=== PATIENT | female | born 1935 | race Caucasian/White ===

== ENCOUNTER 2019-08-14 22:33 | Observation (INO) | payer OTHER ==
[~2019-08-14] VITALS: Ht 200.7 cm; Wt 67.6 kg
[~2019-08-14 22:33] MED LIST: AMITRIPTYLINE H25 MG PO; AMLODIPINE BESY10 MG PO; DIOVAN320 MG PO; LEVEMIR100 UNIT/1 SQ; METOPROLOL TART50 MG PO
--- OUTSIDE RECORDS SUMMARY | 2019-08-14 22:35 | XMS REPORT ---
Author Author [facility] Address Unknown Phone Unavailable Care Team Providers Care Paper Cleaner Name Role Phone Unavailable Unavailable Payers Payer Name Policy Type Policy Number Effective Date Expiration Date Problems This patient has no known problems. Allergies, Adverse Reactions, Alerts This patient has no known allergies or adverse reactions. Medications This patient has no known medications.
[2019-08-14 23:17] LABS: BASOPHILS % 0.3 % (0.0-1.0); EOSINOPHILS # (AUTO) 0.2 (0.0-0.4); EOSINOPHILS % 2.6 % (0.0-6.0); HEMATOCRIT 36.6 % (34.2-44.1); HEMOGLOBIN 11.7 g/dL (12.0-16.0); LYMPHOCYTES # (AUTO) 2.6 (1.0-3.2); LYMPHOCYTES % 29.4 % (18.0-39.1); MEAN CORPUSCULAR HEMOGLOBIN 30.2 pg (28-32); MEAN CORPUSCULAR VOLUME 94.3 fL (81-99); MONOCYTES # (AUTO) 0.5 (0.2-0.8); MONOCYTES % 5.6 % (4.4-11.3); NEUTROPHILS # (AUTO) 5.5 (2.1-6.9); NEUTROPHILS % 61.9 % (38.7-80.0); PLATELET COUNT 288 x10e3/uL (140-360); RED BLOOD COUNT 3.88 x10e6/uL (3.6-5.1); RED CELL DISTRIBUTION WIDTH 12.6 % (11.7-14.4)
[2019-08-14 23:27] LABS: ALBUMIN 3.4 g/dL (3.5-5.0); ALBUMIN/GLOBULIN RATIO 0.9 (0.8-2.0); ANION GAP 16.3 mmol/L (8-16); CALCIUM 9.2 mg/dL (8.4-10.2); CREATININE, SERUM 1.43 mg/dL (0.57-1.11); POTASSIUM 4.3 mmol/L (3.5-5.1)
[2019-08-14 23:37] LABS: CREATINE KINASE MB 1.3 ng/mL (0-5.0)
--- NOTE | 2019-08-14 23:47 | Diagnostic Imaging Report ---
EXAMINATION: CHEST 2 VIEWS INDICATION: Chest pain, short of breath COMPARISON: None FINDINGS: TUBES and LINES: None. LUNGS: Hyperinflated lungs with flattened hemidiaphragms. Prominent pulmonary interstitial lung markings with mid to upper lung lucencies No consolidations. Mild prominence of central pulmonary vasculature. PLEURA: No pleural effusion or pneumothorax. HEART AND MEDIASTINUM: The cardiomediastinal silhouette is unremarkable. There are atherosclerotic calcifications within the aorta. BONES AND SOFT TISSUES: Degenerative changes in the spine and shoulders. Soft tissues are unremarkable. UPPER ABDOMEN: No free air under the diaphragm. IMPRESSION: Findings of pulmonary emphysema. Mild pulmonary vascular congestion. Signed by: Bryan Huizar DO on 08/14/2019 11:44 PM
[2019-08-15 06:26] LABS: CREATINE KINASE MB 3.2 ng/mL (0-5.0)
[2019-08-15 06:44] LABS: CHOL/HDL RATIO 4.6 (3.0-3.6)
[2019-08-15] MEDS ORDERED: INSULIN REGULAR, HUMAN 100 UNIT/1 ML 3ML VIAL IV ONE (06:45)
[2019-08-15] MEDS ORDERED: DEXTROSE 50% SYRINGE 50 ML IV PRN (07:00)
[2019-08-15] MEDS: INSULIN REGULAR, HUMAN 100 UNIT/1 ML 3ML VIAL SQ SCH ×4 (07:11→21:00)
[2019-08-15 14:07] VITALS: BP 168/74
[2019-08-15] MEDS ORDERED: REGADENOSON 0.4 MG/5 ML SYR IV ONE (14:34)
[2019-08-15 14:44] VITALS: BP 169/77
--- NOTE | 2019-08-15 15:27 | NUR ---
Pt received to room from ER at this time. Pt is aox4 and able to verbalize needs. Pt denies any pain at this time. Pt will be going for stress test in 10 mins. Denies any chest pain and denies any SOB.
[2019-08-15] MEDS ORDERED: HYDRALAZINE HCL 10 MG TAB PO ONE (15:30)
--- NOTE | 2019-08-15 15:30 | NUR ---
Pt came to floor at 1407 from ER and went to nuclear meds at 1500 for procedure.
[2019-08-15 15:34] LABS: CREATINE KINASE MB 3.5 ng/mL (0-5.0)
[2019-08-15] MEDS ORDERED: HYDRALAZINE HCL 20 MG/ML VIAL IV PRN (15:45)
--- NOTE | 2019-08-15 15:53 | Consultation ---
DATE OF CONSULTATION: 08/15/2019 Cardiology Consult. HISTORY OF PRESENT ILLNESS: The patient, Freda Ruvalcaba, is an 83-year-old female with a primary history of hypertension, diabetes, hypothyroidism, anxiety, previous smoker, who admitted complaining of intermittent central chest pain, radiating to the shoulders, and the jaw. The chest pain started approximately a month ago and the longest she experienced was an hour. The last time she had chest pain was yesterday twice with the same in quality and intensity and related with activities. The patient also reports shortness of breath and palpitations, but denies nausea and vomiting. MEDICAL HISTORY: Hypertension, diabetes, hypothyroidism, and anxiety. SURGICAL HISTORY: Appendectomy and back surgeries x3. MEDICATIONS: She said she only takes insulin for her diabetes and thyroid pill levothyroxine. SOCIAL HISTORY: The patient quit smoking three years ago. FAMILY HISTORY: Mom and dad of cancer. PHYSICAL EXAMINATION: VITAL SIGNS: This morning, blood pressure 179/79, pulse of 70, respiratory rate of 20, and pulse ox of 100% on 3 L nasal cannula. GENERAL APPEARANCE: The patient is well developed and well nourished, in no acute distress. HEAD: Normocephalic and atraumatic. Eyes, pupils are equal, round, reactive to light and accommodation. Sclerae nonicteric. Ears and nose normal. Oral cavity, mucosa is moist. Throat has small amount of yellow phlegm or discharge. NECK/THYROID: Neck supple. Full range of motion. No cervical lymphadenopathy. SKIN: Warm and dry. No suspicious lesions. CARDIOVASCULAR: Regular rate and rhythm. S1, S2 audible. There is 2/6 diastolic murmur. LUNGS: Clear to auscultation bilaterally. ABDOMEN: Soft, nontender, and nondistended. Bowel sounds are present and normal. EXTREMITIES: No clubbing, no cyanosis or edema. NEUROLOGIC: Nonfocal. Motor strength normal to upper and lower extremities. Sensorium exam is intact. IMPRESSION AND PLAN: The patient is an 83-year-old with stable angina and borderline troponin. 1. Monitor on telemetry. Control blood pressure. 2. Echocardiogram. 3. Nuclear stress testing. 4. Further recommendations will follow according to the patient's clinical course. Thank you for this consultation. We will continue to follow. Dictated by Asya Donnelly NP MD BETITO Torres/TERI /[id number]
[2019-08-15] MEDS ORDERED: ISOSORBIDE MONONITRATE 20 MG TAB PO SCH (16:00)
[2019-08-15 16:31] VITALS: BP 168/74
[2019-08-15] MEDS: AMLODIPINE BESYLATE 10 MG TAB PO SCH (17:23)
[2019-08-15] MEDS ORDERED: ACETAMINOPHEN 325 MG TAB PO PRN (17:30)
--- NOTE | 2019-08-15 18:42 | NUR ---
Dr. Sorensen here to see pt and received orders for heart cath on Tuesday08/17/19.
--- NOTE | 2019-08-15 19:42 | NUR ---
Received change of shift report from AM nurse. Walking rounds completed.
[2019-08-15] MEDS ORDERED: ALBUTEROL/IPRATROPIUM 3 ML NEB NEB PRN (19:45)
[2019-08-15] MEDS: METOPROLOL TARTRATE 25 MG TAB PO SCH (19:45)
[2019-08-15] MEDS: SODIUM CHLORIDE 0.9% 1000ML 1,000 ML IV SCH (19:45)
[2019-08-15 20:00] VITALS: BP 117/55
[2019-08-15] MEDS ORDERED: NICARDIPINE HCL 20 MG PO SCH (21:00)
[2019-08-15] MEDS: BENZONATATE 100 MG CAP PO SCH (21:00)
[2019-08-15] MEDS: INSULIN GLARGINE 100 UNITS/ML VIAL SQ SCH (21:00)
[2019-08-15] MEDS ORDERED: HYDRALAZINE HCL 10 MG TAB PO SCH (22:00)
[2019-08-16] VITALS (8 sets, daily range): BP systolic 125–165; BP diastolic 58–69
--- NOTE | 2019-08-16 00:55 | Operative Report ---
DATE OF PROCEDURE: SURGEON: Evan Sorensen MD PROCEDURE: Lexiscan nuclear stress test. INDICATION: Chest pain. COMPLICATIONS: None. TECHNIQUE: The patient was given 11 mCi of Myoview. Resting images were obtained in the horizontal long axis, vertical long axis, and short axis. The patient was then hooked up to the EKG machine. Lexiscan was infused over 15 seconds. During Lexiscan infusion, the patient had no chest pain and no EKG changes. Immediately after Lexiscan infusion, the patient was given 33 mCi of Myoview. Stress images were obtained 30 minutes after completion of Lexiscan infusion. Stress images were obtained in the horizontal long axis, vertical long axis, and short axis. Results are as follows: 1. The resting EKG demonstrated normal sinus rhythm with a left bundle-branch block. 2. There were no EKG changes and no symptoms during Lexiscan infusion. 3. There was diminished perfusion to the posterior wall on the stress images. 4. There was normal left ventricular size and function with an ejection fraction of 53%. CONCLUSION: There was a reversible defect in the posterior wall concerning for ischemia. Evan Sorensen MD [facility]/MODL /[id number]
[2019-08-16] MEDS: ALBUTEROL/IPRATROPIUM 3 ML NEB NEB SCH ×4 (01:00→19:30)
--- NOTE | 2019-08-16 05:00 | NUR ---
Patient resting in bed with at bedside. Patient denies pain at this time.
[2019-08-16] MEDS: ISOSORBIDE MONONITRATE 30 MG TAB CR PO SCH ×2 (05:29→09:05)
[2019-08-16 06:19] LABS: ANION GAP 9.9 mmol/L (8-16); CALCIUM 9.4 mg/dL (8.4-10.2); CREATININE, SERUM 0.92 mg/dL (0.57-1.11); POTASSIUM 3.9 mmol/L (3.5-5.1)
--- NOTE | 2019-08-16 07:30 | NUR ---
PT UP IN BED RESTING NO S/S DISCOMFORT.
[2019-08-16] MEDS: INSULIN REGULAR, HUMAN 100 UNIT/1 ML 3ML VIAL SQ SCH ×4 (08:30→20:39)
[2019-08-16] MEDS ORDERED: AMLODIPINE BESYLATE 10 MG TAB PO SCH (09:00)
--- NOTE | 2019-08-16 09:00 | NUR ---
ECHO IN PROCESS,PT DENIES CHEST PAIN,DR CARDONA HERE
[2019-08-16] MEDS: METOPROLOL TARTRATE 25 MG TAB PO SCH ×2 (09:06→17:00)
[2019-08-16] MEDS: AMLODIPINE BESYLATE 10 MG TAB PO SCH (09:06)
[2019-08-16] MEDS: BENZONATATE 100 MG CAP PO SCH ×3 (09:07→20:38)
[2019-08-16] MEDS: SODIUM CHLORIDE 0.9% 1000ML 1,000 ML IV SCH ×2 (09:30→18:36)
--- NOTE | 2019-08-16 14:09 | NUR ---
PT IS OBS DAY 2. GATED STRESS TEST 08/15/2019. SCHEDULED HEART CATH 08/17/2019. SENT TO R1 FOR LOC DETERMINATION.
--- NOTE | 2019-08-16 15:39 | NUR ---
R1 DETERMINATION: [facility]CTX case account ending in 2422 has been reviewed and completed by PAS Physicians. Service Line: Level of Care (LOC) / Admission Status Review Initial patient type was submitted as: IO - Initial Observation PAS Recommendation: OU
--- NOTE | 2019-08-16 16:08 | NUR ---
Nutrition Screen Note RD Recommendation for Physician: -Recommend cardiac/diabetic diet Plan of Care: RD following, monitoring for tolerance and adequacy Nutrition reason for involvement: Nutrition Risk Score MST 4 Primary Diagnose(s): chest pain PMH: HTN, diabetes, hypothyroid, anxiety Ht: 66 in (per pt) Wt:149 lb BMI: 24 kg/m2 IBW:[address] Assessment: (08/15) Chart reviewed. Labs and meds reviewed. Pt is an 83 year old female admitted with chest pain. Pt reports she has been eating all of her meals. It is recorded that pt consumed 75% of her dinner meal yesterday. Pt was unsure of any recent weight changes. No N/V/D/C or chewing/swallowing issues. Will continue to monitor. Current Diet: cardiac diet Malnutrition Evaluation (08/16/19) The patient does not meet criteria for a specified degree of malnutrition at this time. Will re-evaluate at follow-up as appropriate. Diet Education Needs Assessment: Pt was not interested in diet education materials at time of visit. RD is available for diet education as needed. Nutrition Care Level: low Signed: Shreya Cole, RD, LD
--- NOTE | 2019-08-16 18:36 | NUR ---
PRT UP IN BED NO DISTRESS NTOED,DENIES CHEST PAIN,
--- NOTE | 2019-08-16 20:00 | NUR ---
Received change of shift report from AM nurse. Walking rounds completed
[2019-08-16] MEDS: INSULIN GLARGINE 100 UNITS/ML VIAL SQ SCH (20:39)
--- NOTE | 2019-08-16 21:50 | NUR ---
Patient received night meds and insulin for BS 293 SS and lantus to left upper arm. Patient tolerated well. Patient refused snack. at bedside. Continue monitor.
--- NOTE | 2019-08-16 22:06 | NUR ---
Report given to Mary Beth WALLS. Patient going to room 113.
--- NOTE | 2019-08-16 22:15 | NUR ---
PT ARRIVED TO ROOM 113 ON HOSPITAL BED. PT IS AAOX3, RR EVEN AND NON-LABORED, ON ROOM AIR. NO S/SX OF DISTRESS NOTED. ORIENTED PT TO NEW HOSPITAL ROOM. FAMILY AT BEDSIDE. LEFT PT LAYING SEMI FOWLERS IN BED, BED IN LOW LOCKED POSITION, SIDE RAILS UPX2, CALL LIGHT AND PHONE WITHIN REACH.
[2019-08-17] MEDS: ALBUTEROL/IPRATROPIUM 3 ML NEB NEB SCH ×3 (01:00→13:15)
[2019-08-17] MEDS: SODIUM CHLORIDE 0.9% 1000ML 1,000 ML IV SCH ×2 (01:45→13:56)
[2019-08-17 02:25] VITALS: BP 145/56
[2019-08-17 04:00] VITALS: BP 167/65
[2019-08-17] MEDS: INSULIN REGULAR, HUMAN 100 UNIT/1 ML 3ML VIAL SQ SCH ×2 (07:30→11:30)
--- NOTE | 2019-08-17 08:10 | NUR ---
C/O CHEST PAIN. MAIL CARRIER HERE AND SAW PATIENT. ORDERED STAT EKG AND NITRO SL. SAME GIVEN WITH GOOD RESULTS. BP 187/84.
[2019-08-17 08:13] VITALS: BP 167/65
[2019-08-17 08:16] VITALS: BP 183/78
[2019-08-17] MEDS ORDERED: NITROGLYCERIN 0.4 MG SUBL ONE (08:16)
[2019-08-17] MEDS: ISOSORBIDE MONONITRATE 30 MG TAB CR PO SCH (09:00)
[2019-08-17] MEDS: METOPROLOL TARTRATE 25 MG TAB PO SCH (09:00)
[2019-08-17] MEDS: BENZONATATE 100 MG CAP PO SCH (09:00)
[2019-08-17] MEDS: AMLODIPINE BESYLATE 10 MG TAB PO SCH (09:00)
--- NOTE | 2019-08-17 10:00 | NUR ---
C/O CHEST PAIN. BP 202/81. MEDICATED WITH NITRO SL X1. AFTER 5 MINUTES CHEST PAIN RESOLVED, BP 161/80
[2019-08-17 10:01] LABS: CREATINE KINASE MB 0.9 ng/mL (0-5.0)
--- NOTE | 2019-08-17 10:15 | NUR ---
PT C/O HEADACHE. MD OFFICE CALLED, MD AND NURSE IN PROCEDURE, WILL CALL ME BACK PER OFFICE STAFF
--- NOTE | 2019-08-17 10:57 | NUR ---
bp 218/83. iv Apresoline administered
--- NOTE | 2019-08-17 11:16 | NUR ---
RECALLED DR. SALCEDO OFFICE. THEY WILL PAGE /ERASMO MARCIAL AGAIN FOR ORDERS. PATIENT IS C/O HEADACHE
[2019-08-17] MEDS ORDERED: MIDAZOLAM HCL 2 MG/2 ML VIAL ONE (11:34)
[2019-08-17] MEDS ORDERED: LIDOCAINE HCL 2% LOCAL 20 ML VIAL ONE (11:35)
[2019-08-17] MEDS ORDERED: IOPAMIDOL 370 MG/ML 200 ML INFUS..BTL INJ ONE (11:35)
[2019-08-17] MEDS ORDERED: FENTANYL CITRATE/PF 100MCG/2 ML INJ ONE (11:35)
[2019-08-17] MEDS ORDERED: HEPARIN SOD/SOD CHLORIDE 2,000 ML ONE (11:35)
[2019-08-17] MEDS ORDERED: SODIUM CHLORIDE 0.9% 1000ML 1,000 ML ONE (11:36)
[2019-08-17 11:46] VITALS: BP 218/86
[2019-08-17] MEDS ORDERED: DIPHENHYDRAMINE HCL INJ 50 MG/ML VIAL IV NR (12:00)
[2019-08-17] MEDS ORDERED: METHYLPREDNISOLONE SOD SUCC 125 MG/2ML VIAL IV NR (12:00)
[2019-08-17] MEDS ORDERED: LABETALOL HCL 20 ML ONE (12:08)
[2019-08-17 12:50] VITALS: BP 140/65
--- NOTE | 2019-08-17 20:05 | Operative Report ---
DATE OF PROCEDURE: 08/17/2019 SURGEON: Evan Sorensen MD PREOPERATIVE DIAGNOSIS: Non-ST elevation myocardial infarction. POSTOPERATIVE DIAGNOSIS: Non-ST elevation myocardial infarction. PROCEDURE: Left heart catheterization. COMPLICATIONS: None. ANESTHESIA: Conscious sedation. DESCRIPTION OF PROCEDURE: The right groin was draped and prepped in the usual fashion. The area was anesthetized with lidocaine. Standard Seldinger technique was used to place a 6-Swedish sheath into the right femoral artery without difficulty. A JL4 catheter was used to selectively engage the left coronary artery. A 3DRC catheter was used to selectively engage the right coronary artery. A pigtail catheter was used to perform a left ventriculogram. There were no complications. RESULTS: As follows: 1. There is a normal left main trunk. 2. There is a calcified left anterior descending artery, which gave rise to a medium-sized diagonal branch. There was 95% stenosis in the proximal portion of the left anterior descending artery and a long area of cylindrical line up to 80% in the mid left anterior descending artery. 3. There was a medium-sized AV circumflex artery, which was codominant and gave rise to a large bifurcating obtuse marginal branch. There was 95% stenosis in the proximal AV circumflex artery, and about 90% stenosis in the proximal obtuse marginal branch. 4. There was a medium-sized codominant right coronary artery with 100% occlusion proximally at its very origin. The distal vessel filled by collaterals. 5. There was normal left ventricular size and function with an ejection fraction of 55%. CONCLUSION: The patient has severe three-vessel coronary artery disease. It is not amenable to coronary intervention. The patient will be referred for evaluation for coronary artery bypass graft. Evan Sorensen MD [facility] /[id number] cc: Haroon Dillard MD
--- NOTE | 2019-08-21 15:17 | EXERCISE STRESS TEST ---
DATE OF STUDY: 08/15/2019 09:10:00 Stress Test - Treadmill ONLY PROCEDURE: Lexiscan nuclear stress test. INDICATION: Chest pain. COMPLICATIONS: None. TECHNIQUE: The patient was given 11 mCi of Myoview. Resting images were obtained in the horizontal long axis, vertical long axis, and short axis. The patient was then hooked up to the EKG machine. Lexiscan was infused over 15 seconds. During Lexiscan infusion, the patient had no chest pain and no EKG changes. Immediately after Lexiscan infusion, the patient was given 33 mCi of Myoview. Stress images were obtained 30 minutes after completion of Lexiscan infusion. Stress images were obtained in the horizontal long axis, vertical long axis, and short axis. Results are as follows: 1. The resting EKG demonstrated normal sinus rhythm with a left bundle-branch block. 2. There were no EKG changes and no symptoms during Lexiscan infusion. 3. There was diminished perfusion to the posterior wall on the stress images. 4. There was normal left ventricular size and function with an ejection fraction of 53%. CONCLUSION: There was a reversible defect in the posterior wall concerning for ischemia. Evan Sorensen MD [facility]/MODL /[id number]
== END 2019-08-17 15:03 | disposition short-term general hospital (02) ==
LOC: ER 22:33 → ERHOLD 23:58 → MED/SURG3 08-15 14:19 → MED/SURG 08-16 22:27
PROVIDERS: ADMIT Internal Medicine; ATTEND Internal Medicine
DX: I21.4 Non-ST elevation (NSTEMI) myocardial infarction (principal); I25.10 Atherosclerotic heart disease of native coronary artery without angina pectoris; E11.9 Type 2 diabetes mellitus without complications; E03.9 Hypothyroidism, unspecified; F41.9 Anxiety disorder, unspecified; Z88.0 Allergy status to penicillin; Z91.041 Radiographic dye allergy status; I10 Essential (primary) hypertension; E78.5 Hyperlipidemia, unspecified; J44.9 Chronic obstructive pulmonary disease, unspecified; Z87.891 Personal history of nicotine dependence; Z79.4 Long term (current) use of insulin
CPT/HCPCS: 36415 ×3; 71046; 78452; 80048; 80053; 80061; 82550 ×3; 82553 ×3; 82948 ×3; 83036; 84443; 84484 ×3; 85025; 93005 ×2; 93017; 93306; 93458; 94640 ×2; 99284; A9502; C1769; G0378 ×4; J0360; J1200; J1815; J1817; J2001; J2250; J2785; J2930; J3010; J3490; J7030 ×3; Q9967; 99152; 99153

== ENCOUNTER 2020-01-21 20:39 | Observation (INO) | payer MEDICARE, OTHER ==
[~2020-01-21] VITALS: Ht 170.2 cm; Wt 78.9 kg
[2020-01-21] MEDS ORDERED: CEFEPIME 1GM/NS 0.9% 50 ML 50 ML IV STA (21:04)
[2020-01-21] MEDS ORDERED: AZITHROMYCIN 500MG/NS 250 ML 250 ML IV STA (21:04)
[2020-01-21] MEDS ORDERED: SODIUM CHLORIDE 0.9% 1000ML 1,000 ML IV STA ×2 (21:04)
[2020-01-21 21:06] LABS: BASOPHILS # (AUTO) 0.1 (0.0-0.1); BASOPHILS % 0.5 % (0.0-1.0); EOSINOPHILS # (AUTO) 0.8 (0.0-0.4); EOSINOPHILS % 8.1 % (0.0-6.0); HEMATOCRIT 31.6 % (34.2-44.1); LYMPHOCYTES # (AUTO) 2.5 (1.0-3.2); LYMPHOCYTES % 25.1 % (18.0-39.1); MEAN CORPUSCULAR HEMOGLOBIN 29.9 pg (28-32); MEAN CORPUSCULAR HGB CONC 31.6 g/dL (31-35); MEAN CORPUSCULAR VOLUME 94.3 fL (81-99); MONOCYTES # (AUTO) 0.7 (0.2-0.8); MONOCYTES % 6.9 % (4.4-11.3); NEUTROPHILS # (AUTO) 5.8 (2.1-6.9); NEUTROPHILS % 59.1 % (38.7-80.0); PLATELET COUNT 241 x10e3/uL (140-360); RED BLOOD COUNT 3.35 x10e6/uL (3.6-5.1); RED CELL DISTRIBUTION WIDTH 14.2 % (11.7-14.4)
[2020-01-21 21:20] LABS: ALBUMIN 3.1 g/dL (3.5-5.0); ALBUMIN/GLOBULIN RATIO 0.9 (0.8-2.0); ANION GAP 12.3 mmol/L (8-16); CALCIUM 8.9 mg/dL (8.4-10.2); CREATININE, SERUM 1.29 mg/dL (0.57-1.11); POTASSIUM 4.3 mmol/L (3.5-5.1)
[2020-01-21 21:27] LABS: CREATINE KINASE MB 1.6 ng/mL (0-5.0)
[2020-01-21] MEDS ORDERED: LEVOFLOXACIN 750MG/D5W 150ML 150 ML IV STA (21:29)
--- NOTE | 2020-01-21 22:00 | NUR ---
PT PLACED ON PUREWICK AT THIS TIME, DOES NOT WANT CATH FOR UA.
--- NOTE | 2020-01-21 22:31 | Emergency Department Note ---
History of Present Illnes History of Present Illness Chief Complaint: General Medicine Complaints History of Present Illness This is a 84 year old female arrived to the ED at family's insistence for low blood pressure.. Historian: Patient Arrival Mode: [place] Severity: mild Timing of current episode: intermittent Progression: unchanged Chronicity: new Past Medical/Family History Physician Review I have reviewed the patient's past medical and family history. Any updates have been documented here. Past Medical History Recent Fever: No Clinical Suspicion of Infectio: No New/Unexplained Change in Ment: No Past Medical History: Hypertension, Diabetes, MT, Hypothyroidism, Anxiety Other Medical History: ANXIETY Past Surgical History: None Other Surgery: BACK SURGERIES X 3 CARDIAC STENTS Social History Smoking Cessation: Former smoker Alcohol Use: Occasional Any Illegal Drug Use: No Other Last Tetanus: 3-4 YEARS AGO Any Pre-Existing Lines (PICC,: No Review of Systems Review of Systems Constitutional: Reports as per HPI, Reports fever, Reports weakness EENTM: Reports no symptoms Cardiovascular: Reports no symptoms Respiratory: Reports no symptoms Gastrointestinal: Reports no symptoms Genitourinary: Reports no symptoms Musculoskeletal: Reports no symptoms Integumentary: Reports no symptoms Neurological: Reports no symptoms Psychological: Reports no symptoms Endocrine: Reports no symptoms Hematological/Lymphatic: Reports no symptoms Physical Exam Related Data Allergies: Coded Allergies: Penicillins (Verified Allergy, Mild, 06/15/09) iodine (Verified Allergy, Mild, 06/15/09) Triage Vital Signs Vital Signs Date Time Temp Pulse Resp B/P (MAP) Pulse Ox O2 Delivery O2 Flow Rate FiO2 01/21/20 20:47 97.3 56 20 91/51 94 Room Air 01/21/20 21:16 2.0 Vital signs reviewed: Yes Physical Exam CONSTITUTIONAL Constitutional: Present well-developed, Present well-nourished HENT HENT: Present normocephalic, Present atraumatic, Present oropharynx clear/moist, Present nose normal HENT L/R: Present left ext ear normal, Present right ext ear normal EYES Eyes: Reports PERRL, Reports conjunctivae normal NECK Neck: Present ROM normal PULMONARY Pulmonary: Present effort normal, Present breath sounds normal CARDIOVASCULAR Cardiovascular: Present regular rhythm, Present heart sounds normal, Present capillary refill normal, Present normal rate GASTROINTESTINAL Abdominal: Present soft, Present nontender, Present bowel sounds normal GENITOURINARY Genitourinary: Present exam deferred SKIN Skin: Present warm, Present dry MUSCULOSKELETAL Musculoskeletal: Present ROM normal NEUROLOGICAL Neurological: Present alert, Present oriented x 3, Present no gross motor or sensory deficits PSYCHOLOGICAL Psychological: Present mood/affect normal, Present judgement normal Results Laboratory Result Diagram: 01/21/20204701/21/202047 Laboratory Laboratory Tests Test 01/21/20 20:48 White Blood Count 9.79 x10e3/uL (4.8-10.8) Red Blood Count 3.35 x10e6/uL (3.6-5.1) Hemoglobin 10.0 g/dL (12.0-16.0) Hematocrit 31.6 % (34.2-44.1) Mean Corpuscular Volume 94.3 fL (81-99) Mean Corpuscular Hemoglobin 29.9 pg (28-32) Mean Corpuscular Hemoglobin Concent 31.6 g/dL (31-35) Red Cell Distribution Width 14.2 % (11.7-14.4) Platelet Count 241 x10e3/uL (140-360) Neutrophils (%) (Auto) 59.1 % (38.7-80.0) Lymphocytes (%) (Auto) 25.1 % (18.0-39.1) Monocytes (%) (Auto) 6.9 % (4.4-11.3) Eosinophils (%) (Auto) 8.1 % (0.0-6.0) Basophils (%) (Auto) 0.5 % (0.0-1.0) Neutrophils # (Auto) 5.8 (2.1-6.9) Lymphocytes # (Auto) 2.5 (1.0-3.2) Monocytes # (Auto) 0.7 (0.2-0.8) Eosinophils # (Auto) 0.8 (0.0-0.4) Basophils # (Auto) 0.1 (0.0-0.1) Absolute Immature Granulocyte (auto 0.03 x10e3/uL (0-0.1) Sodium Level 135 mmol/L (136-145) Potassium Level 4.3 mmol/L (3.5-5.1) Chloride Level 103 mmol/L (98-107) Carbon Dioxide Level 24 mmol/L (22-29) Anion Gap 12.3 mmol/L (8-16) Blood Urea Nitrogen 16 mg/dL (7-26) Creatinine 1.29 mg/dL (0.57-1.11) Estimat Glomerular Filtration Rate 39 ML/MIN (60-) BUN/Creatinine Ratio 12 (6-25) Glucose Level 170 mg/dL (74-118) Lactic Acid Level 1.5 mmol/L (0.5-2.0) Calcium Level 8.9 mg/dL (8.4-10.2) Total Bilirubin 0.3 mg/dL (0.2-1.2) Aspartate Amino Transf (AST/SGOT) 41 IU/L (5-34) Alanine Aminotransferase (ALT/SGPT) 35 IU/L (0-55) Alkaline Phosphatase 156 IU/L (40-150) Creatine Kinase 35 IU/L (29-168) Creatine Kinase MB 1.60 ng/mL (0-5.0) Troponin I 0.019 ng/mL (0-0.300) Total Protein 6.6 g/dL (6.5-8.1) Albumin 3.1 g/dL (3.5-5.0) Globulin 3.5 g/dL (2.3-3.5) Albumin/Globulin Ratio 0.9 (0.8-2.0) Lipase 16 U/L (8-78) Lab results reviewed: Yes Assessment & Plan Medical Decision Making MDM 84-year-old female brought to the ED after family had concerns of low blood pressure, blood pressure improved in the emergency department. Patient noted to have a urinary tract infection, Rocephin given concerns of severe sepsis as patient had no organ dysfunction and no further surgical criteria. Patient stable for admission. His mild hypotension likely secondary to dehydration and not the cause of an infectious process. Assessment & Plan Final Impression: (1) UTI (urinary tract infection) Depart Disposition: ADMITTED Last Vital Signs Date Time Temp Pulse Resp B/P (MAP) Pulse Ox O2 Delivery O2 Flow Rate FiO2 01/21/20 21:16 54 15 94/42 97 Nasal Cannula 2.0 01/21/20 20:47 97.3 Home Meds Reported Medications Insulin Detemir (LEVEMIR) 100 Unit/1 Ml Vial, 4 UNITS SQ BIDBL 05/23/12 Medications in the ED Sodium Chloride 1,000 ml @ 0 mls/hr Q0M STAT IV Last administered on 8/10/20at 21:11; Admin Dose 999 MLS/HR; Start 01/21/20 at 21:04; Stop 01/21/20 at 21:05 Sodium Chloride 1,000 ml @ 0 mls/hr Q0M STAT IV ; Start 01/21/20 at 21:04; Stop 01/21/20 at 21:05 Cefepime HCl 50 ml @ 100 mls/hr Q24H STAT IV ; Start 01/21/20 at 21:04; Stop 01/21/20 at 21:31; Status DC Azithromycin 250 ml @ 250 mls/hr NOW STAT IV ; Start 01/21/20 at 21:04; Stop 01/21/20 at 22:03 Levofloxacin/ Dextrose 150 ml @ 100 mls/hr NOW STAT IV ; Start 01/21/20 at 21:29; Stop 01/21/20 at 22:58 DIPAK MARIN DO Jan 21, 2020 22:31
--- NOTE | 2020-01-21 22:40 | Diagnostic Imaging Report ---
EXAMINATION: CHEST SINGLE (PORTABLE) INDICATION: ^Y ^low BP COMPARISON: 08/14/2019 FINDINGS: AP view TUBES and LINES: None. LUNGS: Lungs are well inflated. Mildly prominent interstitial lung markings. PLEURA: No significant pleural effusion or pneumothorax. HEART AND MEDIASTINUM: The cardiomediastinal silhouette is unremarkable. BONES AND SOFT TISSUES: No acute osseous lesion. Soft tissues are unremarkable. UPPER ABDOMEN: No free air under the diaphragm. IMPRESSION: Mildly prominent interstitial lung markings, could be chronic or represent mild interstitial edema. No definite focal consolidations. Signed by: Dr. Chuckie Siddiqui MD on 01/21/2020 10:36 PM
--- OUTSIDE RECORDS SUMMARY | 2020-01-21 23:56 | XMS REPORT | Clinical Summary ---
Author Author ROBI [facility] Organization [facility] Address Unknown Phone Unavailable Care Team Providers Care Button Broacher Name Role Phone Gilma Suni Scott PCP Suni Sutton 31 Unavailable Allergies Comments Active Allergy Reactions Severity Noted Date Iodine And Iodide Anaphylaxis High 08/17/2019 Containing Products Penicillins High 08/17/2019 Medications End Date Status Medication Sig Dispensed Refills Start Date Active acetaminophen-codeine Take 300 mg 2 07/02/19 2 (TYLENOL #3) 300-30 mg by mouth 0 per tablet every 6 (six) hours as needed. Active levothyroxine (SYNTHROID, Take 50 mcg 3 06/14 LEVOTHROID) 50 MCG tablet by mouth 0 daily. Active amLODIPine (NORVASC) 10 Take 1 tablet 30 tablet 0 MG tablet (10 mg total) 0 by mouth daily. Active atorvastatin (LIPITOR) 80 Take 1 tablet 30 tablet 0 MG tablet (80 mg total) 0 by mouth nightly. Active carvediloL (COREG) 25 MG Take 1 tablet 60 tablet 0 tablet (25 mg total) 0 by mouth 2 (two) times daily with breakfast and dinner. 08/22/2020 Active senna-docusate (SENOKOT Take 2 30 tablet 0 S) 8.6-50 mg per tablet tablets by 0 mouth daily as needed for Constipation. Active apixaban (ELIQUIS) 5 mg Take 1 tablet 60 tablet 0 Tab tablet (5 mg total) 0 by mouth 2 (two) times daily New blood thinner. Active amitriptyline (ELAVIL) 25 Take 25 mg by 0 MG tablet mouth nightly. Active isosorbide mononitrate Take 30 mg by 0 (IMDUR) 30 MG 24 hr mouth daily. tablet Active LEVEMIR FLEXTOUCH U-100 Inject 0.42 3 mL 3 INSULN 100 unit/mL (3 mL) mLs (42 Units 0 InPn injection total) subcutaneousl y 2 (two) times daily Inject 15u in the morning and 35u at night. Active clopidogreL (PLAVIX) 75 TAKE 1 TABLET 90 tablet 0 mg tablet BY MOUTH 0 EVERY DAY Active losartan (COZAAR) 25 MG TAKE 1 TABLET 90 tablet 0 tablet BY MOUTH 0 EVERY DAY 08/23/2019 Discontinued LEVEMIR FLEXTOUCH U-100 Inject 40 3 INSULN 100 unit/mL (3 mL) Units 0 InPn injection subcutaneousl y 2 (two) times daily. 12/05/2019 Discontinued aspirin 81 MG chewable Take 1 tablet 30 tablet 0 0 tablet (81 mg total) 0 by mouth daily. 12/05/2019 Discontinued LEVEMIR FLEXTOUCH U-100 Inject 15u in 3 mL 3 INSULN 100 unit/mL (3 mL) the morning 0 InPn injection and 35u at night. 12/05/2019 Discontinued clopidogreL (PLAVIX) 75 Take 1 tablet 90 tablet 0 mg tablet (75 mg total) 0 by mouth daily. 12/05/2019 Discontinued losartan (COZAAR) 25 MG Take 1 tablet 90 tablet 0 tablet (25 mg total) 0 by mouth daily. 01/04/2020 aspirin 81 MG chewable Take 1 tablet 30 tablet 0 0 tablet (81 mg total) 0 by mouth daily for 30 days. Active Problems Problem Noted Date CAD (coronary artery disease) 12/03/2019 Acute ischemic stroke 08/18/2019 Essential hypertension 08/18/2019 Type 2 diabetes mellitus 08/18/2019 Hyperlipidemia 08/18/2019 Atrial fibrillation 08/18/2019 COPD (chronic obstructive pulmonary disease) 020 Hypothyroidism 08/18/2019 NSTEMI (non-ST elevated myocardial infarction) 08/17 Coronary artery disease 08/17/2019 Encounters Care Team Description Date Type Specialty Kari Eason MD 01/02/2020 Refill Internal Medicine She Armstrong RN 12/06/2019 Documentation Kari Eason MD 12/05/2019 Refill Internal Medicine Brett Izquierdo MD L CATH & PCI 12/04/2019 Surgery Brett Izquierdo MD PCI 12/03/2019 Surgery Brett Izquierdo MD Kemal, Nejmudin Reshad, MD Acute ischemic stroke (HCC) (Primary Dx) ; Longstanding persistent atrial fibrillation (HCC); Coronary artery disease involving north fork coronary artery of north fork heart without angina pectoris; Essential hypertension; Mixed hyperlipidemia; Type 2 diabetes mellitus with diabetic polyneuropathy, without long-term current use of insulin (HCC); Paroxysmal atrial fibrillation (HCC); Chronic obstructive pulmonary disease, unspecified COPD type (HCC); Status post insertion of drug-eluting stent into left anterior descending (LAD) artery for coronary artery disease; Presence of drug-eluting stent in left circumflex coronary artery 12/03/2019 Hospital - Encounter 12/05/2019 12/03/2019 Orders Only General Internal Me Mauricio Brooks MD 08/23/2019 Refill Internal Medicine 08/18/2019 Travel Thierry Verduzco MD Coronary artery disease involving north fork coronary artery of north fork heart without angina pectoris; Paroxysmal atrial fibrillation (HCC); Essential hypertension; NSTEMI (non-ST elevated myocardial infarction) (HCC); Acute ischemic stroke (HCC) 08/17/2019 Hospital Cardiology - Encounter 08/23/2019 after 01/20/2019 Social History Date Tobacco Use Types Packs/Day Years Used Former Smoker Smokeless Tobacco: Never Used Alcohol Use Drinks/Week oz/Week Comments Yes sometimes Sex Assigned at Date Recorded Not on file Industry Job Start Date Occupation Not on file Not on file Not on file Travel End Travel History Travel Start No recent travel history available. Last Filed Vital Signs Time Taken Vital Sign Reading 12/05/2019 8:16 AM CDT Blood Pressure 141/61 12/05/2019 8:16 AM CDT Pulse 73 12/05/2019 8:16 AM CDT Temperature 36.8 C (98.2 F) 12/05/2019 8:16 AM CDT Respiratory Rate 18 12/05/2019 8:16 AM CDT Oxygen Saturation 97% 12/03/2019 10:59 PM CDT Inhaled Oxygen 21% Concentration 12/04/2019 8:07 AM CDT Weight 72.9 kg (160 lb 11.2 oz) 12/03/2019 5:51 AM CDT Height 170.2 cm (5' 7") 12/04/2019 8:07 AM CDT Body Mass Index 25.17 Plan of Treatment Not on file Implants Device Identifier Shelf Expiration Date Model / Serial / L ot Implanted Type Area Manufactur er [id number] 04/09/2021 [id number] / / [id number] Stent [employer] Otw 3.16l74ei IMPLANTS [place] [id number] - [id number] SCI:INTERV Implanted: Qty: 1 on 12/04/2019 by Brett Ashley MD [id number] 04/10/2021 [id number] / / [id number] [employer] Otw 2.94p50rz [employer]PLANTS [place] [id number] - [id number] SCI:INTERV Implanted: Qty: 1 on 12/04/2019 by Brett Ashley MD [id number] 04/09/2021 [id number] / / [id number] [employer] Otw 3.13t30pe IMPLANTS [place] [id number] - [id number] SCI:INTERV Implanted: Qty: 1 on 12/04/2019 by Brett Ashley MD [id number] 03/19/2021 [id number] / / [id number] St[employer] Otw 3.00x8mm IMPLANTS [place] [id number] - [id number] SCI:INTERV Implanted: Qty: 1 on 12/04/2019 by Brett Ashley MD [id number] 02/25/2021 [id number] / / [id number] [employer] Otw 2.45y36ni IMPLANTS [place] [id number] - [id number] SCI:INTERV Implanted: Qty: 1 on 12/04/2019 by Brett Ashley MD Procedures Comments Procedure Name Priority Date/Time Associated Diag nosis VASCULAR DIAGRAM -SCAN 12/14/2019 4:00 PM CDT RHYTHM STRIP - SCAN 12/06/2019 1:32 PM CDT VASCULAR DIAGRAM -SCAN 12/06/2019 1:32 PM CDT CARDIAC CATH REPORT - 12/06/2019 SCAN 1:32 PM CDT CARDIAC CATH REPORT - 12/06/2019 SCAN 1:32 PM CDT VASCULAR DIAGRAM -SCAN 12/05/2019 3:22 PM CDT CBC (HEMOGRAM ONLY) Routine 12/05/2019 4:41 AM CDT BASIC METABOLIC PANEL (7) Routine 12/05/2019 4:41 AM CDT POCT-GLUCOSE METER Routine 12/04/2019 8:36 PM CDT TRANSFUSION SERVICE 12/04/2019 REPORT - SCAN 6:33 PM CDT HEMOGLOBIN A1C Routine 12/04/2019 5:41 PM CDT POCT-GLUCOSE METER Routine 12/04/2019 4:54 PM CDT L CATH & PCI 12/04/2019 Coronary artery dis ease 3:10 PM CDT with angina pectoris, unspecified vessel or lesion type, unspecified whether north fork or transplanted heart (HCC) POCT-ACT Routine 12/04/2019 2:28 PM CDT POCT-GLUCOSE METER Routine 12/04/2019 12:19 PM CDT POCT-GLUCOSE METER Routine 12/04/2019 7:15 AM CDT POCT-GLUCOSE METER Routine 12/04/2019 5:59 AM CDT APTT Routine 12/04/2019 4:33 AM CDT APTT Routine 12/04/2019 2:05 AM CDT CBC (HEMOGRAM ONLY) Routine 12/04/2019 2:05 AM CDT BASIC METABOLIC PANEL (7) Routine 12/04/2019 2:05 AM CDT POCT-GLUCOSE METER Routine 12/04/2019 1:58 AM CDT APTT Routine 12/03/2019 11:03 PM CDT POCT-GLUCOSE METER Routine 12/03/2019 11:02 PM CDT APTT Routine 12/03/2019 9:26 PM CDT BASIC METABOLIC PANEL (7) KIKO 12/03/2019 9:26 PM CDT POCT-GLUCOSE METER Routine 12/03/2019 8:30 PM CDT POCT-GLUCOSE METER Routine 12/03/2019 6:44 PM CDT POCT-GLUCOSE METER Routine 12/03/2019 4:37 PM CDT APTT Routine 12/03/2019 3:07 PM CDT ECG 12-LEAD Routine 12/03/2019 1:58 PM CDT POCT-GLUCOSE METER Routine 12/03/2019 11:02 AM CDT PCI 12/03/2019 Coronary artery dis ease 7:30 AM CDT involving north fork coronary artery with angina pectoris, unspecified whether north fork or transplanted heart (HCC) Case Notes (1)CASE 6TOP ABORH, MANUAL STAT 12/03/2019 6:41 AM CDT ECG 12-LEAD Routine 12/03/2019 6:27 AM CDT Procedure Note - Interface, External Ris In - 12/03/2019 6:30 AM CDT Ventricula r Rate 54 BPM Atrial Rate 54 BPM P-R Interval 254 ms QRS Duration 146 ms Q-T Interval 496 ms QTC Calculatio n(Bazett) 470 ms P [place] 89 degrees R [place] -51 degrees T [place] 138 degrees Sinus bradycardi a with sinus arrhythmia with 1st degree A-V block Left axis deviation Left bundle branch block Abnormal ECG No previous ECGs available ECG 12-LEAD Routine 12/03/2019 6:27 AM CDT CBC W/PLT COUNT & AUTO STAT 12/03/2019 DIFFERENTIAL 6:22 AM CDT TYPE AND SCREEN, Routine 12/03/2019 AUTOMATED 6:22 AM CDT LIPID PANEL Add-On 12/03/2019 6:22 AM CDT CBC W/PLT COUNT & AUTO STAT 12/03/2019 DIFFERENTIAL 6:22 AM CDT BASIC METABOLIC PANEL (7) STAT 12/03/2019 6:22 AM CDT APTT STAT 12/03/2019 6:22 AM CDT PROTHROMBIN TIME/INR Routine 12/03/2019 6:22 AM CDT RHYTHM STRIP - SCAN 08/28/2019 2:11 PM CDT RHYTHM STRIP - SCAN 08/27/2019 11:01 AM CDT POCT-GLUCOSE METER Routine 08/23/2019 11:18 AM CDT POCT-GLUCOSE METER Routine 08/23/2019 7:42 AM CDT CBC (HEMOGRAM ONLY) Routine 08/23/2019 5:25 AM CDT POCT-GLUCOSE METER Routine 08/22/2019 9:08 PM CDT POCT-GLUCOSE METER Routine 08/22/2019 5:41 PM CDT POCT-GLUCOSE METER Routine 08/22/2019 12:03 PM CDT POCT-GLUCOSE METER Routine 08/22/2019 7:36 AM CDT CBC (HEMOGRAM ONLY) Routine 08/22/2019 6:16 AM CDT APTT Routine 08/22/2019 6:16 AM CDT ECHOCARDIOGRAM REPORT - 08/21/2019 SCAN 9:14 PM CDT POCT-GLUCOSE METER Routine 08/21/2019 9:13 PM CDT POCT-GLUCOSE METER Routine 08/21/2019 4:40 PM CDT POCT-GLUCOSE METER Routine 08/21/2019 11:38 AM CDT APTT Routine 08/21/2019 10:32 AM CDT POCT-GLUCOSE METER Routine 08/21/2019 8:39 AM CDT CBC (HEMOGRAM ONLY) Routine 08/21/2019 3:29 AM CDT APTT Routine 08/21/2019 3:29 AM CDT ECHOCARDIOGRAM REPORT - 08/20/2019 SCAN 9:12 PM CDT POCT-GLUCOSE METER Routine 08/20/2019 9:00 PM CDT APTT Routine 08/20/2019 8:15 PM CDT POCT-GLUCOSE METER Routine 08/20/2019 5:28 PM CDT LIMITED 2D ECHOCARDIOGRAM KIKO 08/20/2019 3:41 PM CDT POCT-GLUCOSE METER Routine 08/20/2019 1:10 PM CDT APTT Routine 08/20/2019 1:02 PM CDT 2D ECHO W/ DOPPLER KKIO 08/20/2019 (CW/PW/COLOR) 11:00 AM CDT POCT-GLUCOSE METER Routine 08/20/2019 8:21 AM CDT CBC (HEMOGRAM ONLY) Routine 08/20/2019 3:47 AM CDT APTT Routine 08/20/2019 3:47 AM CDT PHOSPHORUS Routine 08/20/2019 3:47 AM CDT MAGNESIUM Routine 08/20/2019 3:47 AM CDT BASIC METABOLIC PANEL (7) Routine 08/20/2019 3:47 AM CDT POCT-GLUCOSE METER Routine 08/19/2019 9:[address] BRAIN WITHOUT IV STAT 08/19/2019 CONTRAST 8:32 PM CDT POCT-GLUCOSE METER Routine 08/19/2019 6:05 PM CDT POCT-GLUCOSE METER Routine 08/19/2019 12:48 PM CDT APTT Routine 08/19/2019 9:13 AM CDT POCT-GLUCOSE METER Routine 08/19/2019 8:12 AM CDT CBC (HEMOGRAM ONLY) Routine 08/19/2019 5:35 AM CDT TROPONIN I Add-On 08/19/2019 1:42 AM SWIMMING POOL INSTALLER PHOSPHORUS Routine 08/19/2019 1:42 AM SWIMMING POOL INSTALLER MAGNESIUM Routine 08/19/2019 1:42 AM SWIMMING POOL INSTALLER BASIC METABOLIC PANEL (7) Routine 08/19/2019 1:42 AM SWIMMING POOL INSTALLER APTT Routine 08/19/2019 1:42 AM SWIMMING POOL INSTALLER PERIPHERAL VASCULAR 08/18/2019 REPORT - SCAN 9:10 PM SWIMMING POOL INSTALLER POCT-GLUCOSE METER Routine 08/18/2019 9:04 PM SWIMMING POOL INSTALLER MR BRAIN WITHOUT IV Routine 08/18/2019 CONTRAST 6:31 PM SWIMMING POOL INSTALLER POCT-GLUCOSE METER Routine 08/18/2019 5:25 PM SWIMMING POOL INSTALLER TROPONIN I Routine 08/18/2019 3:58 PM SWIMMING POOL INSTALLER APTT Routine 08/18/2019 3:57 PM SWIMMING POOL INSTALLER POCT-GLUCOSE METER Routine 08/18/2019 12:50 PM SWIMMING POOL INSTALLER POCT-GLUCOSE METER Routine 08/18/2019 7:58 AM SWIMMING POOL INSTALLER VITAMIN B12 AND FOLATE Routine 08/18/2019 4:39 AM SWIMMING POOL INSTALLER TSH/FREE T4 IF INDICATED Routine 08/18/2019 4:39 AM SWIMMING POOL INSTALLER HEMOGLOBIN A1C Routine 08/18/2019 4:39 AM SWIMMING POOL INSTALLER CBC W/PLT COUNT & AUTO Routine 08/18/2019 DIFFERENTIAL 2:13 AM SWIMMING POOL INSTALLER TROPONIN I Add-On 08/18/2019 2:13 AM SWIMMING POOL INSTALLER LIPID PANEL Add-On 08/18/2019 2:13 AM SWIMMING POOL INSTALLER CBC W/PLT COUNT & AUTO Routine 08/18/2019 DIFFERENTIAL 2:13 AM SWIMMING POOL INSTALLER PHOSPHORUS Routine 08/18/2019 2:13 AM SWIMMING POOL INSTALLER MAGNESIUM Routine 08/18/2019 2:13 AM SWIMMING POOL INSTALLER BASIC METABOLIC PANEL (7) Routine 08/18/2019 2:13 AM SWIMMING POOL INSTALLER POCT-GLUCOSE METER Routine 08/18/2019 1:55 AM SWIMMING POOL INSTALLER CT CHEST WITHOUT IV KIKO 08/18/2019 CONTRAST 12:08 AM SWIMMING POOL INSTALLER CT/CTA CAROTID STAT 08/18/2019 12:07 AM SWIMMING POOL INSTALLER CTA BRAIN STAT 08/18/2019 12:07 AM SWIMMING POOL INSTALLER CT BRAIN/STROKE TEST Routine 08/17/2019 DESIGN 11:19 PM SWIMMING POOL INSTALLER PT/APTT STAT 08/17/2019 11:04 PM SWIMMING POOL INSTALLER POCT-GLUCOSE METER Routine 08/17/2019 10:41 PM SWIMMING POOL INSTALLER CAROTID DOPPLER BILATERAL KIKO 08/17/2019 9:30 PM SWIMMING POOL INSTALLER (CELLAVISION MANUAL DIFF) Routine 08/17/2019 8:43 PM SWIMMING POOL INSTALLER CBC W/PLT COUNT & AUTO Routine 08/17/2019 DIFFERENTIAL 8:43 PM SWIMMING POOL INSTALLER TSH/FREE T4 IF INDICATED STAT 08/17/2019 8:43 PM SWIMMING POOL INSTALLER MAGNESIUM STAT 08/17/2019 8:43 PM SWIMMING POOL INSTALLER APTT STAT 08/17/2019 8:43 PM SWIMMING POOL INSTALLER PROTHROMBIN TIME/INR STAT 08/17/2019 8:43 PM SWIMMING POOL INSTALLER B-TYPE NATRIURETIC FACTOR STAT 08/17/2019 (BNP) 8:43 PM SWIMMING POOL INSTALLER COMPREHENSIVE METABOLIC STAT 08/17/2019 PANEL 8:43 PM SWIMMING POOL INSTALLER CBC W/PLT COUNT & AUTO STAT 08/17/2019 DIFFERENTIAL 8:43 PM SWIMMING POOL INSTALLER TROPONIN I Routine 08/17/2019 8:43 PM SWIMMING POOL INSTALLER XR CHEST 1 VIEW Routine 08/17/2019 PORTABLE/BEDSIDE 7:40 PM SWIMMING POOL INSTALLER POCT-GLUCOSE METER Routine 08/17/2019 6:29 PM SWIMMING POOL INSTALLER POCT-GLUCOSE METER Routine 08/17/2019 4:30 PM SWIMMING POOL INSTALLER after 01/20/2019 Results * VASCULAR DIAGRAM -SCAN (12/14/2019 4:00 PM CDT) Only the most recent of 3 results within the time period is included. Narrative Performed At This result has an attachment that is n ot available. * RHYTHM STRIP - SCAN (12/06/2019 1:32 PM CDT) Only the most recent of 3 results within the time period is included. Narrative Performed At This result has an attachment that is n ot available. * CARDIAC CATH REPORT - SCAN (12/06/2019 1:32 PM CDT) Narrative Performed At This result has an attachment that is n ot available. * CARDIAC CATH REPORT - SCAN (12/06/2019 1:32 PM CDT) Narrative Performed At This result has an attachment that is n ot available. * CBC (Hemogram only) (12/05/2019 4:41 AM CDT) Only the most recent of 7 results within the time period is included. WBC 12.6 (H) 3.5 - 10.5 K/L [facility] RBC 3.54 (L) 3.93 - 5.22 M/L [facility] Hemoglobin 10.7 (L) 11.2 - 15.7 GM/DL [facility] Hematocrit 33.3 (L) 34.1 - 44.9 % [facility] MCV 94.1 79.4 - 94.8 fL [facility] MCH 30.2 25.6 - 32.2 pg [facility] MCHC 32.1 (L) 32.2 - 35.5 GM/DL [facility] RDW 13.2 11.7 - 14.4 % [facility] Platelets 207 150 - 450 K/CU MM [facility] MPV 11.6 9.4 - 12.3 fL [facility] nRBC 0 0 - 0 /100 WBC [facility] Specimen Blood Performing Organization Address City/State/Zipcode Ph one Number [place] [id number] [place] * Basic metabolic panel (12/05/2019 4:41 AM CDT) Only the most recent of 7 results within the time period is included. Sodium 133 (L) 136 - 145 meq/L [facility] Potassium 4.8 3.5 - 5.1 meq/L [facility] Chloride 105 98 - 107 meq/L [facility] CO2 19 (L) 22 - 29 meq/L [facility] BUN 28 (H) 7 - 21 mg/dL [facility] Creatinine 1.08 0.57 - 1.25 mg/dL [facility] Glucose 333 (H) 70 - 105 mg/dL [facility] Calcium 9.1 8.4 - 10.2 mg/dL [facility] EGFR 48Comment: ESTIMATED GFR IS mL/min/1.73 sq m [facility] NOT ACCURATE CREATININE [facility] CLEARANCE IN PREDICTING GLOMERULAR FILTRATION RATE. ESTIMATED GFR IS NOT APPLICABLE FOR DIALYSIS PATIENTS. Specimen Blood Narrative Performed At Electronics Lead ID - NARENDRA B [facility] Performing Organization Address City/[facility] Ph one [address] [facility] * POC-Glucose meter (12/04/2019 8:36 PM CDT) Only the most recent of 37 results within the time period is included. POC-Glucose Meter 376 (H)Comment: : TESTED AT 70 - 110 mg/dL [address] [address]: Electronics Lead/Cleaning Maid ID = [id number] for Henry Almaraz Specimen Blood Performing Organization Address [facility] Ph one Number [address] [facility] * TRANSFUSION SERVICE REPORT - SCAN (12/04/2019 6:33 PM CDT) Narrative Performed At This result has an attachment that is n ot available. * Hemoglobin A1c (12/04/2019 5:41 PM CDT) Only the most recent of 2 results within the time period is included. Hemoglobin A1C 11.2 (H) 4.3 - 6.1 % [facility] Specimen Blood Performing Organization Address City/[facility] Ph one Number [address] [facility] * POC ACTIVATED CLOTTING TIME (12/04/2019 2:28 PM CDT) Activated Clotting Time 400Comment: : 74-137 seconds, sec [facility] Baseline: TESTED AT [address], [address]: Electronics Lead/Cleaning Maid ID = [id number] for FLORINDA JANG Specimen Blood Performing Organization Address [facility] Ph one Number [address] [facility] * aPTT (12/04/2019 4:33 AM CDT) Only the most recent of 16 results within the time period is included. PTT 58.8 (H) 22.5 - 36.0 seconds [facility] Specimen Blood Performing Organization Address [facility] Ph one Number [place] [phone] [place], [place] [address] [facility] * ECG 12 lead (12/03/2019 1:58 PM CDT) Only the most recent of 2 results within the time period is included. Specimen Narrative Performed At Ventricular Rate 84 BPM GE MUSE Atrial Rate 84 BPM P-R Interval 198 ms QRS Duration 144 ms Q-T Interval 422 ms QTC Calculation(Bazett) 498 ms P [place] 69 degrees R [place] -44 degrees T [place] 131 degrees Normal sinus rhythm Left axis deviation Left bundle branch block Abnormal ECG No previous ECGs available Confirmed by MD Louie Roberto ([id number]) on 12/04/2019 2:14:57 PM Procedure Note Interface, External Ris In - 12/04/2019 2:15 PM CDT Ventricular Rate 84 BPM Atrial Rate 84 BPM P-R Interval 198 ms QRS Duration 144 ms Q-T Interval 422 ms QTC Calculation(Bazett) 498 ms P [place] 69 degrees R [place] -44 degrees T [place] 131 degrees Normal sinus rhythm Left axis deviation Left bundle branch block Abnormal ECG No previous ECGs available Confirmed by MD Louie Roberto ([id number]) on 12/04/2019 2:14:57 PM Performing Organization Address City/[facility] Ph one Number GE MUSE * ABORH, manual (12/03/2019 6:41 AM CDT) ABO Grouping O [facility] Rh Factor POS [facility] Specimen Blood Performing Organization Address City/[facility] Ph one Number [address] [address] [facility] * Type and screen, automated (12/03/2019 6:22 AM CDT) ABO/RH AUTOMATED (BEAKER) O POSITIVE [facility] Ab Scrn NEGATIVE [facility] Specimen Blood Performing Organization Address City/State/Zipcode Ph one Number [facility] [address] [place] [address] [facility] * CBC with platelet count + automated diff (12/03/2019 6:22 AM CDT) Only the most recent of 3 results within the time period is included. WBC 9.7 3.5 - 10.5 K/L [facility] RBC 3.60 (L) 3.93 - 5.22 M/L [facility] Hemoglobin 10.9 (L) 11.2 - 15.7 GM/DL [facility] Hematocrit 34.2 34.1 - 44.9 % [facility] MCV 95.0 (H) 79.4 - 94.8 fL [facility] MCH 30.3 25.6 - 32.2 pg [facility] MCHC 31.9 (L) 32.2 - 35.5 GM/DL [facility] RDW 13.1 11.7 - 14.4 % [facility] Platelets 229 150 - 450 K/CU MM [facility] MPV 11.4 9.4 - 12.3 fL [facility] nRBC 0 0 - 0 /100 WBC [facility] % Neutros 51 % [facility] % Lymphs 29 % [facility] % Monos 8 % [facility] % Eos 11 % [facility] % Baso 1 % [facility] # Neutros 4.94 1.56 - 6.13 K/L [facility] # Lymphs 2.83 1.18 - 3.74 K/L [facility] # Monos 0.78 (H) 0.24 - 0.36 K/L [facility] # Eos 1.05 (H) 0.04 - 0.36 K/L [facility] # Baso 0.06 0.01 - 0.08 K/L [facility] [place] Immature 1 0 - 1 % [facility] Granulocytes-Relative [facility] Specimen Blood Performing Organization Address [facility] [place] Ph one Number [place] [id number] [facility] * Prothrombin time/INR (12/03/2019 6:22 AM CDT) Only the most recent of 2 results within the time period is included. Protime 13.3 11.9 - 14.2 seconds [facility] INR 1.0 <=5.9 [facility] Specimen Blood Narrative Performed At Effective 11/08/2018: PT Reference Range Change [facility] New: 11.9-14.2Previous: 11.7-14.7 [facility] RECOMMENDED COUMADIN/WARFARIN INR THERA PY RANGES STANDARD DOSE: 2.0-3.0Includes: PRO PHYLAXIS for venous thrombosis, systemic embolization; TREATMENT for venous thro mbosis and/or pulmonary embolus. HIGH RISK: Target INR is 2.5-3.5 for pa tients wiht mechanical heart valves. Within 24 hours, if on Coumadin Performing Organization Address [facility] Ph one Number [place] [phone] [place] [address] * Lipid panel (12/03/2019 6:22 AM CDT) Only the most recent of 2 results within the time period is included. Triglycerides 160 mg/dL [facility] Cholesterol 124 mg/dL [facility] HDL 44 mg/dL [facility] LDL Calculated 48 mg/dL [facility] Specimen Blood Narrative Performed At Triglyceride Reference Range: [facility] Low Risk <150 [facility] R [id number] High Risk 200-499 Very High Risk>=500 Cholesterol Reference Range: Low Risk <200 [id number] High Risk>240 HDL Cholesterol Reference Range: Low Risk >=60 High Risk <40 LDL Cholesterol Reference Range: Optimal<100 Near [id number] [id number] Very High >=190 Electronics Lead ID - [email or web address] Performing Organization Address City/State/Zipcode Ph one Number [place] [address] [phone] [place] [address] * ECHOCARDIOGRAM REPORT - SCAN (08/21/2019 9:14 PM CDT) Narrative Performed At This result has an attachment that is n ot available. * ECHOCARDIOGRAM REPORT - SCAN (08/20/2019 9:12 PM CDT) Narrative Performed At This result has an attachment that is n ot available. * Limited 2D Echocardiogram (08/20/2019 3:41 PM CDT) Ejection Fraction [facility] ECHO HEARTLAB [facility] Specimen Narrative Performed At Transthoracic Echocardiography Report (TTE) [facility] ECH O HEARTLAB Demographics [facility] Patient NamePIRAD RIVERA ND ate of Study08/20/2019 Female Visit [id number] Race Unknown Room [id number] Number Date of 1935 Referring PhysicianThierry Verduzco MD Age 83 year(s)[employer] Abed Clive Poising Inspector MD Melody Bootholatati Physician Procedure Type of Study TTE procedure:LIMITED 2D ECHOCARDIOGRAM (KIKO) Indications:Suspected cardiac source of emboli. Clinical History HGB 10.7 HCT 32.8 % FORMER SMOKER Contrast Medium: Bubble Study. Height: 67 inches Weight: 64.86 kg (143 lbs) BSA: 1.75 m^2 BMI: 22.4 kg/m^2 HR: 69 bpm BP: 146/63 mmHg Summary IV saline contrast injection demostrate s a small PFO (patent foramen ovale) at rest and post Valsalva . Signature Findings Left Limited 2D exam (n o Doppler) to address study indication. Ventricle Atrial IV saline contrast i njection demostrates a small PFO (patent Septum foramen ovale) at re st and post Valsalva . 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 Clinical History HGB 10.7 HCT 32.8 % FORMER SMOKER Contrast Medium: Bubble Study. Height: 67 inches Weight: 64.86 kg (143 lbs) BSA: 1.75 m^2 BMI: 22.4 kg/m^2 HR: 69 bpm BP: 146/63 mmHg Summary IV saline contrast injection demostrates a small PFO (patent foramen ovale) at rest and post Valsalva . Signature Findings Left Limited 2D exam (no Doppler) to address study indication. Ventricle Atrial IV saline contrast injection demostrates a small PFO (patent Septum foramen ovale) at rest and post Valsalva . Performing Organization Address [facility] Ph one Number [facility] ECHO HEARTLAB [employer] [facility] * 2D Echo W/Doppler(CW/PW/Color) (08/20/2019 11:00 AM CDT) Ejection Fraction [facility] ECHO HEARTLAB [employer] [facility] Specimen Narrative Performed At Transthoracic Echocardiography Report (TTE) [facility] ECH O HEARTLAB Demographics [employer] [facility] Patient Name RAD RUVALCABA NDate of Study 08/20/2019 [id number] Gender Female Visit Number [id number] [facility] [id number] Room Number 1046 Number Date 1935 Referring Thierry Verduzco MD Physician Age83 year(s) [employer] Josh Ochoa, MIKAELA, RDCS,RVT,RDMS Interpreting Dann Howell MD Physician Fellow FANNY Vazquez Procedure Type of Study TTE procedure:2DECHO W DO PPLER(CW/PW/COLOR) (KIKO) Indications:Acute Chest Pain/ Suspected CAD. Clinical History Former smoker, NSTEMI, CAD, Stroke, DM II, HLD, AFIB, COPD, Hypothyroidism Height: 67 inches Weight: 64.86 kg (143 lbs) BSA: 1.75 m^2 BMI: 22.4 kg/m^2 HR: 63 bpm BP: 122/58 mmHg Summary The left ventricle is chamber size (by vol index) is normal (female - LVED vol - 29-61ml/m2). All of the LV segmen ts contract normally . LVEF by Flores's method of disk assessment is normal (55-60%) . Grade 1 diastolic dysfunction (impaired relaxation and low-normal LA pressure). Unable to estimate peak systolic PA pre ssure; inadequate TR velocity signal. No significant pericardial effusion is visualized. Signature Findings Technical Quality: Good visualization Rhythm/BPRe gular sinus rhythm during the exam. Left Ventricle The left ventricle is chamber size (by vol index) is normal (female - LVED vol - 29-61ml/m2).Normal LV wall thickness. All of the LV segments contract normally . LVEF by Flores's method of disk assessment is normal (55-60%) . Grade 1 diastolic dysfunction (impaired relaxation and low-normal LA pressure). Left AtriumLA s ize is normal . Right VentricleThe righ t ventricular chamber size and systolic function are within normal limits. Right Atrium RA siz e is normal. Aortic Valve The ao rtic valve is not well visualized, but appears mildly calcified. Mitral Valve Mild M V leaflet thickening. Trace mitral regurgitation. Tricuspid ValveTV struc ture is normal. Mild tricuspid regurgitation. Unable to estimate peak systolic PA pressure; inadequate TR velocity signal. Pulmonic Valve The PV i s not well visualized by appears to have normal function by limited views and Doppler. PericardiumNo s ignificant pericardial effusion is visualized. IVC/SVC/PA/PV/PleuralThe estimated RA pressure by IVC dynamics 0-5mmHg . Chambers/Structures Left Atrium LA Volume: 25.74 ml LA Area: 11.94 cm^2 LA Vol. Index: 15 ml/m^2 Left Ventricle LVIDd: 4.52 cm LVIDs: 3.44 cm LV Septum Diastolic: 0.91 cm LV PW Diastolic: 0.81 cm LV FS: 23.9 % LVEDV Flores's:45.74 ml LVESV Flores's:18.9 ml LVEDVI: 26 ml/m^2 LVEF Flores's: 58.7 % LVESVI: 11 ml/m^2 LVOT Diameter: 1.47 cm Aorta Ascending Aorta: 3.09 cm Doppler/Quantitative Measurements Aortic Valve Peak Velocity: 1.29 m/s Mean Velocity: 0.86 m/s Peak Gradient: 6.69 mmHg Mean Gradient: 3.38 mmHg AV Area (continuity): 1.58 cm^2 AV VTI: 27.37 cm AV DVI: 0.93 LVOT Peak Velocity: 1.03 m/s Peak Gradient: 4.21 mmHg Mean Velocity: 0.75 m/s Mean Gradient: 2.57 mmHg LVOT Diameter: 1.47 cm LVOT VTI: 25.5 cm LVOT Area: 1.7 cm^2 LVOT SV:43.26 ml LVOT CO: 2.73 l/min LVOT CI: 1.56 l/min/m^2 Procedure Note Interface, External Ris In - 08/20/2019 3:35 PM CDT Transthoracic Echocardiography Report (TTE) Demographics Patient Name RAD RUVALCABA Date of Study 08/20/2019 Gender Female Visit Number [id number] Race Unknown Room Number 1046 Number Date of 1935 Referring Thierry Verduzco MD Physician Age 83 year(s) [employer] MIKAELA Patel, RDCS,RVT,RDMS Interpreting Dann Howell MD Physician Fellow FANNY Vazquez Procedure Type of Study TTE procedure:2DECHO W DOPPLER(CW/PW/COLOR) (KIKO) Indications:Acute Chest Pain/ Suspected CAD. Clinical History Former smoker, NSTEMI, CAD, Stroke, DM II, HLD, AFIB, COPD, Hypothyroidism Height: 67 inches Weight: 64.86 kg (143 lbs) BSA: 1.75 m^2 BMI: 22.4 kg/m^2 HR: 63 bpm BP: 122/58 mmHg Summary The left ventricle is chamber size (by vol index) is normal (female - LVED vol - 29-61ml/m2). All of the LV segments contract normally . LVEF by Flores's method of disk assessment is normal (55-60%) . Grade 1 diastolic dysfunction (impaired relaxation and low-normal LA pressure). Unable to estimate peak systolic PA pressure; inadequate TR velocity signal. No significant pericardial effusion is visualized. Signature Findings Technical Quality: Good visualization Rhythm/BP Regular sinus rhythm during the exam. Left Ventricle The left ventricle is chamber size (by vol index) is normal (female - LVED vol - 29-61ml/m2).Normal LV wall thickness. All of the LV segments contract normally . LVEF by Flores's method of disk assessment is normal (55-60%) . Grade 1 diastolic dysfunction (impaired relaxation and low-normal LA pressure). Left Atrium LA size is normal . Right Ventricle The right ventricular chamber size and systolic function are within normal limits. Right Atrium RA size is normal. Aortic Valve The aortic valve is not well visualized, but appears mildly calcified. Mitral Valve Mild MV leaflet thickening. Trace mitral regurgitation. Tricuspid Valve TV structure is normal. Mild tricuspid regurgitation. Unable to estimate peak systolic PA pressure; inadequate TR velocity signal. Pulmonic Valve The PV is not well visualized by appears to have normal function by limited views and Doppler. Pericardium No significant pericardial effusion is visualized. IVC/SVC/PA/PV/Pleural The estimated RA pressure by IVC dynamics 0-5mmHg . Chambers/Structures Left Atrium LA Volume: 25.74 ml LA Area: 11.94 cm^2 LA Vol. Index: 15 ml/m^2 Left Ventricle LVIDd: 4.52 cm LVIDs: 3.44 cm LV Septum Diastolic: 0.91 cm LV PW Diastolic: 0.81 cm LV FS: 23.9 % LVEDV Flores's:45.74 ml LVESV Flores's:18.9 ml LVEDVI: 26 ml/m^2 LVEF Flores's: 58.7 % LVESVI: 11 ml/m^2 LVOT Diameter: 1.47 cm Aorta Ascending Aorta: 3.09 cm Doppler/Quantitative Measurements Aortic Valve Peak Velocity: 1.29 m/s Mean Velocity: 0.86 m/s Peak Gradient: 6.69 mmHg Mean Gradient: 3.38 mmHg AV Area (continuity): 1.58 cm^2 AV VTI: 27.37 cm AV DVI: 0.93 LVOT Peak Velocity: 1.03 m/s Peak Gradient: 4.21 mmHg Mean Velocity: 0.75 m/s Mean Gradient: 2.57 mmHg LVOT Diameter: 1.47 cm LVOT VTI: 25.5 cm LVOT Area: 1.7 cm^2 LVOT SV:43.26 ml LVOT CO: 2.73 l/min LVOT CI: 1.56 l/min/m^2 Performing Organization Address [facility] one Number [facility] ECHO HEARTLAB [facility]CK[facility]ON CPACS * Phosphorus (08/20/2019 3:47 AM CDT) Only the most recent of 3 results within the time period is included. Phosphorus 3.6 2.3 - 4.7 mg/dL [facility] Specimen Blood Narrative Performed At Electronics Lead ID - PIAYA L [facility] Performing Organization Address City/[facility] Ph one Number [place] [phone] [facility]ENTER * Magnesium (08/20/2019 3:47 AM CDT) Only the most recent of 4 results within the time period is included. Magnesium 1.8 1.6 - 2.6 mg/dL [facility] Specimen Blood Narrative Performed At Electronics Lead ID - PIYANIRA Espinosa [facility] Performing Organization Address City/State/Zipcode Ph one Number [facility] [address] [place], [place] [address] * CT brain without IV contrast (08/19/2019 8:32 PM CDT) Specimen Narrative Performed At FINAL REPORT GE RIS EXAM: CT head without contrast. CLINICAL HISTORY: Cerebral hemorrhage s uspected COMPARISON: Head CT 08/17/2019 and brain MRI 08/18/2019. TECHNIQUE: CT images of the head were o btained without intravenous contrast.This exam was performed ac cording to our departmental dose optimization program which includes aut omated exposure control, adjustment of the mA and/or kV accordin g to patient's size and/or use of iterative reconstructive technique. FINDINGS: There is generalized parenchymal atroph y. There are mild white matter microvascular ischemic changes. There a re chronic left basal ganglia lacunar infarcts. There is intracranial calcific atherosclerosis. There is no acute intracranial hemorrha ge, extra-axial fluid collection, mass effect, herniation, hy drocephalus or large demarcated acute territorial infarct. The basal cisterns are patent. There are bilateral lens replacements. There is pansinus mucosal inflammatory thickening with bilateral maxillary sinus air-fluid levels.The visualized paranasal sin uses and tympanomastoid cavities are clear.The skull base and calvar ium are intact. IMPRESSION: Mild white matter microvascular ischemi c changes and chronic lacunar infarcts. No acute intracranial hemorrhage, mass effect or hydrocephalus. Pansinus mucosal inflammatory disease w ith maxillary sinus air-fluid levels which may represent acute sinusi tis in the proper clinical setting. Signed: Keeley Alfredo MD Report Verified Date/Time: 0 20:37:11 Procedure Note Interface, External Ris In - 08/19/2019 8:40 PM CDT FINAL REPORT EXAM: CT head without contrast. CLINICAL HISTORY: Cerebral hemorrhage suspected COMPARISON: Head CT 08/17/2019 and brain MRI 08/18/2019. TECHNIQUE: CT images of the head were obtained without intravenous contrast. This exam was performed according to our departmental dose optimization program which includes automated exposure control, adjustment of the mA and/or kV according to patient's size and/or use of iterative reconstructive technique. FINDINGS: There is generalized parenchymal atrophy. There are mild white matter microvascular ischemic changes. There are chronic left basal ganglia lacunar infarcts. There is intracranial calcific atherosclerosis. There is no acute intracranial hemorrhage, extra-axial fluid collection, mass effect, herniation, hydrocephalus or large demarcated acute territorial infarct. The basal cisterns are patent. There are bilateral lens replacements. There is pansinus mucosal inflammatory thickening with bilateral maxillary sinus air-fluid levels. The visualized paranasal sinuses and tympanomastoid cavities are clear. The skull base and calvarium are intact. IMPRESSION: Mild white matter microvascular ischemic changes and chronic lacunar infarcts. No acute intracranial hemorrhage, mass effect or hydrocephalus. Pansinus mucosal inflammatory disease with maxillary sinus air-fluid levels which may represent acute sinusitis in the proper clinical setting. Signed: Keeley Alfredo MD Report Verified Date/Time: 08/19/2019 20:37:11 Performing Organization Address City/[facility] Ph one Number GE RIS * Troponin I (08/19/2019 1:42 AM SWIMMING POOL INSTALLER) Only the most recent of 4 results within the time period is included. Troponin I 0.65 (HH) 0.00 - 0.03 ng/mL [facility] Specimen Blood Narrative Performed At Troponin I (TnI) levels must be interpreted in the co ntext of the presenting [facility] symptoms and the clinical findings. Elevated TnI leve ls indicate myocardial [facility] damage, but are not specific for ischem ic heart disease. Elevated TnI levels are seen in patients with other cardiac con ditions (including myocarditis and congestive heart failure), and slight T nI elevations occur in patients with other conditions, including sepsis, mere al failure, acidosis, acute neurological disease, and persistent tachyarrhythmia . Electronics Lead ID - ABIEL Espinosa Performing Organization Address City/State/Zipcode Ph one Number [facility] [address] [place], [place] [address] MEDICAL CENTER * PERIPHERAL VASCULAR REPORT - SCAN (08/18/2019 9:10 PM SWIMMING POOL INSTALLER) Narrative Performed At This result has an attachment that is n ot available. * MR brain without IV contrast (08/18/2019 6:31 PM SWIMMING POOL INSTALLER) Specimen Narrative Performed At FINAL REPORT [employer] Exam: MRI brain without contrast. Comparison:None. Clinical indication: TIA, initial exam Technique: Multiplanar multi sequential MR imaging of the brain was performed without the administration of intravenous contrast. Findings: There is generalized parenchymal atroph y. There are mild white matter microvascul ar ischemic changes. There are chronic lacunar infarcts in the left ba sonu ganglia. There are foci of restricted diffusion in the left infero medial cerebellum, right parietal lobe, left parasagittal fronta l lobe and left precentral gyrus compatible wi th acute infarcts. There are foci of mild restricted diffusion in th e left thalamocapsular region and left bolanos radiata which may repre sent subacute infarcts. There is no intracranial mass, mass eff ect, extra-axial collection, hydrocephalus or herniation.There i s no abnormality on susceptibility sequences to suggest hem orrhage or hemosiderin deposition. The skull base flow-voids are seen in k eeping with their patency. There is pansinus mucosal inflammatory disease with air-fluid levels which may represent acute sinusitis in the proper clinical setting. The mastoid air cells are clear. There are bilateral lens replacements. The sella and parasellar regions are unremarkable. The crani ocervical junction is normal. Impression: Small acute infarcts in the left parasa gittal frontal lobe, right parietal lobe, left precentral gyrus an d left inferomedial cerebellum, likely embolic in etiology. Foci of mild restricted diffusion in th e left thalamocapsular region and left bolanos radiata which may repre sent subacute infarcts. Mild white matter microvascular ischemi c changes. Chronic left basal ganglia lacunar infarcts. No acute intracranial hemorrhage or mas s effect. Pansinus mucosal inflammatory disease. Correlate clinically for acute sinusitis. Discussed with covering neurology resid ent at approximately 11:04 PM 08/18/2019. Signed: Keeley Alfredo MD Report Verified Date/Time: 0 23:13:56 Procedure Note Interface, External Ris In - 08/18/2019 11:16 PM SWIMMING POOL INSTALLER FINAL REPORT Exam: MRI brain without contrast. Comparison: None. Clinical indication: TIA, initial exam Technique: Multiplanar multi sequential MR imaging of the brain was performed without the administration of intravenous contrast. Findings: There is generalized parenchymal atrophy. There are mild white matter microvascular ischemic changes. There are chronic lacunar infarcts in the left basal ganglia. There are foci of restricted diffusion in the left inferomedial cerebellum, right parietal lobe, left parasagittal frontal lobe and left precentral gyrus compatible with acute infarcts. There are foci of mild restricted diffusion in the left thalamocapsular region and left bolanos radiata which may represent subacute infarcts. There is no intracranial mass, mass effect, extra-axial collection, hydrocephalus or herniation. There is no abnormality on susceptibility sequences to suggest hemorrhage or hemosiderin deposition. The skull base flow-voids are seen in keeping with their patency. There is pansinus mucosal inflammatory disease with air-fluid levels which may represent acute sinusitis in the proper clinical setting. The mastoid air cells are clear. There are bilateral lens replacements. The sella and parasellar regions are unremarkable. The craniocervical junction is normal. Impression: Small acute infarcts in the left parasagittal frontal lobe, right parietal lobe, left precentral gyrus and left inferomedial cerebellum, likely embolic in etiology. Foci of mild restricted diffusion in the left thalamocapsular region and left bolanos radiata which may represent subacute infarcts. Mild white matter microvascular ischemic changes. Chronic left basal ganglia lacunar infarcts. No acute intracranial hemorrhage or mass effect. Pansinus mucosal inflammatory disease. Correlate clinically for acute sinusitis. Discussed with covering neurology resident at approximately 11:04 PM 08/18/2019. Signed: Keeley Alfredo MD Report Verified Date/Time: 08/18/2019 23:13:56 Performing Organization Address City/State/Zipcode Ph one Number GE RIS * Vitamin B12 and Folate (08/18/2019 4:39 AM SWIMMING POOL INSTALLER) Vitamin B12 670 213 - 816 pg/mL [facility] Folate 9.7 >=7.0 ng/mL [facility] Specimen Blood Narrative Performed At Electronics Lead ID - NOAM Norwood [facility] Performing Organization Address [facility] Ph one Number [facility] [address] [place] [address] [phone] [place] [address] * TSH/Free T4 If Indicated (08/18/2019 4:39 AM SWIMMING POOL INSTALLER) Only the most recent of 2 results within the time period is included. TSH 0.77 0.35 - 4.94 uIU/mL [facility] Specimen Blood Narrative Performed At Electronics Lead ID - NOAM Norwood [facility] Performing Organization Address [facility] one Number [address] [phone] [place] [address] * CT chest without IV contrast (08/18/2019 12:08 AM SWIMMING POOL INSTALLER) Specimen Narrative Performed At FINAL REPORT [employer] EXAM: CT of the chest, without contrast CLINICAL HISTORY:Chest pain, ACS self spected. Preop CABG Technique: CT of the chest was performe d without intravenous contrast administration. This exam was performed according to our departmental dose optimization program which include s automated exposure control, adjustment of the mA and/or kV accordin g to patient's size and/or use of iterative reconstructive technique. COMPARISON:None FINDINGS: LOWER NECK: Within normal limits. AIRWAYS AND LUNGS: Patent central trach eobronchial tree. Mild bibasilar dependent atelectasis. PLEURA: No pleural effusion or pneumoth orax. VESSELS: Atherosclerotic calcifications of the aorta and coronary arteries. No thoracic aortic aneurysm. HEART: Mild cardiomegaly. No pericardia l effusion. HUMBLE AND MEDIASTINUM: Within normal marcial its. VISUALIZED UPPER ABDOMEN: Within normal limits. SOFT TISSUES: Within normal limits. BONES: Generalized osteopenia. Degenera tive changes of the visualized spine. IMPRESSION: Mild cardiomegaly. Mild bibasilar dependent atelectasis. Signed: Keeley Alfredo MD Report Verified Date/Time: 0 04:26:04 Procedure Note Interface, External Ris In - 08/18/2019 4:28 AM SWIMMING POOL INSTALLER FINAL REPORT EXAM: CT of the chest, without contrast CLINICAL HISTORY: Chest pain, ACS suspected. Preop CABG Technique: CT of the chest was performed without intravenous contrast administration. This exam was performed according to our departmental dose optimization program which includes automated exposure control, adjustment of the mA and/or kV according to patient's size and/or use of iterative reconstructive technique. COMPARISON: None FINDINGS: LOWER NECK: Within normal limits. AIRWAYS AND LUNGS: Patent central tracheobronchial tree. Mild bibasilar dependent atelectasis. PLEURA: No pleural effusion or pneumothorax. VESSELS: Atherosclerotic calcifications of the aorta and coronary arteries. No thoracic aortic aneurysm. HEART: Mild cardiomegaly. No pericardial effusion. HUMBLE AND MEDIASTINUM: Within normal limits. VISUALIZED UPPER ABDOMEN: Within normal limits. SOFT TISSUES: Within normal limits. BONES: Generalized osteopenia. Degenerative changes of the visualized spine. IMPRESSION: Mild cardiomegaly. Mild bibasilar dependent atelectasis. Signed: Keeley Alfredo MD Report Verified Date/Time: 08/18/2019 04:26:04 Performing Organization Address City/State/Zipcode Ph one Number [facility] * CTA carotid (08/18/2019 12:07 AM SWIMMING POOL INSTALLER) Specimen Narrative Performed At FINAL REPORT [facility] EXAM: CT, CAROTID, ANGIO, CT, CTANGIO BRAIN CLINICAL INDICATION: Neurological defic it. Concern for stroke. TECHNIQUE: Helical CTA of the head and CTA of the neck with IV contrast. Multiplanar reconstructed lupillo ges. 3D reconstructions with MIP images were performed. This exam wa s performed according to our departmental dose-optimization program, which includes automated exposure control, adjustment of the mA and/or kV according to patient size and/or use of iterative reconstruc tion technique. COMPARISON: 08/17/[address] hea d FINDINGS: CTA HEAD: Anterior Circulation: Right intracranial internal carotid art marcie (ICA): Moderate irregular atherosclerotic narrowing of the cavern ous and supraclinoid segments. Right anterior cerebral artery (CONNOR): M ild irregular narrowing of the A1 segment. Right middle cerebral artery (MCA): Mil d focal stenosis of the proximal M1 segment. There is severe fo leighton stenosis at the M2 trifurcation involving the posterior M2 branches with patency and arborization distally. Left intracranial internal carotid cristy ry (ICA): Moderate irregular atherosclerotic narrowing of the cavern ous and supraclinoid segments. Left anterior cerebral artery (CONNOR): No rmal Left middle cerebral artery (MCA): Mild focal stenosis of the mid M1 segment. Anterior communicating artery (AComm): Present Posterior communicating arteries (PComm ): Right PComm present. Left PComm not well visualized. Posterior Circulation: Right posterior cerebral artery (RUBBER HEEL [employer] SOLE PRESS TENDER): Hypoplastic P1 segment with the remainder of the right RU[employer] HEEL [employer] SOLE [employer] TENDER supplied by the right posterior communicating artery. Left posterior cerebral artery (RU[employer] HE[employer] SOLE [employer]ESS TENDER): M oderate focal stenosis of the mid P2 segment. Right vertebral artery (VA): Normal Left vertebral artery (VA): Normal Basilar artery (BA): Normal Other: Normal Dural Venous Sinuses:Normal CTA NECK: Aortic arch and proximal great vessels: Atherosclerotic changes without significant narrowing. Right carotid arterial system: Mild (<5 0%) internal carotid artery narrowing at the carotid bulb. There is beaded appearance of the distal ICA. Left carotid arterial system: Mild (<50 %) internal carotid artery narrowing at the carotid bulb. Beaded a ppearance of the distal ICA. Right vertebral artery: Marked focal st enosis of the V1 origin. Moderate focal stenosis of the V2 segme nt at the C5-C6 level secondary to osseous degenerative spurr ing. Mild focal stenosis at the V3 and V4 junction at the dural ref lection Left vertebral artery: Marked focal sabrina nosis of the V1 origin. Where applicable, evaluation of interna l carotid artery(ICA) stenosis was performed using NASCET-lik e criteria, where the site of greatest stenosis is compared to the di ameter of the ICA distal to the stenosis at a point where the ICA w alls become parallel. Neck Soft Tissues: Unremarkable. Osseous Structures:No acute osseous abnormality. Advanced multilevel degenerative changes of the cervical spine including bulky disc osteophyte complexes at C4-C5 and C5-C6 with moderate to severe spinal canal stenosis suggested at C5-C 6. Bilateral paranasal sinus disease as described on recent prior. Included Lung Apices: Mild biapical sca rring. IMPRESSION: 1. Multifocal intracranial stenoses, as described, most notable for severe focal stenosis of the origins of right posterior M2 branches with patency distally. 2. Marked atherosclerotic stenoses of t he origins of both vertebral arteries with patency distally. Moderat e to mild multifocal stenoses elsewhere, as described. 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 4.Degenerative changes of the cervical spine results in moderate to severe spinal canal stenosis at C5-C6. Signed: Suni Grewal MD Report Verified Date/Time: 0 00:28:12 Procedure Note Interface, External Ris In - 08/18/2019 12:31 AM SWIMMING POOL INSTALLER FINAL REPORT EXAM: CT, CAROTID, ANGIO, CT, CTANGIO BRAIN CLINICAL INDICATION: Neurological deficit. Concern for stroke. TECHNIQUE: Helical CTA of the head and CTA of the neck with IV contrast. Multiplanar reconstructed images. 3D reconstructions with MIP images were performed. This exam was performed according to our departmental dose-optimization program, which includes automated exposure control, adjustment of the mA and/or kV according to patient size and/or use of iterative reconstruction technique. COMPARISON: 08/17/[address] head FINDINGS: CTA HEAD: Anterior Circulation: Right intracranial internal carotid artery (ICA): Moderate irregular atherosclerotic narrowing of the cavernous and supraclinoid segments. Right anterior cerebral artery (CONNOR): Mild irregular narrowing of the A1 segment. Right middle cerebral artery (MCA): Mild focal stenosis of the proximal M1 segment. There is severe focal stenosis at the M2 trifurcation involving the posterior M2 branches with patency and arborization distally. Left intracranial internal carotid artery (ICA): Moderate irregular atherosclerotic narrowing of the cavernous and supraclinoid segments. Left anterior cerebral artery (CONNOR): Normal Left middle cerebral artery (MCA): Mild focal stenosis of the mid M1 segment. Anterior communicating artery (AComm): Present Posterior communicating arteries (PComm): Right PComm present. Left PComm not well visualized. Posterior Circulation: Right posterior cerebral artery (RU[employer] TENDER): Hypoplastic P1 segment with the remainder of the right RU[employer] HEEL [employer] SOLE [employer] TENDER supplied by the right posterior communicating artery. Left posterior cerebral artery (RU[employer] HEEL [employer] SOLE PRESS TENDER): Moderate focal stenosis of the mid P2 segment. Right vertebral artery (VA): Normal Left vertebral artery (VA): Normal Basilar artery (BA): Normal Other: Normal Dural Venous Sinuses: Normal CTA NECK: Aortic arch and proximal great vessels: Atherosclerotic changes without significant narrowing. Right carotid arterial system: Mild (<50%) internal carotid artery narrowing at the carotid bulb. There is beaded appearance of the distal ICA. Left carotid arterial system: Mild (<50%) internal carotid artery narrowing at the carotid bulb. Beaded appearance of the distal ICA. Right vertebral artery: Marked focal stenosis of the V1 origin. Moderate focal stenosis of the V2 segment at the C5-C6 level secondary to osseous degenerative spurring. Mild focal stenosis at the V3 and V4 junction at the dural reflection Left vertebral artery: Marked focal stenosis of the V1 origin. Where applicable, evaluation of internal carotid artery (ICA) stenosis was performed using NASCET-like criteria, where the site of greatest stenosis is compared to the diameter of the ICA distal to the stenosis at a point where the ICA sigala become parallel. Neck Soft Tissues: Unremarkable. Osseous Structures: No acute osseous abnormality. Advanced multilevel degenerative changes of the cervical spine including bulky disc osteophyte complexes at C4-C5 and C5-C6 with moderate to severe spinal canal stenosis suggested at C5-C6. Bilateral paranasal sinus disease as described on recent prior. Included Lung Apices: Mild biapical scarring. IMPRESSION: 1. Multifocal intracranial stenoses, as described, most notable for severe focal stenosis of the origins of right posterior M2 branches with patency distally. 2. Marked atherosclerotic stenoses of th e origins of both vertebral arteries with patency distally. Moderate to mild multifocal stenoses elsewhere, as described. 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 4.Degenerative changes of the cervical s pine results in moderate to severe spinal canal stenosis at C5-C6. Signed: Suni Grewal MD Report Verified Date/Time: 08/18/2019 00:28:12 Performing Organization Address City/State/Zipcode Ph one Number [facility] * CTA brain (08/18/2019 12:07 AM SWIMMING POOL INSTALLER) Specimen Narrative Performed At FINAL REPORT [facility] EXAM: CT, CAROTID, ANGIO, CT, CTANGIO BRAIN CLINICAL INDICATION: Neurological defic it. Concern for stroke. TECHNIQUE: Helical CTA of the head and CTA of the neck with IV contrast. Multiplanar reconstructed lupillo ges. 3D reconstructions with MIP images were performed. This exam wa s performed according to our departmental dose-optimization program, which includes automated exposure control, adjustment of the mA and/or kV according to patient size and/or use of iterative reconstruc tion technique. COMPARISON: 08/17/[address] hea d FINDINGS: CTA HEAD: Anterior Circulation: Right intracranial internal carotid art marcie (ICA): Moderate irregular atherosclerotic narrowing of the cavern ous and supraclinoid segments. Right anterior cerebral artery (CONNOR): M ild irregular narrowing of the A1 segment. Right middle cerebral artery (MCA): Mil d focal stenosis of the proximal M1 segment. There is severe fo leighton stenosis at the M2 trifurcation involving the posterior M2 branches with patency and arborization distally. Left intracranial internal carotid cristy ry (ICA): Moderate irregular atherosclerotic narrowing of the cavern ous and supraclinoid segments. Left anterior cerebral artery (CONNOR): No rmal Left middle cerebral artery (MCA): Mild focal stenosis of the mid M1 segment. Anterior communicating artery (AComm): Present Posterior communicating arteries (PComm ): Right PComm present. Left PComm not well visualized. Posterior Circulation: Right posterior cerebral artery (RU[employer] HE[employer] SOLE [employer] TENDER): Hypoplastic P1 segment with the remainder of the right RU[employer] HEEL [employer] SOLE [employer] TENDER supplied by the right posterior communicating artery. Left posterior cerebral artery (RUBB[employer] HEEL AND SOLE PRESS TENDER): M oderate focal stenosis of the mid P2 segment. Right vertebral artery (VA): Normal Left vertebral artery (VA): Normal Basilar artery (BA): Normal Other: Normal Dural Venous Sinuses:Normal CTA NECK: Aortic arch and proximal great vessels: Atherosclerotic changes without significant narrowing. Right carotid arterial system: Mild (<5 0%) internal carotid artery narrowing at the carotid bulb. There is beaded appearance of the distal ICA. Left carotid arterial system: Mild (<50 %) internal carotid artery narrowing at the carotid bulb. Beaded a ppearance of the distal ICA. Right vertebral artery: Marked focal st enosis of the V1 origin. Moderate focal stenosis of the V2 segme nt at the C5-C6 level secondary to osseous degenerative spurr ing. Mild focal stenosis at the V3 and V4 junction at the dural ref lection Left vertebral artery: Marked focal sabrina nosis of the V1 origin. Where applicable, evaluation of interna l carotid artery(ICA) stenosis was performed using NASCET-lik e criteria, where the site of greatest stenosis is compared to the di ameter of the ICA distal to the stenosis at a point where the ICA w alls become parallel. Neck Soft Tissues: Unremarkable. Osseous Structures:No acute osseous abnormality. Advanced multilevel degenerative changes of the cervical spine including bulky disc osteophyte complexes at C4-C5 and C5-C6 with moderate to severe spinal canal stenosis suggested at C5-C 6. Bilateral paranasal sinus disease as described on recent prior. Included Lung Apices: Mild biapical sca rring. IMPRESSION: 1. Multifocal intracranial stenoses, as described, most notable for severe focal stenosis of the origins of right posterior M2 branches with patency distally. 2. Marked atherosclerotic stenoses of t he origins of both vertebral arteries with patency distally. Moderat e to mild multifocal stenoses elsewhere, as described. 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 4.Degenerative changes of the cervical spine results in moderate to severe spinal canal stenosis at C5-C6. Signed: Suni Grewal MD Report Verified Date/Time: 0 00:28:12 Procedure Note Interface, External Ris In - 08/18/2019 12:31 AM SWIMMING POOL INSTALLER FINAL REPORT EXAM: CT, CAROTID, ANGIO, CT, CTANGIO BRAIN CLINICAL INDICATION: Neurological deficit. Concern for stroke. TECHNIQUE: Helical CTA of the head and CTA of the neck with IV contrast. Multiplanar reconstructed images. 3D reconstructions with MIP images were performed. This exam was performed according to our departmental dose-optimization program, which includes automated exposure control, adjustment of the mA and/or kV according to patient size and/or use of iterative reconstruction technique. COMPARISON: 08/17/[address] head FINDINGS: CTA HEAD: Anterior Circulation: Right intracranial internal carotid artery (ICA): Moderate irregular atherosclerotic narrowing of the cavernous and supraclinoid segments. Right anterior cerebral artery (CONNOR): Mild irregular narrowing of the A1 segment. Right middle cerebral artery (MCA): Mild focal stenosis of the proximal M1 segment. There is severe focal stenosis at the M2 trifurcation involving the posterior M2 branches with patency and arborization distally. Left intracranial internal carotid artery (ICA): Moderate irregular atherosclerotic narrowing of the cavernous and supraclinoid segments. Left anterior cerebral artery (CONNOR): Normal Left middle cerebral artery (MCA): Mild focal stenosis of the mid M1 segment. Anterior communicating artery (AComm): Present Posterior communicating arteries (PComm): Right PComm present. Left PComm not well visualized. Posterior Circulation: Right posterior cerebral artery (RU[employer] HEEL [employer] SOLE PR[employer] TENDER): Hypoplastic P1 segment with the remainder of the right RU[employer] HEEL [employer] SOLE [employer] TENDER supplied by the right posterior communicating artery. Left posterior cerebral artery (RU[employer] HEEL [employer] SOLE PRESS TENDER): Moderate focal stenosis of the mid P2 segment. Right vertebral artery (VA): Normal Left vertebral artery (VA): Normal Basilar artery (BA): Normal Other: Normal Dural Venous Sinuses: Normal CTA NECK: Aortic arch and proximal great vessels: Atherosclerotic changes without significant narrowing. Right carotid arterial system: Mild (<50%) internal carotid artery narrowing at the carotid bulb. There is beaded appearance of the distal ICA. Left carotid arterial system: Mild (<50%) internal carotid artery narrowing at the carotid bulb. Beaded appearance of the distal ICA. Right vertebral artery: Marked focal stenosis of the V1 origin. Moderate focal stenosis of the V2 segment at the C5-C6 level secondary to osseous degenerative spurring. Mild focal stenosis at the V3 and V4 junction at the dural reflection Left vertebral artery: Marked focal stenosis of the V1 origin. Where applicable, evaluation of internal carotid artery (ICA) stenosis was performed using NASCET-like criteria, where the site of greatest stenosis is compared to the diameter of the ICA distal to the stenosis at a point where the ICA sigala become parallel. Neck Soft Tissues: Unremarkable. Osseous Structures: No acute osseous abnormality. Advanced multilevel degenerative changes of the cervical spine including bulky disc osteophyte complexes at C4-C5 and C5-C6 with moderate to severe spinal canal stenosis suggested at C5-C6. Bilateral paranasal sinus disease as described on recent prior. Included Lung Apices: Mild biapical scarring. IMPRESSION: 1. Multifocal intracranial stenoses, as described, most notable for severe focal stenosis of the origins of right posterior M2 branches with patency distally. 2. Marked atherosclerotic stenoses of th e origins of both vertebral arteries with patency distally. Moderate to mild multifocal stenoses elsewhere, as described. 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 4.Degenerative changes of the cervical s pine results in moderate to severe spinal canal stenosis at C5-C6. Signed: Uri, Suni MD Report Verified Date/Time: 08/18/2019 00:28:12 Performing Organization Address City/State/Zipcode Ph one Number [facility] * CT brain/stroke test design (08/17/2019 11:19 PM SWIMMING POOL INSTALLER) Specimen Narrative Performed At FINAL REPORT [place] R[facility] EXAM: CT, BRAIN/STROKE PROTOCOL CLINICAL INDICATION: Focal neurological deficit. TECHNIQUE:CT images from skull base to vertex without IV contrast. This exam was performed according to [facility] departmental dose optimization program which includes aut omated exposure control, adjustment of the mA and/or kV accordin g to the patient size, and/or use of an iterative reconstruction tech nique. COMPARISON: None. FINDINGS: Parenchyma: No evidence of acute infarc tion. No hemorrhage. No mass or mass effect. Patchy areas of hypoatt enuation are present in the cerebral white matter that are nonspeci fic but compatible with mild chronic microvascular ischemic changes. Generalized cerebral and cerebellar parenchymal volume loss. Extra-axial Collection:None Ventricular System:Ex vacuo enlarge d without hydrocephalus Osseous Structures:Normal Included Orbits: Prior bilateral lens s urgery. Paranasal Sinuses:Partial opacifica tion of the bilateral maxillary antra, ethmoidal air cells, frontal sin uses, and sphenoid sinuses with spumous secretions. Tympanomastoid Cavities:Normal Other:Atherosclerotic intracranial calcifications are present. IMPRESSION: 1. No acute abnormality on CT head with out contrast. 2. Mild chronic deep white matter ische kajal changes and generalized parenchymal volume loss. 3. Spumous secretions within the bilate ral paranasal sinuses compatible with acute sinusitis in the correct clinical setting. If there is persistent clinical concern for intracranial pathology, MR examination is recommended for furth er characterization. Findings discussed with the neurology r esident by myself at time of dictation 08/17/2019 Signed: Suni Grewal MD Report Verified Date/Time: 0 23:33:26 Procedure Note Interface, External Ris In - 08/17/2019 11:36 PM SWIMMING POOL INSTALLER FINAL REPORT EXAM: CT, BRAIN/STROKE PROTOCOL CLINICAL INDICATION: Focal neurological deficit. TECHNIQUE: CT images from skull base to vertex without IV contrast. This exam was performed according to the departmental dose optimization program which includes automated exposure control, adjustment of the mA and/or kV according to the patient size, and/or use of an iterative reconstruction technique. COMPARISON: None. FINDINGS: Parenchyma: No evidence of acute infarction. No hemorrhage. No mass or mass effect. Patchy areas of hypoattenuation are present in the cerebral white matter that are nonspecific but compatible with mild chronic microvascular ischemic changes. Generalized cerebral and cerebellar parenchymal volume loss. Extra-axial Collection: None Ventricular System: Ex vacuo enlarged without hydrocephalus Osseous Structures: Normal Included Orbits: Prior bilateral lens surgery. Paranasal Sinuses: Partial opacification of the bilateral maxillary antra, ethmoidal air cells, frontal sinuses, and sphenoid sinuses with spumous secretions. Tympanomastoid Cavities: Normal Other: Atherosclerotic intracranial calcifications are present. IMPRESSION: 1. No acute abnormality on CT head witho ut contrast. 2. Mild chronic deep white matter ischem ic changes and generalized parenchymal volume loss. 3. Spumous secretions within the bilater al paranasal sinuses compatible with acute sinusitis in the correct clinical setting. If there is persistent clinical concern for intracranial pathology, MR examination is recommended for further characterization. Findings discussed with the neurology resident by myself at time of dictation 08/17/2019 Signed: Suni Grewal MD Report Verified Date/Time: 08/17/2019 23:33:26 Performing Organization Address City/State/Zipcode Ph one Number GE RIS * PT/aPTT (08/17/2019 11:04 PM SWIMMING POOL INSTALLER) Protime 13.5 11.9 - 14.2 seconds [facility] INR 1.1 <=5.9 [facility] PTT 26.7 22.5 - 36.0 seconds [facility] Specimen Blood Narrative Performed At Effective 11/08/2018: PT Reference Range Change [facility] New: 11.9-14.2Previous: 11.7-14.7 [facility] NTER RECOMMENDED COUMADIN/WARFARIN INR THERA PY RANGES STANDARD DOSE: 2.0-3.0Includes: PRO PHYLAXIS for venous thrombosis, systemic embolization; TREATMENT for venous thro mbosis and/or pulmonary embolus. HIGH RISK: Target INR is 2.5-3.5 for pa tients wiht mechanical heart valves. Performing Organization Address City/State/[facility] Ph one Number [facility] [address] [place], [place] [address] MEDICAL CENTER * Carotid doppler bilateral (08/17/2019 9:30 PM SWIMMING POOL INSTALLER) Ejection [facility] ECHO HEARTLAB MKCKESSON CPACS Specimen Impressions Performed At Right Impression [facility] ECHO HEARTLAB 1. There is 50-69% diameter reduction (approximately 58% by 2-D measurement) MKCKESSON CPACS in the internal carotid artery with het erogeneous plaque, a peak velocity of 128/31.4 cm/sec and an ICA/CCA peak sys tolic velocity ratio of 1.6. 2. There is >50% stenosis in the sales and distribution clerk al carotid artery with a velocity of 643/39.3 cm/sec. 3. There is non-occluding plaque in the common carotid artery. 4. The vertebral artery flow is antegra de. 5. The subclavian artery is patent with a velocity of 215 cm/sec. Left Impression 1. There is <50% diameter reduction (ap proximately 29% by 2-D measurement) in the internal carotid artery with a p eak velocity of 113/23.5 cm/sec and heterogeneous plaque. 2. There is >50% stenosis in the sales and distribution clerk al carotid artery with a velocity of 379/18 cm/sec. 3. There is non-occluding plaque in the common carotid artery. 4. The vertebral artery flow is antegra de. 5. The subclavian artery is patent with a velocity of 240 cm/sec. Conclusions Summary Carotid duplex scanning and color flow imaging were performed bilaterally. The arteries were adequately visualized . The right internal carotid artery had 50-69% hemodynamically significant stenosis (approximately 58% by 2-D measurement) with heterogeneous plaque. The left internal carotid artery had <50% hemodynamically insignificant stenosis (approximately 29% by 2-D measurement) with heterogeneous plaque. The vertebral artery flow was antegrade and normal bilaterally. The s ubclavian arteries were patent with normal flow bilaterally where visualize d. Signature Velocities are measured in cm/s ; Diame ters are measured in cm Carotid Right Measurements + +----+----+-----+------ ------+ + + !Location !PSV !EDV !Angle! %Stenosis 2D!%Stenosis Doppler!Tortuosity ! + +----+----+-----+------ ------+ + + !Prox CCA !58.1!11!60 !! ! ! + +----+----+-----+------ ------+ + + !Dist CCA !70.7!13.4!60 !! ! ! + +----+----+-----+------ ------+ + + !Prox ICA !116 !28.3!60 !58% !50-69% ! ! + +----+----+-----+------ ------+ + + !Dist ICA !142 !31.4!60 !! ! ! + +----+----+-----+------ ------+ + + !Prox ECA !643 !39.3!60 !!>50% ! ! + +----+----+-----+------ ------+ + + !Vertebral!81.7!16.1!60 !! ! ! + +----+----+-----+------ ------+ + + !Prox Subclavian!215 !!60 !! ! ! + +----+----+-----+------ ------+ + + - There is antegrade vertebral flow noted on the right side. - Additional Measurements:Subclavia n PRV 215.ICAPSV/CCAPSV 2.01.ICAEDV/CCAEDV 2.85. Carotid Left Measurements + +----+----+-----+------ ------+ + + !Location !PSV !EDV !Angle! %Stenosis 2D!%Stenosis Doppler!Tortuosity ! + +----+----+-----+------ ------+ + + !Prox CCA !70.4!14.1!60 !! ! ! + +----+----+-----+------ ------+ + + !Dist CCA !75.6!14.7!60 !! ! ! + +----+----+-----+------ ------+ + + !Prox ICA !113 !23.5!60 !29% !<50% ! ! + +----+----+-----+------ ------+ + + !Dist ICA !121 !28.7!60 !! ! ! + +----+----+-----+------ ------+ + + !Prox ECA !379 !18!60 !!>50% ! ! + +----+----+-----+------ ------+ + + !Vertebral!36.2!10.5!60 !! ! ! + +----+----+-----+------ ------+ + + !Prox Subclavian!240 !!60 !! ! ! + +----+----+-----+------ ------+ + + - There is antegrade vertebral flow noted on the left side. - Additional Measurements:Subclavia n PRV 240.ICAPSV/CCAPSV 1.6.ICAEDV/CCAEDV 2.04. Narrative Performed At LAB - Carotid Duplex Study [facility] ECHO HEARTLAB Demographics [facility] Patient NamePIRAD RIVERA Date of Study 08/17/2019 83 Visit [id number] male Date of 1935 Referring Thierry bar, Room Number 7512 Physician [employer] Lieutenant Lucy WestonInterpreting Ayaka Maldonado, RV T Physician Procedure Type of Study: Cerebral: Carotid, CAROTID DOPPLER, NIA ATERAL. Indications for Study:Pre OP CABG. Patient Status:KIKO. Study Location:Portable. Technical Quality:Adequate visualizatio n. Risk Factors History of Disease + +----+ + !Diagnosis!Date!Comments ! + +----+ + !History/Risk !!Previou s smoker, COPD, CAD, Hypertension,! !Factors: !!Hyp erlipidemia and Diabetes ! + +----+ + Procedure Note Interface, External Ris In - 08/18/2019 12:39 PM SWIMMING POOL INSTALLER [facility] LAB - Carotid Duplex Study Demographics Patient Name RAD RUVALCABA Date of Study 08/17/2019 Age 83 Visit Number [id number] Gender Female Accession Number [id number] Date of 1935 Referring Thierry Eleanor Verduzco, Room Number 7512 Physician [employer] Lieutenant Lucy Weston Interpreting Ayaka Maldonado, T Physician Procedure Type of Study: Cerebral: Carotid, CAROTID DOPPLER, BILATERAL. Indications for Study:Pre OP CABG. Patient Status:KIKO. Study Location:Portable. Technical Quality:Adequate visualization. Risk Factors History of Disease + +----+ + !Diagnosis !Date!Comments ! + +----+ + !History/Risk ! !Previous smoker, COPD, CAD, Hypertension, ! !Factors: ! !Hyperlipidemia and Diabetes ! + +----+ + Impressions Right Impression 1. There is 50-69% diameter reduction (a pproximately 58% by 2-D measurement) in the internal carotid artery with heterogeneous plaque, a peak velocity of 128/31.4 cm/sec and an ICA/CCA peak syst olic velocity ratio of 1.6. 2. There is >50% stenosis in the externa l carotid artery with a velocity of 643/39.3 cm/sec. 3. There is non-occluding plaque in the common carotid artery. 4. The vertebral artery flow is antegrad e. 5. The subclavian artery is patent with a velocity of 215 cm/sec. Left Impression 1. There is <50% diameter reduction (olvin roximately 29% by 2-D measurement) in the internal carotid artery with a peak velocity of 113/23.5 cm/sec and heterogeneous plaque. 2. There is >50% stenosis in the externa l carotid artery with a velocity of 379/18 cm/sec. 3. There is non-occluding plaque in the common carotid artery. 4. The vertebral artery flow is antegrad e. 5. The subclavian artery is patent with a velocity of 240 cm/sec. Conclusions Summary Carotid duplex scanning and color flow imaging were performed bilaterally. The arteries were adequately visualized. The right internal carotid artery had 50-69% hemodynamically significant stenosis (approximately 58% by 2-D measurement) with heterogeneous plaque. The left internal carotid artery had <50% hemodynamically insignificant stenosis (approximately 29% by 2-D measurement) with heterogeneous plaque. The vertebral artery flow was antegrade and normal bilaterally. The subclavian arteries were patent with normal flow bilaterally where visualized. Signature Velocities are measured in cm/s ; Diameters are measured in cm Carotid Right Measurements + +----+----+-----+------- -----+ + + !Location !PSV !EDV !Angle!%Stenosis 2D!%Stenosis Doppler!Tortuosity ! + +----+----+-----+------- -----+ + + !Prox CCA !58.1!11 !60 ! ! ! ! + +----+----+-----+------- -----+ + + !Dist CCA !70.7!13.4!60 ! ! ! ! + +----+----+-----+------- -----+ + + !Prox ICA !116 !28.3!60 !58% !50-69% ! ! + +----+----+-----+------- -----+ + + !Dist ICA !142 !31.4!60 ! ! ! ! + +----+----+-----+------- -----+ + + !Prox ECA !643 !39.3!60 ! !>50% ! ! + +----+----+-----+------- -----+ + + !Vertebral !81.7!16.1!60 ! ! ! ! + +----+----+-----+------- -----+ + + !Prox Subclavian!215 ! !60 ! ! ! ! + +----+----+-----+------- -----+ + + - There is antegrade vertebral flow noted on the right side. - Additional Measurements:Subclavian PRV 215.ICAPSV/CCAPSV 2.01.ICAEDV/CCAEDV 2.85. Carotid Left Measurements + +----+----+-----+------- -----+ + + !Location !PSV !EDV !Angle!%Stenosis 2D!%Stenosis Doppler!Tortuosity ! + +----+----+-----+------- -----+ + + !Prox CCA !70.4!14.1!60 ! ! ! ! + +----+----+-----+------- -----+ + + !Dist CCA !75.6!14.7!60 ! ! ! ! + +----+----+-----+------- -----+ + + !Prox ICA !113 !23.5!60 !29% !<50% ! ! + +----+----+-----+------- -----+ + + !Dist ICA !121 !28.7!60 ! ! ! ! + +----+----+-----+------- -----+ + + !Prox ECA !379 !18 !60 ! !>50% ! ! + +----+----+-----+------- -----+ + + !Vertebral !36.2!10.5!60 ! ! ! ! + +----+----+-----+------- -----+ + + !Prox Subclavian!240 ! !60 ! ! ! ! + +----+----+-----+------- -----+ + + - There is antegrade vertebral flow noted on the left side. - Additional Measurements:Subclavian PRV 240.ICAPSV/CCAPSV 1.6.ICAEDV/CCAEDV 2.04. Performing Organization Address City/[facility] Ph one Number [facility] ECHO HEARTLAB MKCKESSON CPACS * Manual Differential (08/17/2019 8:43 PM SWIMMING POOL INSTALLER) % Neutros 93 % [facility] % Lymphs 5 % [facility] % Monos 1 % [facility] # Neutros 10.32 (H) 1.56 - 6.13 K/ul [facility] # Lymphs 0.56 (L) 1.18 - 3.74 K/ul [facility] # Monos 0.11 (L) 0.24 - 0.36 K/uL [facility] Total Counted 100 [facility] RBC Morphology Normal [facility] Platelet Morphology Normal [facility] Vacuolated Neutrophils Present [facility] Plasmacytoid Lymphs Present [facility] Platelet Conc Adequate [facility] Specimen Blood Narrative Performed At Electronics Lead ID - Mignon [facility] User comments: [facility] Slide comments: Performing Organization Address [facility] Ph one Number [address] [facility] * B-type Natriuretic Factor (BNP) (08/17/2019 8:43 PM SWIMMING POOL INSTALLER) BNP 577 (H) 0 - 100 pg/mL [facility] Specimen Blood Narrative Performed At Electronics Lead ID - LINSEY Winkler [facility] Performing Organization Address City/[facility] Centercode Ph one Number [facility] [address] [place] [address] [phone] [place] [address] * Comprehensive metabolic panel (08/17/2019 8:43 PM SWIMMING [employer] INSTALLER) Protein, Total 7.3 6.0 - 8.3 gm/dL [facility] Albumin 3.7 3.5 - 5.0 g/dL [facility] Alkaline Phosphatase 93 40 - 150 U/L [facility] Total Bilirubin 0.3 0.2 - 1.2 mg/dL [facility] Sodium 134 (L) 136 - 145 meq/L [facility] Potassium 4.5 3.5 - 5.1 meq/L [facility] Chloride 101 98 - 107 meq/L [facility] CO2 23 22 - 29 meq/L [facility] BUN 19 7 - 21 mg/dL [facility] Creatinine 1.25 0.57 - 1.25 mg/dL [facility] Glucose 496 (HH) 70 - 105 mg/dL [facility] Calcium 9.8 8.4 - 10.2 mg/dL [facility] AST 14 5 - 34 U/L [facility] ALT 12 6 - 55 U/L [facility] EGFR Comment: INSUFFICIENT CLINICAL [facility] DATA TO CALCULATE ESTIMATED [facility] GFR. Specimen Blood Narrative Performed At Electronics Lead ID - LINSEY Winkler [facility] Performing Organization Address City/State/Zipcode Ph one Number [place] [phone] * XR chest 1 view portable / bedside (08/17/2019 7:40 PM SWIMMING POOL INSTALLER) Specimen Narrative Performed At FINAL REPORT GE RIS Chest one view. Clinical history: ACS Comparison: None. Technique: A single frontal view of the chest was obtained. Findings: The heart is normal size. The aorta is tortuous and atherosclerotic. There is no focal pulmonary consolidati on, pleural effusion or pneumothorax. There is no pulmonary kris ma. The bony thorax is demineralized but ot herwise unremarkable. Signed: Keeley Alfredo MD Report Verified Date/Time: 0 04:55:56 Procedure Note Interface, External Ris In - 08/18/2019 4:58 AM SWIMMING POOL INSTALLER FINAL REPORT Chest one view. Clinical history: ACS Comparison: None. Technique: A single frontal view of the chest was obtained. Findings: The heart is normal size. The aorta is tortuous and atherosclerotic. There is no focal pulmonary consolidation, pleural effusion or pneumothorax. There is no pulmonary edema. The bony thorax is demineralized but otherwise unremarkable. Signed: Keeley Alfredo MD Report Verified Date/Time: 08/18/2019 04:55:56 Performing Organization Address City/State/Zipcode Ph one Number GE RIS after 01/20/2019 Insurance Payer Benefit Subscriber ID Type Phone Address Plan / Group [employer] TEX[employer] xxxxxxxxx [facility] HMO ALL Contracted [phone] Advance Directives For more information, please contact: [facility] [address] [place] [address] Date Inactivated Comments Code Status Date Activated 12/05/2019 1:05 PM Full Code 12/03/2019 9:19 AM This code status was determined by: Patient 12/03/2019 9:19 AM Full Code 12/03/2019 6:02 AM This code status was determined by: Patient 08/23/2019 7:07 PM Full Code 08/17/2019 7:17 PM This code status was determined by: Patient
--- OUTSIDE RECORDS SUMMARY | 2020-01-21 23:56 | XMS REPORT | Continuity of Care Document ---
Author Author [facility] t Organization [facility] Address [address] [place] [address] Phone Unavailable Care Team Providers Care Rug Clipper Name Role Phone SUNI ROMERO MD PCP Katty MARINICA Attphys Unavailable Jenaro LEVY, Noah Pierce Attphys [phone] Nathaniel WALLS, Josué Jackga Attphys Unavailable Timbo LEVY, Brett Attphys BRETT DE LA CRUZ Attphys Unavailable Sherwin Verduzco MD Attphys [phone] Shea LEVY, Mauricio Attphys SHERWIN VERDUZCO Attphys Unavailable SNUI ROMERO Attphys Unavailable BRETT DE LA CRUZ Admphys Unavailable SHERWNI VERDUZCO Admphys Unavailable SUNI ROMERO Admphys Unavailable Payers Payer Name Policy Type Policy Number Effective Date Expiration Date Katty bowman [employer] H[employer] ALLxxxxxxxxxMaps Contracted xxxxxxx xx [facility] [employer] [id number] 2019 00:00:00 [facility] Problems Condition Name Condition Details Condition Category Status Onset Date Resolution Date Last Treatment Date Treating Clinician Comments Source CAD (coronary artery disease) CAD (coronary artery disease) Disease Active 2019-12-03 00:00:00 [facility] Acute ischemic stroke Acute ischemic stroke Disease Active 202 00:00:00 [facility] Essential hypertension Essential hypertension Disease Active 2019-08-18 00:00:00 [facility] Type 2 diabetes mellitus Type 2 diabetes mellitus Disease Acti ve 2019-08-18 00:00:00 [facility] Hyperlipidemia Hyperlipidemia Disease Active 2019-08-18 00:00:00 [facility] Atrial fibrillation Atrial fibrillation Disease Active 2019-08-18 00:00 [facility] COPD (chronic obstructive pulmonary disease) COPD (chr onic obstructive pulmonary disease) Disease Active 2019-08-18 00:00:00 [facility] Hypothyroidism Hypothyroidism Disease Active 2019-08-18 00:00:00 [facility] NSTEMI (non-ST elevated myocardial infarction) NSTEMI (non-ST elevated myocardial infarction) Disease Active 2019-08-18 00:00:00 [facility] Coronary artery disease Coronary artery disease Disease Active 2019-08-17 00:00:00 [facility] Chest pain Chest pain Problem Active [facility] Allergies, Adverse Reactions, Alerts Allergy Name Allergy Type Status Severity Reaction(s) Onset Date Inacti ve Date Treating Clinician Comments Source Iodine And Iodide Containing Products Propensity to adverse reactio ns Active Anaphylaxis 2019-08-17 00:00:00 [facility] Penicillins Propensity to adverse reactions Active Severe 2019-08-17 00:00:00 [facility] Penicillin Allergy to Substance Active Mild 2009-06-15 00:00:00 [facility] Iodine Allergy to Substance Active Mild 2009-06-15 00:00:00 [facility] Social History Social Habit Start Date Stop Date Quantity Comments Source Sex Assigned At [facility] Alcohol Comment 2019-12-03 00:00:00 2019-12-03 00:00:00 sometimes [facility] Smoking Status Start Date Stop Date Source Former smoker 2019-12-07 00:00:00 2019-12-07 00:00:00 [facility] Medications Ordered Medication Name Filled Medication Name Start Date Stop Da te Current Medication? Ordering Clinician Indication Dosage Frequency Signature (SIG) Comments Components Source clopidogreL (PLAVIX) 75 mg tablet 2019-12-06 00:00:00 2019 00:00:00 No 75mg QD Take 1 tablet (75 mg total) by mouth danisha tima. [facility] losartan (COZAAR) 25 MG tablet 2019-12-06 00:00:00 2019-12-05 00 :00:00 No 25mg QD Take 1 tablet (25 mg total) by mouth daily. [facility] LEVEMIR FLEXTOUCH U-100 INSULN 100 unit/mL (3 mL) InPn injec tion 2019-12-05 00:00:00 Yes 42U Q.5D Inject 0.4 2 mLs (42 Units total) subcutaneously 2 (two) times daily Inject 15u in the morning and 35u at night. [facility] clopidogreL (PLAVIX) 75 mg tablet 2019-12-05 00:00:00 Yes TAKE 1 TABLET BY MOUTH EVERY DAY [facility] losartan (COZAAR) 25 MG tablet 2019-12-05 00:00:00 Yes TAKE 1 TABLET BY MOUTH EVERY DAY [facility] aspirin 81 MG chewable tablet 2019-12-05 00:00:00 2020-01-04 23: 59:00 No 81mg QD Take 1 tablet (81 mg total) by mouth daily for 30 days . [facility] amitriptyline (ELAVIL) 25 MG tablet 2019-12-03 06:29:28 Yes 25mg QD Take 25 mg by mouth nightly. [facility] isosorbide mononitrate (IMDUR) 30 MG 24 hr tablet 2019-12-03 06:29:28 Yes 30mg QD Take 30 mg by mouth daily. [facility] amLODIPine (NORVASC) 10 MG tablet 2019-08-24 00:00:00 Yes 10mg QD Take 1 tablet (10 mg total) by mouth daily. [facility] aspirin 81 MG chewable tablet 2019-08-24 00:00:00 2019-12-05 00: 00:00 No 81mg QD Take 1 tablet (81 mg total) by mouth daily. [facility] atorvastatin (LIPITOR) 80 MG tablet 2019-08-23 00:00:00 Yes 80mg QD Take 1 tablet (80 mg total) by mouth nightly. [facility] carvediloL (COREG) 25 MG tablet 2019-08-23 00:00:00 Yes 25mg Take 1 tablet (25 mg total) by mouth 2 (two) times daily with breakfast and dinner. [facility] apixaban (ELIQUIS) 5 mg Tab tablet 2019-08-23 00:00:00 Yes 5mg Q.5D Take 1 tablet (5 mg total) by mouth 2 (two) times daily New blood thinner. [facility] senna-docusate (SENOKOT S) 8.6-50 mg per tablet 2019-08-23 00:00:00 2020-08-22 23:59:00 No 2{tbl} Take 2 tablets by mouth daily as needed for Constipation. [facility] LEVEMIR FLEXTOUCH U-100 INSULN 100 unit/mL (3 mL) In injec tion 2019-08-23 00:00:00 2019-12-05 00:00:00 No Inject 15u in the morning and 35u at night. [facility] LEVEMIR FLEXTOUCH U-100 INSULN 100 unit/mL (3 mL) In injec tion 2019-08-01 00:00:00 2019-08-23 00:00:00 No 40U Q.5D Inject 40 Units subcutaneously 2 (two) times daily. [facility] acetaminophen-codeine (TYLENOL #3) 300-30 mg per tablet 2019-07-02 00:00:00 Yes 300mg Take 300 mg by mouth every 6 (six) hours as needed. [facility] levothyroxine (SYNTHROID, LEVOTHROID) 50 MCG tablet 07-02 00:00:00 Yes 50ug QD Take 50 mcg by mouth daily. [facility] Insulin Detemir (Levemir) 100 Unit/1 Ml Vial Insulin D etemir (Levemir) 100 Unit/1 Ml Vial Yes 4 Twice Daily Breakfast & Lunch [facility] Amitriptyline Hcl 25 Mg Tablet, 25 Mg Oral Amitriptyli ne Hcl 25 Mg Tablet, 25 Mg Oral 2019-08-15 00:00:00 No 25 Bedtime [facility] Amlodipine Besylate 10 Mg Tablet, 10 Mg Oral Amlodipin e Besylate 10 Mg Tablet, 10 Mg Oral 2019-08-15 00:00:00 No 10 Daily [facility] Metoprolol Tartrate 50 Mg Tablet, 50 Mg Oral Metoprolo l Tartrate 50 Mg Tablet, 50 Mg Oral 2019-08-15 00:00:00 No 50 Twice A Day [facility] Valsartan (Diovan) 320 Mg Tablet, 320 Mg Oral Valsarta n (Diovan) 320 Mg Tablet, 320 Mg Oral 2019-08-15 00:00:00 No 320 Bedtime [facility] Vital Signs Vital Name Observation Time Observation Value Comments Source Systolic blood pressure 2019-12-05 08:16:00 141 mm[Hg] [facility] Diastolic blood pressure 2019-12-05 08:16:00 61 mm[Hg] [facility] Heart rate 2019-12-05 08:16:00 73 /min [facility] Body temperature 2019-12-05 08:16:00 36.78 Cleopatra [facility] Respiratory rate 2019-12-05 08:16:00 18 /min [facility] Oxygen saturation in Arterial blood by Pulse oximetry 12-04 08:16:00 97 /min [facility] Body weight Measured 2019-12-04 08:07:00 72.893 kg [facility] BMI 2019-12-04 08:07:00 25.17 kg/m2 [facility] Body height 2019-12-03 05:51:00 170.2 cm [facility] Procedures Procedure Date / Time Performed Performing Clinician Chencho ross VASCULAR DIAGRAM -SCAN 2019-12-14 16:00:48 Provider, Default Sca nning [facility] RHYTHM STRIP - SCAN 2019-12-06 13:32:38 Provider, Default Scanni ng [facility] VASCULAR DIAGRAM -SCAN 2019-12-06 13:32:35 [facility] - [facility] 2019-12-06 13:32:33 Provider, Default Scanning [facility] CARDIAC CATH REPORT - SCAN 2019-12-06 13:32:32 Provider, Default Scanning [facility] VASCULAR DIAGRAM -SCAN 2019-12-05 15:22:29 [facility] BASIC METABOLIC PANEL (7) 2019-12-05 04:41:00 [facility] CBC (HEMOGRAM ONLY) 2019-12-05 04:41:00 [facility] POCT-GLUCOSE METER 2019-12-04 20:36[facility] - SC[facility] 2019-12-04 18:33:14 Provid er, Default Scanning [facility] HEMOGLOBIN A1C 2019-12-04 17:41:00 Ayaka Holloway [facility] POCT-GLUCOSE METER 2019-12-04 16:54:[facility] 2019-12-04 15:10:00 Ala, [facility] POCT-ACT 2019-12-04 [facility] 2019-12-04 12:19:[facility] POCT-[facility]SE [facility]ER 2019-12-04 07:15:00 Alam, [facility] POCT-GLUCOSE METER 2019-12-04 05:59:00 [facility] APTT 2019-12-04 04:33:00 Ayaka Holloway [facility] BASIC METABOLIC PANEL (7) 2019-12-04 02:05:00 [facility] CBC (HEMOGRAM ONLY) 2019-12-04 02:05:00 [facility] APTT 2019-12-04 02:05:00 Ayaka Holloway [facility] POCT-GLUCOSE METER 2019-12-04 01:58:00 Timbo [facility] APTT 2019-12-03 23:03:00 Ayaka Holloway [facility] POCT-GLUCOSE METER 2019-12-03 23:02:00 Timbo, [facility] BASIC METABOLIC PANEL (7) 2019-12-03 21:26:00 Bruce Fernandes [facility] APTT 2019-12-03 21:26:00 Ayaka Hollowayne [facility] POCT-GLUCOSE METER 2019-12-03 20:30:00 Timbo [facility] POCT-GLUCOSE METER 2019-12-03 18:44:00 Timbo, [facility] POCT-GLUCOSE METER 2019-12-03 16:37:[facility] 2019-12-03 15:07:00 Ayaka Holloway [facility] ECG 12-LEAD 2019-12-03 13:58:28 Unknown, Hl7 [facility] POCT-GLUCOSE METER 2019-12-03 11:02:00 Timbo [facility] PCI 2019-12-03 07:30:00 Jose [facility] ABORH, MANUAL 2019-12-03 06:41:00 Lisa Lloyd [facility] ECG 12-LEAD 2019-12-03 06:27:09 Unknown, Hl7 Doctor [facility] PROTHROMBIN TIME/INR 2019-12-03 06:22:00 Jesisca Christian [facility] APTT 2019-12-03 06:22:00 [facility] BASIC METABOLIC PANEL (7) 2019-12-03 06:22:00 Ala, [facility] LIPID PANEL 2019-12-03 06:22[facility] AND [facility]CREEN, AUTOMATED 2019-12-03 06:22:00 [facility] CBC W/PLT COUNT & AUTO DIFFERENTIAL 2019-12-03 06:22:00 Gagan De La Cruz [facility] RHYTHM STRIP - SCAN 2019-08-28 14:11:14 Provider, Default [facility] RHYTHM STRIP - SCAN 2019-08-27 11:01:09 Provider, Default [facility] POCT-GLUCOSE METER 2019-08-23 11:18:00 Thierry Verduzco [facility] POCT-GLUCOSE METER 2019-08-23 07:42:00 Thierry Verduzco [facility] CBC (HEMOGRAM ONLY) 2019-08-23 05:25:00 [facility]SE [facility] 2019-08-22 21:08:00 Thierry Verduzco [facility] POCT-GLUCOSE METER 2019-08-22 17:41:00 Thierry Verduzco [facility] POCT-GLUCOSE METER 2019-08-22 12:03:00 Thierry Verduzcoilios Ольга [facility] POCT-GLUCOSE METER 2019-08-22 07:36:00 Thierry Verduzco [facility] APTT 2019-08-22 06:16:00 Thierry Verduzco [facility] CBC (HEMOGRAM ONLY) 2019-08-22 06:16:00 Ascencion Vallejo [facility] ECHOCARDIOGRAM REPORT - SCAN 2019-08-21 21:14:11 Provider, Hussein Carter [facility] POCT-GLUCOSE METER 2019-08-21 21:13:00 Thierry Verduzcoos Ольга [facility] POCT-GLUCOSE METER 2019-08-21 16:40:00 Thierry Verduzco [facility] POCT-GLUCOSE METER 2019-08-21 11:38:00 Tellohamlet Thierry Waltertran Rolon [facility] APTT 2019-08-21 10:32:00 Tellohamlet Thierry Walterilios [facility] POCT-GLUCOSE METER 2019-08-21 08:39:00 [place]amlet Thierry Walterilios Ольга [facility] APTT 2019-08-21 03:29:00 TelloThierry mcnulty [facility] CBC (HEMOGRAM ONLY) 2019-08-21 03:29:00 Ascencion Vallejo [facility] ECHOCARDIOGRAM REPORT - SCAN 2019-08-20 21:12:48 Hussein Pihllip lt [facility] POCT-GLUCOSE METER 2019-08-20 21:00:00 RoThierry bar [facility] APTT 2019-08-20 20:15:00 Thierry Verduzco Sherwin [facility] POCT-GLUCOSE METER 2019-08-20 17:28:00 [place] Thierry Waltertran Rolon [facility] LIMITED 2D ECHOCARDIOGRAM 2019-08-20 15:41:51 Ayaka Holloway [facility] POCT-GLUCOSE METER 2019-08-20 13:10:00 [place] Thierry Waltertran Rolon [facility] APTT 2019-08-20 13:02:00 Thierry Verduzco [facility] 2D ECHO W/ DOPPLER (CW/PW/COLOR) 2019-08-20 11:00:00 Lilly Padilla [facility] POCT-GLUCOSE METER 2019-08-20 08:21:00 Thierry Verduzco [facility] BASIC METABOLIC PANEL (7) 2019-08-20 03:47:00 Ramon Padilla [facility] MAGNESIUM 2019-08-20 03:47:00 Ramon Padilla [facility] PHOSPHORUS 2019-08-20 03:47:00 Ramon Padilla [facility] APTT 2019-08-20 03:47:00 Thierry Verduzco [facility] CBC (HEMOGRAM ONLY) 2019-08-20 03:47:00 VallejoAscencion acostabobby [facility] POCT-GLUCOSE METER 2019-08-19 21:14:00 Thierry Verduzco [facility] CT BRAIN WITHOUT IV CONTRAST 2019-08-19 20:32:00 Thierry Verduzco [facility] POCT-GLUCOSE METER 2019-08-19 18:05:00 Thierry Verduzco [facility] POCT-GLUCOSE METER 2019-08-19 12:48:00 Thierry Verduzco [facility] APTT 2019-08-19 09:13:00 Thierry Verduzco Sherwin [facility] POCT-GLUCOSE METER 2019-08-19 08:12:00 Thierry Verduzco [facility] CBC (HEMOGRAM ONLY) 2019-08-19 05:35:00 Vallejo, Ascencion Hernández [facility] APTT 2019-08-19 01:42:00 Thierry Verduzco [facility] BASIC METABOLIC PANEL (7) 2019-08-19 01:42:00 Ramon Padilla [facility] MAGNESIUM 2019-08-19 01:42:00 Ramon Padilla [facility] PHOSPHORUS 2019-08-19 01:42:00 Ramon Padilla [facility] TROPONIN I 2019-08-19 01:42:00 Marvel Grullon [facility] PERIPHERAL VASCULAR REPORT - SCAN 2019-08-18 21:10:10 Provid er, Default Scanning [facility] POCT-GLUCOSE METER 2019-08-18 21:04:00 Thierry Verduzco [facility] MR BRAIN WITHOUT IV CONTRAST 2019-08-18 18:31:00 Nino Driscoll [facility] POCT-GLUCOSE METER 2019-08-18 17:25:00 Thierry Verduzco [facility] TROPONIN I 2019-08-18 15:58:00 Americo, [facility] APTT 2019-08-18 15:57:00 Vallejo Ascencion Romanbobby [facility] POCT-GLUCOSE METER 2019-08-18 12:50:00 Thierry Verduzco [facility] POCT-GLUCOSE METER 2019-08-18 07:58:00 Thierry Verduzco [facility] HEMOGLOBIN A1C 2019-08-18 04:39:00 Americo, [facility] TSH/FREE T4 IF INDICATED 2019-08-18 04:39:00 Americo [facility] VITAMIN B12 AND FOLATE 2019-08-18 04:39:00 Americo [facility] BASIC METABOLIC PANEL (7) 2019-08-18 02:13:00 Ramon Padilla [facility] MAGNESIUM 2019-08-18 02:13:00 Ramon Padilla [facility] PHOSPHORUS 2019-08-18 02:13:00 Ramon Padilla [facility] LIPID PANEL 2019-08-18 02:13:00 Americo, [facility] TROPONIN I 2019-08-18 02:13:00 Americo, [facility] CBC W/PLT COUNT & AUTO DIFFERENTIAL 2019-08-18 02:13:00 AmericoJulio qureshi [facility] POCT-GLUCOSE METER 2019-08-18 01:55:00 Thierry Verduzco [facility] CT CHEST WITHOUT IV CONTRAST 2019-08-18 00:08:00 Ramon Padilla [facility] CTA BRAIN 2019-08-18 00:07:00 [facility] CT/CTA CAROTID 2019-08-18 00:07:00 Americo [facility] CT BRAIN/STROKE TEST DESIGN 2019-08-17 23:19:00 Americo [facility] PT/APTT 2019-08-17 23:04:00 Americo [facility] POCT-GLUCOSE METER 2019-08-17 22:41:00 Thierry Verduzco [facility] CAROTID DOPPLER BILATERAL 2019-08-17 21:30:00 Ramon Padilla [facility] TROPONIN I 2019-08-17 20:43:00 Ramon Padilla [facility] COMPREHENSIVE METABOLIC PANEL 2019-08-17 20:43:00 Ramon Padilla [facility] B-TYPE NATRIURETIC FACTOR (BNP) 2019-08-17 20:43:[address] [facility] PROTHROMBIN TIME/INR 2019-08-17 20:43:00 Ramon Padilla [facility] APTT 2019-08-17 20:43:00 Ramon Padilla [facility] MAGNESIUM 2019-08-17 20:43:[address] [facility] TSH/FREE T4 IF INDICATED 2019-08-17 20:43:00 Ramon Padilla do [facility] CBC W/PLT COUNT & AUTO DIFFERENTIAL 2019-08-17 20:43:[address] [facility] (CELLAVISION MANUAL DIFF) 2019-08-17 20:43:00 Ramon Padilla [facility] XR CHEST 1 VIEW PORTABLE/BEDSIDE 2019-08-17 19:40:00 Lilly Padilla [facility] POCT-GLUCOSE METER 2019-08-17 18:29:00 Thieryr Verduzco [facility] POCT-GLUCOSE METER 2019-08-17 16:30:00 Thierry Verduzco [facility] X-ray of chest, two views 2019-08-14 00:00:00 DIPAK MARIN CH I [facility] Encounters Start Date/Time End Date/Time En[facility] ID Source 2019-08-14 23:58:00 2019-08-17 15:03:00 Discharged Inpatient (obs) 1 SUNI ROMERO [facility] [id number] [facility] Results Test Description Test Time Test Comments Results Result Comments Source CHEST SINGLE (PORTABLE) 2020-01-21 22:33:00 [facility] [address] [place] [address] Patient Name: RAD TINAJERO MR #: [id number] : 1935 Age/Sex: 84/F Req #: [id number] Adm Physician: Ordered by: DIPAK MARIN DO Report #: [id number] Location: ER Room/Bed: Procedure: [id number] DX/CHEST SINGLE (PORTABLE) Exam Date: Exam Time: REPORT STATUS: Signed EXAMINATION: CHEST SINGLE (PORTABLE) INDICATION: Y low BP COMPARISON: 08/14/2019 FINDINGS: AP view TUBES and LINES: None. LUNGS: Lungs are well inflated. Mildly prominent interstitial lung markings. PLEURA: No signifi cant pleural effusion or pneumothorax. HEART AND MEDIASTINUM: The cardiomediastinal silhouette is unremarkable. BONES AND SOFT TISSUES: No acute osseous lesion. Soft tissues are unremarkable. UPPER ABDOMEN: No free air under the diaphragm. IMPRESSION: Mildly prominent interstitial lung markings, could be chronic or represent mild interstitial edema. No definite focal consolidations. Signed by: Dr. Daryl Siddiqui MD on 01/21/2020 10:36 PM Dictated By: DARYL SIDDIQUI MD 35 Transcribed By: RIGO on 01/21/202235 COPY TO: DIPAK MARIN DO Basic metabolic panel 2019-12-05 05:04:00 Test Item Sodium (test code = 2951-2) 133 meq/L 136-145 L Potassium (test code = 2823-3) 4.8 meq/L 3.5-5.1 Chloride (test code = 2075-0) 105 meq/L 98-107 CO2 (test code = 8-9) 19 meq/L 22-29 L BUN (test code = 3094-0) 28 mg/dL 7-21 H Creatinine (test code = 2160-0) 1.08 mg/dL 0.57-1.25 Glucose (test code = 2345-7) 333 mg/dL 70-105 H Calcium (test code = 16401-9) 9.1 mg/dL 8.4-10.2 EGFR (test code = 95789-8) 48 mL/min/1.73 sq m ESTIMATED GFR IS NOT ACCURATE CREATININE CLEARANCE IN PREDICTING GLOMERULAR FILTRATION RATE. ESTIMATED GFR IS NOT APPLICABLE FOR DIALYSIS PATIENTS. KHAI (test code = KHAI) Package Dye Stand Loader ID - [id number] B Lab Interpretation (test code = 22234-6) Abnormal [facility] METABOLIC [id number] 05:04:00* Test Item Value Reference Range Interpretation Comments SODIUM (BEAKER) (test code = 381) 133 meq/L 136-145 L POTASSIUM (BEAKER) (test code = 379) 4.8 meq/L 3.5-5.1 CHLORIDE (BEAKER) (test code = 382) 105 meq/L 98-107 CO2 (BEAKER) (test code = 355) 19 meq/L 22-29 L BLOOD UREA NITROGEN (BEAKER) (test code = 354) 28 mg/dL 7-21 H CREATININE (BEAKER) (test code = 358) 1.08 mg/dL 0.57-1.25 GLUCOSE RANDOM (BEAKER) (test code = 652) 333 mg/dL 70-105 H CALCIUM (BEAKER) (test code = 697) 9.1 mg/dL 8.4-10.2 EGFR (BEAKER) (test code = 1092) 48 mL/min/1.73 sq m ESTIMATED GFR IS NOT ACCURATE CREATININE CLEARANCE IN PREDICTING GLOMERULAR FILTRATION RATE. ESTIMATED GFR IS NOT APPLICABLE FOR DIALYSIS PATIENTS. Package Dye Stand Loader ID - [id number] (Hemogram only)2019-12-05 04:48:00* Test Item Value Reference Range Interpretation Comments WBC (test code = 6690-2) 12.6 3.5- 10.5 K/L H RBC (test code = 789-8) 3.54 3.93- 5.22 M/L L MCHC (test code = 786-4) 32.1 32.2- 35.5 GM/DL L Hematocrit (test code = 4544-3) 33.3 % 34.1-44.9 L MCV (test code = 787-2) 94.1 fL 79.4-94.8 MCH (test code = 785-6) 30.2 pg 25.6-32.2 RDW (test code = 788-0) 13.2 % 11.7-14.4 Platelets (test code = 777-3) 207 150- 450 K/CU MM MPV (test code = 62393-0) 11.6 fL 9.4-12.3 nRBC (test code = 413) 0 0- 0 /100 WBC Lab Interpretation (test code = 28463-8) [facility] 04:48:00* Test Item Value Reference Range Interpretation Comments WHITE BLOOD CELL COUNT (BEAKER) (test code = 775) 12.6 K/ L 3.5- 10.5 H RED BLOOD CELL COUNT (BEAKER) (test code = 761) 3.54 M/ L 3.93-5 .22 L HEMOGLOBIN (BEAKER) (test code = 410) 10.7 GM/DL 11.2-15.7 L HEMATOCRIT (BEAKER) (test code = 411) 33.3 % 34.1-44.9 L MEAN CORPUSCULAR VOLUME (BEAKER) (test code = 753) 94.1 fL 79. 4-94.8 MEAN CORPUSCULAR HEMOGLOBIN (BEAKER) (test code = 751) 30.2 pg 25.6-32.2 MEAN CORPUSCULAR HEMOGLOBIN CONC (BEAKER) (test code = 752) 32.1 GM/DL 32.2-35.5 L RED CELL DISTRIBUTION WIDTH (BEAKER) (test code = 412) 13.2 % 11.7-14.4 PLATELET COUNT (BEAKER) (test code = 756) 207 K/CU MM 150-450 MEAN PLATELET VOLUME (BEAKER) (test code = 754) 11.6 fL 9.4-12 .3 NUCLEATED RED BLOOD CELLS (BEAKER) (test code = 413) 0 /100 WBC 0 -0 POC-Glucose [id number] 20:48:00* Test Item Value Reference Range Interpretation Comments POC-Glucose Meter (test code = 1538) 376 mg/dL 70-110 H : TESTED AT [address], [address]: Package Dye Stand Loader/Water Tanker Driver ID = [id number] for Henry Almaraz Lab Interpretation (test code = 96164-2) [facility] [id number] 20:48:00* Test Item Value Reference Range Interpretation Comments POC-GLUCOSE METER (BEAKER) (test code = 1538) 376 mg/dL 70-110 H : TESTED AT [address], [address]: Package Dye Stand Loader/Water Tanker Driver ID = [id number] for Henry Almaraz Hemoglobin [id number] 19:57:00* Test Item Value Reference Range Interpretation Comments Hemoglobin A1C (test code = 4548-4) 11.2 % 4.3-6.1 H Lab Interpretation (test code = 04840-4) [facility]normal [facility] [id number] 19:57:00* Test Item Value Reference Range Interpretation Comments HEMOGLOBIN A1C (BEAKER) (test code = 368) 11.2 % 4.3-6.1 H POCT-GLUCOSE [id number] 17:07:00* Test Item Value Reference Range Interpretation Comments POC-GLUCOSE METER (BEAKER) (test code = 1538) 86 mg/dL 70-110 : TESTED AT [address], [address]: Package Dye Stand Loader/Water Tanker Driver ID = [id number] for DOTY, NITA POC ACTIVATED CLOTTING [id number] 14:52:00* Test Item Value Reference Range Interpretation Comments Activated Clotting Time (test code = 441) 400 sec : 74-137 seconds, Baseline: TESTED AT [address], [address]: Package Dye Stand Loader/Water Tanker Driver ID = [id number] for FLORINDA JANG [facility][id number] 14:52:00* Test Item Value Reference Range Interpretation Comments ACTIVATED CLOTTING TIME (BEAKER) (test code = 441) 400 sec : 74-137 seconds, Baseline: TESTED AT [address], [address]: Package Dye Stand Loader/Water Tanker Driver ID = [id number] for FLORINDA JANG ECG 12 [id number] 14:15:00Interface, External Ris In - 12/04/2019 2:15 PM CDTVentricular Rate 84 BPMAtrial Rate 84 BPMP-R Interval 198 msQRS Duration 144 msQ-T Interval 422 msQTC Calculation(Bazett) 498 msP Wilson 69 degreesR Wilson -44 degreesT Wilson 131 degreesNormal sinus rhythmLeft axis deviationLeft bundle branch blockAbnormal ECGNo previous ECGs availableConfirmed by MD Louie Roberto ([id number]) on 12/04/2019 2:14:57 [facility] [id number] 12:30:00* Test Item Value Reference Range Interpretation Comments POC-GLUCOSE METER (BEAKER) (test code = 1538) 246 mg/dL 70-110 H : TESTED AT [address], [address]: Package Dye Stand Loader/Water Tanker Driver ID = [id number] for EDDI TERESA POCT-GLUCOSE [id number] 07:28:00* Test Item Value Reference Range Interpretation Comments POC-GLUCOSE METER (BEAKER) (test code = 1538) 135 mg/dL 70-110 H : TESTED AT [address], [address]: Package Dye Stand Loader/Water Tanker Driver ID = [id number] for NITA DOTY POCT-GLUCOSE [id number] 06:11:00* Test Item Value Reference Range Interpretation Comments POC-GLUCOSE METER (BEAKER) (test code = 1538) 134 mg/dL 70-110 H : TESTED AT [facility] [address] [facility] [place], [address]: Package Dye Stand Loader/Water Tanker Driver ID = [id number] for FERMIN GRAHAM [id number] 05:00:00* Test Item Value Reference Range Interpretation Comments PTT (test code = 16069-8) 58.8 22.5- 36.0 seconds H Lab Interpretation (test code = 06804-1) Abnormal [facility]TT[facility] 05:00:00* Test Item Value Reference Range Interpretation Comments PARTIAL THROMBOPLASTIN TIME (BEAKER) (test code = 760) 58.8 seconds 22.5-36.0 H [id number] 03:04:00* Test Item Value Reference Range Interpretation Comments PARTIAL THROMBOPLASTIN TIME (BEAKER) (test code = 760) 198.5 sec onds 22.5-36.0 HH BASIC METABOLIC [id number] 02:32:00* Test Item Value Reference Range Interpretation Comments SODIUM (BEAKER) (test code = 381) 135 meq/L 136-145 L POTASSIUM (BEAKER) (test code = 379) 3.8 meq/L 3.5-5.1 CHLORIDE (BEAKER) (test code = 382) 105 meq/L 98-107 CO2 (BEAKER) (test code = 355) 20 meq/L 22-29 L BLOOD UREA NITROGEN (BEAKER) (test code = 354) 28 mg/dL 7-21 H CREATININE (BEAKER) (test code = 358) 1.09 mg/dL 0.57-1.25 GLUCOSE RANDOM (BEAKER) (test code = 652) 221 mg/dL 70-105 H CALCIUM (BEAKER) (test code = 697) 8.9 mg/dL 8.4-10.2 EGFR (BEAKER) (test code = 1092) 48 mL/min/1.73 sq m ESTIMATED GFR IS NOT ACCURATE CREATININE CLEARANCE IN PREDICTING GLOMERULAR FILTRATION RATE. ESTIMATED GFR IS NOT APPLICABLE FOR DIALYSIS PATIENTS. Package Dye Stand Loader ID - [id number] (HEMOGRAM ONLY)2019-12-04 02:15:00* Test Item Value Reference Range Interpretation Comments WHITE BLOOD CELL COUNT (BEAKER) (test code = 775) 11.6 K/ L 3.5- 10.5 H RED BLOOD CELL COUNT (BEAKER) (test code = 761) 3.40 M/ L 3.93-5 .22 L HEMOGLOBIN (BEAKER) (test code = 410) 10.2 GM/DL 11.2-15.7 L HEMATOCRIT (BEAKER) (test code = 411) 31.7 % 34.1-44.9 L MEAN CORPUSCULAR VOLUME (BEAKER) (test code = 753) 93.2 fL 79. 4-94.8 MEAN CORPUSCULAR HEMOGLOBIN (BEAKER) (test code = 751) 30.0 pg 25.6-32.2 MEAN CORPUSCULAR HEMOGLOBIN CONC (BEAKER) (test code = 752) 32.2 GM/DL 32.2-35.5 RED CELL DISTRIBUTION WIDTH (BEAKER) (test code = 412) 13.2 % 11.7-14.4 PLATELET COUNT (BEAKER) (test code = 756) 211 K/CU MM 150-450 MEAN PLATELET VOLUME (BEAKER) (test code = 754) 11.5 fL 9.4-12 .3 NUCLEATED RED BLOOD CELLS (BEAKER) (test code = 413) 0 /100 WBC 0 -0 POCT-GLUCOSE [id number] 02:09:00* Test Item Value Reference Range Interpretation Comments POC-GLUCOSE METER (BEAKER) (test code = 1538) 232 mg/dL 70-110 H : TESTED AT [address], [address]: Package Dye Stand Loader/Water Tanker Driver ID = [id number] for FERMIN GRAHAM [id number] 23:55:00* Test Item Value Reference Range Interpretation Comments PARTIAL THROMBOPLASTIN TIME (BEAKER) (test code = 760) > seconds 22.5-36.0 POCT-GLUCOSE [id number] 23:13:00* Test Item Value Reference Range Interpretation Comments POC-GLUCOSE METER (BEAKER) (test code = 1538) 346 mg/dL 70-110 H : TESTED AT [address], [address]: Package Dye Stand Loader/Water Tanker Driver ID = [id number] for ARPIT GUILLAUME [id number] 22:08:00* Test Item Value Reference Range Interpretation Comments PARTIAL THROMBOPLASTIN TIME (BEAKER) (test code = 760) > seconds 22.5-36.0 HH BASIC METABOLIC [id number] 21:56:00* Test Item Value Reference Range Interpretation Comments SODIUM (BEAKER) (test code = 381) 130 meq/L 136-145 L POTASSIUM (BEAKER) (test code = 379) 4.6 meq/L 3.5-5.1 CHLORIDE (BEAKER) (test code = 382) 100 meq/L 98-107 CO2 (BEAKER) (test code = 355) 16 meq/L 22-29 L BLOOD UREA NITROGEN (BEAKER) (test code = 354) 30 mg/dL 7-21 H CREATININE (BEAKER) (test code = 358) 1.44 mg/dL 0.57-1.25 H GLUCOSE RANDOM (BEAKER) (test code = 652) 530 mg/dL 70-105 HH CALCIUM (BEAKER) (test code = 697) 9.1 mg/dL 8.4-10.2 EGFR (BEAKER) (test code = 1092) 35 mL/min/1.73 sq m ESTIMATED GFR IS NOT ACCURATE CREATININE CLEARANCE IN PREDICTING GLOMERULAR FILTRATION RATE. ESTIMATED GFR IS NOT APPLICABLE FOR DIALYSIS PATIENTS. Package Dye Stand Loader ID - [id number] CPOCT-GLUCOSE [id number] 20:42:00* Test Item Value Reference Range Interpretation Comments POC-GLUCOSE METER (BEAKER) (test code = 1538) > mg/dL 70-110 HH : Notified RN/MD: TESTED AT [address], [address]: Package Dye Stand Loader/Water Tanker Driver ID = [id number] for FERMIN GRAHAM POCT-GLUCOSE [id number] 18:58:00* Test Item Value Reference Range Interpretation Comments POC-GLUCOSE METER (BEAKER) (test code = 1538) > mg/dL 70-110 HH : Will Repeat Test: Notified RN/MD: TESTED AT [address], [address]: Package Dye Stand Loader/Water Tanker Driver ID = [id number] for Xiang Hyun POCT-GLUCOSE [id number] 16:54:00* Test Item Value Reference Range Interpretation Comments POC-GLUCOSE METER (BEAKER) (test code = 1538) 462 mg/dL 70-110 HH : TESTED AT [address], [address]: Package Dye Stand Loader/Water Tanker Driver ID = [id number] for Es Gonzales [id number] 15:41:00* Test Item Value Reference Range Interpretation Comments PARTIAL THROMBOPLASTIN TIME (BEAKER) (test code = 760) 28.3 seconds 22.5-36.0 6 hours after starting heparin infusion and as indicated per sliding scalePOCT- GLUCOSE [id number] 11:19:00* Test Item Value Reference Range Interpretation Comments POC-GLUCOSE METER (BEAKER) (test code = 1538) 105 mg/dL 70-110 : TESTED AT [place] [id number] [facility], [address]: Package Dye Stand Loader/Water Tanker Driver ID = [id number] for NITA DOTY Lipid [id number] 09:42:00* Test Item Value Reference Range Interpretation Comments Triglycerides (test code = 2571-8) 160 mg/dL Cholesterol (test code = 2093-3) 124 mg/dL HDL (test code = 2085-9) 44 mg/dL LDL Calculated (test code = 25352-5) 48 mg/dL KHAI (test code = KHAI) Triglyceride Reference Range : Low Risk <150 Borderline 150-199 High Risk 200-499 Very High Risk >=500 Cholesterol Reference Range: Low Risk <200 Borderline 200-239 High Risk >240 HDL Cholesterol Reference Range: Low Risk >=60 High Risk <40 LDL Cholesterol Reference Range: Optimal <100 Near Optimal 100-129 Borderline 130-159 High 160-189 Very High >=190 Package Dye Stand Loader ID - AAPATRICK [facility] CenterLIPID [id number] 09:42:00* Test Item Value Reference Range Interpretation Comments TRIGLYCERIDES (BEAKER) (test code = 540) 160 mg/dL CHOLESTEROL (BEAKER) (test code = 631) 124 mg/dL HDL CHOLESTEROL (BEAKER) (test code = 976) 44 mg/dL LDL CHOLESTEROL CALCULATED (BEAKER) (test code = 633) 48 mg/dL Triglyceride Reference Range: Low Risk <150 Borderline 150-199 High Risk 200-499 Very High Risk >=500Cholesterol Reference Range: Low Risk <200 Borderline 200-239 High Risk >240HDL Cholesterol Reference Range: Low Risk >=60 High Risk <40LDL Cholesterol Reference Range: Optimal <100 Near Optimal 100-129 Borderline 130-159 High 160-189 Very High >=190 Package Dye Stand Loader ID - AAHAMIDType and screen, [id number] 07:19:00* Test Item Value Reference Range Interpretation Comments ABO/RH AUTOMATED (BEAKER) (test code = 2260) O POSITIVE Ab Scrn (test code = 890-4) NEGATIVE [facility] CenterABORH, [id number] 07:08:00* Test Item Value Reference Range Interpretation Comments ABO Grouping (test code = 2588) O Rh Factor (test code = 2589) POS [facility] CenterBASIC [facility]OLIC [id number] 06:52:00* Test Item Value Reference Range Interpretation Comments SODIUM (BEAKER) (test code = 381) 136 meq/L 136-145 POTASSIUM (BEAKER) (test code = 379) 4.3 meq/L 3.5-5.1 CHLORIDE (BEAKER) (test code = 382) 103 meq/L 98-107 CO2 (BEAKER) (test code = 355) 24 meq/L 22-29 BLOOD UREA NITROGEN (BEAKER) (test code = 354) 22 mg/dL 7-21 H CREATININE (BEAKER) (test code = 358) 1.13 mg/dL 0.57-1.25 GLUCOSE RANDOM (BEAKER) (test code = 652) 83 mg/dL 70-105 CALCIUM (BEAKER) (test code = 697) 10.0 mg/dL 8.4-10.2 EGFR (BEAKER) (test code = 1092) 46 mL/min/1.73 sq m ESTIMATED GFR IS NOT ACCURATE CREATININE CLEARANCE IN PREDICTING GLOMERULAR FILTRATION RATE. ESTIMATED GFR IS NOT APPLICABLE FOR DIALYSIS PATIENTS. Package Dye Stand Loader ID - PIAYA [id number] 06:45:00* Test Item Value Reference Range Interpretation Comments PARTIAL THROMBOPLASTIN TIME (BEAKER) (test code = 760) 28.8 seconds 22.5-36.0 Within 24 hours, if on CoumadinProthrombin time/INR 2019-12-03 06:44:00* Test Item Value Reference Range Interpretation Comments Protime (test code = 5902-2) 13.3 11.9- 14.2 seconds INR (test code = 6301-6) 1.0 <=5.9 KHAI (test code = KHAI) Effective 11/08/2018: PT Refe rence Range ChangeNew: 11.9- 14.2 Previous: 11.7-14.7 RECOMMENDED COUMADIN/WARFARIN INR THERAPY RANGESSTANDARD DOSE: 2.0-3.0 Includes: PROPHYLAXIS for venous thrombosis, sys temic embolization; TREATMENT for venous thrombosis and/or pulmonary embolus.HIGH RISK: Target INR is 2.5-3.5 for patients wiht mechanical heart valves. Within 24 hours, if on Coumadin Lab Interpretation (test code = 56328-8) Normal [facility] CenterPROTHROMBIN TIME/[id number] 06:44:00* Test Item Value Reference Range Interpretation Comments PROTIME (BEAKER) (test code = 759) 13.3 seconds 11.9-14.2 INR (BEAKER) (test code = 370) 1.0 <=5.9 Effective 11/08/2018: PT Reference Range ChangeNew: 11.9-14.2 Previous: 11.7-14. 7RECOMMENDED COUMADIN/WARFARIN INR THERAPY RANGESSTANDARD DOSE: 2.0-3.0 Include s: PROPHYLAXIS for venous thrombosis, systemic embolization; TREATMENT for venou s thrombosis and/or pulmonary embolus.HIGH RISK: Target INR is 2.5-3.5 for patie nts wiht mechanical heart valves.Within 24 hours, if on CoumadinCBC with platelet count + automated [id number] 06:33:00* Test Item Value Reference Range Interpretation Comments WBC (test code = 6690-2) 9.7 3.5- 10.5 K/L RBC (test code = 789-8) 3.60 3.93- 5.22 M/L L MCHC (test code = 786-4) 31.9 32.2- 35.5 GM/DL L Hematocrit (test code = 4544-3) 34.2 % 34.1-44.9 MCV (test code = 787-2) 95.0 fL 79.4-94.8 H MCH (test code = 785-6) 30.3 pg 25.6-32.2 RDW (test code = 788-0) 13.1 % 11.7-14.4 Platelets (test code = 777-3) 229 150- 450 K/CU MM MPV (test code = 10506-4) 11.4 fL 9.4-12.3 nRBC (test code = 413) 0 0- 0 /100 WBC % Neutros (test code = 429) 51 % % Lymphs (test code = 430) 29 % % Monos (test code = 431) 8 % % Eos (test code = 432) 11 % % Baso (test code = 437) 1 % # Neutros (test code = 670) 4.94 1.56- 6.13 K/L # Lymphs (test code = 414) 2.83 1.18- 3.74 K/L # Monos (test code = 415) 0.78 0.24- 0.36 K/L H # Eos (test code = 416) 1.05 0.04- 0.36 K/L H # Baso (test code = 417) 0.06 0.01- 0.08 K/L Immature Granulocytes-Relative (test code = 2801) 1 % 0-1 Lab Interpretation (test code = 25003-1) Abnormal [facility] W/PLT COUNT & AUTO [id number] 06:33:00* Test Item Value Reference Range Interpretation Comments WHITE BLOOD CELL COUNT (BEAKER) (test code = 775) 9.7 K/ L 3.5- 10.5 RED BLOOD CELL COUNT (BEAKER) (test code = 761) 3.60 M/ L 3.93-5 .22 L HEMOGLOBIN (BEAKER) (test code = 410) 10.9 GM/DL 11.2-15.7 L HEMATOCRIT (BEAKER) (test code = 411) 34.2 % 34.1-44.9 MEAN CORPUSCULAR VOLUME (BEAKER) (test code = 753) 95.0 fL 79. 4-94.8 H MEAN CORPUSCULAR HEMOGLOBIN (BEAKER) (test code = 751) 30.3 pg 25.6-32.2 MEAN CORPUSCULAR HEMOGLOBIN CONC (BEAKER) (test code = 752) 31.9 GM/DL 32.2-35.5 L RED CELL DISTRIBUTION WIDTH (BEAKER) (test code = 412) 13.1 % 11.7-14.4 PLATELET COUNT (BEAKER) (test code = 756) 229 K/CU MM 150-450 MEAN PLATELET VOLUME (BEAKER) (test code = 754) 11.4 fL 9.4-12 .3 NUCLEATED RED BLOOD CELLS (BEAKER) (test code = 413) 0 /100 WBC 0 -0 NEUTROPHILS RELATIVE PERCENT (BEAKER) (test code = 429) 51 % LYMPHOCYTES RELATIVE PERCENT (BEAKER) (test code = 430) 29 % MONOCYTES RELATIVE PERCENT (BEAKER) (test code = 431) 8 % EOSINOPHILS RELATIVE PERCENT (BEAKER) (test code = 432) 11 % BASOPHILS RELATIVE PERCENT (BEAKER) (test code = 437) 1 % NEUTROPHILS ABSOLUTE COUNT (BEAKER) (test code = 670) 4.94 K/ L 1.56-6.13 LYMPHOCYTES ABSOLUTE COUNT (BEAKER) (test code = 414) 2.83 K/ L 1.18-3.74 MONOCYTES ABSOLUTE COUNT (BEAKER) (test code = 415) 0.78 K/ L 0. 24-0.36 H EOSINOPHILS ABSOLUTE COUNT (BEAKER) (test code = 416) 1.05 K/ L 0.04-0.36 H BASOPHILS ABSOLUTE COUNT (BEAKER) (test code = 417) 0.06 K/ L 0. 01-0.08 IMMATURE GRANULOCYTES-RELATIVE PERCENT (BEAKER) (test code = 2801) 1 % 0-1 POCT-GLUCOSE [id number] 11:34:00* Test Item Value Reference Range Interpretation Comments POC-GLUCOSE METER (BEAKER) (test code = 1538) 341 mg/dL 70-110 H : TESTED AT [address], [address]: Package Dye Stand Loader/Water Tanker Driver ID = [id number] for FUENTES ZOEY POCT-GLUCOSE [id number] 07:56:00* Test Item Value Reference Range Interpretation Comments POC-GLUCOSE METER (BEAKER) (test code = 1538) 235 mg/dL 70-110 H : TESTED AT [place] [address] [facility], [address]: Package Dye Stand Loader/Water Tanker Driver ID = [id number] for CHETAN ANN CBC (HEMOGRAM ONLY)2019-08-23 06:24:00* Test Item Value Reference Range Interpretation Comments WHITE BLOOD CELL COUNT (BEAKER) (test code = 775) 13.1 K/ L 3.5- 10.5 H RED BLOOD CELL COUNT (BEAKER) (test code = 761) 3.37 M/ L 3.93-5 .22 L HEMOGLOBIN (BEAKER) (test code = 410) 10.2 GM/DL 11.2-15.7 L HEMATOCRIT (BEAKER) (test code = 411) 31.8 % 34.1-44.9 L MEAN CORPUSCULAR VOLUME (BEAKER) (test code = 753) 94.4 fL 79. 4-94.8 MEAN CORPUSCULAR HEMOGLOBIN (BEAKER) (test code = 751) 30.3 pg 25.6-32.2 MEAN CORPUSCULAR HEMOGLOBIN CONC (BEAKER) (test code = 752) 32.1 GM/DL 32.2-35.5 L RED CELL DISTRIBUTION WIDTH (BEAKER) (test code = 412) 13.2 % 11.7-14.4 PLATELET COUNT (BEAKER) (test code = 756) 308 K/CU MM 150-450 MEAN PLATELET VOLUME (BEAKER) (test code = 754) 12.1 fL 9.4-12 .3 NUCLEATED RED BLOOD CELLS (BEAKER) (test code = 413) 0 /100 WBC 0 -0 POCT-GLUCOSE [id number] 21:20:00* Test Item Value Reference Range Interpretation Comments POC-GLUCOSE METER (BEAKER) (test code = 1538) 360 mg/dL 70-110 H : TESTED AT [address], [address]: Package Dye Stand Loader/Water Tanker Driver ID = [id number] for ALCIRA HICKEY III POCT-GLUCOSE [id number] 17:54:00* Test Item Value Reference Range Interpretation Comments POC-GLUCOSE METER (BEAKER) (test code = 1538) 342 mg/dL 70-110 H : TESTED AT [address], [address]: Package Dye Stand Loader/Water Tanker Driver ID = [id number] for SETH KENNYOBEDMARLENA POCT-GLUCOSE [id number] 12:15:00* Test Item Value Reference Range Interpretation Comments POC-GLUCOSE METER (BEAKER) (test code = 1538) 348 mg/dL 70-110 H : Notified RN/MD: TESTED AT [address], [address]: Package Dye Stand Loader/Water Tanker Driver ID = [id number] for SETH KENNYOBEDMARLENA POCT-GLUCOSE [id number] 07:49:00* Test Item Value Reference Range Interpretation Comments POC-GLUCOSE METER (BEAKER) (test code = 1538) 169 mg/dL 70-110 H : TESTED AT [address], [address]: Package Dye Stand Loader/Water Tanker Driver ID = [id number] for CHETAN ANN [id number] 07:07:00* Test Item Value Reference Range Interpretation Comments PARTIAL THROMBOPLASTIN TIME (BEAKER) (test code = 760) 80.7 seconds 22.5-36.0 H CBC (HEMOGRAM ONLY)2019-08-22 06:57:00* Test Item Value Reference Range Interpretation Comments WHITE BLOOD CELL COUNT (BEAKER) (test code = 775) 12.0 K/ L 3.5- 10.5 H RED BLOOD CELL COUNT (BEAKER) (test code = 761) 3.84 M/ L 3.93-5 .22 L HEMOGLOBIN (BEAKER) (test code = 410) 11.6 GM/DL 11.2-15.7 HEMATOCRIT (BEAKER) (test code = 411) 36.3 % 34.1-44.9 MEAN CORPUSCULAR VOLUME (BEAKER) (test code = 753) 94.5 fL 79. 4-94.8 MEAN CORPUSCULAR HEMOGLOBIN (BEAKER) (test code = 751) 30.2 pg 25.6-32.2 MEAN CORPUSCULAR HEMOGLOBIN CONC (BEAKER) (test code = 752) 32.0 GM/DL 32.2-35.5 L RED CELL DISTRIBUTION WIDTH (BEAKER) (test code = 412) 13.0 % 11.7-14.4 PLATELET COUNT (BEAKER) (test code = 756) 347 K/CU MM 150-450 MEAN PLATELET VOLUME (BEAKER) (test code = 754) 11.5 fL 9.4-12 .3 NUCLEATED RED BLOOD CELLS (BEAKER) (test code = 413) 0 /100 WBC 0 -0 POCT-GLUCOSE [id number] 21:25:00* Test Item Value Reference Range Interpretation Comments POC-GLUCOSE METER (BEAKER) (test code = 1538) 389 mg/dL 70-110 H : TESTED AT [place] [address] [facility], [address]: Package Dye Stand Loader/Water Tanker Driver ID = [id number] for AMADOU VICENTE POCT-GLUCOSE [id number] 16:53:00* Test Item Value Reference Range Interpretation Comments POC-GLUCOSE METER (BEAKER) (test code = 1538) 272 mg/dL 70-110 H : TESTED AT 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 Signature Findings Left Limited 2D exam (n o Doppler) to address study indication. Ventricle Atrial IV saline contra st injection demostrates a small PFO (patent Septum foramen ovale) at rest and post Valsalva . [facility] [id number] 11:50:00* Test Item Value Reference Range Interpretation Comments POC-GLUCOSE METER (BEAKER) (test code = 1538) 222 mg/dL 70-110 H : TESTED AT [facility] [address] [facility], [address]: Package Dye Stand Loader/Water Tanker Driver ID = [id number] for ZOEY FUENTES [id number] 10:56:00* Test Item Value Reference Range Interpretation Comments PARTIAL THROMBOPLASTIN TIME (BEAKER) (test code = 760) 79.8 seconds 22.5-36.0 H POCT-GLUCOSE [id number] 08:50:00* Test Item Value Reference Range Interpretation Comments POC-GLUCOSE METER (BEAKER) (test code = 1538) 302 mg/dL 70-110 H : TESTED AT [facility] [address] [facility], [address]: Package Dye Stand Loader/Water Tanker Driver ID = [id number] for ZOEY FUENTES [id number] 04:06:00* Test Item Value Reference Range Interpretation Comments PARTIAL THROMBOPLASTIN TIME (BEAKER) (test code = 760) 80.1 seconds 22.5-36.0 H CBC (HEMOGRAM ONLY)2019-08-21 03:54:00* Test Item Value Reference Range Interpretation Comments WHITE BLOOD CELL COUNT (BEAKER) (test code = 775) 11.7 K/ L 3.5- 10.5 H RED BLOOD CELL COUNT (BEAKER) (test code = 761) 3.60 M/ L 3.93-5 .22 L HEMOGLOBIN (BEAKER) (test code = 410) 10.8 GM/DL 11.2-15.7 L HEMATOCRIT (BEAKER) (test code = 411) 34.5 % 34.1-44.9 MEAN CORPUSCULAR VOLUME (BEAKER) (test code = 753) 95.8 fL 79. 4-94.8 H MEAN CORPUSCULAR HEMOGLOBIN (BEAKER) (test code = 751) 30.0 pg 25.6-32.2 MEAN CORPUSCULAR HEMOGLOBIN CONC (BEAKER) (test code = 752) 31.3 GM/DL 32.2-35.5 L RED CELL DISTRIBUTION WIDTH (BEAKER) (test code = 412) 12.9 % 11.7-14.4 PLATELET COUNT (BEAKER) (test code = 756) 302 K/CU MM 150-450 MEAN PLATELET VOLUME (BEAKER) (test code = 754) 11.0 fL 9.4-12 .3 NUCLEATED RED BLOOD CELLS (BEAKER) (test code = 413) 0 /100 WBC 0 -0 POCT-GLUCOSE [id number] 21:12:00* Test Item Value Reference Range Interpretation Comments POC-GLUCOSE METER (BEAKER) (test code = 1538) 334 mg/dL 70-110 H : TESTED AT [facility] [address] [facility], [id number]: Package Dye Stand Loader/Water Tanker Driver ID = [id number] for ANTONIO SKINNER [id number] 20:49:00* Test Item Value Reference Range Interpretation Comments PARTIAL THROMBOPLASTIN TIME (BEAKER) (test code = 760) 61.9 seconds 22.5-36.0 H POCT-GLUCOSE [id number] 17:40:00* Test Item Value Reference Range Interpretation Comments POC-GLUCOSE METER (BEAKER) (test code = 1538) 343 mg/dL 70-110 H : TESTED AT [place] [id number] [facility], [address]: Package Dye Stand Loader/Water Tanker Driver ID = [id number] for LUIS FELIPE NOWAK 2D Echo W/Doppler(CW/PW/Color)2019-08-20 15:35:27Ejection FractionSLEH ECHO HEARTLAB MKCKESSON CPACSInterface, External Ris In - 08/20/2019 3:35 PM CDTTransthoracic Echocardiography Report (TTE) Demographics Patient Name RAD TINAJERO Date of Study 08/20/2019 Gender Female Visit Number [id number] Race Unknown Room Number 1046 Number Date of 1935 Referring Thierry Verduzco MD Physician Age 83 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 All of the LV segments contract normally . LVEF by Simp son's method of disk assessment is normal (55-60%) . Grade 1 diastolic dysfuncti on (impaired relaxation and low-normal LA pressure). Unable to estimate peak sys tolic PA pressure; inadequate TR velocity signal. No significant pericardial eff usion is visualized. Signature Findings Technical Quality: Good visualization Rhythm/BP Regular sinus rhythm during the exam. Left Ventricle The left ventricle is chamber size (by vol index) is normal (femal e - LVED vol - 29-61ml/m2).Normal LV wall thickness. All of the LV segments contract normally . LVEF by Flores's method of disk assessment is nico l (55-60%) . Grade 1 diastolic dysfunction (impaired rela xation and low-normal LA pressure). Left Atrium LA size is normal . Right Ventricle The right ventricular chamber siz e and systolic function are within normal limits. Right Atrium RA size is normal. Aortic Valve The aortic valve is not well visualized, but appears mildly calcified. Zheng l Valve Mild MV leaflet thickening. Trace zheng l regurgitation. Tricuspid Valve TV structure is normal. Mild tricuspid regurgitation. Unable to estimate peak systolic PA pressure; inadequate TR velocity signal. Pulmonic Valve The PV is not well visualized by appears to have normal function by limited views and Doppler. Pericardium No significant pericardial effusion is visualized. IVC/SVC/PA/PV/Pleural The estimated RA pressure by IVC dynamics 0-5mmHg . Chambers/Structures Left A trium LA Volume: 25.74 ml LA Area: 11.94 cm^2 LA Vol. Index : 15 ml/m^2 Left Ventricle LVIDd: 4.52 cm LVIDs: 3.44 cm LV Septum Diastolic: 0.91 cm LV PW Diastolic: 0.81 cm LV FS: 23.9 % LVEDV Flores' s:45.74 ml LVESV Flores's:18.9 ml LVEDVI: 26 ml/m^2 LVEF Si mpson's: 58.7 % LVESVI: 11 ml/m^2 LVOT Diameter: 1.47 cm A yahaira Ascending Aorta: 3.09 cm Doppler/Quantitative Measurements Aortic Valve Peak Velocity: 1.29 m/s Mean Velocity: 0.86 m/s Peak Gradient: 6.69 mmHg Mean Gradient: 3.38 mmHg AV Area (continuity): 1.58 c m^2 AV VTI: 27.37 cm AV DVI: 0.93 LVOT Peak Velocity: 1.03 m/s Pe ak Gradient: 4.21 mmHg Mean Velocity: 0.75 m/s Mean Gradient: 2.57 m mHg LVOT Diameter: 1.47 cm LVOT VTI: 25.5 cm LVOT Area: 1.7 cm^2 LVOT SV:43.26 ml LVOT CO: 2.73 l/min LVOT CI: 1.56 l/min/m^2 [facility] Test Item Value Reference Range Interpretation Comments PARTIAL THROMBOPLASTIN TIME (BEAKER) (test code = 760) 85.9 seconds 22.5-36.0 H POCT-GLUCOSE [id number] 13:22:00* Test Item Value Reference Range Interpretation Comments POC-GLUCOSE METER (BEAKER) (test code = 1538) 237 mg/dL 70-110 H : TESTED AT [facility] [address], [address]: Package Dye Stand Loader/Water Tanker Driver ID = [id number] for Odilia Zamarripa POCT-GLUCOSE [id number] 08:32:00* Test Item Value Reference Range Interpretation Comments POC-GLUCOSE METER (BEAKER) (test code = 1538) 337 mg/dL 70-110 H : TESTED AT [facility] [address], [address]: Package Dye Stand Loader/Water Tanker Driver ID = [id number] for Odilia Zamarripa BASIC METABOLIC [id number] 04:32:00* Test Item Value Reference Range Interpretation Comments SODIUM (BEAKER) (test code = 381) 135 meq/L 136-145 L POTASSIUM (BEAKER) (test code = 379) 4.3 meq/L 3.5-5.1 CHLORIDE (BEAKER) (test code = 382) 105 meq/L 98-107 CO2 (BEAKER) (test code = 355) 20 meq/L 22-29 L BLOOD UREA NITROGEN (BEAKER) (test code = 354) 27 mg/dL 7-21 H CREATININE (BEAKER) (test code = 358) 1.03 mg/dL 0.57-1.25 GLUCOSE RANDOM (BEAKER) (test code = 652) 272 mg/dL 70-105 H CALCIUM (BEAKER) (test code = 697) 9.1 mg/dL 8.4-10.2 EGFR (BEAKER) (test code = 1092) INSUFFICIENT CLINICAL DATA TO CALCULATE ESTIMATED GFR. Package Dye Stand Loader ID - ABIEL [id number] 04:20:00* Test Item Value Reference Range Interpretation Comments Magnesium (test code = 66140-7) 1.8 mg/dL 1.6-2.6 KHAI (test code = KHAI) Package Dye Stand Loader ID - ABIEL L Lab Interpretation (test code = 23965-3) [facility]* Test Item Value Reference Range Interpretation Comments Phosphorus (test code = 2777-1) 3.6 mg/dL 2.3-4.7 KHAI (test code = KHAI) Package Dye Stand Loader ID - ABIEL L Lab Interpretation (test code = 06884-7) Normal [facility] 04:20:00* Test Item Value Reference Range Interpretation Comments PHOSPHORUS (BEAKER) (test code = 604) 3.6 mg/dL 2.3-4.7 Package Dye Stand Loader ID - ABIEL [id number] 04:20:00* Test Item Value Reference Range Interpretation Comments MAGNESIUM (BEAKER) (test code = 627) 1.8 mg/dL 1.6-2.6 Package Dye Stand Loader ID - ABIEL [id number] 04:07:00* Test Item Value Reference Range Interpretation Comments PARTIAL THROMBOPLASTIN TIME (BEAKER) (test code = 760) 63.3 seconds 22.5-36.0 H CBC (HEMOGRAM ONLY)2019-08-20 04:01:00* Test Item Value Reference Range Interpretation Comments WHITE BLOOD CELL COUNT (BEAKER) (test code = 775) 10.4 K/ L 3.5- 10.5 RED BLOOD CELL COUNT (BEAKER) (test code = 761) 3.47 M/ L 3.93-5 .22 L HEMOGLOBIN (BEAKER) (test code = 410) 10.7 GM/DL 11.2-15.7 L HEMATOCRIT (BEAKER) (test code = 411) 32.8 % 34.1-44.9 L MEAN CORPUSCULAR VOLUME (BEAKER) (test code = 753) 94.5 fL 79. 4-94.8 MEAN CORPUSCULAR HEMOGLOBIN (BEAKER) (test code = 751) 30.8 pg 25.6-32.2 MEAN CORPUSCULAR HEMOGLOBIN CONC (BEAKER) (test code = 752) 32.6 GM/DL 32.2-35.5 RED CELL DISTRIBUTION WIDTH (BEAKER) (test code = 412) 13.2 % 11.7-14.4 PLATELET COUNT (BEAKER) (test code = 756) 299 K/CU MM 150-450 MEAN PLATELET VOLUME (BEAKER) (test code = 754) 11.1 fL 9.4-12 .3 NUCLEATED RED BLOOD CELLS (BEAKER) (test code = 413) 0 /100 WBC 0 -0 POCT-GLUCOSE [id number] 21:26:00* Test Item Value Reference Range Interpretation Comments POC-GLUCOSE METER (BEAKER) (test code = 1538) 317 mg/dL 70-110 H : TESTED AT [facility] [address], [address]: Package Dye Stand Loader/Water Tanker Driver ID = [id number] for EDELMIRA IIIALCIRA CT, BRAIN, WITHOUT [id number] 20:37:00FINAL REPORT EXAM: CT head without contrast. CLINICAL HISTORY: Cerebral hemorrhage suspected COMPARISON: Head CT 08/17/2019 and brain MRI 08/18/2019. TECHNIQUE: CT images of the head were obtained without intravenous contrast. This exam was performed according to our departmental dose optimization program which includes automated exposure control, adjustment of the mA and/or kV according to patient's size and/or use of iterative reconstructive technique. FINDINGS:There is generalized parenchymal atrophy. There are mild white matter microvascular ischemic changes. There are chronic left basal ganglia lacunar infarcts. There is intracranial calcific atherosclerosis.There is no acute intracranial hemorrhage, extra-axial fluid collection, mass effect, herniation, hydrocephalus or large demarcated acute territorial infarct. The basal cisterns are patent. There are bilateral lens replacements. There is pansinus mucosal inflammatory thickening with bilateral maxillary sinus air-fluid levels. The visualized pa ranasal sinuses and tympanomastoid cavities are clear. The skull base and lakisha rium are intact. IMPRESSION: Mild white matter microvascular ischemic changes an d chronic lacunar infarcts. No acute intracranial hemorrhage, mass effect or hyd rocephalus. Pansinus mucosal inflammatory disease with maxillary sinus air-fluid levels which may represent acute sinusitis in the proper clinical setting. Sign ed: Keeley Mckeon MDReport Verified Date/Time: 08/19/2019 20:37:11 Electron ically signed by: KEELEY MCKEON MD on 08/19/2019 08:[address] brain without IV [id number] 20:37:00Interface, External Ris In - 08/19/2019 8:40 PM CDTFINAL REPORT EXAM: CT head without contrast. CLINICAL HISTORY: Cerebral hemorrhage suspected COMPARISON: Head CT 08/17/2019 and brain MRI 08/18/2019. TECHNIQUE: CT images of the head were obtained without intravenous contrast. This exam was performed according to our departmental dose optimization program which includes automated exposure control, adjustment of the mA and/or kV according to patient's size and/or use of iterative reconstructive technique. FINDINGS:There is generalized parenchymal atrophy. There are mild white matter microvascular ischemic changes. There are chronic left basal ganglia lacunar infarcts. There is intracranial calcific atherosclerosis.There is no acute intracranial hemorrhage, extra-axial fluid collection, mass effect, herniation, hydrocephalus or large demarcated acute territorial infarct. The basal cisterns are patent. There are bilateral lens replacements. There is pansinus mucosal inflammatory thickening with bilateral maxillary sinus air-fluid levels. The visualized paranasal sinuses and tympanom astoid cavities are clear. The skull base and calvarium are intact. IMPRESSION: Mild white matter microvascular ischemic changes and chronic lacunar infarcts. No acute intracranial hemorrhage, mass effect or hydrocephalus. Pansinus mucosal inflammatory disease with maxillary sinus air-fluid levels which may represent acute sinusitis in the proper clinical setting. Signed: Keeley Mckeon MDReport V erified Date/Time: 08/19/2019 20:37:11 [facility] [id number] 18:18:00* Test Item Value Reference Range Interpretation Comments POC-GLUCOSE METER (BEAKER) (test code = 1538) 259 mg/dL 70-110 H : TESTED AT [address], [address]: Package Dye Stand Loader/Water Tanker Driver ID = [id number] for CHETAN ANN POCT-GLUCOSE [id number] 13:00:00* Test Item Value Reference Range Interpretation Comments POC-GLUCOSE METER (BEAKER) (test code = 1538) 269 mg/dL 70-110 H : TESTED AT [address], [address]: Package Dye Stand Loader/Water Tanker Driver ID = [id number] for CHETAN ANN [id number] 09:35:00* Test Item Value Reference Range Interpretation Comments PARTIAL THROMBOPLASTIN TIME (BEAKER) (test code = 760) 83.0 seconds 22.5-36.0 H POCT-GLUCOSE [id number] 08:24:00* Test Item Value Reference Range Interpretation Comments POC-GLUCOSE METER (BEAKER) (test code = 1538) 163 mg/dL 70-110 H : TESTED AT [address], [address]: Package Dye Stand Loader/Water Tanker Driver ID = [id number] for CHETAN ANN Troponin [id number] 08:19:00* Test Item Value Reference Range Interpretation Comments Troponin I (test code = 29462-6) 0.65 ng/mL 0-0.03 HH KHAI (test code = KHAI) Troponin I (TnI) levels must be interpreted in the context of the presenting symptoms and the clinical findings. Elevated TnI levels indicate myocardial damage, but are not specific for ischemic heart disease. Elevated TnI levels are seen in patients with other cardiac conditions (including myocarditis and congestive heart failure), and slight TnI elevations occur in patients with other conditions, including sepsis, renal failure, acidosis, acute neurological disease, and persistent tachyarrhythmia.Package Dye Stand Loader ID - PIAYA L Lab Interpretation (test code = 35022-5) Abnormal [facility] [id number] 08:19:00* Test Item Value Reference Range Interpretation Comments TROPONIN I (BEAKER) (test code = 397) 0.65 ng/mL 0.00-0.03 HH Troponin I (TnI) levels must be interpreted in the context of the presenting sym ptoms and the clinical findings. Elevated TnI levels indicate myocardial damage, but are not specific for ischemic heart disease. Elevated TnI levels are seen i n patients with other cardiac conditions (including myocarditis and congestive h eart failure), and slight TnI elevations occur in patients with other conditions , including sepsis, renal failure, acidosis, acute neurological disease, and per sistent tachyarrhythmia.Package Dye Stand Loader ID - PIAYA LCBC (HEMOGRAM ONLY)2019-08-19 07:36:00* Test Item Value Reference Range Interpretation Comments WHITE BLOOD CELL COUNT (BEAKER) (test code = 775) 12.0 K/ L 3.5- 10.5 H RED BLOOD CELL COUNT (BEAKER) (test code = 761) 3.49 M/ L 3.93-5 .22 L HEMOGLOBIN (BEAKER) (test code = 410) 10.7 GM/DL 11.2-15.7 L HEMATOCRIT (BEAKER) (test code = 411) 32.8 % 34.1-44.9 L MEAN CORPUSCULAR VOLUME (BEAKER) (test code = 753) 94.0 fL 79. 4-94.8 MEAN CORPUSCULAR HEMOGLOBIN (BEAKER) (test code = 751) 30.7 pg 25.6-32.2 MEAN CORPUSCULAR HEMOGLOBIN CONC (BEAKER) (test code = 752) 32.6 GM/DL 32.2-35.5 RED CELL DISTRIBUTION WIDTH (BEAKER) (test code = 412) 13.3 % 11.7-14.4 PLATELET COUNT (BEAKER) (test code = 756) 321 K/CU MM 150-450 MEAN PLATELET VOLUME (BEAKER) (test code = 754) 11.8 fL 9.4-12 .3 NUCLEATED RED BLOOD CELLS (BEAKER) (test code = 413) 0 /100 WBC 0 -0 BASIC METABOLIC [id number] 04:37:00* Test Item Value Reference Range Interpretation Comments SODIUM (BEAKER) (test code = 381) 135 meq/L 136-145 L POTASSIUM (BEAKER) (test code = 379) 4.0 meq/L 3.5-5.1 CHLORIDE (BEAKER) (test code = 382) 105 meq/L 98-107 CO2 (BEAKER) (test code = 355) 21 meq/L 22-29 L BLOOD UREA NITROGEN (BEAKER) (test code = 354) 33 mg/dL 7-21 H CREATININE (BEAKER) (test code = 358) 1.03 mg/dL 0.57-1.25 GLUCOSE RANDOM (BEAKER) (test code = 652) 263 mg/dL 70-105 H CALCIUM (BEAKER) (test code = 697) 8.9 mg/dL 8.4-10.2 EGFR (BEAKER) (test code = 1092) INSUFFICIENT CLINICAL DATA TO CALCULATE ESTIMATED GFR. Package Dye Stand Loader ID - ABIEL [id number] 03:26:00* Test Item Value Reference Range Interpretation Comments PHOSPHORUS (BEAKER) (test code = 604) 3.1 mg/dL 2.3-4.7 Package Dye Stand Loader ID - ABIEL [id number] 03:26:00* Test Item Value Reference Range Interpretation Comments MAGNESIUM (BEAKER) (test code = 627) 2.1 mg/dL 1.6-2.6 Package Dye Stand Loader ID - ABIEL [id number] 03:07:00* Test Item Value Reference Range Interpretation Comments PARTIAL THROMBOPLASTIN TIME (BEAKER) (test code = 760) 77.5 seconds 22.5-36.0 H MR, BRAIN, WITHOUT [id number] 23:13:00FINAL REPORT Exam: MRI brain without contrast. Comparison: None. Clinical indication: TIA, initial exam Technique: Multiplanar multi sequential MR imaging of the brain was performed without the administration of intravenous contrast. Findings:There is generalized parenchymal atrophy. There are mild white matter microvascular ischemic changes. There are chronic lacunar infarcts in the left basal ganglia. There are foci of restricted diffusion in the left inferomedial cerebellum, right parietal lobe, left parasagittal frontal lobeand left precentral gyrus compatible with acute infarcts. There are foci of mild restricted diffusion in the left thalamocapsular region and left bolanos radiata which may represent subacute infarcts. There is no intracranial mass, mass effec t, extra-axial collection, hydrocephalus or herniation. There is no abnormality on susceptibility sequences to suggest hemorrhage or hemosiderin deposition. Th e skull base flow-voids are seen in keeping with their patency. There is pansin us mucosal inflammatory disease with air-fluid levels which may represent acute sinusitis in the proper clinical setting. The mastoid air cells are clear. There are bilateral lens replacements. The sella and parasellar regions are unremarka ble. The craniocervical junction is normal. Impression:Small acute infarcts i n the left parasagittal frontal lobe, right parietal lobe, left precentral gyrus and left inferomedial cerebellum, likely embolic in etiology.Foci of mild restr icted diffusion in the left thalamocapsular region and left bolanos radiata which may represent subacute infarcts.Mild white matter microvascular ischemic change s. Chronic left basal ganglia lacunar infarcts.No acute intracranial hemorrhage or mass effect.Pansinus mucosal inflammatory disease. Correlate clinically for a cute sinusitis. Discussed with covering neurology resident at approximately 11:0 4 PM 08/18/2019. Signed: Keeley Mckeon [facility] Verified Date/Time: 08/18/2019 23 :13:56 11:1 3 PM MR brain without IV [id number] 23:13:00Interface, External Ris In - 08/18/2019 11:16 PM CSTFINAL REPORT Exam: MRI brain without contrast. Comparison: None. Clinical indication: TIA, initial exam Technique: Multiplanar multi sequential MR imaging of the brain was performed without the administration of intravenous contrast. Findings:There is generalized parenchymal atrophy. There are mild white matter microvascular ischemic changes. There are chronic lacunar infarcts in the left basal ganglia. There are foci of restricted diffusion in the left inferomedial cerebellum, right parietal lobe, left parasagittal frontal lobeand left precentral gyrus com patible with acute infarcts. There are foci of mild restricted diffusion in the left thalamocapsular region and left bolanos radiata which may represent subacute infarcts. There is no intracranial mass, mass effect, extra-axial collection, h ydrocephalus or herniation. There is no abnormality on susceptibility sequences to suggest hemorrhage or hemosiderin deposition. The skull base flow-voids are seen in keeping with their patency. There is pansinus mucosal inflammatory dise ase with air-fluid levels which may represent acute sinusitis in the proper clin ical setting. The mastoid air cells are clear. There are bilateral lens replacem ents. The sella and parasellar regions are unremarkable. The craniocervical ju nction is normal. Impression:Small acute infarcts in the left parasagittal fron jacque lobe, right parietal lobe, left precentral gyrus and left inferomedial cereb ellum, likely embolic in etiology.Foci of mild restricted diffusion in the left thalamocapsular region and left bolanos radiata which may represent subacute infa rcts.Mild white matter microvascular ischemic changes. Chronic left basal gangli a lacunar infarcts.No acute intracranial hemorrhage or mass effect.Pansinus muco sonu inflammatory disease. Correlate clinically for acute sinusitis. Discussed [facility] neurology resident at approximately 11:04 PM 08/18/2019. Signed: Keeley Mckeon MDReport Verified Date/Time: 08/18/2019 23:13:56 Electronically si gned by: KEELEY MCKEON MD on 08/18/2019 11:13 PM [facility] [id number] 21:16:00* Test Item Value Reference Range Interpretation Comments POC-GLUCOSE METER (BEAKER) (test code = 1538) 222 mg/dL 70-110 H : TESTED AT [facility] [address] [place] [address], [address]: Package Dye Stand Loader/Water Tanker Driver ID = [id number] for AMADOU VICENTE POCT-GLUCOSE [id number] 17:37:00* Test Item Value Reference Range Interpretation Comments POC-GLUCOSE METER (BEAKER) (test code = 1538) 117 mg/dL 70-110 H : TESTED AT [facility] [address], [address]: Package Dye Stand Loader/Water Tanker Driver ID = [id number] for CHERRY WILLIAM TROPONIN [id number] 17:34:00* Test Item Value Reference Range Interpretation Comments TROPONIN I (KEV) (test code = 397) 1.07 ng/mL 0.00-0.03 HH Troponin I (TnI) levels must be interpreted in the context of the presenting sym ptoms and the clinical findings. Elevated TnI levels indicate myocardial damage, but are not specific for ischemic heart disease. Elevated TnI levels are seen i n patients with other cardiac conditions (including myocarditis and congestive h eart failure), and slight TnI elevations occur in patients with other conditions , including sepsis, renal failure, acidosis, acute neurological disease, and per sistent tachyarrhythmia.Package Dye Stand Loader ID - [id number] 17:13:00* Test Item Value Reference Range Interpretation Comments PARTIAL THROMBOPLASTIN TIME (KEV) (test code = 760) 47.6 seconds 22.5-36.0 H 6 hours after starting heparin infusion and as indicated per sliding scalePOCT- GLUCOSE [id number] 13:03:00* Test Item Value Reference Range Interpretation Comments POC-GLUCOSE METER (KEV) (test code = 1538) 332 mg/dL 70-110 H : Notified RN/MD: TESTED AT [place] [id number] [facility], [address]: Package Dye Stand Loader/Water Tanker Driver ID = [id number] for Cinthya Taylor Carotid doppler [id number] 12:38:53Ejection FractionSLE ECHO HEARTLAB MKCKESSON CPACSRight Impression1. There is 50-69% diameter reduction (approximately 58% by 2-D measurement)in the internal carotid artery with heterogeneous plaque, a peak velocity of128/31.4 cm/sec and an ICA/CCA peak systolic velocity ratio of 1.6.2. There is >50% stenosis in the external carotid artery with a velocity of643/39.3 cm/sec.3. There is non-occluding plaque in the common carotid artery.4. The vertebral artery flow is antegrade.5. The subclavian artery is patent with a velocity of 215 cm/sec.Left Impression1. There is <50% diameter reduction (approximately 29% by 2-D measurement)in the internal carotid artery with a peak velocity of 113/23.5 cm/sec andheterogeneous plaque.2. There is >50% stenosis in the external carotid artery with a velocity of379/18 cm/sec.3. There is non-occluding plaque in the common carotid artery.4. The vertebral artery flow is antegrade.5. The subclavian artery is patent with a [...] arteries were patent with normal flow bilaterally wh ere visualized. Signature --------- Velocities are measured in cm/s ; Diameters are measured in cm Carotid Right Measurements+ +----+----+-----+ + --+ +!Location !PSV !EDV !Angle!%Stenosis 2D!%Stenosis Doppler!T ortuosity !+ +----+----+-----+ + +----- ------+!Prox CCA !58.1!11 !60 ! ! ! !+ +----+----+-----+ + + +! Dist CCA !70.7!13.4!60 ! ! ! !+---- +----+----+-----+ + + +!Prox ICA !116 !28.3!60 !58% !50-69% ! !+ ---+----+----+-----+ + + +!Dist ICA ! 142 !31.4!60 ! ! ! !+ +---- +----+-----+ + + +!Prox ECA !643 !39. 3!60 ! !>50% ! !+ +----+----+-----+ +----- + +!Vertebral !81.7!16.1!60 ! ! ! !+ +----+----+-----+ + ----+ +!Prox Subclavian!215 ! !60 ! ! ! !+ +----+----+-----+ + +--- --------+ - There is antegrade vertebral flow noted on the right side. - Add itional Measurements:Subclavian PRV 215.ICAPSV/CCAPSV 2.01.ICAEDV/CCAEDV 2.85 . Carotid Left Measurements+ +----+----+-----+ +------- + +!Location !PSV !EDV !Angle!%Stenosis 2D!%Stenosis D oppler!Tortuosity !+ +----+----+-----+ + --+ +!Prox CCA !70.4!14.1!60 ! ! ! !+ +----+----+-----+ + +----- ------+!Dist CCA !75.6!14.7!60 ! ! ! !+ +----+----+-----+ + + +! Prox ICA !113 !23.5!60 !29% !<50% ! !+ +----+----+-----+ +----- + +!Dist ICA !121 !28.7!60 ! ! ! !+ +----+----+-----+ + ----+ +!Prox ECA !379 !18 !60 ! !>50% ! !+ +----+----+-----+ +----- + +!Vertebral !36.2!10.5!60 ! ! ! !+ +----+----+-----+ + ----+ +!Prox Subclavian!240 ! !60 ! ! ! !+ +----+----+-----+ + +--- --------+ - There is antegrade vertebral flow noted on the left side. - Cesar tional Measurements:Subclavian PRV 240.ICAPSV/CCAPSV 1.6.ICAEDV/CCAEDV 2.04. Interface, External Ris In - 08/18/2019 12:39 PM CSTPV LAB - Carotid Duplex Stud y Demographics Patient Name RAD TINAJERO Date of Study 08/17/19 Age 83 Visit Number [id number] Gender Female Accession Number [id number] Date of 1935 Referring Thierry Javed, Room [place] [address] Physician Narcotics Agent Lucy Weston [facility] Ayaka Maldonado [facility] Physician ProcedureType of Study: Cerebral: Carotid, CAROTID DOPPLER, BILATERA L. Indications for Study:Pre OP CABG.Patient Status:KIKO.Study Location:Portable .Technical Quality:Adequate visualization.Risk FactorsHistory of Disease+------- +----+ +!Diagnosis !Date!Comments !+ --+----+ +!History/Risk ! !Previous smoker, COPD, CAD, Hypertension, !!Factors: ! ! Hyperlipidemia and Diabetes !+ +----+---- +ImpressionsRight Impression1. Th ere is 50-69% diameter reduction (approximately 58% by 2-D measurement)in the in ternal carotid artery with heterogeneous plaque, a peak velocity of128/31.4 cm/s ec and an ICA/CCA peak systolic velocity ratio of 1.6.2. There is >50% stenosis in the external carotid artery with a velocity of643/39.3 cm/sec.3. There is non-occluding plaque in the common carotid artery.4. The vertebral artery flow is antegrade.5. The subclavian artery is patent with a velocity of 215 cm/sec.Left Impression1. There is <50% diameter reduction (approximately 29% by 2-D measurement)in the internal carotid artery with a peak velocity of 113/23.5 cm/sec andheterogeneous plaque.2. There is >50% stenosis in the external carotid artery with a velocity of379/18 cm/sec.3. There is non-occluding plaque in the common carotid artery.4. The vertebral artery flow is antegrade.5. The subclavian artery is patent with a velocity of 240 cm/sec. Conclusions Summary Carotid duplex scanning and color flow imaging were performed bilaterally. The arteries were adequately visualized. The right internal carotid artery had 50- 69% hemodynamically significant stenosis (approximately 58% by 2-D measurement) with heterogeneous plaque. The left internal carotid artery had <50% hemodynamically insignificant stenosis (approximately 29% by 2-D measurement) with heterogeneous plaque. The vertebral artery flow was antegrade and normal bilaterally. The subclavian arteries were patent with normal flow bilaterally wh ere visualized. Signature --------- Velocities are measured in cm/s ; Diameters are measured in cmCarotid Right Measurements+ +----+----+-----+ + -+ +!Location !PSV !EDV !Angle!%Stenosis 2D!%Stenosis Doppler!To rtuosity !+ +----+----+-----+ + +------ -----+!Prox CCA !58.1!11 !60 ! ! ! !+ +----+----+-----+ + + +!D ist CCA !70.7!13.4!60 ! ! ! !+----- +----+----+-----+ + + +!Prox ICA !116 !28.3!60 !58% !50-69% ! !+ --+----+----+-----+ + + +!Dist ICA !1 42 !31.4!60 ! ! ! !+ +----+ ----+-----+ + + +!Prox ECA !643 !39.3 !60 ! !>50% ! !+ +----+----+-----+ +----- + +!Vertebral !81.7!16.1!60 ! ! ! !+ +----+----+-----+ + ----+ +!Prox Subclavian!215 ! !60 ! ! ! !+ +----+----+-----+ + +--- --------+ - There is antegrade vertebral flow noted on the right side. - Addit ional Measurements:Subclavian PRV 215.ICAPSV/CCAPSV 2.01.ICAEDV/CCAEDV 2.85.C arotid Left Measurements+ +----+----+-----+ + -------+ +!Location !PSV !EDV !Angle!%Stenosis 2D!%Stenosis Dopp ler!Tortuosity !+ +----+----+-----+ + + +!Prox CCA !70.4!14.1!60 ! ! ! !+ +----+----+-----+ + +-------- ---+!Dist CCA !75.6!14.7!60 ! ! ! ! + +----+----+-----+ + + +!Pro x ICA !113 !23.5!60 !29% !<50% ! !+ +----+----+-----+ +----- + +!Dist ICA !121 !28.7!60 ! ! ! !+ +----+----+-----+ + ----+ +!Prox ECA !379 !18 !60 ! !>50% ! !+ +----+----+-----+ +----- + +!Vertebral !36.2!10.5!60 ! ! ! !+ +----+----+-----+ + ----+ +!Prox Subclavian!240 ! !60 ! ! ! !+ +----+----+-----+ + +--- --------+ - There is antegrade vertebral flow noted on the left side. - Additi onal Measurements:Subclavian PRV 240.ICAPSV/CCAPSV 1.6.ICAEDV/CCAEDV 2.04.[facility] CenterHEMOGLOBIN [id number] 08:59:00* Test Item Value Reference Range Interpretation Comments HEMOGLOBIN A1C (Audioscribe) (test code = 368) 15.0 % 4.3-6.1 H POCT-GLUCOSE [id number] 08:10:00* Test Item Value Reference Range Interpretation Comments POC-GLUCOSE METER (Audioscribe) (test code = 1538) 212 mg/dL 70-110 H : Notified RN/MD: TESTED AT [address], [address]: Package Dye Stand Loader/Water Tanker Driver ID = [id number] for Cinthya Taylor TROPONIN [id number] 07:25:00* Test Item Value Reference Range Interpretation Comments TROPONIN I (Audioscribe) (test code = 397) 0.94 ng/mL 0.00-0.03 HH Troponin I (TnI) levels must be interpreted in the context of the presenting sym ptoms and the clinical findings. Elevated TnI levels indicate myocardial damage, but are not specific for ischemic heart disease. Elevated TnI levels are seen i n patients with other cardiac conditions (including myocarditis and congestive h eart failure), and slight TnI elevations occur in patients with other conditions , including sepsis, renal failure, acidosis, acute neurological disease, and per sistent tachyarrhythmia.Package Dye Stand Loader PAPO SANTACRUZ MLIPID [id number] 07:04:00* Test Item Value Reference Range Interpretation Comments TRIGLYCERIDES (BEAKER) (test code = 540) 112 mg/dL Specimen slightly hemolyzed CHOLESTEROL (BEAKER) (test code = 631) 142 mg/dL Specimen slightly hemolyzed HDL CHOLESTEROL (BEAKER) (test code = 976) 32 mg/dL LDL CHOLESTEROL CALCULATED (BEAKER) (test code = 633) 88 mg/dL Triglyceride Reference Range: Low Risk <150 Borderline 150-199 High Risk 200-499 Very High Risk >=500Cholesterol Reference Range: Low Risk <200 Borderline 200-239 High Risk >240HDL Cholesterol Reference Range: Low Risk >=60 High Risk <40LDL Cholesterol Reference Range: Optimal <100 Near Optimal 100-129 Borderline 130-159 High 160-189 Very High >=190 Package Dye Stand Loader PAPO SANTACRUZ MTSH/Free T4 If [id number] 05:56:00* Test Item Value Reference Range Interpretation Comments TSH (test code = 19957-2) 0.77 0.35- 4.94 uIU/mL KHAI (test code = KHAI) Package Dye Stand Loader PAPO SANTACRUZ M Lab Interpretation (test code = 52674-4) Normal [facility] CenterVitamin B12 and [id number] 05:56:00* Test Item Value Reference Range Interpretation Comments Vitamin B12 (test code = 2132-9) 670 pg/mL 213-816 Folate (test code = 2284-8) 9.7 ng/mL >=7.0 KHAI (test code = KHAI) Package Dye Stand Loader ID Sarita SANTACRUZ M Lab Interpretation (test code = 33256-1) Normal [facility] CenterTSH/FREE T4 IF [id number] 05:56:00* Test Item Value Reference Range Interpretation Comments THYROID STIMULATING HORMONE (BEAKER) (test code = 772) 0.77 uIU/mL 0.35-4.94 Package Dye Stand Loader ID - NOAM MVITAMIN B12 AND [id number] 05:56:00* Test Item Value Reference Range Interpretation Comments VITAMIN B12 (KEV) (test code = 774) 670 pg/mL 213-816 FOLATE (KEV) (test code = 362) 9.7 ng/mL >=7.0 Package Dye Stand Loader ID - NOAM MRAD, CHEST, 1 VIEW, NON [id number] 04:55:00Reason for exam:->ACSShould this be performed at the bedside?->YesFINAL REPORT Chest one view. Clinical history: ACS Comparison: None. Technique: A single frontal view of the chest was obtained. Findings: The heart is normal size. The aorta is tortuous and atherosclerotic. There is no focal pulmonary consolidation, pleural effusion or pneumothorax. There is no pulmonary edema. The bony thorax is demineralized but otherwise unremarkable. Signed: Keeley Mckeon Verified Date/Time: 08/18/2019 04:55:56 chest 1 view portable / [id number] 04:55:00Interface, External Ris In - 08/18/2019 4:58 AM CSTFINAL REPORT Chest one view. Clinical history: ACS Comparison: None. Technique: A single frontal view of the chest was obtained. Findings: The heart is normal size. The aorta is tortuous and atherosclerotic. There is no focal pulmonary consolidation, pleural effusion or pneumothorax. There is no pulmonary edema. The bony thorax is demineralized but otherwise unremarkable. Signed: Keeley Mckeon Verified Date/Time: 08/18/2019 04:55:56 [facility] CenterCT[facility], WITHOUT CONTRAST 2019-08-18 04:26:00FINAL REPORT EXAM: CT of the chest, without [...] COMPARISON: None FINDINGS: LOWER NECK: Within normal limits.AIRWAYS AND LUNGS: Patent central tracheobronchial tree. Mild bibasilar dependent atelectasis.PLEURA: No pleural effusion or pneumothorax.VESSELS: Atherosclerotic calcifications of the aorta and coronary arteries. No thoracic aortic aneurysm.HEART: Mild cardiomegaly. No pericardial effusion.HUMBLE AND MEDIASTINUM: Within normal limits.VISUALIZED UPPER ABDOMEN: Within normal limits.SOFT TISSUES: Within normal limits.BONES: Generalized osteopenia. Degenerative changes of the visualized spine. IMPRESSION: Mild cardiomegaly.Mild bibasilar dependent atelectasis. Signed: Keeley Mckeon Verified Date/ Time: 08/18/2019 04:26:04 chest without IV [id number] 04:26:00 Interface, External Ris In - 08/18/2019 4:28 AM CSTFINAL REPORT PATIENT ID: [id number] EXAM: CT of the chest, without contrast CLINICAL HISTORY: Chest pain, ACS suspected. Preop CABG Technique: CT of the chest was performed without intra venous contrast administration. This exam was performed according to our departm ental dose optimization program which includes automated exposure control, adjus tment of the mA and/or kV according to patient's size and/or use of iterative re constructive technique. COMPARISON: None FINDINGS: LOWER NECK: Within normal li mits.AIRWAYS AND LUNGS: Patent central tracheobronchial tree. Mild bibasilar dep endent atelectasis.PLEURA: No pleural effusion or pneumothorax.VESSELS: Atherosc lerotic calcifications of the aorta and coronary arteries. No thoracic aortic an eurysm.HEART: Mild cardiomegaly. No pericardial effusion.HUMBLE AND MEDIASTINUM: W ithin normal limits.VISUALIZED UPPER ABDOMEN: Within normal limits.SOFT TISSUES: Within normal limits.BONES: Generalized osteopenia. Degenerative changes of the visualized spine. IMPRESSION: Mild cardiomegaly.Mild bibasilar dependent atelec tasis. Signed: Amuta, Keeley MDReport Verified Date/Time: 08/18/2019 04:26:04 [facility] METABOLIC [id number] 03:11:00* Test Item Value Reference Range Interpretation Comments SODIUM (BEAKER) (test code = 381) 133 meq/L 136-145 L POTASSIUM (BEAKER) (test code = 379) 4.3 meq/L 3.5-5.1 Specimen slightly hemolyzed CHLORIDE (BEAKER) (test code = 382) 102 meq/L 98-107 CO2 (BEAKER) (test code = 355) 20 meq/L 22-29 L BLOOD UREA NITROGEN (BEAKER) (test code = 354) 25 mg/dL 7-21 H CREATININE (BEAKER) (test code = 358) 1.12 mg/dL 0.57-1.25 Specimen slightly hemolyzed GLUCOSE RANDOM (BEAKER) (test code = 652) 316 mg/dL 70-105 H CALCIUM (BEAKER) (test code = 697) 9.6 mg/dL 8.4-10.2 EGFR (BEAKER) (test code = 1092) INSUFFICIENT CLINICAL DATA TO CALCULATE ESTIMATED GFR. Package Dye Stand Loader ID - NOAM [id number] 02:58:00* Test Item Value Reference Range Interpretation Comments MAGNESIUM (BEAKER) (test code = 627) 1.9 mg/dL 1.6-2.6 Specimen slightly hemolyzed Package Dye Stand Loader ID - NOAM [id number] 02:58:00* Test Item Value Reference Range Interpretation Comments PHOSPHORUS (BEAKER) (test code = 604) 3.5 mg/dL 2.3-4.7 Specimen slightly hemolyzed Package Dye Stand Loader ID - NOAM MCBC W/PLT COUNT & AUTO [id number] 02:36:00* Test Item Value Reference Range Interpretation Comments WHITE BLOOD CELL COUNT (BEAKER) (test code = 775) 11.2 K/ L 3.5- 10.5 H RED BLOOD CELL COUNT (BEAKER) (test code = 761) 3.95 M/ L 3.93-5 .22 HEMOGLOBIN (BEAKER) (test code = 410) 11.8 GM/DL 11.2-15.7 HEMATOCRIT (BEAKER) (test code = 411) 36.3 % 34.1-44.9 MEAN CORPUSCULAR VOLUME (BEAKER) (test code = 753) 91.9 fL 79. 4-94.8 MEAN CORPUSCULAR HEMOGLOBIN (BEAKER) (test code = 751) 29.9 pg 25.6-32.2 MEAN CORPUSCULAR HEMOGLOBIN CONC (BEAKER) (test code = 752) 32.5 GM/DL 32.2-35.5 RED CELL DISTRIBUTION WIDTH (BEAKER) (test code = 412) 13.2 % 11.7-14.4 PLATELET COUNT (BEAKER) (test code = 756) 330 K/CU MM 150-450 MEAN PLATELET VOLUME (BEAKER) (test code = 754) 11.3 fL 9.4-12 .3 NUCLEATED RED BLOOD CELLS (BEAKER) (test code = 413) 0 /100 WBC 0 -0 NEUTROPHILS RELATIVE PERCENT (BEAKER) (test code = 429) 82 % LYMPHOCYTES RELATIVE PERCENT (BEAKER) (test code = 430) 14 % MONOCYTES RELATIVE PERCENT (BEAKER) (test code = 431) 4 % EOSINOPHILS RELATIVE PERCENT (BEAKER) (test code = 432) 0 % BASOPHILS RELATIVE PERCENT (BEAKER) (test code = 437) 0 % NEUTROPHILS ABSOLUTE COUNT (BEAKER) (test code = 670) 9.11 K/ L 1.56-6.13 H LYMPHOCYTES ABSOLUTE COUNT (BEAKER) (test code = 414) 1.51 K/ L 1.18-3.74 MONOCYTES ABSOLUTE COUNT (BEAKER) (test code = 415) 0.49 K/ L 0. 24-0.36 H EOSINOPHILS ABSOLUTE COUNT (BEAKER) (test code = 416) 0.00 K/ L 0.04-0.36 L BASOPHILS ABSOLUTE COUNT (BEAKER) (test code = 417) 0.02 K/ L 0. 01-0.08 IMMATURE GRANULOCYTES-RELATIVE PERCENT (BEAKER) (test code = 2801) 0 % 0-1 POCT-GLUCOSE [id number] 02:07:00* Test Item Value Reference Range Interpretation Comments POC-GLUCOSE METER (BEAKER) (test code = 1538) 340 mg/dL 70-110 H : Notified RN/MD: TESTED AT [facility] [address] [place] [address], [address]: Package Dye Stand Loader/Water Tanker Driver ID = [id number] for DIONY LUCERO CT, CTANGIO [id number] 00:28:00FINAL REPORT EXAM: CT, CAROTID, ANGIO, CT, CTANGIO [...] reconstruction technique. COMPARISON: 08/17/[address] head FINDINGS:CTA HEAD: Anterior Circulation:Right intracranial internal carotid artery (ICA): Moderate irregular atherosclerotic narrowing of the cavernous and supraclinoid segments.Right anterior cerebral artery (CONNOR): Mild irregular narrowing of the A1 segment.Right middle cerebral artery (MCA): Mild focal stenosis of the proximal M1 segment. There is severe focal stenosis at the M2 trifurcation involving the posterior M2 branches with patency and arborization distally. Left intracranial internal carotid artery (ICA): Moderate irregular a therosclerotic narrowing of the cavernous and supraclinoid segments.Left anterio r cerebral artery (CONNOR): NormalLeft middle cerebral artery (MCA): Mild focal sabrina nosis of the mid M1 segment. Anterior communicating artery (AComm): PresentPoste rior communicating arteries (PComm): Right PComm present. Left PComm not well vi sualized. Posterior Circulation:Right posterior cerebral artery (COMPLIANCE SPEC): Hypoplast ic P1 segment with the remainder of the right COMPLIANCE SPEC supplied by the right posterio r communicating artery.Left posterior cerebral artery (COMPLIANCE SPEC): Moderate focal sten osis of the mid P2 segment. Right vertebral artery (VA): NormalLeft vertebral ar teto (VA): NormalBasilar artery (BA): Normal Other: Normal Dural Venous Sinuses: Normal CTA NECK:Aortic arch and proximal great vessels: Atherosclerotic sherman es without significant narrowing. Right carotid arterial system: Mild (<50%) internal carotid artery narrowing at the carotid bulb. There is beaded appe arance of the distal ICA. Left carotid arterial system: Mild (<50%) internal carotid artery narrowing at the carotid bulb. Beaded appearance of the distal ICA. Right vertebral artery: Marked focal stenosis of the V1 origin. Moderate focal stenosis of the V2 segment at the C5-C6 level secondary to o sseous degenerative spurring. Mild focal stenosis at the V3 and V4 junction at t he dural reflectionLeft vertebral artery: Marked focal stenosis of the V1 origin . Where applicable, evaluation of internal carotid artery (ICA) stenosis was pe rformed using NASCET-like criteria, where the site of greatest stenosis is jose red to the diameter of the ICA distal to the stenosis at a point where the ICA w alls become parallel. Neck Soft Tissues: Unremarkable. Osseous Structures: No a cute osseous abnormality. Advanced multilevel degenerative changes of the cervic al spine including bulky disc osteophyte complexes at C4-C5 and C5-C6 with moder ate to severe spinal canal stenosis suggested at C5-C6. Bilateral paranasal sinu s disease as described on recent prior. Included Lung Apices: Mild biapical scar ring. IMPRESSION: 1. Multifocal intracranial stenoses, as described, most notabl e for severe focal stenosis of the origins of right posterior M2 branches with p atency distally.2. Marked atherosclerotic stenoses of the origins of both verteb ral arteries with patency distally. 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 Signed: Suni Grewal MDReport Verified Date/Time: 08/18/2019 00:28:12 , CAROTID, [id number] 00:28:00FINAL REPORT EXAM: CT, CAROTID, ANGIO, CT, CTANGIO BRAIN CLINICAL INDICATION: Neurological deficit. Concern for stroke. TECHNIQUE: H elical CTA of the head and CTA of the neck with IV contrast. Multiplanar reconst ructed images. 3D reconstructions with MIP images were performed. This exam was performed according to our departmental dose-optimization program, which include s automated exposure control, adjustment of the mA and/or kV according to patien t size and/or use of iterative reconstruction technique. COMPARISON: 08/17/[address] head FINDINGS:CTA HEAD: Anterior Circulation:Right intracranial int ernal carotid artery (ICA): Moderate irregular atherosclerotic narrowing of the cavernous and supraclinoid segments.Right anterior cerebral artery (CONNOR): Mild i rregular narrowing of the A1 segment.Right middle cerebral artery (MCA): Mild fo leighton stenosis of the proximal M1 segment. There is severe focal stenosis at the M 2 trifurcation involving the posterior M2 branches with patency and arborization distally. Left intracranial internal carotid artery (ICA): Moderate irregular a therosclerotic narrowing of the cavernous and supraclinoid segments.Left anterio r cerebral artery (CONNOR): NormalLeft middle cerebral artery (MCA): Mild focal sabrina nosis of the mid M1 segment. Anterior communicating artery (AComm): PresentPoste rior communicating arteries (PComm): Right PComm present. Left PComm not well vi sualized. Posterior Circulation:Right posterior cerebral artery (COMPLIANCE SPEC): Hypoplast ic P1 segment with the remainder of the right COMPLIANCE SPEC supplied by the right posterio r communicating artery.Left posterior cerebral artery (COMPLIANCE SPEC): Moderate focal sten osis of the mid P2 segment. Right vertebral artery (VA): NormalLeft vertebral ar teto (VA): NormalBasilar artery (BA): Normal Other: Normal Dural Venous Sinuses: Normal CTA NECK:Aortic arch and proximal great vessels: Atherosclerotic sherman es without significant narrowing. Right carotid arterial system: Mild (<50%) internal carotid artery narrowing at the carotid bulb. There is beaded appe arance of the distal ICA. Left carotid arterial system: Mild (<50%) internal carotid artery narrowing at the carotid bulb. Beaded appearance of the distal ICA. Right vertebral artery: Marked focal stenosis of the V1 origin. Moderate focal stenosis of the V2 segment at the C5-C6 level secondary to o sseous degenerative spurring. Mild focal stenosis at the V3 and V4 junction at t he dural reflectionLeft vertebral artery: Marked focal stenosis of the V1 origin . Where applicable, evaluation of internal carotid artery (ICA) stenosis was pe rformed using NASCET-like criteria, where the site of greatest stenosis is jose red to the diameter of the ICA distal to the stenosis at a point where the ICA w alls become parallel. Neck Soft Tissues: Unremarkable. Osseous Structures: No a cute osseous abnormality. Advanced multilevel degenerative changes of the cervic al spine including bulky disc osteophyte complexes at C4-C5 and C5-C6 with moder ate to severe spinal canal stenosis suggested at C5-C6. Bilateral paranasal sinu s disease as described on recent prior. Included Lung Apices: Mild biapical scar ring. IMPRESSION: 1. Multifocal intracranial stenoses, as described, most notabl e for severe focal stenosis of the origins of right posterior M2 branches with p atency distally.2. Marked atherosclerotic stenoses of the origins of both verteb ral arteries with patency distally. 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 Signed: Suni Grewal MDReport Verified Date/Time: 08/18/2019 00:28:12 [id number] 00:28:00Interface, External Ris In - 08/18/2019 12:31 AM CSTFINAL REPORT EXAM: CT, CAROTID, ANGIO, CT, CTANGIO BRAIN CLINICAL INDICATION: Neurological deficit. Concern for stroke. TECHNIQUE: Helical CTA of the head and CTA of the neck with IV contrast. Multiplanar reconstructed images. 3D reconstructions with MIP images were performed. This exam was performed according to our d epartmental dose-optimization program, which includes automated exposure control , adjustment of the mA and/or kV according to patient size and/or use of iterati ve reconstruction technique. COMPARISON: 08/17/[address] head FINDINGS:C TA HEAD: Anterior Circulation:Right intracranial internal carotid artery (ICA): Moderate irregular atherosclerotic narrowing of the cavernous and supraclinoid s egments.Right anterior cerebral artery (CONNOR): Mild irregular narrowing of the A1 segment.Right middle cerebral artery (MCA): Mild focal stenosis of the proximal M1 segment. There is severe focal stenosis at the M2 trifurcation involving the posterior M2 branches with patency and arborization distally. Left intracranial internal carotid artery (ICA): Moderate irregular atherosclerotic narrowing of the cavernous and supraclinoid segments.Left anterior cerebral artery (CONNOR): Nor malLeft middle cerebral artery (MCA): Mild focal stenosis of the mid M1 segment. Anterior communicating artery (AComm): PresentPosterior communicating arteries (PComm): Right PComm present. Left PComm not well visualized. Posterior Circulat ion:Right posterior cerebral artery (COMPLIANCE SPEC): Hypoplastic P1 segment with the remai nder of the right COMPLIANCE SPEC supplied by the right posterior communicating artery.Left posterior cerebral artery (COMPLIANCE SPEC): Moderate focal stenosis of the mid P2 segment. Right vertebral artery (VA): NormalLeft vertebral artery (VA): NormalBasilar art marcie (BA): Normal Other: Normal Dural Venous Sinuses: Normal CTA NECK:Aortic ar ch and proximal great vessels: Atherosclerotic changes without significant narro wing. Right carotid arterial system: Mild (<50%) internal [...] V3 and V4 junction at the dural reflectionLeft vertebral artery: Marked focal stenosis of the [...] of right posterior M2 branches with patency distally.2. Marked atherosclerotic stenoses of the origins of both vertebral arteries with patency distally. Moderate to mild multifocal stenoses elsewhere, as described.3.Findings compatible with fibromuscular dysplasia of the bilateral extracranial ICAs.4.Degenerative changes of the cervical spine results in m oderate to severe spinal canal stenosis at C5-C6. Signed: Suni Grewal [facility] Verified Date/Time: 08/18/2019 00:28:12 [facility]CT[facility] 2019-08-18 00:28:00Interface, External Ris In - 08/18/2019 12:31 AM CSTFINAL REPORT EXAM: CT, CAROTID, ANGIO, CT, CTANGIO [...] reconstruction technique. COMPARISON: 08/17/[address] head FINDINGS:CTA HEAD: Anterior Circulation:Right intracranial internal carotid artery (ICA): Moderate irregular atherosclerotic narrowing of the cavernous and supraclinoid segments.Right anterior cerebral artery (CONNOR): Mild irregular narrowing of the A1 segment.Right middle cerebral artery (MCA): Mild focal stenosis of the proximal M1 segment. There is severe focal stenosis at the M2 trifurcation involving the posterior M2 branches with patency and arborization distally. Left intracranial internal carotid artery (ICA): Moderate irregular atherosclerotic narrowing of the cavernous and supraclinoid segments.Left anterior cerebral artery (CONNOR): Nor malLeft middle cerebral artery (MCA): Mild focal stenosis of the mid M1 segment. Anterior communicating artery (AComm): PresentPosterior communicating arteries (PComm): Right PComm present. Left PComm not well visualized. Posterior Circulat ion:Right posterior cerebral artery (COMPLIANCE SPEC): Hypoplastic P1 segment with the remai nder of the right COMPLIANCE SPEC supplied by the right posterior communicating artery.Left posterior cerebral artery (COMPLIANCE SPEC): Moderate focal stenosis of the mid P2 segment. Right vertebral artery (VA): NormalLeft vertebral artery (VA): NormalBasilar art marcie (BA): Normal Other: Normal Dural Venous Sinuses: Normal CTA NECK:Aortic ar ch and proximal great vessels: Atherosclerotic changes without significant narro wing. Right carotid arterial system: Mild (<50%) internal [...] V3 and V4 junction at the dural reflectionLeft vertebral artery: Marked focal stenosis of the [...] of right posterior M2 branches with patency distally.2. Marked atherosclerotic stenoses of the origins of both vertebral arteries with patency distally. Moderate to mild multifocal stenoses elsewhere, as described.3.Findings compatible with fibromuscular dysplasia of the bilateral extracranial ICAs.4.Degenerative changes of the cervical spine results in m oderate to severe spinal canal stenosis at C5-C6. Signed: Suni Grewal MDReport Verified Date/Time: 08/18/2019 00:28:12 [facility] CenterPT[facility]aPTT 2019-08-17 23:33:00* Test Item Value Reference Range Interpretation Comments Protime (test code = 5902-2) 13.5 11.9- 14.2 seconds INR (test code = 6301-6) 1.1 <=5.9 PTT (test code = 23572-2) 26.7 22.5- 36.0 seconds KHAI (test code = KHAI) Effective 11/08/2018: PT Refe rence Range ChangeNew: 11.9- 14.2 Previous: 11.7-14.7 RECOMMENDED COUMADIN/WARFARIN INR THERAPY RANGESSTANDARD DOSE: 2.0-3.0 Includes: PROPHYLAXIS for venous thrombosis, sys temic embolization; TREATMENT for venous thrombosis and/or pulmonary embolus.HIGH RISK: Target INR is 2.5-3.5 for patients wiht mechanical heart valves. Lab Interpretation (test code = 91591-4) Normal [facility] [facility] CenterPT/[id number] 23:33:00* Test Item Value Reference Range Interpretation Comments PROTIME (BEAKER) (test code = 759) 13.5 seconds 11.9-14.2 INR (BEAKER) (test code = 370) 1.1 <=5.9 PARTIAL THROMBOPLASTIN TIME (BEAKER) (test code = 760) 26.7 seconds 22.5-36.0 Effective 11/08/2018: PT Reference Range ChangeNew: 11.9-14.2 Previous: 11.7-14. 7RECOMMENDED COUMADIN/WARFARIN INR THERAPY RANGESSTANDARD DOSE: 2.0-3.0 Include s: PROPHYLAXIS for venous thrombosis, systemic embolization; TREATMENT for venou s thrombosis and/or pulmonary embolus.HIGH RISK: Target INR is 2.5-3.5 for patie nts wiht mechanical heart valves.CT, BRAIN/STROKE [id number] 23:33:00 FINAL REPORT EXAM: CT, BRAIN/STROKE PROTOCOL CLINICAL IND ICATION: Focal neurological deficit. TECHNIQUE: CT images from skull base t o vertex without IV contrast. This exam was performed according to the [facility] dose optimization program which includes automated exposure control, adjustm ent of the mA and/or kV according to the patient size, and/or use of an iterativ e reconstruction technique. COMPARISON: None. FINDINGS: Parenchyma: No evidence of acute infarction. No hemorrhage. No mass or mass effect. Patchy areas of hypo attenuation are present in the cerebral white matter that are nonspecific but co mpatible with mild chronic microvascular ischemic changes. Generalized cerebral and cerebellar parenchymal volume loss. Extra-axial Collection: None Ventricul ar System: Ex vacuo enlarged without hydrocephalus Osseous Structures: Normal Included Orbits: Prior bilateral lens surgery. Paranasal Sinuses: Partial opaci fication of the bilateral maxillary antra, ethmoidal air cells, frontal sinuses, and sphenoid sinuses with spumous secretions. Tympanomastoid Cavities: Normal Other: Atherosclerotic intracranial calcifications are present. IMPRESSION: 1. No acute abnormality on CT head without contrast. 2. Mild chronic deep white mat ter ischemic changes and generalized parenchymal volume loss. 3. Spumous secreti ons within the bilateral paranasal sinuses compatible with acute sinusitis in th e correct clinical setting. If there is persistent clinical concern for intracra nial pathology, MR examination is recommended for further characterization. Find ings discussed with the neurology resident by myself at time of dictation 08/17/19 Signed: Suni Grewalort Verified Date/Time: 08/17/2019 23:33:26 brain/stroke test [id number] 23:33:00Interface, External Ris In - 08/17/2019 11:36 PM CSTFINAL REPORT EXAM: CT, BRAIN/STROKE PROTOCOL CLINICAL INDICATION: [...] Parenchyma: No evidence of acute infarction. No hemo rrhage. No mass or mass effect. Patchy areas of hypoattenuation are present in t he cerebral white matter that are nonspecific but compatible with mild chronic m icrovascular ischemic changes. Generalized cerebral and cerebellar parenchymal volume loss. Extra-axial Collection: None Ventricular System: Ex vacuo enlarge d without hydrocephalus Osseous Structures: Normal Included Orbits: Prior bilat eral lens surgery. Paranasal Sinuses: Partial opacification of the bilateral ma xillary antra, ethmoidal air cells, frontal sinuses, and sphenoid sinuses with s pumous secretions. Tympanomastoid Cavities: Normal Other: Atherosclerotic intr acranial calcifications are present. IMPRESSION: 1. No acute abnormality on CT h ead without contrast. 2. Mild chronic deep white matter ischemic changes and gen eralized parenchymal volume loss. 3. Spumous secretions within the bilateral par anasal sinuses compatible with acute sinusitis in the correct clinical setting. If there is persistent clinical concern for intracranial pathology, MR examinati on is recommended for further characterization. Findings discussed with the neur ology resident by myself at time of dictation 08/17/2019 Signed: Suni Grewal port Verified Date/Time: 08/17/2019 23:33:26 [facility] [id number] 22:55:00* Test Item Value Reference Range Interpretation Comments POC-GLUCOSE METER (BEAKER) (test code = 1538) 423 mg/dL 70-110 HH : Notified RN/MD: TESTED AT [address], [address]: Package Dye Stand Loader/Water Tanker Driver ID = [id number] for MAG PARKER TSH/FREE T4 IF [id number] 21:57:00* Test Item Value Reference Range Interpretation Comments THYROID STIMULATING HORMONE (BEAKER) (test code = 772) 0.88 uIU/mL 0.35-4.94 Package Dye Stand Loader ID - LINSEY EB-type Natriuretic Factor (BNP)2019-08-17 21:43:00* Test Item Value Reference Range Interpretation Comments BNP (test code = 06692-4) 577 pg/mL 0-100 H KHAI (test code = KHAI) Package Dye Stand Loader ID - LINSEY E Lab Interpretation (test code = 88078-7) Abnormal [facility] CenterB[facility] NATRIURETIC FACTOR (BNP)2019-08-17 21:43:00 * Test Item Value Reference Range Interpretation Comments B-TYPE NATRIURETIC PEPTIDE (BEAKER) (test code = 700) 577 pg/mL 0-100 H Package Dye Stand Loader ID - LINSEY EManual Mkreftlhsiyw7812-81-25 21:33:00* Test Item Value Reference Range Interpretation Comments % Neutros (test code = 2816) 93 % % Lymphs (test code = 2817) 5 % % Monos (test code = 2818) 1 % # Neutros (test code = 2830) 10.32 K/ul 1.56-6.13 H # Lymphs (test code = 2831) 0.56 K/ul 1.18-3.74 L # Monos (test code = 2832) 0.11 K/uL 0.24-0.36 L Total Counted (test code = 1351) 100 RBC Morphology (test code = 762) Normal Platelet Morphology (test code = 486) Normal Vacuolated Neutrophils (test code = 483) Present Plasmacytoid Lymphs (test code = 1677) Present Platelet Conc (test code = 3438) Adequate KHAI (test code = KHAI) Package Dye Stand Loader ID - Latanya comments: Slid e comments: Lab Interpretation (test code = 25861-6) Abnormal [facility] W/PLT COUNT & AUTO [id number] 21:33:00* Test Item Value Reference Range Interpretation Comments WHITE BLOOD CELL COUNT (BEAKER) (test code = 775) 11.1 K/ L 3.5- 10.5 H RED BLOOD CELL COUNT (BEAKER) (test code = 761) 4.02 M/ L 3.93-5 .22 HEMOGLOBIN (BEAKER) (test code = 410) 12.2 GM/DL 11.2-15.7 HEMATOCRIT (BEAKER) (test code = 411) 37.1 % 34.1-44.9 MEAN CORPUSCULAR VOLUME (BEAKER) (test code = 753) 92.3 fL 79. 4-94.8 MEAN CORPUSCULAR HEMOGLOBIN (BEAKER) (test code = 751) 30.3 pg 25.6-32.2 MEAN CORPUSCULAR HEMOGLOBIN CONC (BEAKER) (test code = 752) 32.9 GM/DL 32.2-35.5 RED CELL DISTRIBUTION WIDTH (BEAKER) (test code = 412) 13.1 % 11.7-14.4 PLATELET COUNT (BEAKER) (test code = 756) 350 K/CU MM 150-450 MEAN PLATELET VOLUME (BEAKER) (test code = 754) 11.0 fL 9.4-12 .3 NUCLEATED RED BLOOD CELLS (BEAKER) (test code = 413) 0 /100 WBC 0 -0 NEUTROPHILS RELATIVE PERCENT (BEAKER) (test code = 429) 91 % LYMPHOCYTES RELATIVE PERCENT (BEAKER) (test code = 430) 8 % MONOCYTES RELATIVE PERCENT (BEAKER) (test code = 431) 1 % EOSINOPHILS RELATIVE PERCENT (BEAKER) (test code = 432) 0 % BASOPHILS RELATIVE PERCENT (BEAKER) (test code = 437) 0 % NEUTROPHILS ABSOLUTE COUNT (BEAKER) (test code = 670) 10.11 K/ L 1.56-6.13 H LYMPHOCYTES ABSOLUTE COUNT (BEAKER) (test code = 414) 0.86 K/ L 1.18-3.74 L MONOCYTES ABSOLUTE COUNT (BEAKER) (test code = 415) 0.05 K/ L 0. 24-0.36 L EOSINOPHILS ABSOLUTE COUNT (BEAKER) (test code = 416) 0.00 K/ L 0.04-0.36 L BASOPHILS ABSOLUTE COUNT (BEAKER) (test code = 417) 0.01 K/ L 0. 01-0.08 IMMATURE GRANULOCYTES-RELATIVE PERCENT (BEAKER) (test code = 2801) 1 % 0-1 (CELLAVISION MANUAL DIFF)2019-08-17 21:33:00* Test Item Value Reference Range Interpretation Comments NEUTROPHILS - REL (CELLAVISION)(BEAKER) (test code = 2816) 93 % LYMPHOCYTES - REL (CELLAVISION)(BEAKER) (test code = 2817) 5 % MONOCYTES - REL (CELLAVISION)(BEAKER) (test code = 2818) 1 % NEUTROPHILS - ABS (CELLAVISION)(BEAKER) (test code = 2830) 10.32 K/ul 1.56-6.13 H LYMPHOCYTES - ABS (CELLAVISION)(BEAKER) (test code = 2831) 0.56 K/ul 1.18-3.74 L MONOCYTES - ABS (CELLAVISION)(BEAKER) (test code = 2832) 0.11 K/uL 0.24-0.36 L TOTAL COUNTED (BEAKER) (test code = 1351) 100 RBC MORPHOLOGY (BEAKER) (test code = 762) Normal PLT MORPHOLOGY (BEAKER) (test code = 486) Normal VACUOLATED NEUTROPHILS (BEAKER) (test code = 483) Present PLASMACYTOID LYMPHS(BEAKER) (test code = 1677) Present PLATELET CONCENTRATION (CELLAVISION)(BEAKER) (test code = 3438) Smiley quate Package Dye Stand Loader ID - StephanieUser comments: Slide comments: TROPONIN [id number] 21:22:00* Test Item Value Reference Range Interpretation Comments TROPONIN I (BEAKER) (test code = 397) 0.38 ng/mL 0.00-0.03 HH Troponin I (TnI) levels must be interpreted in the context of the presenting sym ptoms and the clinical findings. Elevated TnI levels indicate myocardial damage, but are not specific for ischemic heart disease. Elevated TnI levels are seen i n patients with other cardiac conditions (including myocarditis and congestive h eart failure), and slight TnI elevations occur in patients with other conditions , including sepsis, renal failure, acidosis, acute neurological disease, and per sistent tachyarrhythmia.Package Dye Stand Loader [employer]ES EComprehensive metabolic panel 2019-08-17 21:20:00* Test Item Value Reference Range Interpretation Comments Protein, Total (test code = 2885-2) 7.3 6.0- 8.3 gm/dL Albumin (test code = 31690-4) 3.7 g/dL 3.5-5 Alkaline Phosphatase (test code = 6768-6) 93 U/L 40-150 Total Bilirubin (test code = 1975-2) 0.3 mg/dL 0.2-1.2 Sodium (test code = 2951-2) 134 meq/L 136-145 L Potassium (test code = 2823-3) 4.5 meq/L 3.5-5.1 Chloride (test code = 2075-0) 101 meq/L 98-107 CO2 (test code = 8-9) 23 meq/L 22-29 BUN (test code = 3094-0) 19 mg/dL 7-21 Creatinine (test code = 2160-0) 1.25 mg/dL 0.57-1.25 Glucose (test code = 2345-7) 496 mg/dL 70-105 HH Calcium (test code = 70788-7) 9.8 mg/dL 8.4-10.2 AST (test code = 1920-8) 14 U/L 5-34 ALT (test code = 1742-6) 12 U/L 6-55 EGFR (test code = 28660-1) I NSUFFICIENT CLINICAL DATA TO CALCULATE ESTIMATED GFR. KHAI (test code = KHAI) Package Dye Stand Loader [employer] E Lab Interpretation (test code = 76307-0) [facility]normal [facility] [id number] 21:20:00* Test Item Value Reference Range Interpretation Comments TOTAL PROTEIN (BEAKER) (test code = 770) 7.3 gm/dL 6.0-8.3 ALBUMIN (BEAKER) (test code = 1145) 3.7 g/dL 3.5-5.0 ALKALINE PHOSPHATASE (BEAKER) (test code = 346) 93 U/L 40-150 BILIRUBIN TOTAL (BEAKER) (test code = 377) 0.3 mg/dL 0.2-1.2 SODIUM (BEAKER) (test code = 381) 134 meq/L 136-145 L POTASSIUM (BEAKER) (test code = 379) 4.5 meq/L 3.5-5.1 CHLORIDE (BEAKER) (test code = 382) 101 meq/L 98-107 CO2 (BEAKER) (test code = 355) 23 meq/L 22-29 BLOOD UREA NITROGEN (BEAKER) (test code = 354) 19 mg/dL 7-21 CREATININE (BEAKER) (test code = 358) 1.25 mg/dL 0.57-1.25 GLUCOSE RANDOM (BEAKER) (test code = 652) 496 mg/dL 70-105 HH CALCIUM (BEAKER) (test code = 697) 9.8 mg/dL 8.4-10.2 AST (SGOT) (BEAKER) (test code = 353) 14 U/L 5-34 ALT (SGPT) (BEAKER) (test code = 347) 12 U/L 6-55 EGFR (BEAKER) (test code = 1092) INSUFFICIENT CLINICAL DATA TO CALCULATE ESTIMATED GFR. Package Dye Stand Loader ID Sarita STILES [id number] 21:14:00* Test Item Value Reference Range Interpretation Comments MAGNESIUM (BEAKER) (test code = 627) 1.7 mg/dL 1.6-2.6 Package Dye Stand Loader ID Sarita STILES [id number] 21:06:00* Test Item Value Reference Range Interpretation Comments PARTIAL THROMBOPLASTIN TIME (BEAKER) (test code = 760) 30.0 seconds 22.5-36.0 PROTHROMBIN TIME/[id number] 21:05:00* Test Item Value Reference Range Interpretation Comments PROTIME (BEAKER) (test code = 759) 13.5 seconds 11.9-14.2 INR (BEAKER) (test code = 370) 1.1 <=5.9 Effective 11/08/2018: PT Reference Range ChangeNew: 11.9-14.2 Previous: 11.7-14. 7RECOMMENDED COUMADIN/WARFARIN INR THERAPY RANGESSTANDARD DOSE: 2.0-3.0 Include s: PROPHYLAXIS for venous thrombosis, systemic embolization; TREATMENT for venou s thrombosis and/or pulmonary embolus.HIGH RISK: Target INR is 2.5-3.5 for patie nts wiht mechanical heart valves.POCT-GLUCOSE [id number] 18:41:00* Test Item Value Reference Range Interpretation Comments POC-GLUCOSE METER (BEAKER) (test code = 1538) 336 mg/dL 70-110 H : TESTED AT [facility] [address], [address]: Package Dye Stand Loader/Water Tanker Driver ID = [id number] for Yana Hays POCT-GLUCOSE [id number] 16:41:00* Test Item Value Reference Range Interpretation Comments POC-GLUCOSE METER (BEAKER) (test code = 1538) 330 mg/dL 70-110 H : TESTED AT [facility] [address], [address]: Package Dye Stand Loader/Water Tanker Driver ID = [id number] for Yana Hays Bedside Hadhjpe0235-98-16 12:58:00* Test Item Value Reference Range Interpretation Comments Bedside Glucose (test code = 92713-5) 246 70-120 H Meter ID: [id number] Methodist [facility] Wood[facility] HospitalCreatine Kinase MB 2019-08-17 10:03:00* Test Item Value Reference Range Interpretation Comments Creatine Kinase MB (test code = 39964-9) 0.90 0-5.0 [facility] HospitalTroponin [id number] 10:03:00* Test Item Value Reference Range Interpretation Comments Troponin I (test code = VTN7948) 0.044 0-0.300 [facility] HospitalCreatine Zwmktl5104-85-29 09:28:00* Test Item Value Reference Range Interpretation Comments Creatine Kinase (test code = 2157-6) 33 29-168 [facility] HospitalThyroid Stimulating Hormone (TSH) 2019-08-16 07:00:00* Test Item Value Reference Range Interpretation Comments Thyroid Stimulating Hormone (TSH) (test code = 58747-8) 1.721 0.350-4.940 [facility]odium [id number] 06:20:00* Test Item Value Reference Range Interpretation Comments Sodium Level (test code = 2951-2) 138 136-145 [facility] HospitalPotassium Zhter7478-67-89 06:20:00* Test Item Value Reference Range Interpretation Comments Potassium Level (test code = 2823-3) 3.9 3.5-5.1 [facility] HospitalChloride [id number] 06:20:00* Test Item Value Reference Range Interpretation Comments Chloride Level (test code = 2075-0) 105 98-107 [facility] HospitalCarbon Dioxide [id number] 06:20:00* Test Item Value Reference Range Interpretation Comments Carbon Dioxide Level (test code = 2028-9) 27 22-29 [facility] HospitalAnion Etl7232-23-14 06:20:00* Test Item Value Reference Range Interpretation Comments Anion Gap (test code = 67796-3) 9.9 8-16 [facility] HospitalBlood Urea Szcglnib0936-25-41 06:20:00* Test Item Value Reference Range Interpretation Comments Blood Urea Nitrogen (test code = 3094-0) 16 7-26 [facility] HospitalCreatinine2020-03-05 06:20:00* Test Item Value Reference Range Interpretation Comments Creatinine (test code = 2160-0) 0.92 0.57-1.11 [facility] HospitalBUN/Creatinine Zszlo5724-53-02 06:20:00* Test Item Value Reference Range Interpretation Comments BUN/Creatinine Ratio (test code = 3097-3) 17 6-25 [facility] HospitalEstimat Glomerular Filtration Rate 2019-08-16 06:20:00* Test Item Value Reference Range Interpretation Comments Estimat Glomerular Filtration Rate (test code = 339075289) 58 >60 L Ranges were taken from the National Kidney Disease Education Program and the Alyse pending sale to [employer] [employer] literature.Reference ranges:60 or greater: Akpqjr29-31 ( for 3 consecutive months): Chronic kidney disease 15 or less: Kidney failureHouston Methodist The Woodlands HospitalGlucose Lfsbs7073-53-06 06:20:00* Test Item Value Reference Range Interpretation Comments Glucose Level (test code = LZN7616) 157 74-118 H [facility] HospitalCalcium Jitzv6678-32-99 06:20:00* Test Item Value Reference Range Interpretation Comments Calcium Level (test code = 87936-6) 9.4 8.4-10.2 [facility] HospitalHemoglobin A1c Kjlclki5774-45-57 06:16:00 * Test Item Value Reference Range Interpretation Comments Hemoglobin A1c Percent (test code = Hemoglobin A1c Percent) 15.7 4.0-7.0 H [facility] Centertress Test - Treadmill [id number] 18:08:00 [facility] [address] [address] Patient Name : RAD TINAJERO MR #: [id number] : 1935 Age/Sex: 83/F Adm Physician : SUNI ROMERO MD Admit Date : 08/14/19 Location : MED/SURG Room/Bed : [facility] REPORT: EXERCISE STR ESS TEST DATE OF STUDY: 08/15/2019 09:10:00 Stress Test - Treadmill ON LY PROCEDURE: Lexiscan nuclear stress test. INDICATION: Chest pain . COMPLICATIONS: None. TECHNIQUE: The patient was given 11 mCi of Myoview. Resting images were obtained in the horizontal long axis, vertical l vipul axis, and short axis. The patient was then hooked up to the EKG machine. Lexiscan was infused over 15 seconds. During Lexiscan infusion, the patient had no chest pain and no EKG changes. Immediately after Lexiscan infusion, th e patient was given 33 mCi of Myoview. Stress images were obtained 30 minutes after completion of Lexiscan infusion. Stress images were obtained in the ho rizontal long axis, vertical long axis, and short axis. Results are as follows: 1. The resting EKG demonstrated normal sinus rhythm with a left bundle-branc h block. 2. There were no EKG changes and no symptoms during Lexiscan infusion . 3. There was diminished perfusion to the posterior wall on the stress images . 4. There was normal left ventricular size and function with an ejection frac tion of 53%. CONCLUSION: There was a reversible defect in the posterior w all concerning for ischemia. Kellie Sorensen MD [facility]I 13:0 9:10 /[id number] Signature Date Dictated By : KELLIE SORENSEN MD Transcribed By: LAUREENL on 08/21/19 <Electronically signed by KELLIE SORENSEN MD><<Signature on File>>08/21/19 1533 COPY TO: Triglycerides Urcwf3527-55-00 06:45:00* Test Item Value Reference Range Interpretation Comments Triglycerides Level (test code = 2571-8) 154 0-149 H [facility] HospitalCholesterol Ypgrx8529-25-11 06:45:00* Test Item Value Reference Range Interpretation Comments Cholesterol Level (test code = 2093-3) 129 0-199 Less than 200 mg/dL Low Zutz061 - 239 mg/dL Borderline Sisz763 m g/dl and greater High Risk [facility] HospitalLDL Svqyazkmewd9542-46-05 06:45:00* Test Item Value Reference Range Interpretation Comments LDL Cholesterol (test code = 2089-1) 70 60-130 [facility] HospitalHDL Orccpqjsbgy9957-17-44 06:45:00* Test Item Value Reference Range Interpretation Comments HDL Cholesterol (test code = 2085-9) 28 40-60 L [facility] HospitalCholesterol/HDL Crfla2688-34-05 06:45:00 * Test Item Value Reference Range Interpretation Comments Cholesterol/HDL Ratio (test code = 9830-1) 4.6 3.0-3.6 H [facility] HospitalCHEST 2 [id number] 23:43:00 [facility] [address] [place] [address] Patient Name: RAD TINAJERO MR #: [id number] : 1935 Age/Sex: 83/F Req #: [id number] Adm Physician: Ordered by: DIPAK MARIN DO Report #: [id number] Location: ER Room/Bed: Procedure: [id number] DX /CHEST 2 VIEWS Exam Date: 08/14/19 Exam Time: 2329 REPORT STATUS: Signed EXAMINATION : CHEST 2 VIEWS INDICATION: Chest pain, short of breath COMP ARISON: None FINDINGS: TUBES and LINES: None. LUNGS: Hy perinflated lungs with flattened hemidiaphragms. Prominent pulmonary intersti tial lung markings with mid to upper lung lucencies No consolidations. Mild p rominence of central pulmonary vasculature. PLEURA: No pleural effusion or pneumothorax. HEART AND MEDIASTINUM: The cardiomediastinal silhouette is unremarkable. There are atherosclerotic calcifications within the aorta. BONES AND SOFT TISSUES: Degenerative changes in the spine and shoulders. Soft tissues are unremarkable. UPPER ABDOMEN: No free air under the diaphragm. IMPRESSION: Findings of pulmonary emphysema. Mild pulmonary vascular congestion. Signed by: Bryan Valles DO on 08/14/2019 11:44 PM Dictated By: BRYAN VALLES DO Transcribed By: RIGO on 08/14/199 COPY TO: DIPAK MARIN DO Total Vpwywicfa5070-78-53 23:37:00* Test Item Value Reference Range Interpretation Comments Total Bilirubin (test code = 1974-) 0.3 0.2-1.2 [facility] HospitalAspartate Amino Transf (AST/SGOT) 2019-08-14 23:37:00* Test Item Value Reference Range Interpretation Comments Aspartate Amino Transf (AST/SGOT) (test code = Aspartate Amino Transf (AST/SGOT)) 16 5-34 [facility] HospitalAlanine Aminotransferase (ALT/SGPT) 2019-08-14 23:37:00* Test Item Value Reference Range Interpretation Comments Alanine Aminotransferase (ALT/SGPT) (test code = 1742-6) 7 0-55 [facility] HospitalTotal Xvmpvuc7165-82-32 23:37:00* Test Item Value Reference Range Interpretation Comments Total Protein (test code = 2885-2) 7.1 6.5-8.1 [facility] HospitalAlbumin2020-03-03 23:37:00* Test Item Value Reference Range Interpretation Comments Albumin (test code = 1751-7) 3.4 3.5-5.0 L [facility] HospitalGlobulin2020-03-03 23:37:00* Test Item Value Reference Range Interpretation Comments Globulin (test code = 48573-2) 3.7 2.3-3.5 H [facility] HospitalAlbumin/Globulin Ytthh8236-64-51 23:37:00 * Test Item Value Reference Range Interpretation Comments Albumin/Globulin Ratio (test code = 1759-0) 0.9 0.8-2.0 [facility] HospitalAlkaline Eblpvywvnzf1635-15-46 23:37:00* Test Item Value Reference Range Interpretation Comments Alkaline Phosphatase (test code = 6768-6) 118 40-150 [facility] HospitalWhite Blood Cmwpb8224-74-14 23:18:00* Test Item Value Reference Range Interpretation Comments White Blood Count (test code = 6690-2) 8.85 4.8-10.8 [facility] HospitalRed Blood Shwzj1481-63-82 23:18:00* Test Item Value Reference Range Interpretation Comments Red Blood Count (test code = 789-8) 3.88 3.6-5.1 [facility] HospitalHemoglobin2020-03-03 23:18:00* Test Item Value Reference Range Interpretation Comments Hemoglobin (test code = 97671-9) 11.7 12.0-16.0 L [facility] HospitalHematocrit2020-03-03 23:18:00* Test Item Value Reference Range Interpretation Comments Hematocrit (test code = 4544-3) 36.6 34.2-44.1 [facility] HospitalMean Corpuscular Lybntw1486-84-43 23:18:00* Test Item Value Reference Range Interpretation Comments Mean Corpuscular Volume (test code = 787-2) 94.3 81-99 [facility] HospitalMean Corpuscular Rrmsjsmlhp6906-92-85 23:18:00* Test Item Value Reference Range Interpretation Comments Mean Corpuscular Hemoglobin (test code = 785-6) 30.2 28-32 [facility] HospitalMean Corpuscular Hemoglobin Concent 2019-08-14 23:18:00* Test Item Value Reference Range Interpretation Comments Mean Corpuscular Hemoglobin Concent (test code = 786-4) 32.0 31-35 [facility] HospitalRed Cell Distribution Xonpz9863-87-88 23:18:00* Test Item Value Reference Range Interpretation Comments Red Cell Distribution Width (test code = 94134-9) 12.6 11.7 -14.4 [facility] HospitalPlatelet Jilfy8574-39-51 23:18:00* Test Item Value Reference Range Interpretation Comments Platelet Count (test code = 777-3) 288 140-360 [facility] HospitalNeutrophils (%) (Auto)2019-08-14 23:18:00 * Test Item Value Reference Range Interpretation Comments Neutrophils (%) (Auto) (test code = 52735-4) 61.9 38.7-80.0 [facility] HospitalLymphocytes (%) (Auto)2019-08-14 23:18:00 * Test Item Value Reference Range Interpretation Comments Lymphocytes (%) (Auto) (test code = 736-9) 29.4 18.0-39.1 [facility] HospitalMonocytes (%) (Auto)2019-08-14 23:18:00* Test Item Value Reference Range Interpretation Comments Monocytes (%) (Auto) (test code = 5905-5) 5.6 4.4-11.3 [facility] HospitalEosinophils (%) (Auto)2019-08-14 23:18:00 * Test Item Value Reference Range Interpretation Comments Eosinophils (%) (Auto) (test code = 713-8) 2.6 0.0-6.0 [facility] HospitalBasophils (%) (Auto)2019-08-14 23:18:00* Test Item Value Reference Range Interpretation Comments Basophils (%) (Auto) (test code = 706-2) 0.3 0.0-1.0 [facility]2019-08-14 23:18:00* Test Item Value Reference Range Interpretation Comments IM GRANULOCYTES % (test code = IM GRANULOCYTES %) 0.2 0.0- 1.0 [facility]Ne[facility] # (Auto)2019-08-14 23:18:00* Test Item Value Reference Range Interpretation Comments Neutrophils # (Auto) (test code = 751-8) 5.5 2.1-6.9 [facility] # (Auto)2019-08-14 23:18:00* Test Item Value Reference Range Interpretation Comments Lymphocytes # (Auto) (test code = 84557-4) 2.6 1.0-3.2 [facility] # (Auto)2019-08-14 23:18:00* Test Item Value Reference Range Interpretation Comments Monocytes # (Auto) (test code = 742-7) 0.5 0.2-0.8 [facility] # (Auto)2019-08-14 23:18:00* Test Item Value Reference Range Interpretation Comments Eosinophils # (Auto) (test code = 711-2) 0.2 0.0-0.4 [facility] (Auto)2019-08-14 23:18:00* Test Item Value Reference Range Interpretation Comments Basophils # (Auto) (test code = 704-7) 0.0 0.0-0.1 [facility]Absolute Immature Granulocyte (auto 2019-08-14 23:18:00* Test Item Value Reference Range Interpretation Comments Absolute Immature Granulocyte (auto (jess t code = Absolute Immature Granulocyte (auto) 0.02 0-0.1 [facility]
[2020-01-21 23:59] LABS: BILIRUBIN,URINE NEGATIVE (NEGATIVE); CLARITY,URINE SL CLOUDY (CLEAR); COLOR,URINE YELLOW (YELLOW); KETONES,URINE NEGATIVE (NEGATIVE); LEUKOCYTE ESTERASE ,URINE SMALL (NEGATIVE); NITRITE,URINE NEGATIVE (NEGATIVE); PROTEIN,URINE DIPSTICK NEGATIVE (NEGATIVE); URINE UROBILINOGEN 0.2 mg/dL (0.2 - 1)
[2020-01-22] VITALS (9 sets, daily range): BP systolic 132–171; BP diastolic 49–97
[2020-01-22 00:02] LABS: BACTERIA,URINE FEW /HPF; EPITHELIAL CELLS,URINE MODERATE /LPF; RBC,URINE 0-5 /HPF (0-5)
[2020-01-22] MEDS ORDERED: LEVOFLOXACIN 500MG/D5W 100ML 100 ML IV STA (01:03)
--- OUTSIDE RECORDS SUMMARY | 2020-01-22 02:07 | XMS REPORT | Clinical Summary ---
Author Author ROBI [facility] Organization 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; Paroxysmal atrial fibrillation (HCC); Essential hypertension; NSTEMI (non-ST elevated myocardial infarction) (HCC); Acute ischemic stroke (HCC) 08/17/2019 Hospital Cardiology - Encounter 08/23/2019 after 01/21/2019 Social History Date Tobacco Use Types Packs/Day [...] L ot Implanted Type Area Manufactur er [id number] 04/09/2021 [id number] / / [id number] [employer] Otw 3.50i29yq IMPLANTS [place] [id number] - [id number] SCI:INTERV Implanted: Qty: 1 on 12/04/2019 by Brett Ashley MD [id number] 04/10/2021 [id number] / / [id number] [employer] Otw 2.22z07vl IMPLANTS [place] [id number] - [id number] SCI:INTERV Implanted: Qty: 1 on 12/04/2019 by Brett Ashley MD [id number] 04/09/2021 [id number] / / [id number] [employer] Otw 3.06t52zb IMPLANTS [place] [id number] - [id number] SCI:INTERV Implanted: Qty: 1 on 12/04/2019 by Brett Ashley MD [id number] 03/19/2021 [id number] / / [id number] St[employer] Otw 3.00x8mm IMPLANTS [place] [id number] - [id number] SCI:INTERV Implanted: Qty: 1 on 12/04/2019 by Brett Ashley MD [id number] 02/25/2021 [id number] / / [id number] [employer] Otw 2.99g86fd IMPLANTS [place] [id number] - [id number] SCI:INTERV Implanted: Qty: 1 on 12/04/2019 by [...] unspecified vessel or lesion type, unspecified whether absentee-shawnee or transplanted heart (HCC) POCT-ACT Routine 12/04/2019 [...] artery dis ease 7:30 AM CDT involving absentee-shawnee coronary artery with angina pectoris, unspecified whether absentee-shawnee or transplanted heart (HCC) Case Notes (1)CASE 6TOP ABORH, MANUAL STAT 12/03/2019 6:41 AM CDT ECG 12-LEAD Routine 12/03/2019 6:27 AM CDT Procedure Note - Interface, External Ris In - 12/03/2019 6:30 AM CDT Ventricula r Rate 54 BPM Atrial Rate 54 BPM P-R Interval 254 ms QRS Duration 146 ms Q-T Interval 496 ms QTC Calculatio n(Bazett) 470 ms P Cochrane 89 degrees R Cochrane -51 degrees T Cochrane 138 degrees Sinus bradycardi a with sinus [...] 1:02 PM CDT 2D ECHO W/ DOPPLER KIKO 08/20/2019 (CW/PW/COLOR) 11:00 AM CDT POCT-GLUCOSE METER [...] CDT TROPONIN I Add-On 08/19/2019 1:42 AM SHAREPOINT WEB DEVELOPER PHOSPHORUS Routine 08/19/2019 1:42 AM [employer]ARE[employer] WEB DEVELOPER MAGNESIUM Routine 08/19/2019 1:42 AM SHAREPOINT WEB DEVELOPER BASIC METABOLIC PANEL (7) Routine 08/19/2019 1:42 AM SHAREPOINT WEB DEVELOPER APTT Routine 08/19/2019 1:42 AM SHAREPOINT WEB DEVELOPER PERIPHERAL VASCULAR 08/18/2019 REPORT - SCAN 9:10 PM [employer]AREPOINT WEB DEVELOPER POCT-GLUCOSE METER Routine 08/18/2019 9:04 PM SHAREPOINT WEB DEVELOPER MR BRAIN WITHOUT IV Routine 08/18/2019 CONTRAST 6:31 PM SHAREPOINT WEB DEVELOPER POCT-GLUCOSE METER Routine 08/18/2019 5:25 PM SHAREPOINT WEB DEVELOPER TROPONIN I Routine 08/18/2019 3:58 PM SHAREPOINT WEB DEVELOPER APTT Routine 08/18/2019 3:57 PM SHAREPOINT WEB DEVELOPER POCT-GLUCOSE METER Routine 08/18/2019 12:50 PM SHAREPOINT WEB DEVELOPER POCT-GLUCOSE METER Routine 08/18/2019 7:58 AM SHAREPOINT WEB DEVELOPER VITAMIN B12 AND FOLATE Routine 08/18/2019 4:39 AM SHAREPOINT WEB DEVELOPER TSH/FREE T4 IF INDICATED Routine 08/18/2019 4:39 AM SHAREPOINT WEB DEVELOPER HEMOGLOBIN A1C Routine 08/18/2019 4:39 AM SHAREPOINT WEB DEVELOPER CBC W/PLT COUNT & AUTO Routine 08/18/2019 DIFFERENTIAL 2:13 AM SHAREPOINT WEB DEVELOPER TROPONIN I Add-On 08/18/2019 2:13 AM SHAREPOINT WEB DEVELOPER LIPID PANEL Add-On 08/18/2019 2:13 AM SHAREPOINT WEB DEVELOPER CBC W/PLT COUNT & AUTO Routine 08/18/2019 DIFFERENTIAL 2:13 AM SHAREPOINT WEB DEVELOPER PHOSPHORUS Routine 08/18/2019 2:13 AM SHAREPOINT WEB DEVELOPER MAGNESIUM Routine 08/18/2019 2:13 AM SHAREPOINT WEB DEVELOPER BASIC METABOLIC PANEL (7) Routine 08/18/2019 2:13 AM SHAREPOINT WEB DEVELOPER POCT-GLUCOSE METER Routine 08/18/2019 1:55 AM [employer] WEB [address] CT CHEST WITHOUT IV KIKO 08/18/2019 CONTRAST 12:08 [address] [employer] WEB [address]OPER [address]/CTA CAROTID STAT 08/18/2019 12:07 AM SHAREPOINT WEB DEVELOPER CTA BRAIN STAT 08/18/2019 12:07 [address] [employer] WEB [address] CT BRAIN/STROKE TEST Routine 08/17/2019 DESIGN 11:19 PM SHAREPOINT WEB DEVELOPER PT/APTT STAT 08/17/2019 11:04 PM SHAREPOINT WEB DEVELOPER POCT-GLUCOSE METER Routine 08/17/2019 10:41 PM SHAREPOINT WEB DEVELOPER CAROTID DOPPLER BILATERAL KIKO 08/17/2019 9:30 PM SHAREPOINT WEB DEVELOPER (CELLAVISION MANUAL DIFF) Routine 08/17/2019 8:43 PM SHAREPOINT WEB DEVELOPER CBC W/PLT COUNT & AUTO Routine 08/17/2019 DIFFERENTIAL 8:43 PM SHAREPOINT WEB DEVELOPER TSH/FREE T4 IF INDICATED STAT 08/17/2019 8:43 PM SHAREPOINT WEB DEVELOPER MAGNESIUM STAT 08/17/2019 8:43 PM SHAREPOINT WEB DEVELOPER APTT STAT 08/17/2019 8:43 PM SHAREPOINT WEB DEVELOPER PROTHROMBIN TIME/INR STAT 08/17/2019 8:43 PM SHAREPOINT WEB DEVELOPER B-TYPE NATRIURETIC FACTOR STAT 08/17/2019 (BNP) 8:43 PM SHAREPOINT WEB DEVELOPER COMPREHENSIVE METABOLIC STAT 08/17/2019 PANEL 8:43 PM SHAREPOINT WEB DEVELOPER CBC W/PLT COUNT & AUTO STAT 08/17/2019 DIFFERENTIAL 8:43 PM SHAREPOINT WEB DEVELOPER TROPONIN I Routine 08/17/2019 8:43 PM SHAREPOINT WEB DEVELOPER XR CHEST 1 VIEW Routine 08/17/2019 PORTABLE/BEDSIDE 7:40 PM SHAREPOINT WEB DEVELOPER POCT-GLUCOSE METER Routine 08/17/2019 6:29 PM SHAREPOINT WEB DEVELOPER POCT-GLUCOSE METER Routine 08/17/2019 4:30 PM SHAREPOINT WEB DEVELOPER after 01/21/2019 Results * VASCULAR DIAGRAM -SCAN (12/14/2019 4:00 [...] WBC 12.6 (H) 3.5 - 10.5 K/L [facility] RBC 3.54 (L) 3.93 - 5.22 M/L [facility] Hemoglobin 10.7 (L) 11.2 - 15.7 GM/DL [facility] Hematocrit 33.3 (L) 34.1 - 44.9 % [facility] MCV 94.1 79.4 - 94.8 fL [facility] MCH 30.2 25.6 - 32.2 pg [facility] MCHC 32.1 (L) 32.2 - 35.5 GM/DL [facility] RDW 13.2 11.7 - 14.4 % [facility] Platelets 207 150 - 450 K/CU MM [facility] MPV 11.6 9.4 - 12.3 fL [facility] nRBC 0 0 - 0 /100 WBC [facility] Specimen Blood Performing Organization Address City/State/Zipcode Ph one Number [place] [phone] [facility] * Basic metabolic panel (12/05/2019 4:41 AM CDT) Only the most recent of 7 results within the time period is included. Sodium 133 (L) 136 - 145 meq/L [facility] Potassium 4.8 3.5 - 5.1 meq/L [facility] Chloride 105 98 - 107 meq/L [facility] CO2 19 (L) 22 - 29 meq/L [facility] BUN 28 (H) 7 - 21 mg/dL [facility] Creatinine 1.08 0.57 - 1.25 mg/dL [facility] Glucose 333 (H) 70 - 105 mg/dL [facility] Calcium 9.1 8.4 - 10.2 mg/dL [facility] EGFR 48Comment: ESTIMATED GFR IS mL/min/1.73 sq m [facility] NOT ACCURATE CREATININE [facility] CLEARANCE IN PREDICTING GLOMERULAR FILTRATION RATE. ESTIMATED GFR IS NOT APPLICABLE FOR DIALYSIS PATIENTS. Specimen Blood Narrative Performed At Male Infertility Specialist ID - NARENDRA B [facility] Performing Organization Address City[facility] Ph one [address] [facility] * POC-Glucose meter (12/04/2019 8:36 PM CDT) Only the most recent of 37 results within the time period is included. POC-Glucose Meter 376 (H)Comment: : TESTED AT 70 - 110 mg/dL [address] [address]: Male Infertility Specialist/Research Laboratory Technician ID = [id number] for Henry Almaraz Specimen Blood Performing Organization Address [facility] Ph one Number [address] [facility] * TRANSFUSION SERVICE REPORT - SCAN (12/04/2019 6:33 PM CDT) Narrative Performed At This result has an attachment that is n ot available. * Hemoglobin A1c (12/04/2019 5:41 PM CDT) Only the most recent of 2 results within the time period is included. Hemoglobin A1C 11.2 (H) 4.3 - 6.1 % [facility] Specimen Blood Performing Organization Address [facility] Ph one Number [address] [facility] * POC ACTIVATED CLOTTING TIME (12/04/2019 2:28 PM CDT) Activated Clotting Time 400Comment: : 74-137 seconds, sec [facility] Baseline: TESTED AT [address], [address]: Male Infertility Specialist/Research Laboratory Technician ID = [id number] for FLORINDA JANG Specimen Blood Performing Organization Address [facility] Ph one Number [address] [facility] * aPTT (12/04/2019 4:33 AM CDT) Only the most recent of 16 results within the time period is included. PTT 58.8 (H) 22.5 - 36.[address] [facility] Specimen Blood Performing Organization Address [facility] Ph one Number [place] [phone] [place], [place] [address] [facility] * ECG 12 lead (12/03/2019 1:58 PM CDT) Only the most recent of 2 results within the time period is included. Specimen Narrative Performed At Ventricular Rate 84 BPM GE MUSE Atrial Rate 84 BPM P-R Interval 198 ms QRS Duration 144 ms Q-T Interval 422 ms QTC Calculation(Bazett) 498 ms P Cochrane 69 degrees R Cochrane -44 degrees T Cochrane 131 degrees Normal sinus rhythm Left axis deviation Left bundle branch block Abnormal ECG No previous ECGs available Confirmed by MD Louie Roberto ([id number]) on 12/04/2019 2:14:57 PM Procedure Note Interface, External Ris In - 12/04/2019 2:15 PM CDT Ventricular Rate 84 BPM Atrial Rate 84 BPM P-R Interval 198 ms QRS Duration 144 ms Q-T Interval 422 ms QTC Calculation(Bazett) 498 ms P Cochrane 69 degrees R Cochrane -44 degrees T Cochrane 131 degrees Normal sinus rhythm Left axis deviation Left bundle branch block Abnormal ECG No previous ECGs available Confirmed by MD Louie Roberto ([id number]) on 12/04/2019 2:14:57 PM Performing Organization Address City/[facility] Ph one Number GE MUSE * ABORH, manual (12/03/2019 6:41 AM CDT) ABO Grouping O [facility] Rh Factor POS [facility] Specimen Blood Performing Organization Address [facility] Ph one Number [address] [address] [facility] * Type and screen, automated (12/03/2019 6:22 AM CDT) ABO/RH AUTOMATED (BEAKER) O POSITIVE [facility] Ab Scrn NEGATIVE [facility] Specimen Blood Performing Organization Address City/State/Zipcode Ph one Number [facility] [address] [place] [address] [facility] * CBC with platelet count + automated diff (12/03/2019 6:22 AM CDT) Only the most recent of 3 results within the time period is included. WBC 9.7 3.5 - 10.5 K/L [facility] RBC 3.60 (L) 3.93 - 5.22 M/L [facility] Hemoglobin 10.9 (L) 11.2 - 15.7 GM/DL [facility] Hematocrit 34.2 34.1 - 44.9 % [facility] MCV 95.0 (H) 79.4 - 94.8 fL [facility] MCH 30.3 25.6 - 32.2 pg [facility] MCHC 31.9 (L) 32.2 - 35.5 GM/DL [facility] RDW 13.1 11.7 - 14.4 % [facility] Platelets 229 150 - 450 K/CU MM [facility] MPV 11.4 9.4 - 12.3 fL [facility] nRBC 0 0 - 0 /100 WBC [facility] % Neutros 51 % [facility] % Lymphs 29 % [facility] % Monos 8 % [facility] % Eos 11 % [facility] % Baso 1 % [facility] # Neutros 4.94 1.56 - 6.13 K/L [facility] # Lymphs 2.83 1.18 - 3.74 K/L [facility] # Monos 0.78 (H) 0.24 - 0.36 K/L [facility] # Eos 1.05 (H) 0.04 - 0.36 K/L [facility] # Baso 0.06 0.01 - 0.08 K/L [facility] Immature 1 0 - 1 % [facility] Granulocytes-Relative [facility] Specimen Blood Performing Organization Address [facility] Ph one Number [place] [address] [facility] * Prothrombin time/INR (12/03/2019 6:22 AM CDT) Only the most recent of 2 results within the time period is included. Protime 13.3 11.9 - 14.[address] [facility] INR 1.0 <=5.9 [facility] Specimen Blood Narrative Performed At Effective 11/08/2018: PT Reference Range Change [facility] New: 11.9-14.2Previous: 11.7-14.7 [facility] MEDICAL CE NTER RECOMMENDED COUMADIN/WARFARIN INR THERA PY RANGES STANDARD DOSE: 2.0-3.0Includes: PRO PHYLAXIS for venous thrombosis, systemic embolization; TREATMENT for venous thro mbosis and/or pulmonary embolus. HIGH RISK: Target INR is 2.5-3.5 for pa tients wiht mechanical heart valves. Within 24 hours, if on Coumadin Performing Organization Address [facility] Ph one Number [place] [address] [phone] [place] [address] * Lipid panel (12/03/2019 6:22 AM CDT) Only the most recent of 2 results within the time period is included. Triglycerides 160 mg/dL [facility] Cholesterol 124 mg/dL [facility] HDL 44 mg/dL [facility] LDL Calculated 48 mg/dL [facility] Specimen Blood Narrative Performed At Triglyceride Reference Range: [facility] Low Risk <150 [facility] R [id number] High Risk 200-499 Very High Risk>=500 Cholesterol Reference Range: Low Risk <200 Lphjntankp854-317 High Risk>240 HDL Cholesterol Reference Range: Low Risk >=60 High Risk <40 LDL Cholesterol Reference Range: Optimal<100 Near Avklyog049-253 Blmmlimfey447-046 Tctr343-100 Very High >=190 Male Infertility Specialist ID - AAHAMID Performing Organization Address City/State/Zipcode Ph one Number [place] [address] [phone] [place] [address] * ECHOCARDIOGRAM REPORT - SCAN (08/21/2019 9:14 PM CDT) Narrative Performed At This result has an attachment that is n ot available. * ECHOCARDIOGRAM REPORT - SCAN (08/20/2019 9:12 PM CDT) Narrative Performed At This result has an attachment that is n ot available. * Limited 2D Echocardiogram (08/20/2019 3:41 PM CDT) Ejection Fraction [facility] ECHO HEARTLAB [facility] Specimen Narrative Performed At Transthoracic Echocardiography Report (TTE) [facility] ECH O HEARTLAB Demographics [facility] Patient NamePIRAD RIVERA ND ate of Study08/20/2019 Female Visit [id number] Race Unknown Room [id number] Number Date of 1935 Referring PhysicianThierry Verduzco MD Age 83 year(s)Merchandise Manager Abed Clive Hygiene Assistant MD Melody Bootholatati Physician Procedure Type of [...] of Study 08/20/2019 Gender Female Visit Number [id number] Race Unknown Room Number 1046 Number Date of 1935 Referring Physician Thierry Verduzco MD Age 83 year(s) Merchandise Manager jessa Arcesif Hygiene Assistant Mamie Rao Interpreting [place] MD [facility] Physician Procedure Type of Study TTE procedure:LIMITED [...] and post Valsalva . Performing Organization Address City/State/[facility] Ph one Number [facility] ECHO [facility]ART[facility] * 2D Echo W/Doppler(CW/PW/Color) (08/20/2019 11:00 AM CDT) Ejection Fraction [facility] Specimen Narrative Performed At Transthoracic Echocardiography Report (TTE) [facility] ECH O HEARTLAB Demographics [facility] Patient Name RAD RUVALCABA NDate of Study 08/20/2019 [id number] Gender Female Visit Number [id number] [facility] [id number] Room Number 1046 Number Date 1935 Referring Thierry Verduzco MD Physician Age83 year(s) Merchandise Manager Josh Ochoa, MIKAELA, RDCS,RVT,RDMS Interpreting Dann Howell [...] of Study 08/20/2019 Gender Female Visit Number [id number] Race Unknown Room Number 1046 Number Date of 1935 Referring Thierry Verduzco MD Physician Age 83 year(s) Merchandise Manager MIKAELA Patel, RDCS,RVT,RDMS Interpreting Dann Howell MD [...] LVOT CI: 1.56 l/min/m^2 Performing Organization Address [facility] one Number [facility] ECHO HEARTLAB [facility] * Phosphorus (08/20/2019 3:47 AM CDT) Only the most recent of 3 results within the time period is included. Phosphorus 3.6 2.3 - 4.7 mg/dL [facility] Specimen Blood Narrative Performed At Male Infertility Specialist ID - PIAYA L [facility] Performing Organization Address City/[facility] Ph one Number [place] [phone] [facility] * Magnesium (08/20/2019 3:47 AM CDT) Only the most recent of 4 results within the time period is included. Magnesium 1.8 1.6 - 2.6 mg/dL [facility] Specimen Blood Narrative Performed At Male Infertility Specialist ID - PIYANIRA Espinosa [facility] Performing Organization Address City/State/Zipcode Ph one Number [facility] [address] [place], [place] [address] [facility] * CT brain [...] Verified Date/Time: 08/19/2019 20:37:11 Performing Organization Address City/[facility] Ph one Number GE RIS * Troponin I (08/19/2019 1:42 AM SHAREPOINT WEB DEVELOPER) Only the most recent of 4 results within the time period is included. Troponin I 0.65 (HH) 0.00 - 0.03 ng/mL [facility] Specimen Blood Narrative Performed At Troponin I (TnI) levels must be interpreted in the co ntext of the presenting [facility] symptoms and the clinical findings. Elevated TnI leve ls indicate myocardial [facility] damage, but are not specific for ischem ic heart disease. Elevated TnI levels are seen in patients with other cardiac con ditions (including myocarditis and congestive heart failure), and slight T nI elevations occur in patients with other conditions, including sepsis, mere al failure, acidosis, acute neurological disease, and persistent tachyarrhythmia . Male Infertility Specialist ID - ABIEL Espinosa Performing Organization Address City/State/Zipcode Ph one Number [facility] [address] [place], [place] [address] [facility]ENTER * PERIPHERAL VASCULAR REPORT - SCAN (08/18/2019 9:10 PM SHAREPOINT WEB DEVELOPER) Narrative Performed At This result has an attachment that is n ot available. * MR brain without IV contrast (08/18/2019 6:31 PM SHAREPOINT WEB DEVELOPER) Specimen Narrative Performed At FINAL REPORT [facility] Exam: MRI brain without contrast. Comparison:None. Clinical [...] External Ris In - 08/18/2019 11:16 PM SHAREPOINT WEB DEVELOPER FINAL REPORT Exam: MRI brain without contrast. [...] Vitamin B12 and Folate (08/18/2019 4:39 AM SHAREPOINT WEB DEVELOPER) Vitamin B12 670 213 - 816 pg/mL [facility] Folate 9.7 >=7.0 ng/mL [facility] Specimen Blood Narrative Performed At Male Infertility Specialist ID - NOAM [place] [facility] Performing Organization Address [facility] Ph one Number [facility] [address] [place] [address] [address] [phone] [place] [address] * TSH/Free T4 If Indicated (08/18/2019 4:39 AM SHAREPOINT WEB DEVELOPER) Only the most recent of 2 results within the time period is included. TSH 0.77 0.35 - 4.94 uIU/mL [facility] Specimen Blood Narrative Performed At Male Infertility Specialist ID - NOAM [place] [facility] Performing Organization Address [facility] one Number [address] 0 [phone] [place] [address] * CT chest without IV contrast (08/18/2019 12:08 AM SHAREPOINT WEB DEVELOPER) Specimen Narrative Performed At FINAL REPORT [facility] EXAM: CT of the chest, without contrast [...] External Ris In - 08/18/2019 4:28 AM SHAREPOINT WEB DEVELOPER FINAL REPORT EXAM: CT of the chest, [...] Performing Organization Address City/State/Zipcode Ph one Number [facility] * CTA carotid (08/18/2019 12:07 AM SHAREPOINT WEB DEVELOPER) Specimen Narrative Performed At FINAL REPORT [facility] EXAM: CT, CAROTID, ANGIO, CT, CTANGIO BRAIN [...] visualized. Posterior Circulation: Right posterior cerebral artery (TOOL GRINDER OPERATOR SURFACE): Hypoplastic P1 segment with the remainder of the right TOOL GRINDER OPERATOR SURFACE supplied by the right posterior communicating artery. Left posterior cerebral artery (TOOL GRINDER OPERATOR SURFACE): M oderate focal stenosis of the mid [...] External Ris In - 08/18/2019 12:31 AM SHAREPOINT WEB DEVELOPER FINAL REPORT EXAM: CT, CAROTID, ANGIO, CT, [...] visualized. Posterior Circulation: Right posterior cerebral artery (TOOL GRINDER OPERATOR SURFACE): Hypoplastic P1 segment with the remainder of the right TOOL GRINDER OPERATOR SURFACE supplied by the right posterior communicating artery. Left posterior cerebral artery (TOOL GRINDER OPERATOR SURFACE): Moderate focal stenosis of the mid P2 [...] Performing Organization Address City/State/Zipcode Ph one Number [facility] * CTA brain (08/18/2019 12:07 AM SHAREPOINT WEB DEVELOPER) Specimen Narrative Performed At FINAL REPORT [facility] EXAM: CT, CAROTID, ANGIO, CT, CTANGIO BRAIN [...] visualized. Posterior Circulation: Right posterior cerebral artery (TOOL GRINDER OPERATOR SURFACE): Hypoplastic P1 segment with the remainder of the right TOOL GRINDER OPERATOR SURFACE supplied by the right posterior communicating artery. Left posterior cerebral artery (TOOL GRINDER OPERATOR SURFACE): M oderate focal stenosis of the mid [...] External Ris In - 08/18/2019 12:31 AM SHAREPOINT WEB DEVELOPER FINAL REPORT EXAM: CT, CAROTID, ANGIO, CT, [...] visualized. Posterior Circulation: Right posterior cerebral artery (TOOL GRINDER OPERATOR SURFACE): Hypoplastic P1 segment with the remainder of the right TOOL GRINDER OPERATOR SURFACE supplied by the right posterior communicating artery. Left posterior cerebral artery (TOOL GRINDER OPERATOR SURFACE): Moderate focal stenosis of the mid P2 [...] CT brain/stroke test design (08/17/2019 11:19 PM SHAREPOINT WEB DEVELOPER) Specimen Narrative Performed At FINAL REPORT [employer] RIS EXAM: CT, BRAIN/STROKE PROTOCOL CLINICAL INDICATION: Focal neurological deficit. TECHNIQUE:CT images from skull base to vertex without IV contrast. This exam was performed according to [facility] departmental dose optimization program which includes [...] External Ris In - 08/17/2019 11:36 PM [employer]EL[employer] FINAL REPORT EXAM: CT, BRAIN/STROKE PROTOCOL CLINICAL [...] GE RIS * PT/aPTT (08/17/2019 11:04 PM [employer]EL[employer]) Protime 13.5 11.9 - 14.[address] [facility] INR 1.1 <=5.9 [facility] PTT 26.7 22.5 - 36.[address] [facility] Specimen Blood Narrative Performed At Effective 11/08/2018: PT Reference Range Change [facility] New: 11.9-14.2Previous: 11.7-14.7 [facility] MEDICAL CE NTER RECOMMENDED COUMADIN/WARFARIN INR THERA PY RANGES STANDARD DOSE: 2.0-3.0Includes: PRO PHYLAXIS for venous thrombosis, systemic embolization; TREATMENT for venous thro mbosis and/or pulmonary embolus. HIGH RISK: Target INR is 2.5-3.5 for pa tients wiht mechanical heart valves. Performing Organization Address City/State/[facility] Ph one Number [facility] [address] [place], [place] [address] [facility] * Carotid doppler bilateral (08/17/2019 9:30 PM [employer] DEVELOPER) Ejection [facility] ECHO HEARTLAB MKCKESSON CPACS Specimen Impressions Performed At Right Impression [facility] ECHO HEARTLAB 1. There is 50-69% diameter reduction (approximately 58% by 2-D measurement) MKCKESSON CPACS in the internal carotid artery with het erogeneous plaque, a peak velocity of 128/31.4 cm/sec and an ICA/CCA peak sys tolic velocity ratio of 1.6. 2. There is >50% stenosis in the cafe server al carotid artery with a velocity of [...] 2. There is >50% stenosis in the cafe server al carotid artery with a velocity of [...] At LAB - Carotid Duplex Study [facility] ECHO HEARTLAB Demographics [facility] Patient NamePIRAD RIVERA Date of Study 08/17/2019 83 Visit [id number] male Date of 1935 Referring Thierry bar, Room Number 7512 Physician LEVY Merchandise Manager Lucy WestonInterpreting Ayaka Maldonado, RV T Physician [...] External Ris In - 08/18/2019 12:39 PM [employer] WE[employer] DEVELOPER PV LAB - Carotid Duplex Study Demographics Patient Name RAD RUVALCABA Date of Study 08/17/2019 Age 83 Visit Number [id number] Gender Female Accession Number [id number] Date of 1935 Referring Thierry Eleanor Verduzco, Room Number 7512 Physician LEVY Merchandise Manager Lucy Weston Interpreting Ayaka Maldonado, T Physician [...] PRV 240.ICAPSV/CCAPSV 1.6.ICAEDV/CCAEDV 2.04. Performing Organization Address City/[facility] Ph one Number [facility] ECHO HEARTLAB MKCKESSON CPACS * Manual Differential (08/17/2019 8:43 PM [employer] DEVELOPER) % Neutros 93 % [facility] % Lymphs 5 % [facility] % Monos 1 % [facility] # Neutros 10.32 (H) 1.56 - 6.13 K/ul [facility] # Lymphs 0.56 (L) 1.18 - 3.74 K/ul [facility] # Monos 0.11 (L) 0.24 - 0.36 K/uL [facility] Total Counted 100 [facility] RBC Morphology Normal [facility] Platelet Morphology Normal [facility] Vacuolated Neutrophils Present [facility] Plasmacytoid Lymphs Present [facility] Platelet Conc Adequate [facility] Specimen Blood Narrative Performed At Male Infertility Specialist ID - Mignon [facility] User comments: [facility] Slide comments: Performing Organization Address [facility] Ph one Number [address] [facility] * B-type Natriuretic Factor (BNP) (08/17/2019 8:43 PM [employer] DEVELOPER) BNP 577 (H) 0 - 100 pg/mL [facility] Specimen Blood Narrative Performed At Male Infertility Specialist ID - LINSEY Winkler [facility] Performing Organization Address City/[facility] Ph one Number [facility] [address] [place] [address] [phone] [place] [address] * Comprehensive metabolic panel (08/17/2019 8:43 PM [employer] DEVELOPER) Protein, Total 7.3 6.0 - 8.3 gm/dL [facility] Albumin 3.7 3.5 - 5.0 g/dL [facility] Alkaline Phosphatase 93 40 - 150 U/L [facility] Total Bilirubin 0.3 0.2 - 1.2 mg/dL [facility] Sodium 134 (L) 136 - 145 meq/L [facility] Potassium 4.5 3.5 - 5.1 meq/L [facility] Chloride 101 98 - 107 meq/L [facility] CO2 23 22 - 29 meq/L [facility] BUN 19 7 - 21 mg/dL [facility] Creatinine 1.25 0.57 - 1.25 mg/dL [facility] Glucose 496 (HH) 70 - 105 mg/dL [facility] Calcium 9.8 8.4 - 10.2 mg/dL [facility] AST 14 5 - 34 U/L [facility] ALT 12 6 - 55 U/L [facility] EGFR Comment: INSUFFICIENT CLINICAL [facility] DATA TO CALCULATE ESTIMATED [facility] GFR. Specimen Blood Narrative Performed At Male Infertility Specialist ID - LINSEY Winkler [facility] Performing Organization Address City/State/Zipcode Ph one Number [place] [phone] [address] * XR chest 1 view portable / bedside (08/17/2019 7:40 PM [employer] DEVELOPER) Specimen Narrative Performed At FINAL REPORT GE [...] External Ris In - 08/18/2019 4:58 AM [employer] DEVELOPER FINAL REPORT Chest one view. 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
--- OUTSIDE RECORDS SUMMARY | 2020-01-22 02:08 | XMS REPORT | Continuity of Care Document ---
Author Author [facility] t Organization [facility] Address [address] [place] [address] Phone Unavailable Care Team Providers Care Engraving Operator Name Role Phone SUNI ROMERO MD PCP Katty MARINICA Attphys Unavailable Jenaro LEVY, Noah Pierce Attphys [phone] Nathaniel WALLS, Josué Jackga Attphys Unavailable Timbo LEVY, Brett Attphys BRETT DE LA CRUZ Attphys Unavailable Sherwin Verduzco MD Attphys [phone] Shea LEVY, Mauricio Attphys SHERWIN VERDUZCO Attphys Unavailable SUNI ROMERO Attphys Unavailable BRETT DE LA CRUZ Admphys Unavailable SHERWIN VERDUZCO Admphys Unavailable SUNI ROMERO Admphys Unavailable Payers Payer Name Policy Type Policy Number Effective Date Expiration Date Katty bowman [employer] ALLxxxxxxxxxMaps Contracted [id number] xx [facility] [employer] [id number] 2019 00:00:00 [facility] Problems Condition Name Condition Details Condition Category Status Onset Date Resolution Date Last Treatment Date Treating Clinician Comments Source CAD (coronary artery disease) CAD (coronary artery disease) Disease Active 2019-12-03 00:00:00 [facility] Acute ischemic stroke Acute ischemic stroke Disease Active 202 00:00:00 [facility] Essential hypertension Essential hypertension Disease Active 2019-08-18 00:00:00 [facility] Type 2 diabetes mellitus Type 2 diabetes mellitus Disease Acti ve 2019-08-18 00:00:00 [facility] Hyperlipidemia Hyperlipidemia Disease Active 2019-08-18 00:00:00 [facility] Atrial fibrillation Atrial fibrillation Disease Active 2019[facility]08[facility]18 [facility] (chronic obstructive pulmonary disease) COPD (chr onic obstructive pulmonary disease) Disease Active 2019-08-18 00:00:00 [facility] Hypothyroidism Hypothyroidism Disease Active 2019-08-18 00:00:00 [facility] NSTEMI (non-ST elevated myocardial infarction) NSTEMI (non-ST elevated myocardial infarction) Disease Active 2019-08-18 00:00:00 [facility] Coronary artery disease Coronary artery disease Disease Active 2019-08-17 00:00:00 [facility] Chest pain Chest pain Problem Active C [facility] Allergies, Adverse Reactions, Alerts Allergy Name Allergy Type Status Severity Reaction(s) Onset Date Inacti ve Date Treating Clinician Comments Source Iodine And Iodide Containing Products Propensity to adverse reactio ns Active Anaphylaxis 2019-08-17 00:00:00 [facility] Penicillins Propensity to adverse reactions Active Severe 2019-08-17 00:00:00 [facility] Penicillin Allergy to Substance Active Mild 2009-06-15 00:00:00 [facility] Iodine Allergy to Substance Active Mild 2009-06-15 00:00:00 [facility] Social History Social Habit Start Date Stop Date Quantity Comments Source Sex Assigned At [facility] Alcohol Comment 2019-12-03 00:00:00 2019-12-03 00:00:00 sometimes [facility] Smoking Status Start Date Stop Date Source Former smoker 2019-12-07 00:00:00 2019-12-07 00:00:00 [facility] Medications Ordered Medication Name Filled Medication Name Start Date Stop Da te Current Medication? Ordering Clinician Indication Dosage Frequency Signature (SIG) Comments Components Source clopidogreL (PLAVIX) 75 mg tablet 2019-12-06 00:00:00 2019 00:00:00 No 75mg QD Take 1 tablet (75 mg total) by mouth danisha tima. [facility] losartan (COZAAR) 25 MG tablet 2019-12-06 00:00:00 2019-12-05 00 :00:00 No 25mg QD Take 1 tablet (25 mg total) by mouth daily. [facility] LEVEMIR FLEXTOUCH U-100 INSULN 100 unit/mL (3 mL) InPn injec tion 2019-12-05 00:00:00 Yes 42U Q.5D Inject 0.4 2 mLs (42 Units total) subcutaneously 2 (two) times daily Inject 15u in the morning and 35u at night. [facility] clopidogreL (PLAVIX) 75 mg tablet 2019-12-05 00:00:00 Yes TAKE 1 TABLET BY MOUTH EVERY DAY [facility] losartan (COZAAR) 25 MG tablet 2019-12-05 00:00:00 Yes TAKE 1 TABLET BY MOUTH EVERY DAY [facility] aspirin 81 MG chewable tablet 2019-12-05 00:00:00 2020-01-04 23: 59:00 No 81mg QD Take 1 tablet (81 mg total) by mouth daily for 30 days . [facility] amitriptyline (ELAVIL) 25 MG tablet 2019-12-03 06:29:28 Yes 25mg QD Take 25 mg by mouth nightly. [facility] isosorbide mononitrate (IMDUR) 30 MG 24 hr tablet 2019-12-03 06:29:28 Yes 30mg QD Take 30 mg by mouth daily. [facility] amLODIPine (NORVASC) 10 MG tablet 2019-08-24 00:00:00 Yes 10mg QD Take 1 tablet (10 mg total) by mouth daily. [facility] aspirin 81 MG chewable tablet 2019-08-24 00:00:00 2019-12-05 00: 00:00 No 81mg QD Take 1 tablet (81 mg total) by mouth daily. [facility] atorvastatin (LIPITOR) 80 MG tablet 2019-08-23 00:00:00 Yes 80mg QD Take 1 tablet (80 mg total) by mouth nightly. [facility] carvediloL (COREG) 25 MG tablet 2019-08-23 00:00:00 Yes 25mg Take 1 tablet (25 mg total) by mouth 2 (two) times daily with breakfast and dinner. [facility] apixaban (ELIQUIS) 5 mg Tab tablet 2019-08-23 00:00:00 Yes 5mg Q.5D Take 1 tablet (5 mg total) by mouth 2 (two) times daily New blood thinner. [facility] senna-docusate (SENOKOT S) 8.6-50 mg per tablet 2019-08-23 00:00:00 2020-08-22 23:59:00 No 2{tbl} Take 2 tablets by mouth daily as needed for Constipation. [facility] LEVEMIR FLEXTOUCH U-100 INSULN 100 unit/mL (3 mL) In injec tion 2019-08-23 00:00:00 2019-12-05 00:00:00 No Inject 15u in the morning and 35u at night. [facility] LEVEMIR FLEXTOUCH U-100 INSULN 100 unit/mL (3 mL) In injec tion 2019-08-01 00:00:00 2019-08-23 00:00:00 No 40U Q.5D Inject 40 Units subcutaneously 2 (two) times daily. [facility] acetaminophen-codeine (TYLENOL #3) 300-30 mg per tablet 2019-07-02 00:00:00 Yes 300mg Take 300 mg by mouth every 6 (six) hours as needed. [facility] levothyroxine (SYNTHROID, LEVOTHROID) 50 MCG tablet 07-02 00:00:00 Yes 50ug QD Take 50 mcg by mouth daily. [facility] Insulin Detemir (Levemir) 100 Unit/1 Ml Vial Insulin D etemir (Levemir) 100 Unit/1 Ml Vial Yes 4 Twice Daily Breakfast & Lunch [facility] Amitriptyline Hcl 25 Mg Tablet, 25 Mg Oral Amitriptyli ne Hcl 25 Mg Tablet, 25 Mg Oral 2019-08-15 00:00:[address] [facility] Amlodipine Besylate 10 Mg Tablet, 10 Mg Oral Amlodipin e Besylate 10 Mg Tablet, 10 Mg Oral 2019-08-15 00:00:[address] [facility] Metoprolol Tartrate 50 Mg Tablet, 50 Mg Oral Metoprolo l Tartrate 50 Mg Tablet, 50 Mg Oral 2019-08-15 00:00:00 No [address] [facility] Valsartan (Diovan) 320 Mg Tablet, 320 Mg Oral Valsarta n (Diovan) 320 Mg Tablet, 320 Mg Oral 2019-08-15 00:00:[address] [facility] Vital Signs Vital Name Observation Time Observation Value Comments Source Systolic blood pressure 2019-12-05 08:16:00 141 mm[Hg] [facility] Diastolic blood pressure 2019-12-05 08:16:00 61 mm[Hg] [facility] Heart rate 2019-12-05 08:16:00 73 /min [facility] Body temperature 2019-12-05 08:16:00 36.78 Cleopatra [facility] Respiratory rate 2019-12-05 08:16:00 18 /min [facility] Oxygen saturation in Arterial blood by Pulse oximetry 12-04 08:16:00 97 /min [facility] Body weight Measured 2019-12-04 08:07:00 72.893 kg [facility] BMI 2019-12-04 08:07:00 25.17 kg/m2 [facility] Body height 2019-12-03 05:51:00 170.2 cm [facility] Procedures Procedure Date / Time Performed Performing Clinician Chencho ross VASCULAR DIAGRAM -SCAN 2019-12-14 16:00:48 Provider, Default Sca nning [facility] RHYTHM STRIP - SCAN 2019-12-06 13:32:38 Provider, Default Scanni ng [facility] VASCULAR DIAGRAM -SCAN 2019-12-06 13:32:35 [facility] - [facility] 2019-12-06 13:32:33 Provider, Default Scanning [facility] CARDIAC CATH REPORT - SCAN 2019-12-06 13:32:32 Provider, Default Scanning [facility] VASCULAR DIAGRAM -SCAN 2019-12-05 15:22:29 [facility] BASIC METABOLIC PANEL (7) 2019-12-05 04:41:00 Gino [facility] CBC (HEMOGRAM ONLY) 2019-12-05 04:41:00 Gino [facility] POCT-GLUCOSE METER 2019-12-04 20:36:00 [facility] - SCAN 2019-12-04 18:33:14 Provid er, Default Scanning [facility] HEMOGLOBIN A1C 2019-12-04 17:41:00 Ayaka Holloway [facility] POCT-GLUCOSE METER 2019-12-04 16:54:00 [facility] CATH & PCI 2019-12-04 15:10:00 Ala, [facility] POCT-ACT 2019-12-04 14:28:[facility] 2019-12-04 12:19:00 [facility] POCT-GLUCOSE METER 2019-12-04 07:15:00 Alam, [facility] POCT-GLUCOSE METER 2019-12-04 05:59:00 [facility] APTT 2019-12-04 04:33:00 Ayaka Holloway [facility] BASIC METABOLIC PANEL (7) 2019-12-04 02:05:00 Gino [facility] CBC (HEMOGRAM ONLY) 2019-12-04 02:05:00 Gino [facility] APTT 2019-12-04 02:05:00 Ayaka Hollwoay [facility] POCT-GLUCOSE METER 2019-12-04 01:58:00 Timbo [facility] APTT 2019-12-03 23:03:00 Ayaka Holloway [facility] POCT-GLUCOSE METER 2019-12-03 23:02:00 Timbo, [facility] BASIC METABOLIC PANEL (7) 2019-12-03 21:26:00 Bruce Fernandes [facility] APTT 2019-12-03 21:26:00 Ayaka Hollowayne [facility] POCT-GLUCOSE METER 2019-12-03 20:30:00 Timbo [facility] POCT-GLUCOSE METER 2019-12-03 18:44:00 Timbo, [facility] POCT-GLUCOSE METER 2019-12-03 16:37[facility]-12-03 15:07:00 Ayaka Holloway [facility] ECG 12-LEAD 2019-12-03 13:58:28 Unknown, Hl7 [facility] POCT-GLUCOSE METER 2019-12-03 11:02:00 Timbo [facility] PCI 2019-12-03 07:30:00 Jose [facility] ABORH, MANUAL 2019-12-03 06:41:00 Lisa Lloyd [facility] ECG 12-LEAD 2019-12-03 06:27:09 Unknown, Hl7 Doctor [facility] PROTHROMBIN TIME/INR 2019-12-03 06:22:00 Jessica Christian [facility] APTT 2019-12-03 06:22:00 [facility] BASIC METABOLIC PANEL (7) 2019-12-03 06:22:00 Ala, [facility] LIPID PANEL 2019-12-03 06:22:00 [facility] TYPE AND SCREEN, AUTOMATED 2019-12-03 06:22:00 Gino [facility] CBC W/PLT COUNT & AUTO DIFFERENTIAL 2019-12-03 06:22:00 Gagan De La Cruz [facility] RHYTHM STRIP - SCAN 2019-08-28 14:11:14 Provider, Default Scanni [facility] RHYTHM STRIP - SCAN 2019-08-27 11:01:09 Provider, Default Scanni [facility] POCT-GLUCOSE METER 2019-08-23 11:18:00 Thierry Verduzco [facility] POCT-GLUCOSE METER 2019-08-23 07:42:00 Thierry Verduzco [facility] CBC (HEMOGRAM ONLY) 2019-08-23 05:25:00 [facility] POCT-GLUCOSE METER 2019-08-22 21:08:00 Thierry Verduzco [facility] POCT-GLUCOSE METER 2019-08-22 17:41:00 Thierry Verduzco [facility] POCT-GLUCOSE METER 2019-08-22 12:03:00 Thierry Verduzcoilios Ольга [facility] POCT-GLUCOSE METER 2019-08-22 07:36:00 Thierry Verduzco [facility] APTT 2019-08-22 06:16:00 Thierry Verduzco [facility] CBC (HEMOGRAM ONLY) 2019-08-22 06:16:00 Ascencion Vallejo [facility] ECHOCARDIOGRAM REPORT - SCAN 2019-08-21 21:14:11 Provider, Hussein Carter [facility] POCT-GLUCOSE METER 2019-08-21 21:13:00 Thierry Verduzcoos Ольга [facility] POCT-GLUCOSE METER 2019-08-21 16:40:00 Thierry Verduzco [facility] POCT-GLUCOSE METER 2019-08-21 11:38:00 [place] Thierry Waltertran Rolon [facility] APTT 2019-08-21 10:32:00 [place] Thierry Walterilios [facility] POCT-GLUCOSE METER 2019-08-21 08:39:00 [place] Thierry Walterilios Ольга [facility] APTT 2019-08-21 03:29:00 TelloThierry mcnulty [facility] CBC (HEMOGRAM ONLY) 2019-08-21 03:29:00 Ascencion Vallejo [facility] ECHOCARDIOGRAM REPORT - SCAN 2019-08-20 21:12:48 Hussein Phillip lt [facility] POCT-GLUCOSE METER 2019-08-20 21:00:00 RoThierry bar [facility] APTT 2019-08-20 20:15:00 Thierry Verduzco Sherwin [facility] POCT-GLUCOSE METER 2019-08-20 17:28:00 [place] Thierry Waltertran Rolon [facility] LIMITED 2D ECHOCARDIOGRAM 2019-08-20 15:41:51 Ayaka Holloway [facility] POCT-GLUCOSE METER 2019-08-20 13:10:00 [place] Thierry Waltertran Rolon [facility] APTT 2019-08-20 13:02:00 Thierry Verduzco [facility] 2D ECHO W/ DOPPLER (CW/PW/COLOR) 2019-08-20 11:00:00 Lilly Padilla [facility] POCT-GLUCOSE METER 2019-08-20 08:21:00 Thierry Verduzco [facility] BASIC METABOLIC PANEL (7) 2019-08-20 03:47:00 Ramon Padilla [facility] MAGNESIUM 2019-08-20 03:47:00 Ramon Padilla [facility] PHOSPHORUS 2019-08-20 03:47:00 Ramon Padilla [facility] APTT 2019-08-20 03:47:00 Thierry Verduzco [facility] CBC (HEMOGRAM ONLY) 2019-08-20 03:47:00 VallejoAscencion acostabobby [facility] POCT-GLUCOSE METER 2019-08-19 21:14:00 Thierry Verduzco [facility] CT BRAIN WITHOUT IV CONTRAST 2019-08-19 20:32:00 Thierry Verduzco [facility] POCT-GLUCOSE METER 2019-08-19 18:05:00 Thierry Verduzco [facility] POCT-GLUCOSE METER 2019-08-19 12:48:00 Thierry Verduzco [facility] APTT 2019-08-19 09:13:00 Thierry Verduzco Sherwin [facility] POCT-GLUCOSE METER 2019-08-19 08:12:00 Thierry Verduzco [facility] CBC (HEMOGRAM ONLY) 2019-08-19 05:35:00 Vallejo, Ascencion Hernández [facility] APTT 2019-08-19 01:42:00 Thierry Verduzco [facility] BASIC METABOLIC PANEL (7) 2019-08-19 01:42:00 Ramon Padilla [facility] MAGNESIUM 2019-08-19 01:42:00 Ramon Padilla [facility] PHOSPHORUS 2019-08-19 01:42:00 Ramon Padilla [facility] TROPONIN I 2019-08-19 01:42:00 Marvel Grullon [facility] PERIPHERAL VASCULAR REPORT - SCAN 2019-08-18 21:10:10 Provid er, Default Scanning [facility] POCT-GLUCOSE METER 2019-08-18 21:04:00 Thierry Verduzco [facility] MR BRAIN WITHOUT IV CONTRAST 2019-08-18 18:31:00 Nino Driscoll [facility] POCT-GLUCOSE METER 2019-08-18 17:25:00 Thierry Verduzco [facility] TROPONIN I 2019-08-18 15:58:00 Americo, [facility] APTT 2019-08-18 15:57:00 Vallejo Ascencion Romanbobby [facility] POCT-GLUCOSE METER 2019-08-18 12:50:00 Thierry Verduzco [facility] POCT-GLUCOSE METER 2019-08-18 07:58:00 Thierry Verduzco [facility] HEMOGLOBIN A1C 2019-08-18 04:39:00 Americo, [facility] TSH/FREE T4 IF INDICATED 2019-08-18 04:39:00 Americo [facility] VITAMIN B12 AND FOLATE 2019-08-18 04:39:00 Americo [facility] BASIC METABOLIC PANEL (7) 2019-08-18 02:13:00 Ramon Padilla [facility] MAGNESIUM 2019-08-18 02:13:00 Ramon Padilla [facility] PHOSPHORUS 2019-08-18 02:13:00 Ramon Padilla [facility] LIPID PANEL 2019-08-18 02:13:00 Americo, [facility] TROPONIN I 2019-08-18 02:13:00 Americo, [facility] CBC W/PLT COUNT & AUTO DIFFERENTIAL 2019-08-18 02:13:00 AmericoJulio qureshi [facility] POCT-GLUCOSE METER 2019-08-18 01:55:00 Thierry Verduzco [facility] CT CHEST WITHOUT IV CONTRAST 2019-08-18 00:08:00 Ramon Padilla [facility] CTA BRAIN 2019-08-18 00:07:00 [facility] CT/CTA CAROTID 2019-08-18 00:07:00 Americo [facility] CT BRAIN/STROKE TEST DESIGN 2019-08-17 23:19:00 Americo [facility] PT/APTT 2019-08-17 23:04:00 Americo [facility] POCT-GLUCOSE METER 2019-08-17 22:41:00 Thierry Verduzco [facility] CAROTID DOPPLER BILATERAL 2019-08-17 21:30:00 Ramon Padilla [facility] TROPONIN I 2019-08-17 20:43:00 Ramon Padilla [facility] COMPREHENSIVE METABOLIC PANEL 2019-08-17 20:43:00 Ramon Padilla [facility] B-TYPE NATRIURETIC FACTOR (BNP) 2019-08-17 20:43:00 [facility] PROTHROMBIN TIME/INR 2019-08-17 20:43:00 Ramon Padilla [facility] APTT 2019-08-17 20:43:00 Ramon Padilla [facility] MAGNESIUM 2019-08-17 20:43:00 [facility] TSH/FREE T4 IF INDICATED 2019-08-17 20:43:00 Ramon Padilla do [facility] CBC W/PLT COUNT & AUTO DIFFERENTIAL 2019-08-17 20:43:00 [facility] (CELL[facility] MANUAL DIFF) 2019-08-17 20:43:00 Ramon Padilla [facility] XR CHEST 1 VIEW PORTABLE/BEDSIDE 2019-08-17 19:40:00 Lilly Padilla [facility] POCT-GLUCOSE METER 2019-08-17 18:29:00 Thierry Verduzco [facility] POCT-GLUCOSE METER 2019-08-17 16:30:00 Thierry Verduzco [facility] X-ray of chest, two views 2019-08-14 00:00:00 DIPAK MARIN CH I [facility] Encounters Start Date/Time End Date/Time Encounter Type Admission [facility] Encounter ID Source 2019-08-14 23:58:00 2019-08-17 15:03:00 Discharged Inpatient (obs) [address] [facility] [id number] [facility] Results Test Description Test Time Test Comments Results Result Comments Source CHEST SINGLE (PORTABLE) 2020-01-21 22:33:00 [facility] [address] [place] [address] Patient Name: RAD TINAJERO MR #: [id number] : 1935 Age/Sex: 84/F Req #: [id number] Adm Physician: Ordered by: DIPKA MARIN DO Report #: [id number] Location: ER Room/Bed: Procedure: [id number] DX/CHEST SINGLE (PORTABLE) Exam Date: Exam Time: [...] mg/dL 70-105 H Calcium (test code = 23496-1) 9.1 mg/dL 8.4-10.2 EGFR (test code = 77248-4) 48 mL/min/1.73 sq m ESTIMATED GFR IS NOT ACCURATE CREATININE CLEARANCE IN PREDICTING GLOMERULAR FILTRATION RATE. ESTIMATED GFR IS NOT APPLICABLE FOR DIALYSIS PATIENTS. KHAI (test code = KHAI) Biological Sciences Professor ID - NARENDRA B Lab Interpretation (test code = 85967-2) Abnormal [facility] METABOLIC [id number] 05:04:00* Test Item Value Reference Range Interpretation [...] GFR IS NOT APPLICABLE FOR DIALYSIS PATIENTS. Biological Sciences Professor ID - NARENDRA BCBC (Hemogram only)2019-12-05 04:48:00* [...] 450 K/CU MM MPV (test code = 80970-9) 11.6 fL 9.4-12.3 nRBC (test code = 413) 0 0- 0 /100 WBC Lab Interpretation (test code = 04045-0) [facility]2019-12-05 04:48:00* Test Item Value Reference [...] 413) 0 /100 WBC 0 -0 POC-Glucose [id number] 20:48:00* Test Item Value Reference Range Interpretation Comments POC-Glucose Meter (test code = 1538) 376 mg/dL 70-110 H : TESTED AT [address], [address]: Biological Sciences Professor/Rotary Operator ID = [id number] for Henry Almaraz Lab Interpretation (test code = 79964-9) Abnormal [facility] [id number] 20:48:00* Test Item Value Reference Range Interpretation Comments POC-GLUCOSE METER (BEAKER) (test code = 1538) 376 mg/dL 70-110 H : TESTED AT [address], [address]: Biological Sciences Professor/Rotary Operator ID = [id number] for Henry Almaraz Hemoglobin [id number] 19:57:00* Test Item Value Reference Range Interpretation Comments Hemoglobin A1C (test code = 4548-4) 11.2 % 4.3-6.1 H Lab Interpretation (test code = 28546-8) Abnormal [facility] [id number] 19:57:00* Test Item Value Reference Range Interpretation Comments HEMOGLOBIN A1C (BEAKER) (test code = 368) 11.2 % 4.3-6.1 H POCT-GLUCOSE [id number] 17:07:00* Test Item Value Reference Range Interpretation Comments POC-GLUCOSE METER (BEAKER) (test code = 1538) 86 mg/dL 70-110 : TESTED AT [address], [address]: Biological Sciences Professor/Rotary Operator ID = [id number] for DOTY, NITA POC ACTIVATED CLOTTING [id number] 14:52:00* Test Item Value Reference Range Interpretation Comments Activated Clotting Time (test code = 441) 400 sec : 74-137 seconds, Baseline: TESTED AT [address], [address]: Biological Sciences Professor/Rotary Operator ID = [id number] for FLORINDA JANG [facility][id number] 14:52:00* Test Item Value Reference Range Interpretation Comments ACTIVATED CLOTTING TIME (BEAKER) (test code = 441) 400 sec : 74-137 seconds, Baseline: TESTED AT [address], [address]: Biological Sciences Professor/Rotary Operator ID = [id number] for FLORINDA JANG ECG 12 [id number] 14:15:00Interface, External Ris In - 12/04/2019 2:15 PM CDTVentricular Rate 84 BPMAtrial Rate 84 BPMP-R Interval 198 msQRS Duration 144 msQ-T Interval 422 msQTC Calculation(Bazett) 498 msP [place] 69 degreesR [place] -44 degreesT [place] 131 degreesNormal sinus rhythmLeft axis deviationLeft bundle branch blockAbnormal ECGNo previous ECGs availableConfirmed by MD Louie Roberto ([id number]) on 12/04/2019 2:14:57 [facility] [id number] 12:30:00* Test Item Value Reference Range Interpretation Comments POC-GLUCOSE METER (BEAKER) (test code = 1538) 246 mg/dL 70-110 H : TESTED AT [address], [address]: Biological Sciences Professor/Rotary Operator ID = [id number] for EDDI TERESA POCT-GLUCOSE [id number] 07:28:00* Test Item Value Reference Range Interpretation Comments POC-GLUCOSE METER (BEAKER) (test code = 1538) 135 mg/dL 70-110 H : TESTED AT [address], [address]: Biological Sciences Professor/Rotary Operator ID = [id number] for NITA DOTY POCT-GLUCOSE [id number] 06:11:00* Test Item Value Reference Range Interpretation Comments POC-GLUCOSE METER (BEAKER) (test code = 1538) 134 mg/dL 70-110 H : TESTED AT [facility] [address] [place], [address]: Biological Sciences Professor/Rotary Operator ID = [id number] for FERMIN GRAHAM [id number] 05:00:00* Test Item Value Reference Range Interpretation Comments PTT (test code = 42120-7) 58.8 22.5- 36.0 seconds H Lab Interpretation (test code = 87189-1) Abnormal [facility] 05:00:00* Test Item Value Reference Range Interpretation Comments PARTIAL THROMBOPLASTIN TIME (BEAKER) (test code = 760) 58.8 seconds 22.5-36.0 H [id number] 03:04:00* Test Item Value Reference Range Interpretation Comments PARTIAL THROMBOPLASTIN TIME (BEAKER) (test code = 760) 198.5 sec onds 22.5-36.0 HH BASIC METABOLIC [id number] 02:32:00* Test Item Value Reference Range Interpretation [...] GFR IS NOT APPLICABLE FOR DIALYSIS PATIENTS. Biological Sciences Professor ID - PIAYA LCBC (HEMOGRAM ONLY)2019-12-04 02:15:00* [...] 413) 0 /100 WBC 0 -0 POCT-GLUCOSE [id number] 02:09:00* Test Item Value Reference Range Interpretation Comments POC-GLUCOSE METER (BEAKER) (test code = 1538) 232 mg/dL 70-110 H : TESTED AT [address], [address]: Biological Sciences Professor/Rotary Operator ID = [id number] for FERMIN GRAHAM [id number] 23:55:00* Test Item Value Reference Range Interpretation Comments PARTIAL THROMBOPLASTIN TIME (BEAKER) (test code = 760) > seconds 22.5-36.0 POCT-GLUCOSE [id number] 23:13:00* Test Item Value Reference Range Interpretation Comments POC-GLUCOSE METER (BEAKER) (test code = 1538) 346 mg/dL 70-110 H : TESTED AT [address], [address]: Biological Sciences Professor/Rotary Operator ID = [id number] for ARPIT GUILLAUME [id number] 22:08:00* Test Item Value Reference Range Interpretation Comments PARTIAL THROMBOPLASTIN TIME (BEAKER) (test code = 760) > seconds 22.5-36.0 HH BASIC METABOLIC [id number] 21:56:00* Test Item Value Reference Range Interpretation [...] GFR IS NOT APPLICABLE FOR DIALYSIS PATIENTS. Biological Sciences Professor ID - VENKATESH CPOCT-GLUCOSE [id number] 20:42:00* Test Item Value Reference Range Interpretation Comments POC-GLUCOSE METER (BEAKER) (test code = 1538) > mg/dL 70-110 HH : Notified RN/MD: TESTED AT [address], [address]: Biological Sciences Professor/Rotary Operator ID = [id number] for FERMIN GRAHAM POCT-GLUCOSE [id number] 18:58:00* Test Item Value Reference Range Interpretation Comments POC-GLUCOSE METER (BEAKER) (test code = 1538) > mg/dL 70-110 HH : Will Repeat Test: Notified RN/MD: TESTED AT [address], [address]: Biological Sciences Professor/Rotary Operator ID = [id number] for Xiang Hyun POCT-GLUCOSE [id number] 16:54:00* Test Item Value Reference Range Interpretation Comments POC-GLUCOSE METER (BEAKER) (test code = 1538) 462 mg/dL 70-110 HH : TESTED AT [address], [address]: Biological Sciences Professor/Rotary Operator ID = [id number] for Es Gonzales [id number] 15:41:00* Test Item Value Reference Range Interpretation Comments PARTIAL THROMBOPLASTIN TIME (BEAKER) (test code = 760) 28.3 seconds 22.5-36.0 6 hours after starting heparin infusion and as indicated per sliding scalePOCT- GLUCOSE [id number] 11:19:00* Test Item Value Reference Range Interpretation Comments POC-GLUCOSE METER (BEAKER) (test code = 1538) 105 mg/dL 70-110 : TESTED AT [place] [id number] [facility], [address]: Biological Sciences Professor/Rotary Operator ID = [id number] for NITA DOTY Lipid [id number] 09:42:00* Test Item Value Reference Range Interpretation Comments Triglycerides (test code = 2571-8) 160 mg/dL Cholesterol (test code = 2093-3) 124 mg/dL HDL (test code = 2085-9) 44 mg/dL LDL Calculated (test code = 72501-3) 48 mg/dL KHAI (test code = KHAI) Triglyceride Reference Range : Low Risk <150 Borderline 150-199 High Risk 200-499 Very High Risk >=500 Cholesterol Reference Range: Low Risk <200 Borderline 200-239 High Risk >240 HDL Cholesterol Reference Range: Low Risk >=60 High Risk <40 LDL Cholesterol Reference Range: Optimal <100 Near Optimal 100-129 Borderline 130-159 High 160-189 Very High >=190 Biological Sciences Professor ID - AAPATRICK [facility] HospitalLIPID [id number] 09:42:00* Test Item Value Reference Range Interpretation [...] Borderline 130-159 High 160-189 Very High >=190 Biological Sciences Professor ID - AAHAMIDType and screen, [id number] 07:19:00* Test Item Value Reference Range Interpretation Comments ABO/RH AUTOMATED (BEAKER) (test code = 2260) O POSITIVE Ab Scrn (test code = 890-4) NEGATIVE [facility] HospitalABORH, [id number] 07:08:00* Test Item Value Reference Range Interpretation Comments ABO Grouping (test code = 2588) O Rh Factor (test code = 2589) POS [facility] HospitalBASIC METABOLIC [id number] 06:52:00* Test Item Value Reference Range Interpretation [...] GFR IS NOT APPLICABLE FOR DIALYSIS PATIENTS. Biological Sciences Professor ID - PIAYA [id number] 06:45:00* Test Item Value Reference Range Interpretation [...] on Coumadin Lab Interpretation (test code = 03391-5) Normal [facility] HospitalPROTHROMBIN TIME/[id number] 06:44:00* Test Item Value Reference Range Interpretation [...] on CoumadinCBC with platelet count + automated [id number] 06:33:00* Test Item Value Reference Range Interpretation [...] 450 K/CU MM MPV (test code = 74062-3) 11.4 fL 9.4-12.3 nRBC (test code = [...] % 0-1 Lab Interpretation (test code = 39161-8) Abnormal [facility] W/PLT COUNT & AUTO [id number] 06:33:00* Test Item Value Reference Range Interpretation [...] code = 2801) 1 % 0-1 POCT-GLUCOSE [id number] 11:34:00* Test Item Value Reference Range Interpretation Comments POC-GLUCOSE METER (BEAKER) (test code = 1538) 341 mg/dL 70-110 H : TESTED AT [address], [address]: Biological Sciences Professor/Rotary Operator ID = [id number] for FUENTES ZOEY POCT-GLUCOSE [id number] 07:56:00* Test Item Value Reference Range Interpretation Comments POC-GLUCOSE METER (BEAKER) (test code = 1538) 235 mg/dL 70-110 H : TESTED AT [place] [id number] [facility], [address]: Biological Sciences Professor/Rotary Operator ID = [id number] for CHETAN ANN CBC (HEMOGRAM ONLY)2019-08-23 06:24:00* [...] 413) 0 /100 WBC 0 -0 POCT-GLUCOSE [id number] 21:20:00* Test Item Value Reference Range Interpretation Comments POC-GLUCOSE METER (BEAKER) (test code = 1538) 360 mg/dL 70-110 H : TESTED AT [address], [address]: Biological Sciences Professor/Rotary Operator ID = [id number] for ALCIRA HICKEY III POCT-GLUCOSE [id number] 17:54:00* Test Item Value Reference Range Interpretation Comments POC-GLUCOSE METER (BEAKER) (test code = 1538) 342 mg/dL 70-110 H : TESTED AT [address], [address]: Biological Sciences Professor/Rotary Operator ID = [id number] for SETH KENNYOBEDMARLENA POCT-GLUCOSE [id number] 12:15:00* Test Item Value Reference Range Interpretation Comments POC-GLUCOSE METER (BEAKER) (test code = 1538) 348 mg/dL 70-110 H : Notified RN/MD: TESTED AT [address], [address]: Biological Sciences Professor/Rotary Operator ID = [id number] for SETH KENNYOBEDMARLENA POCT-GLUCOSE [id number] 07:49:00* Test Item Value Reference Range Interpretation Comments POC-GLUCOSE METER (BEAKER) (test code = 1538) 169 mg/dL 70-110 H : TESTED AT [address], [address]: Biological Sciences Professor/Rotary Operator ID = [id number] for CHETAN ANN [id number] 07:07:00* Test Item Value Reference Range Interpretation [...] 413) 0 /100 WBC 0 -0 POCT-GLUCOSE [id number] 21:25:00* Test Item Value Reference Range Interpretation Comments POC-GLUCOSE METER (BEAKER) (test code = 1538) 389 mg/dL 70-110 H : TESTED AT [place] [address] [facility], [address]: Biological Sciences Professor/Rotary Operator ID = [id number] for AMADOU VICENTE POCT-GLUCOSE [id number] 16:53:00* Test Item Value Reference Range Interpretation Comments POC-GLUCOSE METER (BEAKER) (test code = 1538) 272 mg/dL 70-110 H : TESTED AT [facility] [address] [facility], [address]: Biological Sciences Professor/Rotary Operator ID = [id number] for ECAT, LUIS FELIPE [employer] 2D Ladlwpgannokjd9789-20-87 13:30:42Ejection FractionSLEH ECHO HEARTLAB MKCKESSON CPACSInterface, External Ris In - 08/21/2019 1:30 PM CDTTransthoracic Echocardiography Report (TTE) Demographics Patient Name RAD TINAJERO Date of Study 08/20/2019 Gender Female Visit Number [id number] Race Unknown Room Number 1046 Number Date of 1935 Referring Physician Thierry Verduzco MD Age 83 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 [facility] [id number] 11:50:00* Test Item Value Reference Range Interpretation Comments POC-GLUCOSE METER (BEAKER) (test code = 1538) 222 mg/dL 70-110 H : TESTED AT [facility] [address] [facility], [address]: Biological Sciences Professor/Rotary Operator ID = [id number] for ZOEY FUENTES [id number] 10:56:00* Test Item Value Reference Range Interpretation Comments PARTIAL THROMBOPLASTIN TIME (BEAKER) (test code = 760) 79.8 seconds 22.5-36.0 H POCT-GLUCOSE [id number] 08:50:00* Test Item Value Reference Range Interpretation Comments POC-GLUCOSE METER (BEAKER) (test code = 1538) 302 mg/dL 70-110 H : TESTED AT [facility] [address] [facility], [address]: Biological Sciences Professor/Rotary Operator ID = [id number] for ZOEY FUENTES [id number] 04:06:00* Test Item Value Reference Range Interpretation [...] 413) 0 /100 WBC 0 -0 POCT-GLUCOSE [id number] 21:12:00* Test Item Value Reference Range Interpretation Comments POC-GLUCOSE METER (BEAKER) (test code = 1538) 334 mg/dL 70-110 H : TESTED AT [facility] [address] [facility], [address]: Biological Sciences Professor/Rotary Operator ID = [id number] for ANTONIO SKINNER [id number] 20:49:00* Test Item Value Reference Range Interpretation Comments PARTIAL THROMBOPLASTIN TIME (BEAKER) (test code = 760) 61.9 seconds 22.5-36.0 H POCT-GLUCOSE [id number] 17:40:00* Test Item Value Reference Range Interpretation Comments POC-GLUCOSE METER (BEAKER) (test code = 1538) 343 mg/dL 70-110 H : TESTED AT [place] [id number] [facility], [address]: Biological Sciences Professor/Rotary Operator ID = [id number] for LUIS FELIPE NOWAK 2D Echo W/Doppler(CW/PW/Color)2019-08-20 15:35:27Ejection FractionSLEH ECHO HEARTLAB MKCKESSON CPACSInterface, External Ris In - 08/20/2019 3:35 PM CDTTransthoracic Echocardiography Report (TTE) Demographics Patient Name RAD TINAJERO Date of Study 08/20/2019 Gender Female Visit Number [id number] Race Unknown Room Number 1046 Number Date of 1935 Referring Thierry Verduzco MD Physician Age 83 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 CenterAPTT[facility] 13:28:00* Test Item Value Reference Range Interpretation Comments PARTIAL THROMBOPLASTIN TIME (BEAKER) (test code = 760) 85.9 seconds 22.5-36.0 H POCT-GLUCOSE [id number] 13:22:00* Test Item Value Reference Range Interpretation Comments POC-GLUCOSE METER (BEAKER) (test code = 1538) 237 mg/dL 70-110 H : TESTED AT [facility] [address] [facility], [address]: Biological Sciences Professor/Rotary Operator ID = [id number] for Odilia Zamarripa POCT-GLUCOSE [id number] 08:32:00* Test Item Value Reference Range Interpretation Comments POC-GLUCOSE METER (BEAKER) (test code = 1538) 337 mg/dL 70-110 H : TESTED AT [facility] [address] [facility], [address]: Biological Sciences Professor/Rotary Operator ID = [id number] for Odilia Zamarripa BASIC METABOLIC [id number] 04:32:00* Test Item Value Reference Range Interpretation [...] INSUFFICIENT CLINICAL DATA TO CALCULATE ESTIMATED GFR. Biological Sciences Professor ID - ABIEL [id number] 04:20:00* Test Item Value Reference Range Interpretation Comments Magnesium (test code = 68949-5) 1.8 mg/dL 1.6-2.6 KHAI (test code = KHAI) Biological Sciences Professor ID - ABIEL L Lab Interpretation (test code = 86715-3) Normal [facility] HospitalPhosphorus2020-03-09 04:20:00* Test Item Value Reference Range Interpretation Comments Phosphorus (test code = 2777-1) 3.6 mg/dL 2.3-4.7 KHAI (test code = KHAI) Biological Sciences Professor ID - ABIEL L Lab Interpretation (test code = 39393-4) Normal [facility] HospitalPHOSPHORUS2020-03-09 04:20:00* Test Item Value Reference Range Interpretation Comments PHOSPHORUS (BEAKER) (test code = 604) 3.6 mg/dL 2.3-4.7 Biological Sciences Professor ID - ABIEL [id number] 04:20:00* Test Item Value Reference Range Interpretation Comments MAGNESIUM (BEAKER) (test code = 627) 1.8 mg/dL 1.6-2.6 Biological Sciences Professor ID - ABIEL [id number] 04:07:00* Test Item Value Reference Range Interpretation [...] 413) 0 /100 WBC 0 -0 POCT-GLUCOSE [id number] 21:26:00* Test Item Value Reference Range Interpretation Comments POC-GLUCOSE METER (BEAKER) (test code = 1538) 317 mg/dL 70-110 H : TESTED AT [facility] [address] [facility], [address]: Biological Sciences Professor/Rotary Operator ID = [id number] for EDELMIRA IIIALCIRA CT, BRAIN, WITHOUT [id number] 20:37:00FINAL REPORT EXAM: CT head without contrast. [...] 08/19/2019 08:[address] brain without IV [id number] 20:37:00Interface, External Ris In - 08/19/2019 8:40 [...] Mckeon MDReport V erified Date/Time: 08/19/2019 20:37:11 [facility]POCT[facility] [id number] 18:18:00* Test Item Value Reference Range Interpretation Comments POC-GLUCOSE METER (BEAKER) (test code = 1538) 259 mg/dL 70-110 H : TESTED AT [address], [address]: Biological Sciences Professor/Rotary Operator ID = [id number] for CHETAN ANN POCT-GLUCOSE [id number] 13:00:00* Test Item Value Reference Range Interpretation Comments POC-GLUCOSE METER (BEAKER) (test code = 1538) 269 mg/dL 70-110 H : TESTED AT [address], [address]: Biological Sciences Professor/Rotary Operator ID = [id number] for CHETAN ANN [id number] 09:35:00* Test Item Value Reference Range Interpretation Comments PARTIAL THROMBOPLASTIN TIME (BEAKER) (test code = 760) 83.0 seconds 22.5-36.0 H POCT-GLUCOSE [id number] 08:24:00* Test Item Value Reference Range Interpretation Comments POC-GLUCOSE METER (BEAKER) (test code = 1538) 163 mg/dL 70-110 H : TESTED AT [address], [address]: Biological Sciences Professor/Rotary Operator ID = [id number] for CHETAN ANN Troponin [id number] 08:19:00* Test Item Value Reference Range Interpretation Comments Troponin I (test code = 88671-6) 0.65 ng/mL 0-0.03 HH KHAI (test code [...] failure, acidosis, acute neurological disease, and persistent tachyarrhythmia.Biological Sciences Professor ID - PIAYA L Lab Interpretation (test code = 20332-1) Abnormal [facility] CenterTROPONIN [id number] 08:19:00* Test Item Value Reference Range Interpretation [...] acidosis, acute neurological disease, and per sistent tachyarrhythmia.Biological Sciences Professor ID - PIAYA LCBC (HEMOGRAM ONLY)2019-08-19 07:36:00* [...] 0 /100 WBC 0 -0 BASIC METABOLIC [id number] 04:37:00* Test Item Value Reference Range Interpretation [...] INSUFFICIENT CLINICAL DATA TO CALCULATE ESTIMATED GFR. Biological Sciences Professor ID - ABIEL [id number] 03:26:00* Test Item Value Reference Range Interpretation Comments PHOSPHORUS (BEAKER) (test code = 604) 3.1 mg/dL 2.3-4.7 Biological Sciences Professor ID - ABIEL [id number] 03:26:00* Test Item Value Reference Range Interpretation Comments MAGNESIUM (BEAKER) (test code = 627) 2.1 mg/dL 1.6-2.6 Biological Sciences Professor ID - ABIEL [id number] 03:07:00* Test Item Value Reference Range Interpretation Comments PARTIAL THROMBOPLASTIN TIME (BEAKER) (test code = 760) 77.5 seconds 22.5-36.0 H MR, BRAIN, WITHOUT [id number] 23:13:00FINAL REPORT Exam: MRI brain without contrast. [...] 11:0 4 PM 08/18/2019. Signed: Keeley Mckeon [facility] Verified Date/Time: 08/18/2019 23 :13:56 11:1 3 PM MR brain without IV [id number] 23:13:00Interface, External Ris In - 08/18/2019 11:16 [...] disease. Correlate clinically for acute sinusitis. Discussed [facility] neurology resident at approximately 11:04 PM 08/18/2019. Signed: Keeley Mckeon MDReport Verified Date/Time: 08/18/2019 23:13:56 Electronically si gned by: KEELEY MCKEON MD on 08/18/2019 11:13 PM [facility] HospitalPOCT[facility]SE [id number] 21:16:00* Test Item Value Reference Range Interpretation Comments POC-GLUCOSE METER (BEAKER) (test code = 1538) 222 mg/dL 70-110 H : TESTED AT [facility] [address] [place] [address], [address]: Biological Sciences Professor/Rotary Operator ID = [id number] for AMADOU VICENTE POCT-GLUCOSE [id number] 17:37:00* Test Item Value Reference Range Interpretation Comments POC-GLUCOSE METER (BEAKER) (test code = 1538) 117 mg/dL 70-110 H : TESTED AT [facility] [address] [facility], [address]: Biological Sciences Professor/Rotary Operator ID = [id number] for CHERRY WILLIAM TROPONIN [id number] 17:34:00* Test Item Value Reference Range Interpretation [...] acidosis, acute neurological disease, and per sistent tachyarrhythmia.Biological Sciences Professor ID - [id number] 17:13:00* Test Item Value Reference Range Interpretation Comments PARTIAL THROMBOPLASTIN TIME (KEV) (test code = 760) 47.6 seconds 22.5-36.0 H 6 hours after starting heparin infusion and as indicated per sliding scalePOCT- GLUCOSE [id number] 13:03:00* Test Item Value Reference Range Interpretation Comments POC-GLUCOSE METER (KEV) (test code = 1538) 332 mg/dL 70-110 H : Notified RN/MD: TESTED AT [place] [id number] [facility], [address]: Biological Sciences Professor/Rotary Operator ID = [id number] for Cinthya Taylor Carotid doppler [id number] 12:38:53Ejection FractionSLE ECHO HEARTLAB MKCKESSON CPACSRight Impression1. 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 Lucy Weston [facility] Ayaka Maldonado [facility] Physician ProcedureType of Study: Cerebral: Carotid, CAROTID [...] - Additi onal Measurements:Subclavian PRV 240.ICAPSV/CCAPSV 1.6.ICAEDV/CCAEDV 2.04.[facility] HospitalHEMOGLOBIN [id number] 08:59:00* Test Item Value Reference Range Interpretation Comments HEMOGLOBIN A1C (Niko Niko) (test code = 368) 15.0 % 4.3-6.1 H POCT-GLUCOSE [id number] 08:10:00* Test Item Value Reference Range Interpretation Comments POC-GLUCOSE METER (Niko Niko) (test code = 1538) 212 mg/dL 70-110 H : Notified RN/MD: TESTED AT [address], [address]: Biological Sciences Professor/Rotary Operator ID = [id number] for Cinthya Taylor TROPONIN [id number] 07:25:00* Test Item Value Reference Range Interpretation Comments TROPONIN I (Niko Niko) (test code = 397) 0.94 ng/mL 0.00-0.03 [...] acidosis, acute neurological disease, and per sistent tachyarrhythmia.Biological Sciences Professor PAPO SANTACRUZ MLIPID [id number] 07:04:00* Test Item Value Reference Range Interpretation [...] Borderline 130-159 High 160-189 Very High >=190 Biological Sciences Professor PAPO SANTACRUZ MTSH/Free T4 If [id number] 05:56:00* Test Item Value Reference Range Interpretation Comments TSH (test code = 71698-1) 0.77 0.35- 4.94 uIU/mL KHAI (test code = KHAI) Biological Sciences Professor PAPO SANTACRUZ M Lab Interpretation (test code = 48795-9) Normal [facility] HospitalVitamin B12 and [id number] 05:56:00* Test Item Value Reference Range Interpretation Comments Vitamin B12 (test code = 2132-9) 670 pg/mL 213-816 Folate (test code = 2284-8) 9.7 ng/mL >=7.0 KHAI (test code = KHAI) Biological Sciences Professor ID Sarita SANTACRUZ M Lab Interpretation (test code = 19850-2) Normal [facility] HospitalTSH/FREE T4 IF [id number] 05:56:00* Test Item Value Reference Range Interpretation Comments THYROID STIMULATING HORMONE (BEAKER) (test code = 772) 0.77 uIU/mL 0.35-4.94 Biological Sciences Professor ID - NOAM MVITAMIN B12 AND [id number] 05:56:00* Test Item Value Reference Range Interpretation Comments VITAMIN B12 (KEV) (test code = 774) 670 pg/mL 213-816 FOLATE (KEV) (test code = 362) 9.7 ng/mL >=7.0 Biological Sciences Professor ID - NOAM MRAD, CHEST, 1 VIEW, NON [id number] 04:55:00Reason for exam:->ACSShould this be performed at [...] 08/18/2019 04:55:56 chest 1 view portable / [id number] 04:55:00Interface, External Ris In - 08/18/2019 4:58 [...] Signed: Keeley Mckeon Verified Date/Time: 08/18/2019 04:55:56 [facility], WITHOUT CONTRAST 2019-08-18 04:26:00FINAL REPORT EXAM: [...] Date/ Time: 08/18/2019 04:26:04 chest without IV [id number] 04:26:00 Interface, External Ris In - 08/18/2019 4:28 AM CSTFINAL REPORT PATIENT ID: [id number] EXAM: CT of the chest, without contrast [...] Amuta, Keeley MDReport Verified Date/Time: 08/18/2019 04:26:04 [facility] METABOLIC [id number] 03:11:00* Test Item Value Reference Range Interpretation [...] INSUFFICIENT CLINICAL DATA TO CALCULATE ESTIMATED GFR. Biological Sciences Professor ID - NOAM [id number] 02:58:00* Test Item Value Reference Range Interpretation Comments MAGNESIUM (BEAKER) (test code = 627) 1.9 mg/dL 1.6-2.6 Specimen slightly hemolyzed Biological Sciences Professor ID - NOAM [id number] 02:58:00* Test Item Value Reference Range Interpretation Comments PHOSPHORUS (BEAKER) (test code = 604) 3.5 mg/dL 2.3-4.7 Specimen slightly hemolyzed Biological Sciences Professor ID - NOAM MCBC W/PLT COUNT & AUTO [id number] 02:36:00* Test Item Value Reference Range Interpretation [...] code = 2801) 0 % 0-1 POCT-GLUCOSE [id number] 02:07:00* Test Item Value Reference Range Interpretation Comments POC-GLUCOSE METER (BEAKER) (test code = 1538) 340 mg/dL 70-110 H : Notified RN/MD: TESTED AT [facility] [address] [place] [address], [address]: Biological Sciences Professor/Rotary Operator ID = [id number] for DIONY LUCERO CT, CTANGIO [id number] 00:28:00FINAL REPORT EXAM: CT, CAROTID, ANGIO, CT, [...] vi sualized. Posterior Circulation:Right posterior cerebral artery (VENEER SUPERVISOR): Hypoplast ic P1 segment with the remainder of the right VENEER SUPERVISOR supplied by the right posterio r communicating artery.Left posterior cerebral artery (VENEER SUPERVISOR): Moderate focal sten osis of the mid [...] MDReport Verified Date/Time: 08/18/2019 00:28:12 , CAROTID, [id number] 00:28:00FINAL REPORT EXAM: CT, CAROTID, ANGIO, CT, [...] vi sualized. Posterior Circulation:Right posterior cerebral artery (VENEER SUPERVISOR): Hypoplast ic P1 segment with the remainder of the right VENEER SUPERVISOR supplied by the right posterio r communicating artery.Left posterior cerebral artery (VENEER SUPERVISOR): Moderate focal sten osis of the mid [...] Suni Grewal MDReport Verified Date/Time: 08/18/2019 00:28:12 [id number] 00:28:00Interface, External Ris In - 08/18/2019 12:31 [...] visualized. Posterior Circulat ion:Right posterior cerebral artery (VENEER SUPERVISOR): Hypoplastic P1 segment with the remai nder of the right VENEER SUPERVISOR supplied by the right posterior communicating artery.Left posterior cerebral artery (VENEER SUPERVISOR): Moderate focal stenosis of the mid P2 [...] spinal canal stenosis at C5-C6. Signed: Suni Gerwal [facility] Verified Date/Time: 08/18/2019 00:28:12 [facility] HospitalCTA carotid 2019-08-18 00:28:00Interface, External Ris In - [...] visualized. Posterior Circulat ion:Right posterior cerebral artery (VENEER SUPERVISOR): Hypoplastic P1 segment with the remai nder of the right VENEER SUPERVISOR supplied by the right posterior communicating artery.Left posterior cerebral artery (VENEER SUPERVISOR): Moderate focal stenosis of the mid P2 [...] Suni Grewal MDReport Verified Date/Time: 08/18/2019 00:28:12 [facility] HospitalPT/aPTT 2019-08-17 23:33:00* Test Item Value Reference Range Interpretation Comments Protime (test code = 5902-2) 13.5 11.9- 14.2 seconds INR (test code = 6301-6) 1.1 <=5.9 PTT (test code = 07122-9) 26.7 22.5- 36.0 seconds KHAI (test code = KHAI) Effective 11/08/2018: PT Refe rence Range ChangeNew: 11.9- 14.2 Previous: 11.7-14.7 RECOMMENDED COUMADIN/WARFARIN INR THERAPY RANGESSTANDARD DOSE: 2.0-3.0 Includes: PROPHYLAXIS for venous thrombosis, sys temic embolization; TREATMENT for venous thrombosis and/or pulmonary embolus.HIGH RISK: Target INR is 2.5-3.5 for patients wiht mechanical heart valves. Lab Interpretation (test code = 22315-9) [facility][id number] 23:33:00* Test Item Value Reference Range Interpretation [...] patie nts wiht mechanical heart valves.CT, BRAIN/STROKE [id number] 23:33:00 FINAL REPORT EXAM: CT, BRAIN/STROKE PROTOCOL CLINICAL IND ICATION: Focal neurological deficit. TECHNIQUE: CT images from skull base t o vertex without IV contrast. This exam was performed according to the [facility] dose optimization program which includes automated [...] Grewalort Verified Date/Time: 08/17/2019 23:33:26 brain/stroke test [id number] 23:33:00Interface, External Ris In - 08/17/2019 11:36 [...] Suni Grewal port Verified Date/Time: 08/17/2019 23:33:26 [facility] [id number] 22:55:00* Test Item Value Reference Range Interpretation Comments POC-GLUCOSE METER (BEAKER) (test code = 1538) 423 mg/dL 70-110 HH : Notified RN/MD: TESTED AT [address], [address]: Biological Sciences Professor/Rotary Operator ID = [id number] for MAG PARKER TSH/FREE T4 IF [id number] 21:57:00* Test Item Value Reference Range Interpretation Comments THYROID STIMULATING HORMONE (BEAKER) (test code = 772) 0.88 uIU/mL 0.35-4.94 Biological Sciences Professor ID - LINSEY EB-type Natriuretic Factor (BNP)2019-08-17 21:43:00* Test Item Value Reference Range Interpretation Comments BNP (test code = 82614-8) 577 pg/mL 0-100 H KHAI (test code = KHAI) Biological Sciences Professor ID - LINSEY E Lab Interpretation (test code = 24803-2) Abnormal [facility] NATRIURET[facility] FACTOR (BNP)2019-08-17 21:43:00 * Test Item Value Reference Range Interpretation Comments B-TYPE NATRIURETIC PEPTIDE (BEAKER) (test code = 700) 577 pg/mL 0-100 H Biological Sciences Professor ID - LINSEY EManual Wntuqugzrbfr3091-41-82 21:33:00* Test Item Value Reference Range Interpretation [...] 3438) Adequate KHAI (test code = KHAI) Biological Sciences Professor ID - Latanya comments: Slid e comments: Lab Interpretation (test code = 43783-6) Abnormal [facility] W/PLT COUNT & AUTO [id number] 21:33:00* Test Item Value Reference Range Interpretation [...] (CELLAVISION)(BEAKER) (test code = 3438) Smiley quate Biological Sciences Professor ID - StephanieUser comments: Slide comments: TROPONIN [id number] 21:22:00* Test Item Value Reference Range Interpretation [...] acidosis, acute neurological disease, and per sistent tachyarrhythmia.Biological Sciences Professor PAPO STILES EComprehensive metabolic panel 2019-08-17 21:20:00* Test Item Value Reference Range Interpretation Comments Protein, Total (test code = 2885-2) 7.3 6.0- 8.3 gm/dL Albumin (test code = 26695-4) 3.7 g/dL 3.5-5 Alkaline Phosphatase (test code [...] mg/dL 70-105 HH Calcium (test code = 80761-2) 9.8 mg/dL 8.4-10.2 AST (test code = 1920-8) 14 U/L 5-34 ALT (test code = 1742-6) 12 U/L 6-55 EGFR (test code = 02137-2) I NSUFFICIENT CLINICAL DATA TO CALCULATE ESTIMATED GFR. KHAI (test code = KHAI) Biological Sciences Professor PAPO STILES E Lab Interpretation (test code = 22735-2) [facility]normal [facility] [id number] 21:20:00* Test Item Value Reference Range Interpretation [...] INSUFFICIENT CLINICAL DATA TO CALCULATE ESTIMATED GFR. Biological Sciences Professor ID Sarita STILES [id number] 21:14:00* Test Item Value Reference Range Interpretation Comments MAGNESIUM (BEAKER) (test code = 627) 1.7 mg/dL 1.6-2.6 Biological Sciences Professor ID Sarita STILES [id number] 21:06:00* Test Item Value Reference Range Interpretation Comments PARTIAL THROMBOPLASTIN TIME (BEAKER) (test code = 760) 30.0 seconds 22.5-36.0 PROTHROMBIN TIME/[id number] 21:05:00* Test Item Value Reference Range Interpretation [...] for patie nts wiht mechanical heart valves.POCT-GLUCOSE [id number] 18:41:00* Test Item Value Reference Range Interpretation Comments POC-GLUCOSE METER (BEAKER) (test code = 1538) 336 mg/dL 70-110 H : TESTED AT [facility] [address] [place], [address]: Biological Sciences Professor/Rotary Operator ID = [id number] for Yana Hays POCT-GLUCOSE [id number] 16:41:00* Test Item Value Reference Range Interpretation Comments POC-GLUCOSE METER (BEAKER) (test code = 1538) 330 mg/dL 70-110 H : TESTED AT [facility] [address] [place], [address]: Biological Sciences Professor/Rotary Operator ID = [id number] for Yana Hays Bedside Sorfxyf3105-50-55 12:58:00* Test Item Value Reference Range Interpretation Comments Bedside Glucose (test code = 97979-2) 246 70-120 H Meter ID: [id number]. David's Medical CenterCreatine Kinase MB 2019-08-17 10:03:00* Test Item Value Reference Range Interpretation Comments Creatine Kinase MB (test code = 79907-8) 0.90 0-5.0 [facility] CenterTroponin [id number] 10:03:00* Test Item Value Reference Range Interpretation Comments Troponin I (test code = QJK5226) 0.044 0-0.300 [facility] CenterCreatine Avoeno4310-37-24 09:28:00* Test Item Value Reference Range Interpretation Comments Creatine Kinase (test code = 2157-6) 33 29-168 [facility] CenterThyroid Stimulating Hormone (TSH) 2019-08-16 07:00:00* Test Item Value Reference Range Interpretation Comments Thyroid Stimulating Hormone (TSH) (test code = 62437-8) 1.721 0.350-4.940 [facility] Centerodium Nlbus2546-82-66 06:20:00* Test Item Value Reference Range Interpretation Comments Sodium Level (test code = 2951-2) 138 136-145 [facility] CenterPotassium Qnfxh5306-33-80 06:20:00* Test Item Value Reference Range Interpretation Comments Potassium Level (test code = 2823-3) 3.9 3.5-5.1 [facility] CenterChloride Ooxan2153-02-86 06:20:00* Test Item Value Reference Range Interpretation Comments Chloride Level (test code = 2075-0) 105 98-107 [facility] CenterCarbon Dioxide Mtrlt9454-84-53 06:20:00* Test Item Value Reference Range Interpretation Comments Carbon Dioxide Level (test code = 2028-9) 27 22-29 [facility] CenterAnion Wqg0827-25-45 06:20:00* Test Item Value Reference Range Interpretation Comments Anion Gap (test code = 55092-7) 9.9 8-16 [facility] CenterBlood Urea Esmersgt0779-78-59 06:20:00* Test Item Value Reference Range Interpretation Comments Blood Urea Nitrogen (test code = 3094-0) 16 7-26 [facility] CenterCreatinine2020-03-05 06:20:00* Test Item Value Reference Range Interpretation Comments Creatinine (test code = 2160-0) 0.92 0.57-1.11 [facility] CenterBUN/Creatinine Nswle2854-43-06 06:20:00* Test Item Value Reference Range Interpretation Comments BUN/Creatinine Ratio (test code = 3097-3) 17 6-25 [facility] CenterEstimat Glomerular Filtration Rate 2019-08-16 06:20:00* Test Item Value Reference Range Interpretation Comments Estimat Glomerular Filtration Rate (test code = 914187577) 58 >60 L Ranges were taken from the National Kidney Disease Education Program and the [facility] [employer] literature.Reference ranges:60 or greater: Tappew81-93 ( for 3 consecutive months): Chronic kidney disease 15 or less: Kidney failureSt. David's Medical CenterGlucose Awzpn8790-84-36 06:20:00* Test Item Value Reference Range Interpretation Comments Glucose Level (test code = ZTL3710) 157 74-[address] [facility] CenterCalcium Cduwq9033-54-51 06:20:00* Test Item Value Reference Range Interpretation Comments Calcium Level (test code = 39268-2) 9.4 8.4-10.2 [facility] CenterHemoglobin A1c Xfxweup2222-59-28 06:16:00 * Test Item Value Reference Range Interpretation Comments Hemoglobin A1c Percent (test code = Hemoglobin A1c Percent) 15.7 4.0-7.0 H [facility] Centertress Test - Treadmill [id number] 18:08:00 [facility] [address] [address] Patient Name : RAD TINAJERO MR #: [id number] : 1935 Age/Sex: 83/F Adm Physician : SUNI ROMERO MD Admit Date : 08/14/19 Location : MED/SURG Room/Bed : [facility] REPORT: EXERCISE STR ESS TEST DATE OF [...] all concerning for ischemia. Kellie Sorensen MD [facility]/TERI 13:0 9:10 /[id number] Signature Date Dictated By : KLELIE SORENSEN MD Transcribed By: LAUREENL on 08/21/19 <Electronically signed by KELLIE SORENSEN MD><<Signature on File>>08/21/19 1533 COPY TO: Triglycerides Hrudf5926-54-45 06:45:00* Test Item Value Reference Range Interpretation Comments Triglycerides Level (test code = 2571-8) 154 0-[address] [facility] CenterCholesterol Fxfjj8040-01-37 06:45:00* Test Item Value Reference Range Interpretation Comments Cholesterol Level (test code = 2093-3) 129 0-199 Less than 200 mg/dL Low Aspb364 - 239 mg/dL Borderline Gybw085 m g/dl and greater High Risk [facility] Medical CenterLDL Fyjqeyxchcr0807-85-63 06:45:00* Test Item Value Reference Range Interpretation Comments LDL Cholesterol (test code = 2089-1) 70 60-130 [facility] CenterHDL Sbkgexgdmqj0156-75-22 06:45:00* Test Item Value Reference Range Interpretation Comments HDL Cholesterol (test code = 2085-9) 28 40-[address] [facility] CenterCholesterol/HDL Ckbcl6999-21-58 06:45:00 * Test Item Value Reference Range Interpretation Comments Cholesterol/HDL Ratio (test code = 9830-1) 4.6 3.0-3.[address] [facility] CenterCHEST 2 [id number] 23:43:00 [facility] [address] [place] [address] Patient Name: RAD TINAJERO MR #: [id number] : 1935 Age/Sex: 83/F Req #: [id number] Adm Physician: Ordered by: DIPAK MARIN DO Report #: [id number] Location: ER Room/Bed: Procedure: [id number] DX /CHEST 2 VIEWS Exam Date: 08/14/19 [...] BRYAN VALLES DO Transcribed By: RIGO on 08/14/196 COPY TO: DIPAK MARIN DO Total Gdpqqkrrd5886-51-98 23:37:00* Test Item Value Reference Range Interpretation Comments Total Bilirubin (test code = 1974-) 0.3 0.2-1.2 [facility] CenterAspartate Amino Transf (AST/SGOT) 2019-08-14 23:37:00* Test Item Value Reference Range Interpretation Comments Aspartate Amino Transf (AST/SGOT) (test code = Aspartate Amino Transf (AST/SGOT)) 16 5-34 [facility] CenterAlanine Aminotransferase (ALT/SGPT) 2019-08-14 23:37:00* Test Item Value Reference Range Interpretation Comments Alanine Aminotransferase (ALT/SGPT) (test code = 1742-6) 7 0-55 [facility] CenterTotal Fpiqtwn5105-39-41 23:37:00* Test Item Value Reference Range Interpretation Comments Total Protein (test code = 2885-2) 7.1 6.5-8.1 [facility] CenterAlbumin2020-03-03 23:37:00* Test Item Value Reference Range Interpretation Comments Albumin (test code = 1751-7) 3.4 3.5-5.[address] [facility] CenterGlobulin2020-03-03 23:37:00* Test Item Value Reference Range Interpretation Comments Globulin (test code = 71039-3) 3.7 2.3-3.[address] [facility] CenterAlbumin/Globulin Cumzt5297-28-68 23:37:00 * Test Item Value Reference Range Interpretation Comments Albumin/Globulin Ratio (test code = 1759-0) 0.9 0.8-2.0 [facility] CenterAlkaline Xfrfhhlmvyb9644-38-09 23:37:00* Test Item Value Reference Range Interpretation Comments Alkaline Phosphatase (test code = 6768-6) 118 40-150 [facility] CenterWhite Blood Nmqam9406-92-75 23:18:00* Test Item Value Reference Range Interpretation Comments White Blood Count (test code = 6690-2) 8.85 4.8-10.8 [facility] CenterRed Blood Tjneu3092-04-98 23:18:00* Test Item Value Reference Range Interpretation Comments Red Blood Count (test code = 789-8) 3.88 3.6-5.1 [facility] CenterHemoglobin2020-03-03 23:18:00* Test Item Value Reference Range Interpretation Comments Hemoglobin (test code = 71003-1) 11.7 12.0-16.[address] [facility] CenterHematocrit2020-03-03 23:18:00* Test Item Value Reference Range Interpretation Comments Hematocrit (test code = 4544-3) 36.6 34.2-44.1 [facility] CenterMean Corpuscular Zxjqii2392-22-12 23:18:00* Test Item Value Reference Range Interpretation Comments Mean Corpuscular Volume (test code = 787-2) 94.3 81-99 [facility] CenterMean Corpuscular Wpbhneaxge9871-02-83 23:18:00* Test Item Value Reference Range Interpretation Comments Mean Corpuscular Hemoglobin (test code = 785-6) 30.2 28-32 [facility] CenterMean Corpuscular Hemoglobin Concent 2019-08-14 23:18:00* Test Item Value Reference Range Interpretation Comments Mean Corpuscular Hemoglobin Concent (test code = 786-4) 32.0 31-35 [facility] CenterRed Cell Distribution Ouiui5418-21-93 23:18:00* Test Item Value Reference Range Interpretation Comments Red Cell Distribution Width (test code = 47530-5) 12.6 11.7 -14.4 [facility] CenterPlatelet Sqrcd5571-91-18 23:18:00* Test Item Value Reference Range Interpretation Comments Platelet Count (test code = 777-3) 288 140-360 [facility] CenterNeutrophils (%) (Auto)2019-08-14 23:18:00 * Test Item Value Reference Range Interpretation Comments Neutrophils (%) (Auto) (test code = 48643-1) 61.9 38.7-80.0 [facility] CenterLymphocytes (%) (Auto)2019-08-14 23:18:00 * Test Item Value Reference Range Interpretation Comments Lymphocytes (%) (Auto) (test code = 736-9) 29.4 18.0-39.1 [facility] CenterMonocytes (%) (Auto)2019-08-14 23:18:00* Test Item Value Reference Range Interpretation Comments Monocytes (%) (Auto) (test code = 5905-5) 5.6 4.4-11.3 [facility] CenterEosinophils (%) (Auto)2019-08-14 23:18:00 * Test Item Value Reference Range Interpretation Comments Eosinophils (%) (Auto) (test code = 713-8) 2.6 0.0-6.0 [facility] CenterBasophils (%) (Auto)2019-08-14 23:18:00* Test Item Value Reference Range Interpretation Comments Basophils (%) (Auto) (test code = 706-2) 0.3 0.0-1.0 [facility] CenterIM GRANULOCYTES %2019-08-14 23:18:00* Test Item Value Reference Range Interpretation Comments IM GRANULOCYTES % (test code = IM GRANULOCYTES %) 0.2 0.0- 1.0 [facility] CenterNeutrophils # (Auto)2019-08-14 23:18:00* Test Item Value Reference Range Interpretation Comments Neutrophils # (Auto) (test code = 751-8) 5.5 2.1-6.9 [facility] CenterLymphocytes # (Auto)2019-08-14 23:18:00* Test Item Value Reference Range Interpretation Comments Lymphocytes # (Auto) (test code = 02222-4) 2.6 1.0-3.2 [facility] CenterMonocytes # (Auto)2019-08-14 23:18:00* Test Item Value Reference Range Interpretation Comments Monocytes # (Auto) (test code = 742-7) 0.5 0.2-0.8 [facility] CenterEosinophils # (Auto)2019-08-14 23:18:00* Test Item Value Reference Range Interpretation Comments Eosinophils # (Auto) (test code = 711-2) 0.2 0.0-0.4 [facility] CenterBasophils # (Auto)2019-08-14 23:18:00* Test Item Value Reference Range Interpretation Comments Basophils # (Auto) (test code = 704-7) 0.0 0.0-0.1 [facility] CenterAbsolute Immature Granulocyte (auto 2019-08-14 23:18:00* Test Item Value Reference Range Interpretation Comments Absolute Immature Granulocyte (auto (jess t code = Absolute Immature Granulocyte (auto) 0.02 0-0.1 [facility]
--- NOTE | 2020-01-22 06:56 | NUR ---
BEDSIDE REPORT RECEIVED FROM PATRICK WALLS. PATIENT FOUND LYING IN BED IN NO ACUTE DISTRESS, HOB ELEVATED 30 DEGREES. PATIENT WAS EDUCATED ON FALL RISK PRECAUTIONS AND CALL THE NURSE WITH NEEDS. PATIENT VERBALIZED UNDERSTANDING. CALL LIGHT AND BELONGINGS PLACED NEARBY. WILL CONTINUE TO MONITOR.
--- NOTE | 2020-01-22 08:13 | NUR ---
CALL PLACED TO ONEIL TINAJERO, PATIENT'S SPOUSE, WHO STATED HE IS EN ROUTE TO BRING PATIENT'S HOME MEDICATIONS
[2020-01-22] MEDS ORDERED: ALBUTEROL/IPRATROPIUM 3 ML NEB NEB PRN (10:00)
[2020-01-22] MEDS ORDERED: DEXTROSE 50% SYRINGE 50 ML IV PRN (10:00)
[2020-01-22] MEDS ORDERED: CLOPIDOGREL BISULFATE 75 MG TAB PO SCH (10:30)
[2020-01-22] MEDS: INSULIN LISPRO 100 UNIT/1 ML 3ML VIAL SQ SCH ×3 (10:44→20:50)
[2020-01-22] MEDS: CARVEDILOL 12.5 MG TAB PO SCH ×2 (11:04→16:33)
[2020-01-22] MEDS: ISOSORBIDE MONONITRATE 30 MG TAB CR PO SCH (11:05)
[2020-01-22] MEDS: APIXABAN 5 MG TABLET PO SCH ×2 (11:05→16:33)
[2020-01-22] MEDS: LEVOTHYROXINE SODIUM 50 MCG TAB PO SCH (11:05)
[2020-01-22] MEDS: CEPHALEXIN 500 MG CAP PO SCH ×2 (12:32→22:00)
[2020-01-22 12:43] LABS: CLARITY,URINE CLEAR (CLEAR); COLOR,URINE YELLOW (YELLOW)
[2020-01-22 12:44] LABS: BILIRUBIN,URINE NEGATIVE (NEGATIVE); KETONES,URINE NEGATIVE (NEGATIVE); LEUKOCYTE ESTERASE ,URINE NEGATIVE (NEGATIVE); NITRITE,URINE NEGATIVE (NEGATIVE); PROTEIN,URINE DIPSTICK NEGATIVE (NEGATIVE); URINE UROBILINOGEN 0.2 mg/dL (0.2 - 1)
[2020-01-22 12:50] LABS: BACTERIA,URINE MODERATE /HPF; EPITHELIAL CELLS,URINE RARE /LPF; RBC,URINE 0-5 /HPF (0-5); WBC,URINE (MAN) 0-5 /HPF (0-5)
[2020-01-22] MEDS: INSULIN GLARGINE 100 UNITS/ML VIAL SQ SCH (17:21)
--- NOTE | 2020-01-22 19:05 | NUR ---
Bedside rounds completed with morning nurse. Pt alert and oriented to name, lying in bed HOB 45 degrees, denies pain at this time. Call light within reach. Bed low and locked.
[2020-01-22] MEDS ORDERED: ATORVASTATIN 40 MG TAB PO SCH (21:00)
[2020-01-22] MEDS ORDERED: AMITRIPTYLINE HCL 25 MG TAB PO SCH (21:00)
[2020-01-23 00:19] VITALS: BP 147/58
[2020-01-23 04:00] VITALS: BP 147/55
[2020-01-23 04:52] LABS: BASOPHILS % 0.4 % (0.0-1.0); EOSINOPHILS # (AUTO) 0.7 (0.0-0.4); EOSINOPHILS % 7.1 % (0.0-6.0); HEMATOCRIT 35.3 % (34.2-44.1); HEMOGLOBIN 11.2 g/dL (12.0-16.0); LYMPHOCYTES # (AUTO) 2.8 (1.0-3.2); LYMPHOCYTES % 30.4 % (18.0-39.1); MEAN CORPUSCULAR HEMOGLOBIN 29.8 pg (28-32); MEAN CORPUSCULAR HGB CONC 31.7 g/dL (31-35); MEAN CORPUSCULAR VOLUME 93.9 fL (81-99); MONOCYTES # (AUTO) 0.9 (0.2-0.8); MONOCYTES % 9.6 % (4.4-11.3); NEUTROPHILS # (AUTO) 4.8 (2.1-6.9); NEUTROPHILS % 52.2 % (38.7-80.0); PLATELET COUNT 242 x10e3/uL (140-360); RED BLOOD COUNT 3.76 x10e6/uL (3.6-5.1); RED CELL DISTRIBUTION WIDTH 13.9 % (11.7-14.4)
[2020-01-23 05:28] LABS: ALBUMIN 3.3 g/dL (3.5-5.0); ALBUMIN/GLOBULIN RATIO 0.9 (0.8-2.0); ANION GAP 12.3 mmol/L (8-16); CALCIUM 10.2 mg/dL (8.4-10.2); CREATININE, SERUM 1.09 mg/dL (0.57-1.11); POTASSIUM 4.3 mmol/L (3.5-5.1)
[2020-01-23] MEDS: CEPHALEXIN 500 MG CAP PO SCH (05:54)
[2020-01-23] MEDS: LEVOTHYROXINE SODIUM 50 MCG TAB PO SCH (05:54)
--- NOTE | 2020-01-23 07:05 | NUR ---
RCD PT AT BED PT IS ALERT AND ORIENTED IV PATENT BY SALINE FLUSH ,FAMILY BED LOW AND LOCKED CALL LIGHT IN REACH
[2020-01-23] MEDS: INSULIN LISPRO 100 UNIT/1 ML 3ML VIAL SQ SCH ×2 (07:30→11:30)
[2020-01-23] MEDS: INSULIN GLARGINE 100 UNITS/ML VIAL SQ SCH (07:30)
[2020-01-23 08:49] VITALS: BP 161/56
[2020-01-23] MEDS ORDERED: CLOPIDOGREL BISULFATE 75 MG TAB PO SCH (09:00)
[2020-01-23] MEDS: CARVEDILOL 12.5 MG TAB PO SCH (09:00)
[2020-01-23] MEDS: APIXABAN 5 MG TABLET PO SCH (09:00)
[2020-01-23] MEDS: ISOSORBIDE MONONITRATE 30 MG TAB CR PO SCH (09:00)
[2020-01-23] MEDS ORDERED: KEFLEX500 MG PO (10:31)
[2020-01-23] MEDS ORDERED: ELIQUIS5 M1 PO (10:51)
[2020-01-23] MEDS ORDERED: LIPITOR20 MG PO (10:52)
[2020-01-23] MEDS ORDERED: COREG12.5 MG PO (10:53)
[2020-01-23] MEDS ORDERED: ISOSORBIDE MONO20 MG PO (10:53)
[2020-01-23] MEDS ORDERED: PLAVIX75 MG PO (10:53)
[2020-01-23] MEDS ORDERED: LEVOTHYROXINE50 MCG PO (10:54)
[2020-01-23] MEDS ORDERED: LOSARTAN POTASS25 MG PO (10:54)
[2020-01-23] MEDS ORDERED: PAMELOR25 MG PO (10:55)
[2020-01-23] MEDS ORDERED: AMITRIPTYLINE H25 MG PO (10:57)
--- NOTE | 2020-01-23 11:49 | NUR ---
PT WENT HOME IN SAFE CONDITION WITH HER
[2020-01-23 12:12] VITALS: BP 135/66
== END 2020-01-23 11:49 | disposition home or self-care (01) ==
LOC: ER 20:57 → ERHOLD 01-22 02:04 → MED/SURG2 01-22 02:09
PROVIDERS: ADMIT Internal Medicine; ATTEND Internal Medicine
DX: N39.0 Urinary tract infection, site not specified (principal); I95.2 Hypotension due to drugs; I10 Essential (primary) hypertension; E11.9 Type 2 diabetes mellitus without complications; I25.2 Old myocardial infarction; E03.9 Hypothyroidism, unspecified; F41.9 Anxiety disorder, unspecified; Z95.5 Presence of coronary angioplasty implant and graft; Z87.891 Personal history of nicotine dependence; Z88.0 Allergy status to penicillin; Z91.041 Radiographic dye allergy status; I95.9 Hypotension, unspecified; I25.10 Atherosclerotic heart disease of native coronary artery without angina pectoris; E78.5 Hyperlipidemia, unspecified; D64.9 Anemia, unspecified; Z11.59 Encounter for screening for other viral diseases; Z79.4 Long term (current) use of insulin
CPT/HCPCS: 36415 ×3; 71045; 80053 ×2; 81001 ×2; 82550; 82553; 82948 ×2; 83605; 83690; 84484; 85025 ×2; 87040; 87086; 93005; 96372; 97116; 97161; 99285; G0378 ×2; J0456; J1815; J7030; U0002

== ENCOUNTER 2021-05-19 22:37 | Emergency (ER) | payer MEDICARE ==
[~2021-05-19] VITALS: Ht 170.2 cm; Wt 81.2 kg
[~2021-05-19 22:37] MED LIST changes: +COREG12.5 MG PO; +ELIQUIS5 M1 PO; +ISOSORBIDE MONO20 MG PO; +KEFLEX500 MG PO; +LEVOTHYROXINE50 MCG PO; +LIPITOR20 MG PO; +LOSARTAN POTASS25 MG PO; +PAMELOR25 MG PO; +PLAVIX75 MG PO
[2021-05-19] MEDS ORDERED: MIRALAX17 GM PO (23:34)
[2021-05-19 23:38] VITALS: BP 138/71
== END 2021-05-19 23:42 | disposition home or self-care (01) ==
LOC: ER 22:45
DX: K59.00 Constipation, unspecified (principal); E11.9 Type 2 diabetes mellitus without complications; I48.91 Unspecified atrial fibrillation; E03.9 Hypothyroidism, unspecified; E78.5 Hyperlipidemia, unspecified; F41.9 Anxiety disorder, unspecified; Z95.5 Presence of coronary angioplasty implant and graft
CPT/HCPCS: 99283

== ENCOUNTER 2022-01-27 11:42 | Observation (INO) | payer MEDICARE ==
[~2022-01-27] VITALS: Ht 170.2 cm; Wt 81.2 kg
[~2022-01-27 11:42] MED LIST changes: +MIRALAX17 GM PO
[2022-01-27] MEDS ORDERED: METHOCARBAMOL 500 MG TAB PO ONE (13:00)
[2022-01-27] MEDS ORDERED: METHOCARBAMOL500 MG PO (13:50)
[2022-01-27] MEDS ORDERED: ASPIRIN 325 MG TAB PO ONE (14:15)
[2022-01-27 14:19] LABS: BASOPHILS # (AUTO) 0.1 (0.0-0.1); BASOPHILS % 0.5 % (0.0-1.0); EOSINOPHILS # (AUTO) 0.7 (0.0-0.4); EOSINOPHILS % 5.6 % (0.0-6.0); HEMATOCRIT 38.3 % (34.2-44.1); HEMOGLOBIN 12.4 g/dL (12.0-16.0); LYMPHOCYTES # (AUTO) 1.8 (1.0-3.2); LYMPHOCYTES % 15.3 % (18.0-39.1); MEAN CORPUSCULAR HEMOGLOBIN 29.9 pg (28-32); MEAN CORPUSCULAR HGB CONC 32.4 g/dL (31-35); MEAN CORPUSCULAR VOLUME 92.3 fL (81-99); MONOCYTES # (AUTO) 0.7 (0.2-0.8); MONOCYTES % 5.8 % (4.4-11.3); NEUTROPHILS # (AUTO) 8.5 (2.1-6.9); NEUTROPHILS % 72.5 % (38.7-80.0); PLATELET COUNT 260 x10e3/uL (140-360); RED BLOOD COUNT 4.15 x10e6/uL (3.6-5.1); RED CELL DISTRIBUTION WIDTH 13.9 % (11.7-14.4)
[2022-01-27 14:37] LABS: ALBUMIN 3.4 g/dL (3.5-5.0); ALBUMIN/GLOBULIN RATIO 0.8 (0.8-2.0); ANION GAP 18.8 mmol/L (8-16); CALCIUM 9.5 mg/dL (8.4-10.2); CREATININE, SERUM 1.39 mg/dL (0.57-1.11); POTASSIUM 5.8 mmol/L (3.5-5.1)
[2022-01-27] MEDS ORDERED: SODIUM BICARBONATE 8.4% INJ 50 ML SYR IV STA (15:19)
[2022-01-27] MEDS ORDERED: DEXTROSE 50% SYRINGE 50 ML IV STA (15:19)
[2022-01-27] MEDS ORDERED: DEXTROSE 50% SYRINGE 50 ML IV PRN (15:30)
[2022-01-27] MEDS ORDERED: CALCIUM GLUC 1 G/50 ML NACL 50 ML IV ONE (15:30)
[2022-01-27] MEDS ORDERED: SODIUM CHLORIDE FLUSH 10 ML SYR INJ PRN (15:30)
[2022-01-27] MEDS ORDERED: ONDANSETRON HCL INJ 2MG/ML 2ML 2 MG/ML VIAL IV PRN (15:30)
[2022-01-27] MEDS ORDERED: INSULIN REGULAR, HUMAN 100 UNIT/1 ML IV ONE (15:30)
[2022-01-27] MEDS ORDERED: FUROSEMIDE INJ 10 MG/ML 2 ML VIAL IV ONE (15:30)
[2022-01-27] MEDS ORDERED: ASPIRIN 81 MG CHEW TAB PO ONE (15:30)
[2022-01-27] MEDS ORDERED: SODIUM BICARBONATE 8.4% SYRING 50 ML ONE (16:04)
[2022-01-27] MEDS: INSULIN REGULAR, HUMAN 100 UNIT/1 ML SQ SCH ×2 (17:12→21:36)
[2022-01-27 17:26] VITALS: BP 149/96
[2022-01-27 17:28] VITALS: BP 149/96
[2022-01-27 21:00] VITALS: BP 175/79
[2022-01-27] MEDS: HYDROCODONE/APAP 5MG-325MG TAB PO PRN (21:30)
[2022-01-27] MEDS: METHOCARBAMOL 500 MG TAB PO SCH (21:32)
[2022-01-28 01:05] VITALS: BP 150/60
[2022-01-28 01:07] LABS: CREATINE KINASE MB 1.1 ng/mL (0-5.0)
[2022-01-28 03:31] VITALS: BP 150/60
[2022-01-28 05:04] VITALS: BP 164/69
[2022-01-28 05:54] LABS: BASOPHILS # (AUTO) 0.1 (0.0-0.1); BASOPHILS % 0.6 % (0.0-1.0); EOSINOPHILS # (AUTO) 0.7 (0.0-0.4); EOSINOPHILS % 7.7 % (0.0-6.0); HEMATOCRIT 37.9 % (34.2-44.1); HEMOGLOBIN 12.1 g/dL (12.0-16.0); LYMPHOCYTES # (AUTO) 2.4 (1.0-3.2); LYMPHOCYTES % 27.1 % (18.0-39.1); MEAN CORPUSCULAR HEMOGLOBIN 29.6 pg (28-32); MEAN CORPUSCULAR HGB CONC 31.9 g/dL (31-35); MEAN CORPUSCULAR VOLUME 92.7 fL (81-99); MONOCYTES # (AUTO) 0.6 (0.2-0.8); MONOCYTES % 7.4 % (4.4-11.3); NEUTROPHILS # (AUTO) 4.9 (2.1-6.9); PLATELET COUNT 250 x10e3/uL (140-360); RED BLOOD COUNT 4.09 x10e6/uL (3.6-5.1); RED CELL DISTRIBUTION WIDTH 13.9 % (11.7-14.4)
[2022-01-28 06:23] LABS: ANION GAP 16.5 mmol/L (8-16); CALCIUM 9.3 mg/dL (8.4-10.2); CREATININE, SERUM 1.1 mg/dL (0.57-1.11); POTASSIUM 4.5 mmol/L (3.5-5.1)
[2022-01-28 06:34] LABS: CREATINE KINASE MB 1.1 ng/mL (0-5.0)
[2022-01-28 08:00] VITALS: BP 148/72
[2022-01-28] MEDS: INSULIN REGULAR, HUMAN 100 UNIT/1 ML SQ SCH (08:57)
[2022-01-28] MEDS: METHOCARBAMOL 500 MG TAB PO SCH (08:58)
[2022-01-28] MEDS ORDERED: DEXTROSE 50% SYRINGE 50 ML IV PRN (09:00)
[2022-01-28] MEDS ORDERED: POLYETHYLENE GLYCOL 3350 17 GM PACK PO PRN (09:00)
[2022-01-28] MEDS: LIDOCAINE 4% PATCH TP SCH ×2 (09:57→10:47)
[2022-01-28] MEDS ORDERED: LEVOTHYROXINE SODIUM 50 MCG TAB PO SCH (10:15)
[2022-01-28] MEDS ORDERED: CLOPIDOGREL BISULFATE 75 MG TAB PO SCH (10:15)
[2022-01-28] MEDS ORDERED: CEPHALEXIN 500 MG CAP PO SCH (10:15)
[2022-01-28] MEDS ORDERED: ISOSORBIDE MONONITRATE 30 MG TAB CR PO SCH (10:15)
[2022-01-28] MEDS ORDERED: CARVEDILOL 12.5 MG TAB PO SCH (10:15)
[2022-01-28] MEDS ORDERED: KETOROLAC TROMETHAMINE 30 MG/ML VIAL IV ONE (10:30)
[2022-01-28] MEDS: HYDROCODONE/APAP 5MG-325MG TAB PO PRN (10:49)
[2022-01-28] MEDS ORDERED: INSULIN LISPRO 100 UNIT/1 ML 3ML VIAL SQ SCH (11:30)
[2022-01-28 11:53] VITALS: BP 169/77
[2022-01-28] MEDS ORDERED: INSULIN GLARGINE 100 UNITS/ML VIAL SQ SCH (12:00)
[2022-01-28] MEDS ORDERED: METHOCARBAMOL 500 MG TAB PO SCH (12:00)
[2022-01-28] MEDS ORDERED: ONDANSETRON HCL 4 MG ORAL DISINTEGRATING TAB PO PRN (14:30)
[2022-01-28] MEDS ORDERED: NORTRIPTYLINE HCL 25 MG CAP PO SCH (21:00)
[2022-01-28] MEDS ORDERED: ATORVASTATIN 40 MG TAB PO SCH (21:00)
[2022-01-28] MEDS ORDERED: AMITRIPTYLINE HCL 25 MG TAB PO SCH (21:00)
== END 2022-01-28 14:36 | disposition home or self-care (01) ==
LOC: ER 12:12 → ERHOLD 15:24 → MED/SURG2 16:22
PROVIDERS: ADMIT Internal Medicine; ATTEND Internal Medicine
DX: M51.36 Other intervertebral disc degeneration, lumbar region (principal); E87.5 Hyperkalemia; I10 Essential (primary) hypertension; E11.9 Type 2 diabetes mellitus without complications; E78.5 Hyperlipidemia, unspecified; J44.9 Chronic obstructive pulmonary disease, unspecified; M15.9 Polyosteoarthritis, unspecified; I48.91 Unspecified atrial fibrillation; I25.10 Atherosclerotic heart disease of native coronary artery without angina pectoris; E03.9 Hypothyroidism, unspecified; Z79.4 Long term (current) use of insulin; Z95.1 Presence of aortocoronary bypass graft; Z88.0 Allergy status to penicillin; Z91.041 Radiographic dye allergy status; Z20.822 Contact with and (suspected) exposure to COVID-19
CPT/HCPCS: 0223U; 36415; 71045; 72070; 72100; 80048; 80053; 82550; 82553; 82948 ×2; 84484 ×2; 85025 ×2; 93005; G0378 ×2; J1815; J1817 ×2; J1885; J1940; J7799

== ENCOUNTER → 2022-03-17 | Day surgery (SDC) | payer MEDICARE ==
[2022-03-11 13:36] LABS: BASOPHILS % 0.4 % (0.0-1.0); EOSINOPHILS # (AUTO) 0.2 (0.0-0.4); HEMATOCRIT 37.1 % (34.2-44.1); HEMOGLOBIN 11.8 g/dL (12.0-16.0); LYMPHOCYTES # (AUTO) 1.7 (1.0-3.2); LYMPHOCYTES % 15.3 % (18.0-39.1); MEAN CORPUSCULAR HEMOGLOBIN 30.4 pg (28-32); MEAN CORPUSCULAR HGB CONC 31.8 g/dL (31-35); MEAN CORPUSCULAR VOLUME 95.6 fL (81-99); MONOCYTES # (AUTO) 0.6 (0.2-0.8); MONOCYTES % 5.3 % (4.4-11.3); NEUTROPHILS # (AUTO) 8.7 (2.1-6.9); NEUTROPHILS % 76.7 % (38.7-80.0); PLATELET COUNT 252 x10e3/uL (140-360); RED BLOOD COUNT 3.88 x10e6/uL (3.6-5.1)
[2022-03-11 13:47] LABS: INR 1.42; PROTHROMBIN TIME 18.5 seconds (11.9-14.5)
[2022-03-11 13:54] LABS: ANION GAP 13.5 mmol/L (8-16); CALCIUM 10.1 mg/dL (8.4-10.2); CREATININE, SERUM 1.15 mg/dL (0.57-1.11); POTASSIUM 5.5 mmol/L (3.5-5.1)
[~2022-03-17] VITALS: Ht 170.2 cm; Wt 79.8 kg
[2022-03-17] VITALS (13 sets, daily range): BP systolic 153–215; BP diastolic 57–83
[~2022-03-17] MED LIST changes: +DIPHENHYDRAMINE HCL INJ 50 MG/ML VIAL ONE; +FENTANYL CITRATE/PF 100MCG/2 ML INJ ONE; +GENTAMICIN SULFATE 40 MG/ML 2 ML VIAL ONE; +HYDRALAZINE HCL 20 MG/ML VIAL IV STA; +LIDOCAINE 1% 10 ML MULTIDOSE VIAL IJ ONE; +METHOCARBAMOL500 MG PO; +METHYLPREDNISOLONE SOD SUCC 125 MG/2ML VIAL ONE; +MIDAZOLAM HCL 2 MG/2 ML VIAL ONE; +SODIUM CHLORIDE 0.9% 1000ML 2,000 ML ONE; +SODIUM CHLORIDE 0.9% 250ML 500 ML ONE; +Vancomycin IV 1 GM VIAL ONE
== END | disposition home or self-care (01) ==
LOC: CATH LAB 10:09 → EDSTATUS 12:00
PROVIDERS: ATTEND Internal Medicine
DX: I11.0 Hypertensive heart disease with heart failure (principal); I50.42 Chronic combined systolic (congestive) and diastolic (congestive) heart failure; I25.5 Ischemic cardiomyopathy; I44.7 Left bundle-branch block, unspecified; I25.2 Old myocardial infarction; I25.10 Atherosclerotic heart disease of native coronary artery without angina pectoris; Z01.812 Encounter for preprocedural laboratory examination; Z20.822 Contact with and (suspected) exposure to COVID-19; Z79.02 Long term (current) use of antithrombotics/antiplatelets; Z79.4 Long term (current) use of insulin; Z79.899 Other long term (current) drug therapy
CPT/HCPCS: 0223U; 33225; 33249; 36415; 71045; 80048; 85025; 85610; C1777; C1882; C1898; C1900; J0360; J1200; J1580; J2250; J2930; J3010; J3370; J7030; J7050; 33217; 99152; 99153

== ENCOUNTER 2022-09-24 20:55 | Emergency (ER) | payer MEDICARE ==
[~2022-09-24] VITALS: Ht 170.2 cm; Wt 76.2 kg
[~2022-09-24 20:55] MED LIST changes: +ACETAMINOPHEN-1 EAC4 PO; +ALBUTEROL0.63 MG/3 NEB; -DIPHENHYDRAMINE HCL INJ 50 MG/ML VIAL ONE; -FENTANYL CITRATE/PF 100MCG/2 ML INJ ONE; -GENTAMICIN SULFATE 40 MG/ML 2 ML VIAL ONE; -HYDRALAZINE HCL 20 MG/ML VIAL IV STA; -LIDOCAINE 1% 10 ML MULTIDOSE VIAL IJ ONE; -METHYLPREDNISOLONE SOD SUCC 125 MG/2ML VIAL ONE; -MIDAZOLAM HCL 2 MG/2 ML VIAL ONE; +NITROGLYCERIN0.4 MG SL; +NOVOLIN 70100 UNIT/3; +RANEXA500 MG PO; -SODIUM CHLORIDE 0.9% 1000ML 2,000 ML ONE; -SODIUM CHLORIDE 0.9% 250ML 500 ML ONE; -Vancomycin IV 1 GM VIAL ONE
[2022-09-24 21:59] LABS: BASOPHILS % 0.3 % (0.0-1.0); EOSINOPHILS # (AUTO) 0.9 (0.0-0.4); EOSINOPHILS % 13.3 % (0.0-6.0); HEMATOCRIT 29.7 % (34.2-44.1); HEMOGLOBIN 9.4 g/dL (12.0-16.0); LYMPHOCYTES # (AUTO) 2.5 (1.0-3.2); LYMPHOCYTES % 35.4 % (18.0-39.1); MEAN CORPUSCULAR HEMOGLOBIN 29.4 pg (28-32); MEAN CORPUSCULAR HGB CONC 31.6 g/dL (31-35); MEAN CORPUSCULAR VOLUME 92.8 fL (81-99); MONOCYTES # (AUTO) 0.5 (0.2-0.8); MONOCYTES % 7.7 % (4.4-11.3); NEUTROPHILS % 43.2 % (38.7-80.0); PLATELET COUNT 227 x10e3/uL (140-360); RED CELL DISTRIBUTION WIDTH 15.3 % (11.7-14.4)
[2022-09-24 22:15] LABS: ALANINE AMINOTRANSFERASE 6 IU/L (0-55); ALBUMIN/GLOBULIN RATIO 0.9 (0.8-2.0); ALKALINE PHOSPHATASE 112 IU/L (40-150); ANION GAP 13.8 mmol/L (8-16); BLOOD UREA NITROGEN 23 mg/dL (7-26); BUN/CREATININE RATIO 16 (6-25); CALCIUM 8.7 mg/dL (8.4-10.2); CARBON DIOXIDE 24 mmol/L (22-29); CHLORIDE 103 mmol/L (98-107); CREATINE KINASE 227 IU/L (29-168); CREATININE, SERUM 1.47 mg/dL (0.57-1.11); GLUCOSE 317 mg/dL (74-118); POTASSIUM 4.8 mmol/L (3.5-5.1); SODIUM 136 mmol/L (136-145)
[2022-09-24] MEDS ORDERED: AZITHROMYCIN250 MG PO (23:24)
[2022-09-24] MEDS ORDERED: ALBUTEROL SULFATE HFA 8GM INHALATION AEROSOL INH ONE (23:37)
[2022-09-25 00:27] VITALS: BP 117/68
== END 2022-09-25 | disposition home or self-care (01) ==
LOC: ER 21:00
DX: R05.9 Cough, unspecified (principal); J40 Bronchitis, not specified as acute or chronic; E11.65 Type 2 diabetes mellitus with hyperglycemia; E78.5 Hyperlipidemia, unspecified; E03.9 Hypothyroidism, unspecified; I48.91 Unspecified atrial fibrillation; Z20.822 Contact with and (suspected) exposure to COVID-19; I25.10 Atherosclerotic heart disease of native coronary artery without angina pectoris; F41.9 Anxiety disorder, unspecified; M54.9 Dorsalgia, unspecified; G89.29 Other chronic pain; Z95.5 Presence of coronary angioplasty implant and graft
CPT/HCPCS: 36415; 71045; 80053; 82550; 82553; 83880; 84484; 85025; 93005; 99284; U0002

== ENCOUNTER 2022-10-13 12:01 | Emergency (ER) | payer MEDICARE ==
[~2022-10-13] VITALS: Ht 170.2 cm; Wt 76.2 kg
[~2022-10-13 12:01] MED LIST changes: +AZITHROMYCIN250 MG PO
== END 2022-10-13 15:00 | disposition home or self-care (01) ==
LOC: ER 12:28
DX: S82.841A Displaced bimalleolar fracture of right lower leg, initial encounter for closed fracture (principal); X50.1XXA Overexertion from prolonged static or awkward postures, initial encounter; Y93.01 Activity, walking, marching and hiking; Y92.89 Other specified places as the place of occurrence of the external cause
CPT/HCPCS: 99284

== ENCOUNTER 2022-11-04 20:47 | Inpatient (IN) | payer MEDICARE ==
[~2022-11-04] VITALS: Ht 170.2 cm; Wt 76.4 kg
[2022-11-04] MEDS ORDERED: DEXTROSE 10% 1,000 ML IV STA (20:50)
[2022-11-04] MEDS ORDERED: DEXTROSE 10% 1,000 ML IV ONE (21:03)
[2022-11-04] MEDS ORDERED: LEVOFLOXACIN 750MG/D5W 150ML 150 ML IV STA (21:46)
[2022-11-04 22:29] LABS: BASOPHILS % 0.2 % (0.0-1.0); EOSINOPHILS # (AUTO) 0.1 (0.0-0.4); EOSINOPHILS % 1.1 % (0.0-6.0); HEMATOCRIT 36.7 % (34.2-44.1); HEMOGLOBIN 11.5 g/dL (12.0-16.0); LYMPHOCYTES # (AUTO) 1.8 (1.0-3.2); LYMPHOCYTES % 16.4 % (18.0-39.1); MEAN CORPUSCULAR HEMOGLOBIN 29.4 pg (28-32); MEAN CORPUSCULAR HGB CONC 31.3 g/dL (31-35); MEAN CORPUSCULAR VOLUME 93.9 fL (81-99); MONOCYTES # (AUTO) 0.7 (0.2-0.8); MONOCYTES % 6.3 % (4.4-11.3); NEUTROPHILS # (AUTO) 8.5 (2.1-6.9); NEUTROPHILS % 75.7 % (38.7-80.0); PLATELET COUNT 174 x10e3/uL (140-360); RED BLOOD COUNT 3.91 x10e6/uL (3.6-5.1); RED CELL DISTRIBUTION WIDTH 15.5 % (11.7-14.4)
[2022-11-04 22:30] LABS: CLARITY,URINE CLEAR (CLEAR); COLOR,URINE YELLOW (YELLOW); KETONES,URINE NEGATIVE (NEGATIVE); LEUKOCYTE ESTERASE ,URINE NEGATIVE (NEGATIVE); NITRITE,URINE NEGATIVE (NEGATIVE); PROTEIN,URINE DIPSTICK NEGATIVE (NEGATIVE); URINE UROBILINOGEN 0.2 mg/dL (0.2 - 1)
[2022-11-04 22:36] LABS: BACTERIA,URINE RARE /HPF; EPITHELIAL CELLS,URINE FEW /LPF; RBC,URINE 0-5 /HPF (0-5); WBC,URINE (MAN) 0-5 /HPF (0-5)
[2022-11-04 22:45] LABS: ALBUMIN 3.8 g/dL (3.5-5.0); ANION GAP 15.4 mmol/L (8-16); CALCIUM 9.5 mg/dL (8.4-10.2); CREATININE, SERUM 1.1 mg/dL (0.57-1.11); POTASSIUM 4.4 mmol/L (3.5-5.1)
[2022-11-05] VITALS (42 sets, daily range): BP systolic 115–217; BP diastolic 41–113; PULSE 60–79; RESP 11–23; TEMP 98–98.7; O2SAT 96–100
[2022-11-05] MEDS ORDERED: ALBUTEROL/IPRATROPIUM 3 ML NEB NEB PRN (01:00)
[2022-11-05] MEDS ORDERED: DOCUSATE SODIUM 100 MG CAP PO PRN (01:00)
[2022-11-05] MEDS ORDERED: SIMETHICONE 80 MG CHEW PO PRN (01:00)
[2022-11-05] MEDS ORDERED: ONDANSETRON HCL INJ 2MG/ML 2ML 2 MG/ML VIAL IV PRN (01:00)
[2022-11-05] MEDS ORDERED: ACETAMINOPHEN 325 MG TAB PO PRN (01:00)
[2022-11-05] MEDS ORDERED: DIPHENHYDRAMINE HCL 25 MG CAP PO PRN (01:00)
[2022-11-05] MEDS ORDERED: DEXTROSE 10% 1,000 ML IV SCH (01:00)
[2022-11-05] MEDS ORDERED: POTASSIUM CHLORIDE 20 MEQ TAB CR PO PRN (01:00)
[2022-11-05] MEDS ORDERED: BENZONATATE 100 MG CAP PO PRN (01:00)
[2022-11-05] MEDS ORDERED: LIDOCAINE 4% PATCH TP PRN (01:00)
[2022-11-05] MEDS ORDERED: DEXTROSE 50% SYRINGE 50 ML IV PRN ×2 (01:00→21:30)
[2022-11-05] MEDS ORDERED: MELATONIN 5 MG TABLET PO PRN (01:00)
[2022-11-05] MEDS ORDERED: ALBUTEROL SULF 0.083% NEB SOLN 3 ML NEB NEB PRN (01:15)
[2022-11-05] MEDS ORDERED: IPRATROPIUM BROMIDE 0.02% 2.5 ML NEB NEB PRN (01:15)
[2022-11-05] MEDS ORDERED: ACETAMINOPHEN/CODEINE 300MG - 30MG TAB PO PRN (04:15)
[2022-11-05] MEDS ORDERED: DEXTROSE 5% 1,000 ML IV SCH (04:15)
[2022-11-05] MEDS ORDERED: Vancomycin IV 1 GM in SODIUM CHLORIDE 0.9% 250ML 250 ML IV ONE (04:30)
[2022-11-05 04:55] LABS: BASOPHILS % 0.2 % (0.0-1.0); EOSINOPHILS # (AUTO) 0.1 (0.0-0.4); EOSINOPHILS % 0.8 % (0.0-6.0); HEMATOCRIT 29.9 % (34.2-44.1); HEMOGLOBIN 9.8 g/dL (12.0-16.0); LYMPHOCYTES # (AUTO) 1.1 (1.0-3.2); LYMPHOCYTES % 10.9 % (18.0-39.1); MEAN CORPUSCULAR HEMOGLOBIN 29.8 pg (28-32); MEAN CORPUSCULAR HGB CONC 32.8 g/dL (31-35); MEAN CORPUSCULAR VOLUME 90.9 fL (81-99); MONOCYTES # (AUTO) 0.7 (0.2-0.8); MONOCYTES % 6.2 % (4.4-11.3); NEUTROPHILS # (AUTO) 8.5 (2.1-6.9); NEUTROPHILS % 81.5 % (38.7-80.0); PLATELET COUNT 155 x10e3/uL (140-360); RED BLOOD COUNT 3.29 x10e6/uL (3.6-5.1); RED CELL DISTRIBUTION WIDTH 15.1 % (11.7-14.4)
[2022-11-05] MEDS: HYDRALAZINE HCL 20 MG/ML VIAL IV PRN ×2 (05:06→22:04)
[2022-11-05 05:10] LABS: MAGNESIUM 1.8 MG/DL (1.3-2.1)
[2022-11-05 05:14] LABS: ALBUMIN 3.1 g/dL (3.5-5.0); ANION GAP 12.7 mmol/L (8-16); CREATININE, SERUM 1.01 mg/dL (0.57-1.11); POTASSIUM 4.7 mmol/L (3.5-5.1)
[2022-11-05 05:16] LABS: CREATINE KINASE 33 IU/L (29-168)
[2022-11-05 05:31] LABS: THYROID STIMULATING HORMONE 1.38 uIU/mL (0.350-4.940)
[2022-11-05] MEDS: PANTOPRAZOLE SOD 40 MG TABEC PO SCH (08:05)
[2022-11-05] MEDS: RANOLAZINE 500 MG TABSR PO SCH ×2 (08:06→17:01)
[2022-11-05] MEDS: LEVOTHYROXINE SODIUM 50 MCG TAB PO SCH (08:06)
[2022-11-05] MEDS: CLOPIDOGREL BISULFATE 75 MG TAB PO SCH (08:06)
[2022-11-05] MEDS: CARVEDILOL 12.5 MG TAB PO SCH ×2 (08:06→17:02)
[2022-11-05] MEDS: ISOSORBIDE MONONITRATE 20 MG TAB PO SCH (08:07)
[2022-11-05] MEDS ORDERED: APIXABAN 5 MG TABLET PO SCH (09:00)
[2022-11-05] MEDS: MUPIROCIN 2% OINT 22 GM TUBE TOP SCH (16:52)
[2022-11-05] MEDS: ENOXAPARIN SOD INJ 40 MG/0.4 ML SYR SC SCH (17:00)
[2022-11-05] MEDS: ATORVASTATIN 40 MG TAB PO SCH (21:40)
[2022-11-05] MEDS: INSULIN LISPRO 100 UNIT/1 ML 3ML VIAL SQ SCH (21:44)
[2022-11-06] VITALS (11 sets, daily range): BP systolic 126–189; BP diastolic 55–72; PULSE 66–76; RESP 16–20; TEMP 97.5–98.6; O2SAT 95–99
[2022-11-06] MEDS: LEVOTHYROXINE SODIUM 50 MCG TAB PO SCH (08:08)
[2022-11-06] MEDS: CARVEDILOL 12.5 MG TAB PO SCH ×2 (08:08→16:35)
[2022-11-06] MEDS: PANTOPRAZOLE SOD 40 MG TABEC PO SCH (08:08)
[2022-11-06] MEDS: ISOSORBIDE MONONITRATE 20 MG TAB PO SCH (08:09)
[2022-11-06] MEDS: RANOLAZINE 500 MG TABSR PO SCH ×2 (08:09→16:35)
[2022-11-06] MEDS: CLOPIDOGREL BISULFATE 75 MG TAB PO SCH (08:09)
[2022-11-06] MEDS: MUPIROCIN 2% OINT 22 GM TUBE TOP SCH (08:10)
[2022-11-06] MEDS: INSULIN LISPRO 100 UNIT/1 ML 3ML VIAL SQ SCH ×4 (08:11→20:36)
[2022-11-06] MEDS: ENOXAPARIN SOD INJ 40 MG/0.4 ML SYR SC SCH (16:35)
[2022-11-06] MEDS: ATORVASTATIN 40 MG TAB PO SCH (20:33)
[2022-11-07 00:02] VITALS: BP 123/78; PULSE 71; RESP 15; TEMP 98.7; O2SAT 96
[2022-11-07 04:31] VITALS: BP 169/54; PULSE 79; RESP 18; TEMP 98.4; O2SAT 97
[2022-11-07 05:58] LABS: BASOPHILS % 0.4 % (0.0-1.0); EOSINOPHILS # (AUTO) 0.1 (0.0-0.4); EOSINOPHILS % 1.3 % (0.0-6.0); LYMPHOCYTES % 24.2 % (18.0-39.1); MEAN CORPUSCULAR HEMOGLOBIN 29.4 pg (28-32); MEAN CORPUSCULAR HGB CONC 31.3 g/dL (31-35); MEAN CORPUSCULAR VOLUME 94.1 fL (81-99); MONOCYTES # (AUTO) 0.6 (0.2-0.8); MONOCYTES % 7.5 % (4.4-11.3); NEUTROPHILS # (AUTO) 5.5 (2.1-6.9); NEUTROPHILS % 66.2 % (38.7-80.0); PLATELET COUNT 124 x10e3/uL (140-360); RED CELL DISTRIBUTION WIDTH 15.9 % (11.7-14.4)
[2022-11-07 06:09] LABS: ANION GAP 12.9 mmol/L (8-16); CALCIUM 9.3 mg/dL (8.4-10.2); CREATININE, SERUM 1.14 mg/dL (0.57-1.11); POTASSIUM 4.9 mmol/L (3.5-5.1)
[2022-11-07] MEDS: LEVOTHYROXINE SODIUM 50 MCG TAB PO SCH (08:20)
[2022-11-07] MEDS: RANOLAZINE 500 MG TABSR PO SCH (08:20)
[2022-11-07] MEDS: PANTOPRAZOLE SOD 40 MG TABEC PO SCH (08:21)
[2022-11-07] MEDS: CARVEDILOL 12.5 MG TAB PO SCH (08:22)
[2022-11-07] MEDS: CLOPIDOGREL BISULFATE 75 MG TAB PO SCH (08:24)
[2022-11-07] MEDS: ISOSORBIDE MONONITRATE 20 MG TAB PO SCH (08:24)
[2022-11-07] MEDS: INSULIN LISPRO 100 UNIT/1 ML 3ML VIAL SQ SCH ×2 (08:27→11:39)
[2022-11-07] MEDS: MUPIROCIN 2% OINT 22 GM TUBE TOP SCH (08:27)
[2022-11-07 08:37] VITALS: BP 188/84; PULSE 68; RESP 19; TEMP 98.4; O2SAT 98
[2022-11-07 09:04] VITALS: BP 188/84; PULSE 68; RESP 19; TEMP 98.4; O2SAT 98
[2022-11-07 10:57] VITALS: PULSE 71; RESP 18; O2SAT 98
[2022-11-07 12:35] VITALS: BP 140/56; PULSE 71; RESP 19; TEMP 98.2; O2SAT 100
[2022-11-07] MEDS ORDERED: NOVOLOG MI100 UNIT/1 SC (15:23)
== END 2022-11-07 15:45 | disposition home or self-care (01) | DRG 637 ==
LOC: ER 20:50 → ERHOLD 23:15 → ICU 11-05 02:33 → MED/SURG2 11-05 18:00
PROVIDERS: ADMIT Internal Medicine; ATTEND Internal Medicine
DX: E11.649 Type 2 diabetes mellitus with hypoglycemia without coma (principal); A41.9 Sepsis, unspecified organism; I50.23 Acute on chronic systolic (congestive) heart failure; N39.0 Urinary tract infection, site not specified; Z79.4 Long term (current) use of insulin; I11.0 Hypertensive heart disease with heart failure; I16.0 Hypertensive urgency; J44.9 Chronic obstructive pulmonary disease, unspecified; I48.91 Unspecified atrial fibrillation; E03.9 Hypothyroidism, unspecified; I25.10 Atherosclerotic heart disease of native coronary artery without angina pectoris; F41.9 Anxiety disorder, unspecified; E78.5 Hyperlipidemia, unspecified; M54.9 Dorsalgia, unspecified; G89.29 Other chronic pain; I70.0 Atherosclerosis of aorta; T68.XXXA Hypothermia, initial encounter; F03.A0 Unspecified dementia, mild, without behavioral disturbance, psychotic disturbance, mood disturbance, and anxiety; L97.519 Non-pressure chronic ulcer of other part of right foot with unspecified severity; E11.621 Type 2 diabetes mellitus with foot ulcer; Z86.73 Personal history of transient ischemic attack (TIA), and cerebral infarction without residual deficits; Z95.810 Presence of automatic (implantable) cardiac defibrillator; Z87.891 Personal history of nicotine dependence; Z95.5 Presence of coronary angioplasty implant and graft; Z88.0 Allergy status to penicillin; Z79.01 Long term (current) use of anticoagulants; Z79.02 Long term (current) use of antithrombotics/antiplatelets
CPT/HCPCS: 36415; 71045; 80048; 80053; 81001; 82533; 82550; 82553; 82948; 83036; 83605; 83735; 84100; 84443; 84484; 85025; 87040; 87086; 93005; 94799; 99252; 99284; J0692; J1650; J7050; J7070

== ENCOUNTER 2022-11-22 21:11 | Observation (INO) | payer MEDICARE ==
[~2022-11-22] VITALS: Ht 170.2 cm; Wt 86.4 kg
[~2022-11-22 21:11] MED LIST changes: +NOVOLOG MI100 UNIT/1 SC
[2022-11-22 21:47] LABS: BASOPHILS # (AUTO) 0.1 (0.0-0.1); BASOPHILS % 0.5 % (0.0-1.0); EOSINOPHILS # (AUTO) 0.2 (0.0-0.4); EOSINOPHILS % 2.1 % (0.0-6.0); HEMATOCRIT 30.8 % (34.2-44.1); HEMOGLOBIN 9.8 g/dL (12.0-16.0); LYMPHOCYTES # (AUTO) 2.3 (1.0-3.2); LYMPHOCYTES % 19.9 % (18.0-39.1); MEAN CORPUSCULAR HEMOGLOBIN 29.6 pg (28-32); MEAN CORPUSCULAR HGB CONC 31.8 g/dL (31-35); MEAN CORPUSCULAR VOLUME 93.1 fL (81-99); MONOCYTES # (AUTO) 0.8 (0.2-0.8); NEUTROPHILS # (AUTO) 8.1 (2.1-6.9); NEUTROPHILS % 70.1 % (38.7-80.0); PLATELET COUNT 272 x10e3/uL (140-360); RED BLOOD COUNT 3.31 x10e6/uL (3.6-5.1); RED CELL DISTRIBUTION WIDTH 15.9 % (11.7-14.4)
[2022-11-22 21:59] LABS: ALBUMIN 3.4 g/dL (3.5-5.0); ANION GAP 12.3 mmol/L (8-16); CALCIUM 9.1 mg/dL (8.4-10.2); CREATININE, SERUM 1.33 mg/dL (0.57-1.11); POTASSIUM 4.3 mmol/L (3.5-5.1)
[2022-11-22 22:06] LABS: CLARITY,URINE CLEAR (CLEAR); COLOR,URINE YELLOW (YELLOW); KETONES,URINE NEGATIVE (NEGATIVE); LEUKOCYTE ESTERASE ,URINE NEGATIVE (NEGATIVE); NITRITE,URINE NEGATIVE (NEGATIVE); PROTEIN,URINE DIPSTICK NEGATIVE (NEGATIVE); URINE UROBILINOGEN 0.2 mg/dL (0.2 - 1)
[2022-11-22 22:09] LABS: BACTERIA,URINE FEW /HPF; EPITHELIAL CELLS,URINE MANY /LPF; RBC,URINE 0-5 /HPF (0-5); WBC,URINE (MAN) 0-5 /HPF (0-5)
[2022-11-22] MEDS ORDERED: DEXTROSE 50% SYRINGE 50 ML IV STA (23:08)
[2022-11-22] MEDS ORDERED: ONDANSETRON HCL INJ 2MG/ML 2ML 2 MG/ML VIAL IV PRN (23:15)
[2022-11-22] MEDS ORDERED: DEXTROSE 10% 1,000 ML IV ONE (23:15)
[2022-11-22] MEDS ORDERED: Morphine 4mg INJECTION 4 MG/ML INJ IV PRN (23:15)
[2022-11-22 23:20] VITALS: PULSE 67; RESP 14; O2SAT 95
[2022-11-23] VITALS (48 sets, daily range): BP systolic 87–192; BP diastolic 40–141; PULSE 59–81; RESP 11–21; TEMP 96–99.4; O2SAT 93–100
[2022-11-23 07:11] LABS: BASOPHILS % 0.3 % (0.0-1.0); EOSINOPHILS # (AUTO) 0.2 (0.0-0.4); EOSINOPHILS % 1.6 % (0.0-6.0); HEMATOCRIT 29.2 % (34.2-44.1); HEMOGLOBIN 9.4 g/dL (12.0-16.0); LYMPHOCYTES # (AUTO) 1.8 (1.0-3.2); LYMPHOCYTES % 19.9 % (18.0-39.1); MEAN CORPUSCULAR HEMOGLOBIN 29.7 pg (28-32); MEAN CORPUSCULAR HGB CONC 32.2 g/dL (31-35); MEAN CORPUSCULAR VOLUME 92.4 fL (81-99); MONOCYTES # (AUTO) 0.5 (0.2-0.8); MONOCYTES % 5.7 % (4.4-11.3); NEUTROPHILS # (AUTO) 6.6 (2.1-6.9); NEUTROPHILS % 72.3 % (38.7-80.0); PLATELET COUNT 233 x10e3/uL (140-360); RED BLOOD COUNT 3.16 x10e6/uL (3.6-5.1); RED CELL DISTRIBUTION WIDTH 15.6 % (11.7-14.4)
[2022-11-23 07:47] LABS: ALBUMIN/GLOBULIN RATIO 0.9 (0.8-2.0); ANION GAP 11.9 mmol/L (8-16); CALCIUM 8.8 mg/dL (8.4-10.2); CREATININE, SERUM 1.1 mg/dL (0.57-1.11); POTASSIUM 4.9 mmol/L (3.5-5.1)
[2022-11-23] MEDS ORDERED: OMEPRAZOLE40 MG PO (08:07)
[2022-11-23] MEDS ORDERED: CELEBREX100 MG PO (08:21)
[2022-11-23] MEDS ORDERED: NITROGLYCERIN0.4 MG SL (08:26)
[2022-11-23] MEDS ORDERED: LYRICA50 MG PO (08:33)
[2022-11-23] MEDS ORDERED: DEXTROSE 50% SYRINGE 50 ML IV PRN ×2 (09:00→09:45)
[2022-11-23] MEDS ORDERED: ACETAMINOPHEN 325 MG TAB PO PRN (09:00)
[2022-11-23] MEDS ORDERED: NITROGLYCERIN 0.4 MG SUBL SL PRN (09:00)
[2022-11-23] MEDS ORDERED: ALBUTEROL SULF 0.083% NEB SOLN 3 ML NEB NEB PRN (09:00)
[2022-11-23] MEDS: PREGABALIN 50 MG CAP PO SCH ×2 (10:01→17:00)
[2022-11-23] MEDS: PANTOPRAZOLE SOD 40 MG TABEC PO SCH (10:01)
[2022-11-23] MEDS: ISOSORBIDE MONONITRATE 30 MG TAB CR PO SCH (10:01)
[2022-11-23] MEDS: CARVEDILOL 12.5 MG TAB PO SCH ×2 (10:02→17:02)
[2022-11-23] MEDS: APIXABAN 5 MG TABLET PO SCH ×2 (10:02→17:00)
[2022-11-23] MEDS: CELECOXIB 100 MG CAP PO SCH ×2 (10:02→17:00)
[2022-11-23] MEDS: CLOPIDOGREL BISULFATE 75 MG TAB PO SCH (10:02)
[2022-11-23] MEDS: RANOLAZINE 500 MG TABSR PO SCH ×2 (10:03→17:01)
[2022-11-23] MEDS: LEVOTHYROXINE SODIUM 50 MCG TAB PO SCH (10:09)
[2022-11-23] MEDS ORDERED: INSULIN LISPRO 100 UNIT/1 ML 3ML VIAL SQ SCH (11:30)
[2022-11-23] MEDS: INSULIN LISPRO 100 UNIT/1 ML 3ML VIAL SQ SCH ×3 (12:15→20:56)
[2022-11-23] MEDS: INSULIN ASPART 70/30 100 UNITS/ML VIAL SC SCH (16:54)
[2022-11-23] MEDS ORDERED: ATORVASTATIN 40 MG TAB PO SCH (21:00)
[2022-11-24 00:17] VITALS: BP 145/45; PULSE 67; RESP 17; TEMP 97.9; O2SAT 97
[2022-11-24 04:00] VITALS: BP 164/54; PULSE 71; RESP 16; TEMP 98.6; O2SAT 96
[2022-11-24] MEDS: LEVOTHYROXINE SODIUM 50 MCG TAB PO SCH (06:08)
[2022-11-24] MEDS: PANTOPRAZOLE SOD 40 MG TABEC PO SCH (06:08)
[2022-11-24 07:47] VITALS: BP 179/67; PULSE 71; RESP 20; TEMP 98.6; O2SAT 100
[2022-11-24 08:19] VITALS: BP 179/67; PULSE 71; RESP 20; TEMP 98.6; O2SAT 100
[2022-11-24] MEDS: APIXABAN 5 MG TABLET PO SCH (08:23)
[2022-11-24] MEDS: RANOLAZINE 500 MG TABSR PO SCH (08:23)
[2022-11-24] MEDS: PREGABALIN 50 MG CAP PO SCH (08:24)
[2022-11-24] MEDS: CELECOXIB 100 MG CAP PO SCH (08:24)
[2022-11-24] MEDS: CLOPIDOGREL BISULFATE 75 MG TAB PO SCH (08:24)
[2022-11-24] MEDS: ISOSORBIDE MONONITRATE 30 MG TAB CR PO SCH (08:25)
[2022-11-24] MEDS: CARVEDILOL 12.5 MG TAB PO SCH (08:25)
[2022-11-24] MEDS: INSULIN ASPART 70/30 100 UNITS/ML VIAL SC SCH (08:37)
[2022-11-24] MEDS: INSULIN LISPRO 100 UNIT/1 ML 3ML VIAL SQ SCH (08:37)
[2022-11-24 09:20] VITALS: PULSE 73; RESP 16; O2SAT 99
== END 2022-11-24 10:35 | disposition home or self-care (01) ==
LOC: ER 21:16 → ERHOLD 23:33 → INTOOBSV 23:33 → ICU 11-23 00:04 → MED/SURG 11-23 17:24
PROVIDERS: ADMIT Internal Medicine; ATTEND Internal Medicine
DX: T38.3X1A Poisoning by insulin and oral hypoglycemic [antidiabetic] drugs, accidental (unintentional), initial encounter (principal); E11.649 Type 2 diabetes mellitus with hypoglycemia without coma; Z79.4 Long term (current) use of insulin; T68.XXXA Hypothermia, initial encounter; I11.0 Hypertensive heart disease with heart failure; I50.9 Heart failure, unspecified; J44.9 Chronic obstructive pulmonary disease, unspecified; I48.91 Unspecified atrial fibrillation; Z79.01 Long term (current) use of anticoagulants; Z95.810 Presence of automatic (implantable) cardiac defibrillator; I25.2 Old myocardial infarction; E78.5 Hyperlipidemia, unspecified; M54.9 Dorsalgia, unspecified; G89.29 Other chronic pain; F03.90 Unspecified dementia, unspecified severity, without behavioral disturbance, psychotic disturbance, mood disturbance, and anxiety; Z86.73 Personal history of transient ischemic attack (TIA), and cerebral infarction without residual deficits; Z79.02 Long term (current) use of antithrombotics/antiplatelets; Z79.899 Other long term (current) drug therapy; Y92.009 Unspecified place in unspecified non-institutional (private) residence as the place of occurrence of the external cause
CPT/HCPCS: 36415 ×3; 71045; 80053 ×2; 81001; 82550 ×2; 82948 ×3; 83605; 84484 ×2; 85025 ×2; 87040; 87086; 87186; 93005; 94799 ×3; 96372; 99252; 99285; G0378 ×3; J1815; J7799; S0164 ×2; U0002